=== PATIENT | female | born 1945 | race Caucasian/White ===

== ENCOUNTER 2018-01-16 16:55 | Inpatient (IN) | payer MEDICAID ==
[2018-01-16 16:56] VITALS: BMI 20.9
[2018-01-16] MEDS ORDERED: Sodium Chloride 0.9% 1,000 ML IV ONE ×2 (17:52→21:22)
--- NOTE | 2018-01-16 18:21 | C.PDOC ---
History Of Present Illness 72 y/o female presents to ED c/o diffuse abdominal pain and decreased appetite. (+)fecal occult blood in the clinic. Denies significant weight loss. Pt was referred to [facility] for outpatient colonoscopy. She denies blood in stool, fever, any other associated symptoms at this time. Time Seen by Provider: 01/16/18 17:43 Chief Complaint (Nursing): Abdominal Pain History Per: Patient History/Exam Limitations: no limitations Past Medical History Reviewed: Historical Data, Nursing Documentation, Vital Signs Vital Signs: Last Vital Signs Temp 98.6 F 01/16/18 17:01 Pulse 70 01/16/18 17:01 Resp 20 01/16/18 17:01 BP 200/82 H 01/16/18 17:01 Pulse Ox 100 01/16/18 17:01 - Medical History PMH: HTN, Hypercholesterolemia, Hypothyroidism, TIA (10 years ago) Denies: Chronic Kidney Disease Family History: States: Unknown Family Hx - Social History Hx Alcohol Use: No Hx Substance Use: No - Immunization History Hx Tetanus Toxoid Vaccination: (unk) Hx Influenza Vaccination: Yes (12/2017) Hx Pneumococcal Vaccination: No Review Of Systems Except As Marked, All Systems Reviewed And Found Negative. Constitutional: Negative for: Fever, Chills Gastrointestinal: Positive for: Nausea, Abdominal Pain. Negative for: Vomiting Genitourinary: Negative for: Dysuria, Frequency Physical Exam - Physical Exam Appears: Non-toxic, No Acute Distress Skin: Normal Color, Warm, Dry Head: Atraumatic, Normacephalic Eye(s): bilateral: Normal Inspection Oral Mucosa: Moist Neck: Supple Cardiovascular: Rhythm Regular Respiratory: Normal Breath Sounds, No Rales, No Rhonchi, No Wheezing Gastrointestinal/Abdominal: Soft, Tenderness (vague), No Guarding, No Rebound Back: No CVA Tenderness Extremity: Normal ROM Neurological/Psych: Oriented x3, Normal Speech ED Course And Treatment - Laboratory Results Result Diagrams: 01/16/18 18:23 01/16/18 18:23 Lab Interpretation: Abnormal (acute renal insuff, baselin bun/creat 9/0.8, lipase 451 H, Calcium 14.6 H (prior wnl many)) Urine POC: Negative ECG: Interpreted By Me ECG Rhythm: Sinus Rhythm ECG Interpretation: Normal Rate From EC O2 Sat by Pulse Oximetry: 100 Pulse Ox Interpretation: Normal - Radiology CXR: Interpreted by Me CXR Interpretation: Yes: No Acute Disease - Other Rad abd x 2 X-Ray: Interpreted by Me (+FOS) - CT Scan/US CT abd/pelvis Other Rad Studies (CT/US): Read By Radiologist, Radiology Report Reviewed CT/US Interpretation: IMPRESSION: No acute intra-abdominal or pelvic abnormality. . Electronically signed on Jan 16, 2018 9:15:50 PM EDT by: Jemal Ortiz M.D., Certified by ABR, Diagnostic Radiology Reevaluation Time: 21:26 Reassessment Condition: Improved - Physician Consult Information Outcome Of Conversation: 2130: d/w Dr. Mitchell- Hospitalist covering Clinic pts Medical Decision Making Medical Decision Making: dry, hypercalcemia, constipation, renal insuffiency, mild elevated LFT's concerning for metastatic dz Agressive hydration to lower Calcium Consider Tumor markers and further imaging for primary/mets Disposition Doctor Will See Patient In The: Hospital Counseled Patient/Family Regarding: Studies Performed, Diagnosis - Disposition Disposition: HOSPITALIZED Disposition Time: 21:36 Condition: GOOD Forms: [facility] (Bulgarian) - Clinical Impression Clinical Impression: Pancreatitis, Constipation, Hypercalcemia - Scribe Statement The provider has reviewed the documentation as recorded by the Scribe KP All medical record entries made by the Scribe were at my direction and personally dictated by me. I have reviewed the chart and agree that the record accurately reflects my personal performance of the history, physical exam, medical decision making, and the department course for this patient. I have also personally directed, reviewed, and agree with the discharge instructions and disposition.
--- NOTE | 2018-01-16 18:27 | RAD ---
Date of service: 01/16/2018 PROCEDURE: Radiographs of the chest and abdomen (obstructive series) HISTORY: abd pain COMPARISON: No prior. TECHNIQUE: AP radiograph of the chest, with upright and supine radiographs of the abdomen. FINDINGS: CHEST: Lungs: Clear. Cardiovascular: Normal size heart. No pulmonary vascular congestion. Pleura: No pleural fluid. No pneumothorax. Other findings: None. ABDOMEN AND PELVIS: Bowel: Unremarkable bowel gas pattern. No evidence of mechanical obstruction. Free air: None. Bones: Lytic disease throughout visualized osseous structures of the pelvis and proximal femurs. Less pronounced changes identified in the thorax. Findings suggestive of multiple myeloma. Other findings: None. IMPRESSION: No evidence of bowel obstruction or free air. Lytic disease throughout visualized pelvis and proximal femurs suggestive of multiple myeloma.
[2018-01-16 18:28] LABS: BASO # 0.1 K/uL (0.0-0.2); BASO % 0.9 % (0.0-2.0); EOS # 0.2 K/uL (0.0-0.7); EOS % 3.1 % (0.0-4.0); HEMOGLOBIN 10.8 g/dL (11.0-16.0); LYMPH # 2.3 K/uL (1.0-4.3); LYMPH % 34.9 % (20.0-40.0); MEAN CELL VOLUME 93.8 fL (81.0-99.0); MEAN CORPUSCULAR HEMOGLOBIN 32.2 pg (27.0-31.0); MEAN CORPUSCULAR HGB CONC 34.3 g/dL (33.0-37.0); MEAN PLATELET VOLUME 10.1 fL (7.2-11.7); MONO # 0.7 K/uL (0.0-0.8); MONO % 10.6 % (0.0-10.0); NEUT # 3.3 K/uL (1.8-7.0); NEUT % 50.5 % (50.0-75.0); NRBC % 0.3 % (0.0-2.0); RBC 3.36 Mil/uL (3.80-5.20); RED CELL DISTRIBUTION WIDTH 16.7 % (11.5-14.5); WHITE BLOOD COUNT 6.5 K/uL (4.8-10.8)
[2018-01-16 18:54] LABS: URINE BACTERIA RARE (<OCC); URINE BILIRUBIN NEGATIVE (NEGATIVE); URINE BLOOD 1+ (NEGATIVE); URINE CLARITY Clear (Clear); URINE COLOR Colorless (YELLOW); URINE GLUCOSE (UA) NORMAL (Normal); URINE LEUKOCYTE ESTERASE NEG Leu/uL (Negative); URINE PROTEIN 1+ mg/dL (NEGATIVE); URINE UROBILINOGEN NORMAL mg/dL (0.2-1.0)
[2018-01-16 19:17] LABS: ALB/GLOB RATIO 1.1 (1.0-2.1); ALBUMIN 4.7 g/dL (3.5-5.0)
[2018-01-16 19:43] LABS: TROPONIN I 0.013 ng/mL (0.00-0.120)
[2018-01-16 19:52] LABS: CALCIUM 14.6 mg/dl (8.6-10.4)
[2018-01-17] MEDS: Sodium Chloride 0.9% 1,000 ML IV SCH ×4 (00:13→22:44)
--- NOTE | 2018-01-17 04:04 | CP.PCM.HP ---
<SohanmadiegillesDominick P - Last Filed: 01/17/18 07:28> Meds Allergies/Adverse Reactions: Allergies Allergy/AdvReac Type Severity Reaction Status Date / Time No Known Allergies Allergy Verified 01/16/18 17:07 Results - Vital Signs Recent Vital Signs: Last Vital Signs Temp 98.1 F 01/17/18 00:05 Pulse 61 01/17/18 06:05 Resp 20 01/17/18 00:05 BP 186/76 H 01/17/18 06:05 Pulse Ox 98 01/17/18 00:05 - Labs Result Diagrams: 01/16/18 18:23 01/16/18 18:23 Labs: Laboratory Results - last 24 hr 01/16/18 01/16/18 01/16/18 18:23 18:23 18:39 WBC 6.5 D RBC 3.36 L Hgb 10.8 L Hct 31.5 L MCV 93.8 MCH 32.2 H MCHC 34.3 RDW 16.7 H Plt Count 109 L D MPV 10.1 Neut % (Auto) 50.5 Lymph % (Auto) 34.9 Scurry % (Auto) 10.6 H Eos % (Auto) 3.1 Baso % (Auto) 0.9 Neut # (Auto) 3.3 Lymph # (Auto) 2.3 Scurry # (Auto) 0.7 Eos # (Auto) 0.2 Baso # (Auto) 0.1 Sodium 137 Potassium 4.5 Chloride 93 L Carbon Dioxide 28 Anion Gap 21 H BUN 33 H Creatinine 3.0 H Est GFR ( Amer) 19 Est GFR (Non-Af Amer) 15 POC Glucose (mg/dL) Random Glucose 102 Calcium 14.6 H* D Total Bilirubin 1.4 H AST 52 H D ALT 33 Alkaline Phosphatase 59 Troponin I 0.0130 Total Protein 9.1 H Albumin 4.7 Globulin 4.4 H Albumin/Globulin Ratio 1.1 Lipase 351 H Urine Color Colorless Urine Clarity Clear Urine pH 7.0 Ur Specific [place] 1.005 Urine Protein 1+ H Urine Glucose (UA) Normal Urine Ketones Negative Urine Blood 1+ H Urine Nitrate Negative Urine Bilirubin Negative Urine Urobilinogen Normal Ur Leukocyte Esterase Neg Urine WBC (Auto) 1 Urine RBC (Auto) 3 Urine Bacteria Rare 01/17/18 02:23 WBC RBC Hgb Hct MCV MCH MCHC RDW Plt Count MPV Neut % (Auto) Lymph % (Auto) Scurry % (Auto) Eos % (Auto) Baso % (Auto) Neut # (Auto) Lymph # (Auto) Scurry # (Auto) Eos # (Auto) Baso # (Auto) Sodium Potassium Chloride Carbon Dioxide Anion Gap BUN Creatinine Est GFR ( Amer) Est GFR (Non-Af Amer) POC Glucose (mg/dL) 88 Random Glucose Calcium Total Bilirubin AST ALT Alkaline Phosphatase Troponin I Total Protein Albumin Globulin Albumin/Globulin Ratio Lipase Urine Color Urine Clarity Urine pH Ur Specific [place] Urine Protein Urine Glucose (UA) Urine Ketones Urine Blood Urine Nitrate Urine Bilirubin Urine Urobilinogen Ur Leukocyte Esterase Urine WBC (Auto) Urine RBC (Auto) Urine Bacteria Attending/Attestation - Attestation I have personally seen and examined this patient.: Yes I have fully participated in the care of the patient.: Yes I have reviewed all pertinent clinical information: Yes Notes (Text): 01/17/18 07:12 Symptomatic hypercalcimia with increased urination, abd colic, dehydration, shay, ? bone lesions on CT, but alert and oriented, no mental status changes. Uncontrolled chronic htn ? h/o tia DM on metformin Plan Hold Acei/Arb, HCTZ IVF saline Will need to add bp meds to control bp during hydration, Lasix with patient is clinically euvolemic W/u pth, pth like prot, 25-oh vitd, 24 hr urine calcium, bone scan survey Echo, renal usg, doppler Nephrology consult GI/DVT prophylaxis <Rose Harden P - Last Filed: 01/17/18 14:16> History of Present Illness - History of Present Illness History of Present Illness: PGY-1 H&P note for Hospitalist service. 72 year old female with PMHx of HTN, Hypercholesterol, TIA (2007), DM presents to ED from the clinic for evaluation of generalized abdominal pain, loss of ap petite, and elevated blood pressure for the past 2 weeks. Patient reports an unintentional 20 pound weight loss in the past 18 months, a + FIT test, increased urination and polydipsia. Patient denies fever, chills, vomiting, diarrhea. PMHx: DM, HTN, hypothyroid, PVD, SHAY, hypercholesterol, TIA (2007) PSHx: hysterectomy 2007, thyroidectomy, breast cyst removal 2015 Meds: Simvastatn 10mg daily, metformin 500mg BID, Atenolol 50mg once daily, Losartan-HCTZ, norvasc 10mg daily, syndroid 88 mcg, Pentoxifylline ER 400mg, Isosorbide Dinitrate 10mg BID Allergies: NKDA Social: Denies tobacco, alcohol and drug use Family Hx: unknown Present on Admission - Present on Admission Any Indicators Present on Admission: No Past Patient History - Past Medical History & Family History Past Medical History?: Yes - Past Social History Smoking Status: Never Smoked - CARDIAC Hx Cardiac Disorders: Yes Hx Hypercholesterolemia: Yes Hx Hypertension: Yes - PULMONARY Hx Respiratory Disorders: No - NEUROLOGICAL Hx Neurological Disorder: Yes Hx Transient Ischemic Attacks (TIA): Yes (10 years ago) - HEENT Hx HEENT Problems: No Other/Comment: glasses - RENAL Hx Chronic Kidney Disease: No - ENDOCRINE/METABOLIC Hx Endocrine Disorders: Yes Hx Hypothyroidism: Yes - HEMATOLOGICAL/ONCOLOGICAL Hx Blood Disorders: No - INTEGUMENTARY Hx Dermatological Problems: Yes Other/Comment: cyst right breast - MUSCULOSKELETAL/RHEUMATOLOGICAL Hx Falls: No - GASTROINTESTINAL Hx Gastrointestinal Disorders: Yes Other/Comment: hx pancreatitis - GENITOURINARY/GYNECOLOGICAL Hx Genitourinary Disorders: No - PSYCHIATRIC Hx Substance Use: No - SURGICAL HISTORY Hx Surgeries: Yes Hx Hysterectomy: Yes Hx Thyroidectomy: Yes - ANESTHESIA Hx Anesthesia: Yes Hx Anesthesia Reactions: Yes (pt. states heart stopped on table 10 years ago) Hx Malignant Hyperthermia: No Physical Exam - Head Exam Head Exam: ATRAUMATIC, NORMOCEPHALIC - Eye Exam Eye Exam: EOMI, PERRL - ENT Exam ENT Exam: Mucous Membranes Moist - Neck Exam Neck exam: Positive for: Full Rom, Normal Inspection - Respiratory Exam Respiratory Exam: Clear to Auscultation Bilateral. absent: Rales, Rhonchi, Wheezes - Cardiovascular Exam Cardiovascular Exam: REGULAR RHYTHM, +S1, +S2 - GI/Abdominal Exam GI & Abdominal Exam: Normal Bowel Sounds, Soft. absent: Guarding, Rebound, Tenderness - Extremities Exam Extremities exam: Positive for: full ROM, pedal pulses present. Negative for: calf tenderness, pedal edema, tenderness - Neurological Exam Neurological exam: Alert, CN II-XII Intact, Oriented x3 - Psychiatric Exam Psychiatric exam: Normal Affect, Normal Mood - Skin Skin Exam: Dry, Intact, Normal Color, Warm Results - Vital Signs Recent Vital Signs: Last Vital Signs Temp 98.1 F 01/17/18 00:05 Pulse 68 01/17/18 03:04 Resp 20 01/17/18 00:05 BP 191/77 H 01/17/18 03:04 Pulse Ox 98 01/17/18 00:05 - Labs Result Diagrams: 01/17/18 07:27 01/17/18 07:27 Labs: Laboratory Results - last 24 hr 01/16/18 01/16/18 01/16/18 18:23 18:23 18:39 WBC 6.5 D RBC 3.36 L Hgb 10.8 L Hct 31.5 L MCV 93.8 MCH 32.2 H MCHC 34.3 RDW 16.7 H Plt Count 109 L D MPV 10.1 Neut % (Auto) 50.5 Lymph % (Auto) 34.9 Scurry % (Auto) 10.6 H Eos % (Auto) 3.1 Baso % (Auto) 0.9 Neut # (Auto) 3.3 Lymph # (Auto) 2.3 Scurry # (Auto) 0.7 Eos # (Auto) 0.2 Baso # (Auto) 0.1 Sodium 137 Potassium 4.5 Chloride 93 L Carbon Dioxide 28 Anion Gap 21 H BUN 33 H Creatinine 3.0 H Est GFR ( Amer) 19 Est GFR (Non-Af Amer) 15 POC Glucose (mg/dL) Random Glucose 102 Calcium 14.6 H* D Total Bilirubin 1.4 H AST 52 H D ALT 33 Alkaline Phosphatase 59 Troponin I 0.0130 Total Protein 9.1 H Albumin 4.7 Globulin 4.4 H Albumin/Globulin Ratio 1.1 Lipase 351 H Urine Color Colorless Urine Clarity Clear Urine pH 7.0 Ur Specific [place] 1.005 Urine Protein 1+ H Urine Glucose (UA) Normal Urine Ketones Negative Urine Blood 1+ H Urine Nitrate Negative Urine Bilirubin Negative Urine Urobilinogen Normal Ur Leukocyte Esterase Neg Urine WBC (Auto) 1 Urine RBC (Auto) 3 Urine Bacteria Rare 01/17/18 02:23 WBC RBC Hgb Hct MCV MCH MCHC RDW Plt Count MPV Neut % (Auto) Lymph % (Auto) [place] % (Auto) Eos % (Auto) Baso % (Auto) Neut # (Auto) Lymph # (Auto) [place] # (Auto) Eos # (Auto) Baso # (Auto) Sodium Potassium Chloride Carbon Dioxide Anion Gap BUN Creatinine Est GFR ( Amer) Est GFR (Non-Af Amer) POC Glucose (mg/dL) 88 Random Glucose Calcium Total Bilirubin AST ALT Alkaline Phosphatase Troponin I Total Protein Albumin Globulin Albumin/Globulin Ratio Lipase Urine Color Urine Clarity Urine pH Ur Specific [place] Urine Protein Urine Glucose (UA) Urine Ketones Urine Blood Urine Nitrate Urine Bilirubin Urine Urobilinogen Ur Leukocyte Esterase Urine WBC (Auto) Urine RBC (Auto) Urine Bacteria Assessment & Plan - Assessment and Plan (Free Text) Plan: Hypercalcemia likely secondary to malignancy -14.6 on admission -Abd CT pelvis: There are multiple on varying sized rounded lytic lesions scattered throughout all the osseous structures. Findings probably represent multiple myeloma however metastatic disease not excluded. Clinical correlation recommended. -f/u bone scan -Calcium 24 hr urine -PTH, PTH related protein -Hemeonc consult, help appreciated -IVF Hypertensive urgency -Atenolol 50mg PO daily -hydralazine 25mg PO TID SHAY -Renal US -monitor labs - hold ACEi/ARB -nephrology consult, help appreciated DM -Hold metformin -accuchecks Hyperlipidemia -Hold statin Hypothyroid -Levothyroxine 100mcg Daily PAD -Pentoxifylline 400mg PO BID -isosorbide dinitrate 10mg PO daily Prophylaxis -SCDs -chemical anticoagulation held due to thrombocytopenia -Pepcid 20mg daily - Date & Time Date: 01/16/18 Time: 21:00
[2018-01-17] MEDS: Levothyroxine 100 MCG TAB PO SCH (06:24)
[2018-01-17] MEDS ORDERED: (Novolin R) Insulin Human Regular 100 units/ml vial SC SCH (07:30)
[2018-01-17 07:55] LABS: BASO % 0.9 % (0.0-2.0); EOS # 0.2 K/uL (0.0-0.7); EOS % 3.5 % (0.0-4.0); HEMOGLOBIN 10.3 g/dL (11.0-16.0); LYMPH # 1.8 K/uL (1.0-4.3); LYMPH % 34.1 % (20.0-40.0); MEAN CELL VOLUME 93.9 fL (81.0-99.0); MEAN CORPUSCULAR HEMOGLOBIN 31.4 pg (27.0-31.0); MEAN CORPUSCULAR HGB CONC 33.4 g/dL (33.0-37.0); MEAN PLATELET VOLUME 10.6 fL (7.2-11.7); MONO # 0.5 K/uL (0.0-0.8); MONO % 9.5 % (0.0-10.0); NEUT # 2.7 K/uL (1.8-7.0); NRBC % 0.1 % (0.0-2.0); RBC 3.28 Mil/uL (3.80-5.20); RED CELL DISTRIBUTION WIDTH 16.5 % (11.5-14.5); WHITE BLOOD COUNT 5.2 K/uL (4.8-10.8)
[2018-01-17 08:10] LABS: ALB/GLOB RATIO 1.2 (1.0-2.1); ALBUMIN 4.3 g/dL (3.5-5.0)
[2018-01-17 08:34] LABS: CALCIUM 14.5 mg/dl (8.6-10.4)
--- NOTE | 2018-01-17 11:34 | US ---
Date of service: 01/17/2018 PROCEDURE: Ultrasound of the Kidneys HISTORY: htn, kaya COMPARISON: None available. TECHNIQUE: Sonogram of the kidneys. FINDINGS: RIGHT KIDNEY: Measures: 11.0 x 4.6 x 4.5 cm. Normal in size and contour. The right kidney exhibits echogenic parenchyma consistent with underlying medical renal disease No stone, solid mass lesion or hydronephrosis visualized. LEFT KIDNEY: Measures: 11.3 x 5.6 x 4.5 cm. Normal in size and contour. Left kidney also exhibits echogenic parenchyma consistent with underlying medical renal disease.. No stone, solid mass lesion or hydronephrosis visualized. OTHER FINDINGS: None. IMPRESSION: Findings consistent with underlying medical renal disease. No evidence of nephrolithiasis or hydronephrosis.
--- NOTE | 2018-01-17 12:39 | CT ---
Date of service: 01/16/2018 PROCEDURE: CT Abdomen and Pelvis HISTORY: Pancreatitis, wt loss COMPARISON: No prior study available for comparison. TECHNIQUE: Contiguous axial images of the abdomen and pelvis. Coronal and Sagittal reformats generated. Radiation dose: Total exam DLP = 294.46 mGy-cm. This CT exam was performed using one or more of the following dose reduction techniques: Automated exposure control, adjustment of the mA and/or kV according to patient size, and/or use of iterative reconstruction technique. FINDINGS: LOWER THORAX: Minor passive/dependent type atelectasis both posterior lower lung guzman. No focal consolidation. No effusion or basilar pneumothorax. Heart size is mildly enlarged. No significant pericardial effusion. There is a small hiatal hernia. Minimal wall thickening of the distal esophagus likely due to protrusion gastric mucosa. Esophagitis not excluded. LIVER: Liver is enlarged measuring nearly 21 cm in CC dimension. No obvious hepatic mass collection or calcification. GALLBLADDER AND BILE DUCTS: Gallbladder is incompletely distended. No evidence of intraluminal gallbladder calculi. PANCREAS: Pancreas is not well delineated due to the lack of oral contrast material as well as a paucity of intraperitoneal and retroperitoneal fat. No obvious large pancreatic masses common collections or abnormal calcifications identified. No significant pancreatic duct dilatation. SPLEEN: Unremarkable. No splenomegaly. ADRENALS: There are no adrenal lesions. KIDNEYS AND URETERS: Kidneys demonstrate relatively symmetric size. No evidence of nephrolithiasis or hydronephrosis. BLADDER: Urinary bladder is physiologically distended. No evidence of intraluminal urinary bladder calculi. REPRODUCTIVE: Hysterectomy. APPENDIX: The appendix is not seen with complete certainty however no definitive evidence of acute appendicitis. BOWEL: The evaluation of the bowel is limited due to the lack of oral contrast material as well as a paucity of intraperitoneal fat with crowding of loops of bowel. Stomach is distended with food debris liquid and air. Visualized loops of small bowel exhibit relatively normal contour and caliber. No evidence of acute mechanical small bowel obstruction. Moderate amount of stool seen throughout the large bowel suggesting fecal retention/constipation. No definitive evidence of mural wall thickening. PERITONEUM: Unremarkable. No fluid collection. No free air. Small fat containing umbilical hernia. LYMPH NODES: Unremarkable. No enlarged lymph nodes. VASCULATURE: Unremarkable. No aortic aneurysm. BONES: There are numerous some varying sized rounded lytic lesions scattered throughout all the visualized lower thoracic lumbar sacral segments and pelvis. Lesions are also present within both proximal femurs. Findings may represent multiple myeloma however the diffuse metastatic disease to be considered. OTHER FINDINGS: None. IMPRESSION: There are multiple on varying sized rounded lytic lesions scattered throughout all the osseous structures. Findings probably represent multiple myeloma however metastatic disease not excluded. Clinical correlation recommended. Hepatomegaly. The note that this report was placed in PA review for follow-up. Findings also discussed with Dr. Pena at 12:37 p.m. with written down and read back verification
--- NOTE | 2018-01-17 16:36 | CP.PCM.PN ---
Subjective - Date & Time of Evaluation Date of Evaluation: 01/17/18 Time of Evaluation: 08:00 - Subjective Subjective: PGY2 Medicine Note for Dr. Murguia Patient seen and examined this morning at bedside. Patient states she is feeling better but is still experiencing some pain. She describes the pain as if her bones are hurting her, in her hip and low back. She is still experiencing some abdominal pain but she is seen eating breakfast. She states she is feeling much better compared to yesterday. Denies fevers, chills, nausea, vomiting, diarrhea, constipation, chest pain, shortness of breath, numbness or tingling. Objective - Vital Signs/Intake and Output Vital Signs (last 24 hours): Temp Pulse Resp BP Pulse Ox 98.5 F 85 20 155/79 H 96 01/17/18 08:00 01/17/18 14:00 01/17/18 08:00 01/17/18 14:00 01/17/18 08:00 Intake and Output: 01/17/18 01/17/18 06:59 18:59 Intake Total 300 Balance 300 - Medications Medications: Current Medications Acetaminophen (Tylenol 325mg Tab) 650 mg PO Q6 PRN PRN Reason: Pain, moderate (4-7) Aspirin (Aspirin Chewable) 81 mg PO DAILY [facility] Last Admin: 01/17/18 10:26 Dose: 81 mg Atenolol (Tenormin) 50 mg PO DAILY [facility] Last Admin: 01/17/18 10:26 Dose: 50 mg Famotidine (Pepcid) 20 mg PO DAILY [facility] Last Admin: 01/17/18 10:26 Dose: 20 mg Heparin Sodium (Porcine) (Heparin) 5,000 units SC Q12 [facility] Last Admin: 01/17/18 10:28 Dose: Not Given Hydralazine HCl (Apresoline) 25 mg PO TID [facility] Last Admin: 01/17/18 13:34 Dose: 25 mg Sodium Chloride (Sodium Chloride 0.9%) 1,000 mls @ 100 mls/hr IV .Q10H [facility] Isosorbide Dinitrate (Isordil) 10 mg PO DAILY [facility] Last Admin: 01/17/18 10:27 Dose: 10 mg Levothyroxine Sodium (Synthroid) 100 mcg PO DAILY@0630 [facility] Last Admin: 01/17/18 06:24 Dose: 100 mcg Pentoxifylline (Pentoxil) 400 mg PO BID [facility] Last Admin: 01/17/18 10:27 Dose: 400 mg Pneumococcal Polyvalent Vaccine (Pneumovax 23 Vaccine) 0.5 ml IM .ONCE ONE Stop: 01/18/18 10:01 - Labs Labs: 01/17/18 07:27 01/17/18 07:27 - Constitutional Appears: Non-toxic, No Acute Distress - Head Exam Head Exam: ATRAUMATIC, NORMOCEPHALIC - Eye Exam Eye Exam: Normal appearance - ENT Exam ENT Exam: Mucous Membranes Moist - Neck Exam Neck Exam: absent: Lymphadenopathy - Respiratory Exam Respiratory Exam: Clear to Ausculation Bilateral, NORMAL BREATHING PATTERN. absent: Accessory Muscle Use, Rales, Rhonchi, Wheezes, Respiratory Distress - Cardiovascular Exam Cardiovascular Exam: REGULAR RHYTHM, +S1, +S2 - GI/Abdominal Exam GI & Abdominal Exam: Soft. absent: Distended, Firm, Guarding, Rigid, Tenderness - Extremities Exam Extremities Exam: absent: Calf Tenderness, Pedal Edema - Back Exam Back Exam: vertebral tenderness (lumbar region). absent: paraspinal tenderness - Neurological Exam Neurological Exam: Alert, Awake, Oriented x3 - Psychiatric Exam Psychiatric exam: Normal Affect, Normal Mood - Skin Skin Exam: Dry, Warm Assessment and Plan - Assessment and Plan (Free Text) Plan: Hypercalcemia - ddx 2/2 multiple myeloma or malignancy - Hem/Onc consulted, Dr. Bran - help appreciated * patient will most likely need a bone biopsy to rule out multiple myeloma * follow up further recs - 14.6 on admission - Abd CT pelvis 01/17: There are multiple on varying sized rounded lytic lesions scattered throughout all the osseous structures. Findings probably represent multiple myeloma however metastatic disease not excluded. Clinical correlation recommended. - Bone Scan: pending - Calcium 24 hr urine - PTH, PTH related protein - NS@100mL/hr Hypertensive urgency - ECHO: pending official report - Aspirin 81mg PO daily - Atenolol 50mg PO daily - Hydralazine 25mg PO TID - Vasotec 2.5mg IVP for SBP>170 SHAY - nephrology consult, Dr. Espinal - Cr 3.3 (was 0.8 on 10/29/17) - Renal US: Findings consistent with underlying medical renal disease. No evidence of nephrolithiasis or hydronephrosis. - NS@100mL/hr DM - Hold metformin - accuchecks Hyperlipidemia -Hold statin Hypothyroid -Levothyroxine 100mcg Daily PAD -Pentoxifylline 400mg PO BID -isosorbide dinitrate 10mg PO daily Prophylaxis -SCDs -chemical anticoagulation held due to thrombocytopenia -Pepcid 20mg daily A conversation was had with patient, her and son at bedside because the family was confused and thought she was diagnosed with cancer. It was discussed that the patient has not been diagnosed with anything at this time but we are calling in multiple consults, Dr. Espinal (nephro) and Dr. Bran (hem/onc) to do further testing to find out the reason for the extensive increase of calcium in her blood. Patient's is currently being treated by Dr. Bran for prostate cancer and they thought that she had been diagnosed with cancer. Patient and family state they now understand that there is currently no diagnosis but cancer is a possibility for the increase in calcium, along with other reasons as well. Case discussed with Dr. Shantal Camacho Robbin PGY2
[2018-01-17] MEDS ORDERED: Enalaprilat 2.5 MG/2 ML IV PRN (17:30)
--- NOTE | 2018-01-17 18:13 | CP.PCM.CON ---
History of Present Illness - History of Present Illness History of Present Illness: 72 year old female with a history of hypothyroid, presenting with abdominal pain and diminished appetite, found to have hypercalcemia, renal failure, anemia/thrombocytopenia, and lytic bone lesions concerning for multiple myeloma. The patient notes to not feeling well for the past few days. She notes to increasing abdominal discomfort and poor appetite. She denies fevers and chills. She has no N/V/D. A CT scan revealed lytic bone lesions. Past medical history: Hyporthyroid Past surgical history: [employer] surgery Family history: Denies hematologic and oncologic problems Social history: Denies tobacco, alcohol, and illicit drug use. Allergies: NKA Review of systems: All remaining review of systems including HEENT, c ardiovascular, respiratory, gastrointestinal, genitourinary, musculoskeletal, dermatologic, neurologic, and psychiatric are negative unless mentioned in the HPI. Past Patient History - Past Medical History & Family History Past Medical History?: Yes - Past Social History Smoking Status: Never Smoked - CARDIAC Hx Cardiac Disorders: Yes Hx Hypercholesterolemia: Yes Hx Hypertension: Yes - PULMONARY Hx Respiratory Disorders: No - NEUROLOGICAL Hx Neurological Disorder: Yes Hx Transient Ischemic Attacks (TIA): Yes (10 years ago) - HEENT Hx HEENT Problems: No Other/Comment: glasses - RENAL Hx Chronic Kidney Disease: No - ENDOCRINE/METABOLIC Hx Endocrine Disorders: Yes Hx Hypothyroidism: Yes - HEMATOLOGICAL/ONCOLOGICAL Hx Blood Disorders: No - INTEGUMENTARY Hx Dermatological Problems: Yes Other/Comment: cyst right breast - MUSCULOSKELETAL/RHEUMATOLOGICAL Hx Falls: No - GASTROINTESTINAL Hx Gastrointestinal Disorders: Yes Other/Comment: hx pancreatitis - GENITOURINARY/GYNECOLOGICAL Hx Genitourinary Disorders: No - PSYCHIATRIC Hx Substance Use: No - SURGICAL HISTORY Hx Surgeries: Yes Hx Hysterectomy: Yes Hx Thyroidectomy: Yes - ANESTHESIA Hx Anesthesia: Yes Hx Anesthesia Reactions: Yes (pt. states heart stopped on table 10 years ago) Hx Malignant Hyperthermia: No Meds Allergies/Adverse Reactions: Allergies Allergy/AdvReac Type Severity Reaction Status Date / Time No Known Allergies Allergy Verified 01/16/18 17:07 - Medications Medications: Current Medications Acetaminophen (Tylenol 325mg Tab) 650 mg PO Q6 PRN PRN Reason: Pain, moderate (4-7) Aspirin (Aspirin Chewable) 81 mg PO DAILY [facility] Last Admin: 01/17/18 10:26 Dose: 81 mg Atenolol (Tenormin) 50 mg PO DAILY [facility] Last Admin: 01/17/18 10:26 Dose: 50 mg Enalaprilat (Vasotec) 1.25 mg IV Q6H PRN PRN Reason: SBP>170 Famotidine (Pepcid) 20 mg PO DAILY [facility] Last Admin: 01/17/18 10:26 Dose: 20 mg Heparin Sodium (Porcine) (Heparin) 5,000 units SC Q12 [facility] Last Admin: 01/17/18 10:28 Dose: Not Given Hydralazine HCl (Apresoline) 25 mg PO TID [facility] Last Admin: 01/17/18 13:34 Dose: 25 mg Sodium Chloride (Sodium Chloride 0.9%) 1,000 mls @ 100 mls/hr IV .Q10H [facility] Isosorbide Dinitrate (Isordil) 10 mg PO DAILY [facility] Last Admin: 01/17/18 10:27 Dose: 10 mg Levothyroxine Sodium (Synthroid) 100 mcg PO DAILY@0630 [facility] Last Admin: 01/17/18 06:24 Dose: 100 mcg Pentoxifylline (Pentoxil) 400 mg PO BID [facility] Last Admin: 01/17/18 10:27 Dose: 400 mg Pneumococcal Polyvalent Vaccine (Pneumovax 23 Vaccine) 0.5 ml IM .ONCE ONE Stop: 01/18/18 10:01 Physical Exam - Head Exam Head Exam: ATRAUMATIC - Eye Exam Eye Exam: Normal appearance - ENT Exam ENT Exam: Mucous Membranes Dry - Respiratory Exam Respiratory Exam: NORMAL BREATHING PATTERN - Cardiovascular Exam Cardiovascular Exam: +S1, +S2 - GI/Abdominal Exam GI & Abdominal Exam: Normal Bowel Sounds - Extremities Exam Extremities exam: Positive for: normal inspection - Neurological Exam Neurological exam: Oriented x3 - Psychiatric Exam Psychiatric exam: Normal Affect, Normal Mood - Skin Skin Exam: Warm Results - Vital Signs Recent Vital Signs: Last Vital Signs Temp 97.9 F 01/17/18 16:00 Pulse 61 01/17/18 16:00 Resp 20 01/17/18 16:00 BP 178/80 H 01/17/18 16:00 Pulse Ox 98 01/17/18 16:00 - Labs Result Diagrams: 01/18/18 07:24 01/18/18 07:24 Labs: Laboratory Results - last 24 hr 01/16/18 01/16/18 01/16/18 18:23 18:23 18:39 WBC 6.5 D RBC 3.36 L Hgb 10.8 L Hct 31.5 L MCV 93.8 MCH 32.2 H MCHC 34.3 RDW 16.7 H Plt Count 109 L D MPV 10.1 Neut % (Auto) 50.5 Lymph % (Auto) 34.9 [place] % (Auto) 10.6 H Eos % (Auto) 3.1 Baso % (Auto) 0.9 Neut # (Auto) 3.3 Lymph # (Auto) 2.3 [place] # (Auto) 0.7 Eos # (Auto) 0.2 Baso # (Auto) 0.1 Differential Comment Sodium 137 Potassium 4.5 Chloride 93 L Carbon Dioxide 28 Anion Gap 21 H BUN 33 H Creatinine 3.0 H Est GFR ( Amer) 19 Est GFR (Non-Af Amer) 15 POC Glucose (mg/dL) Random Glucose 102 Calcium 14.6 H* D Total Bilirubin 1.4 H AST 52 H D ALT 33 Alkaline Phosphatase 59 Troponin I 0.0130 Total Protein 9.1 H Albumin 4.7 Globulin 4.4 H Albumin/Globulin Ratio 1.1 Lipase 351 H 25-OH Vitamin D Total Urine Color Colorless Urine Clarity Clear Urine pH 7.0 Ur Specific [place] 1.005 Urine Protein 1+ H Urine Glucose (UA) Normal Urine Ketones Negative Urine Blood 1+ H Urine Nitrate Negative Urine Bilirubin Negative Urine Urobilinogen Normal Ur Leukocyte Esterase Neg Urine WBC (Auto) 1 Urine RBC (Auto) 3 Urine Bacteria Rare 01/17/18 01/17/18 01/17/18 02:23 07:27 07:27 WBC 5.2 RBC 3.28 L Hgb 10.3 L Hct 30.8 L MCV 93.9 MCH 31.4 H MCHC 33.4 RDW 16.5 H Plt Count 94 L MPV 10.6 Neut % (Auto) 52.0 Lymph % (Auto) 34.1 [place] % (Auto) 9.5 Eos % (Auto) 3.5 Baso % (Auto) 0.9 Neut # (Auto) 2.7 Lymph # (Auto) 1.8 [place] # (Auto) 0.5 Eos # (Auto) 0.2 Baso # (Auto) 0.0 Differential Comment Sodium 141 Potassium 3.7 Chloride 98 Carbon Dioxide 28 Anion Gap 18 BUN 27 H Creatinine 3.3 H Est GFR ( Amer) 17 Est GFR (Non-Af Amer) 14 POC Glucose (mg/dL) 88 Random Glucose 88 Calcium 14.5 H* Total Bilirubin 0.9 AST 30 ALT 37 Alkaline Phosphatase 54 Troponin I Total Protein 8.0 Albumin 4.3 Globulin 3.7 Albumin/Globulin Ratio 1.2 Lipase 25-OH Vitamin D Total Urine Color Urine Clarity Urine pH Ur Specific [place] Urine Protein Urine Glucose (UA) Urine Ketones Urine Blood Urine Nitrate Urine Bilirubin Urine Urobilinogen Ur Leukocyte Esterase Urine WBC (Auto) Urine RBC (Auto) Urine Bacteria 01/17/18 01/17/18 01/17/18 07:27 07:39 11:57 WBC RBC Hgb Hct MCV MCH MCHC RDW Plt Count MPV Neut % (Auto) Lymph % (Auto) [place] % (Auto) Eos % (Auto) Baso % (Auto) Neut # (Auto) Lymph # (Auto) [place] # (Auto) Eos # (Auto) Baso # (Auto) Differential Comment Sodium Potassium Chloride Carbon Dioxide Anion Gap BUN Creatinine Est GFR ( Amer) Est GFR (Non-Af Amer) POC Glucose (mg/dL) 83 70 Random Glucose Calcium Total Bilirubin AST ALT Alkaline Phosphatase Troponin I Total Protein Albumin Globulin Albumin/Globulin Ratio Lipase 25-OH Vitamin D Total 60.3 Urine Color Urine Clarity Urine pH Ur Specific [place] Urine Protein Urine Glucose (UA) Urine Ketones Urine Blood Urine Nitrate Urine Bilirubin Urine Urobilinogen Ur Leukocyte Esterase Urine WBC (Auto) Urine RBC (Auto) Urine Bacteria 01/17/18 16:15 WBC RBC Hgb Hct MCV MCH MCHC RDW Plt Count MPV Neut % (Auto) Lymph % (Auto) [place] % (Auto) Eos % (Auto) Baso % (Auto) Neut # (Auto) Lymph # (Auto) [place] # (Auto) Eos # (Auto) Baso # (Auto) Differential Comment Sodium Potassium Chloride Carbon Dioxide Anion Gap BUN Creatinine Est GFR ( Amer) Est GFR (Non-Af Amer) POC Glucose (mg/dL) 98 Random Glucose Calcium Total Bilirubin AST ALT Alkaline Phosphatase Troponin I Total Protein Albumin Globulin Albumin/Globulin Ratio Lipase 25-OH Vitamin D Total Urine Color Urine Clarity Urine pH Ur Specific [place] Urine Protein Urine Glucose (UA) Urine Ketones Urine Blood Urine Nitrate Urine Bilirubin Urine Urobilinogen Ur Leukocyte Esterase Urine WBC (Auto) Urine RBC (Auto) Urine Bacteria Assessment & Plan (1) Hypercalcemia Assessment and Plan: rule out malignancy ?multiple myeloma IV fluids recommend intact PTH myeloma w/u sent will consider bisphosphonate if malignancy confirmed and renal function improved Status: Acute (2) Lytic lesion of bone on x-ray Assessment and Plan: rule out multiple myeloma myeloma w/u sent will plan for bone marrow biopsy Friday Status: Acute (3) Anemia Assessment and Plan: retic, b12, folate, ferritin +FOBT ?multiple myeloma Status: Acute (4) Thrombocytopenia Assessment and Plan: ?multiple myeloma Thank you for this interesting consult. Status: Acute
[2018-01-18] MEDS: Levothyroxine 100 MCG TAB PO SCH (05:46)
[2018-01-18 07:36] LABS: BASO % 0.9 % (0.0-2.0); EOS # 0.2 K/uL (0.0-0.7); EOS % 3.6 % (0.0-4.0); HEMOGLOBIN 9.3 g/dL (11.0-16.0); LYMPH # 1.6 K/uL (1.0-4.3); LYMPH % 30.5 % (20.0-40.0); MEAN CELL VOLUME 94.1 fL (81.0-99.0); MEAN PLATELET VOLUME 10.1 fL (7.2-11.7); MONO # 0.5 K/uL (0.0-0.8); MONO % 10.2 % (0.0-10.0); NEUT # 2.8 K/uL (1.8-7.0); NEUT % 54.8 % (50.0-75.0); NRBC % 0.3 % (0.0-2.0); RBC 2.91 Mil/uL (3.80-5.20); RED CELL DISTRIBUTION WIDTH 16.6 % (11.5-14.5); WHITE BLOOD COUNT 5.2 K/uL (4.8-10.8)
[2018-01-18 08:24] LABS: ALB/GLOB RATIO 1.1 (1.0-2.1); ALBUMIN 3.8 g/dL (3.5-5.0); CALCIUM 13.6 mg/dl (8.6-10.4)
[2018-01-18] MEDS: Sodium Chloride 0.9% 1,000 ML IV SCH ×3 (08:45→17:50)
[2018-01-18] MEDS ORDERED: Pneumococcal 23-Valent Vaccine IM ONE (10:00)
[2018-01-18 14:22] LABS: URINE 24 HOUR CALCIUM 237.8 mg/24hr (100-300); URINE CALCIUM 8.2 mg/dL
--- NOTE | 2018-01-18 20:55 | CP.PCM.PN ---
<Doug Siegel - Last Filed: 01/18/18 20:47> Subjective - Date & Time of Evaluation Date of Evaluation: 01/18/18 Time of Evaluation: 10:00 - Subjective Subjective: PGY2 Medicine Note for Dr. Loco Patient seen and examined this morning at bedside. No acute events overnight. Patient states she is feeling better today but she is still experiencing mild abdominal pain. Her "bone pains" have slightly improved but are still present today. Patient had is scheduled for bone scan later this morning. Patient is tolerating her diet and reports her pain has been well controlled. Denies fevers, chills, nausea, vomiting, shortness of breath, numbness or tingling. Objective - Vital Signs/Intake and Output Vital Signs (last 24 hours): Temp Pulse Resp BP Pulse Ox 97.7 F 60 20 162/67 H 98 01/18/18 15:00 01/18/18 15:00 01/18/18 15:00 01/18/18 15:00 01/18/18 15:00 Intake and Output: 01/18/18 01/19/18 18:59 06:59 Intake Total 1979 Output Total 0 Balance 1980 - Medications Medications: Current Medications Acetaminophen (Tylenol 325mg Tab) 650 mg PO Q6 PRN PRN Reason: Pain, moderate (4-7) Aspirin (Aspirin Chewable) 81 mg PO DAILY [facility] Last Admin: 01/18/18 09:55 Dose: 81 mg Atenolol (Tenormin) 100 mg PO DAILY [facility] Last Admin: 01/18/18 10:11 Dose: 100 mg Famotidine (Pepcid) 20 mg PO DAILY [facility] Last Admin: 01/18/18 09:55 Dose: 20 mg Heparin Sodium (Porcine) (Heparin) 5,000 units SC Q12 [facility] Last Admin: 01/17/18 10:28 Dose: Not Given Hydralazine HCl (Apresoline) 50 mg PO TID [facility] Last Admin: 01/18/18 17:47 Dose: 50 mg Sodium Chloride (Sodium Chloride 0.9%) 1,000 mls @ 100 mls/hr IV .Q10H [facility] Last Admin: 01/18/18 17:50 Dose: 100 mls/hr Isosorbide Dinitrate (Isordil) 10 mg PO DAILY [facility] Last Admin: 01/18/18 10:12 Dose: 10 mg Levothyroxine Sodium (Synthroid) 100 mcg PO DAILY@0630 [facility] Last Admin: 01/18/18 05:46 Dose: 100 mcg Pentoxifylline (Pentoxil) 400 mg PO BID [facility] Last Admin: 01/18/18 17:47 Dose: 400 mg - Labs Labs: 01/18/18 07:24 01/18/18 07:24 - Additional Findings Additional findings: - Constitutional Appears: Non-toxic, No Acute Distress - Head Exam Head Exam: ATRAUMATIC, NORMOCEPHALIC - Eye Exam Eye Exam: Normal appearance - ENT Exam ENT Exam: Mucous Membranes Moist - Neck Exam Neck Exam: absent: Lymphadenopathy - Respiratory Exam Respiratory Exam: Clear to Ausculation Bilateral, NORMAL BREATHING PATTERN. absent: Accessory Muscle Use, Rales, Rhonchi, Wheezes, Respiratory Distress - Cardiovascular Exam Cardiovascular Exam: REGULAR RHYTHM, +S1, +S2 - GI/Abdominal Exam GI & Abdominal Exam: Soft. absent: Distended, Firm, Guarding, Rigid, Tenderness - Extremities Exam Extremities Exam: absent: Calf Tenderness, Pedal Edema - Back Exam Back Exam: vertebral tenderness (lumbar region). absent: paraspinal tenderness - Neurological Exam Neurological Exam: Alert, Awake, Oriented x3 - Psychiatric Exam Psychiatric exam: Normal Affect, Normal Mood - Skin Skin Exam: Dry, Warm Assessment and Plan - Assessment and Plan (Free Text) Plan: Hypercalcemia - ddx 2/2 multiple myeloma or malignancy - Hem/Onc consulted, Dr. Bran - help appreciated * patient will most likely need a bone biopsy to rule out multiple myeloma * follow up further recs - 14.6 on admission * downtrending to 13.6 today - Abd CT pelvis 01/17: There are multiple on varying sized rounded lytic lesions scattered throughout all the osseous structures. Findings probably represent multiple myeloma however metastatic disease not excluded. Clinical correlation recommended. - Bone Scan: official report pending - Calcium 24 hr urine - PTH intact, PTH related protein, [place]/Lambda, Immunofixation, Calcium (ionized), protein electrophoresis - Vit D 68.5 - NS@100mL/hr Hypertensive urgency - BP still uncontrolled - ECHO: pending official report - Aspirin 81mg PO daily - Atenolol 50mg PO daily --> increased to 100mg PO daily - Hydralazine 25mg PO TID --> increased to 50mg PO TID SHAY - nephrology consult, Dr. Espinal - Dr. Robles covering - Cr 3.3 (was 0.8 on 10/29/17) - Renal US: Findings consistent with underlying medical renal disease. No evidence of nephrolithiasis or hydronephrosis. - NS@100mL/hr DM - Hold metformin - accuchecks Hyperlipidemia -Hold statin Hypothyroid -Levothyroxine 100mcg Daily PAD -Pentoxifylline 400mg PO BID -isosorbide dinitrate 10mg PO daily Prophylactic Care -SCDs -chemical anticoagulation held due to thrombocytopenia -Pepcid 20mg daily Discussion with patient, patient's , Resident Robbin and Dr. Loco. It was reiterated to patient and her that there has not been any diagnosis of cancer at this time. It was explained specifically that we are doing multiple tests to attempt r/o different causing of hypercalcemia, but multiple myeloma specifically as it would explain all of the patient's signs/symptoms (hypercalcemia, renal insufficiency, anemia and bone lesions). Patient and state they understand that there is no new information at this time and that we are currently awaiting the test results. Case discussed with Dr. Claudy Reynan PGY2 <Rayne Loco V - Last Filed: 01/19/18 21:04> Objective - Vital Signs/Intake and Output Vital Signs (last 24 hours): Temp Pulse Resp BP Pulse Ox 97.4 F L 60 20 164/72 H 98 01/19/18 16:00 01/19/18 16:00 01/19/18 16:00 01/19/18 16:00 01/19/18 16:00 Intake and Output: 01/19/18 01/20/18 18:59 06:59 Intake Total 1600 Balance 1600 - Medications Medications: Current Medications Acetaminophen (Tylenol 325mg Tab) 650 mg PO Q6 PRN PRN Reason: Pain, moderate (4-7) Amlodipine Besylate (Norvasc) 10 mg PO DAILY [facility] Last Admin: 01/19/18 09:27 Dose: 10 mg Aspirin (Aspirin Chewable) 81 mg PO DAILY [facility] Last Admin: 01/19/18 09:30 Dose: 81 mg Atenolol (Tenormin) 100 mg PO DAILY [facility] Last Admin: 10/08/18 09:33 Dose: 100 mg Famotidine (Pepcid) 20 mg PO DAILY [facility] Last Admin: 01/19/18 09:27 Dose: 20 mg Heparin Sodium (Porcine) (Heparin) 5,000 units SC Q12 [facility] Last Admin: 01/17/18 10:28 Dose: Not Given Hydralazine HCl (Apresoline) 50 mg PO TID [facility] Last Admin: 01/19/18 17:52 Dose: 50 mg Sodium Chloride (Sodium Chloride 0.9%) 1,000 mls @ 100 mls/hr IV .Q10H [facility] Last Admin: 01/19/18 13:24 Dose: Not Given Isosorbide Dinitrate (Isordil) 10 mg PO DAILY [facility] Last Admin: 01/19/18 09:31 Dose: 10 mg Levothyroxine Sodium (Synthroid) 100 mcg PO DAILY@0630 [facility] Last Admin: 01/19/18 05:38 Dose: 100 mcg Pentoxifylline (Pentoxil) 400 mg PO BID [facility] Last Admin: 01/19/18 17:53 Dose: 400 mg - Labs Labs: 01/19/18 07:22 01/19/18 07:22 Attending/Attestation - Attestation I have personally seen and examined this patient.: Yes I have fully participated in the care of the patient.: Yes I have reviewed all pertinent clinical information, including history, physical exam and plan: Yes Notes (Text): This is late computer entry for 01/18/18. Patient seen, examined, and case discussed with medical doctor nuclear medicine. Patient reporting abdominal pains and reports bone pains. Patient has persistent hypercalcemia, anemia, acute renal insufficiency and strong suspicion for multiple myeloma. Patient on EKG does not show change in QT interval, nor chest pain, nor palpitations. Patient has had CT scan without contrast noting for lytic lesions. Nephrology (Dr. Espinal) being covered by Dr. Gilmore discussed case with him as well as patient is being following by heme oncology as well. Patient with history of hypertension, we have increased her beta roxana and hydralazine. Patient's echo is pending read as well. Assessment/Plan 1) Hypercalcemia Assessment/Plan * ddx 2/2 multiple myeloma or malignancy * Hem/Onc consulted, Dr. Bran - help appreciated * patient will most likely need a bone biopsy to rule out multiple myeloma * follow up further recs * 14.6 on admission * downtrending to 13.6 today * Patient is on IV fluids * Patient denies taking Vitamin D supplementation; vitamin D levels are normal * Workup pending including: * PTH intact, PTH related protein, [place]/Lambda, Immunofixation, Calcium (ionized), protein electrophoresis, Bence Pena * Abd CT pelvis 01/17: There are multiple on varying sized rounded lytic lesions scattered throughout all the osseous structures. Findings probably represent multiple myeloma however metastatic disease not excluded. Clinical correlation recommended. * Bone Scan: official report pending * Patient to undergo Calcium 24 hr urine 2) Hypertensive urgency Assessment/Plan * BP still uncontrolled * ECHO: pending official report * Aspirin 81mg PO daily * Atenolol 50mg PO daily --> increased to 100mg PO daily * Hydralazine 25mg PO TID --> increased to 50mg PO TID * isosorbide dinitrate 10mg PO daily 3) Acute Renal Failure Assessment/Plan * nephrology consult, Dr. Espinal - Dr. Robles covering * Cr 3.3 (was 0.8 on 10/29/17) * Renal US: Findings consistent with underlying medical renal disease. No evidence of nephrolithiasis or hydronephrosis. * NS@100mL/hr 4) History of DM Assessment/Plan * Hold metformin * accuchecks QAC and HS 5) Hyperlipidemia Assessment/Plan * Hold statin 6) Hypothyroid Assessment/Plan * Levothyroxine 100mcg Daily 7) PAD Assessment/Plan * Pentoxifylline 400mg PO BID 8) Prophylactic Care * SCDs * chemical anticoagulation held due to thrombocytopenia * Pepcid 20mg daily
--- NOTE | 2018-01-18 21:31 | CP.PCM.PN ---
Subjective - Date & Time of Evaluation Date of Evaluation: 01/18/18 Time of Evaluation: 19:00 - Subjective Subjective: Feeling better Objective - Vital Signs/Intake and Output Vital Signs (last 24 hours): Temp Pulse Resp BP Pulse Ox 97.7 F 60 20 162/67 H 98 01/18/18 15:00 01/18/18 15:00 01/18/18 15:00 01/18/18 15:00 01/18/18 15:00 Intake and Output: 01/18/18 01/19/18 18:59 06:59 Intake Total 1980 Output Total 0 Balance 1979 - Medications Medications: Current Medications Acetaminophen (Tylenol 325mg Tab) 650 mg PO Q6 PRN PRN Reason: Pain, moderate (4-7) Aspirin (Aspirin Chewable) 81 mg PO DAILY [facility] Last Admin: 01/18/18 09:55 Dose: 81 mg Atenolol (Tenormin) 100 mg PO DAILY [facility] Last Admin: 01/18/18 10:11 Dose: 100 mg Famotidine (Pepcid) 20 mg PO DAILY [facility] Last Admin: 01/18/18 09:55 Dose: 20 mg Heparin Sodium (Porcine) (Heparin) 5,000 units SC Q12 [facility] Last Admin: 01/17/18 10:28 Dose: Not Given Hydralazine HCl (Apresoline) 50 mg PO TID [facility] Last Admin: 01/18/18 17:47 Dose: 50 mg Sodium Chloride (Sodium Chloride 0.9%) 1,000 mls @ 100 mls/hr IV .Q10H [facility] Last Admin: 01/18/18 17:50 Dose: 100 mls/hr Isosorbide Dinitrate (Isordil) 10 mg PO DAILY [facility] Last Admin: 01/18/18 10:12 Dose: 10 mg Levothyroxine Sodium (Synthroid) 100 mcg PO DAILY@0630 [facility] Last Admin: 01/18/18 05:46 Dose: 100 mcg Pentoxifylline (Pentoxil) 400 mg PO BID [facility] Last Admin: 01/18/18 17:47 Dose: 400 mg - Labs Labs: 01/18/18 07:24 01/18/18 07:24 - Head Exam Head Exam: ATRAUMATIC - Eye Exam Eye Exam: Normal appearance - ENT Exam ENT Exam: Mucous Membranes Dry - Respiratory Exam Respiratory Exam: NORMAL BREATHING PATTERN - Cardiovascular Exam Cardiovascular Exam: +S1, +S2 - GI/Abdominal Exam GI & Abdominal Exam: Normal Bowel Sounds Assessment and Plan (1) Hypercalcemia Assessment & Plan: IV fluids myeloma w/u bone marrow biopsy for Friday Status: Acute (2) Lytic lesion of bone on x-ray Status: Acute (3) Anemia Status: Acute (4) Thrombocytopenia Status: Acute
--- NOTE | 2018-01-18 21:39 | CP.PCM.CON ---
History of Present Illness - History of Present Illness History of Present Illness: REASONS FOR CONSULT : SHAY + ANEMIA + HYPERCALCEMIA ALONG WITH THROMBOCYTOPENIA ALL EMR REVIEWED .. LABS REVIEWED .. CASE D/W MED RESIDENT ON ROUND .. I AM COVERING FOR DR HARRIS 72 year old female with PMHx of HTN, Hypercholesterol, TIA (2007), DM presents to ED from the clinic for evaluation of generalized abdominal pain, loss of appetite, and elevated blood pressure for the past 2 weeks. Patient reports an unintentional 20 pound weight loss in the past 18 months, a + FIT test, increased urination and polydipsia. Patient denies fever, chills, vomiting, diarrhea. PMHx: DM, HTN, hypothyroid, PVD, SHAY, hypercholesterol, TIA (2007) PSHx: hysterectomy 2007, thyroidectomy, breast cyst removal 2015 Meds: Simvastatn 10mg daily, metformin 500mg BID, Atenolol 50mg once daily, Losartan-HCTZ, norvasc 10mg daily, syndroid 88 mcg, Pentoxifylline ER 400mg, Isosorbide Dinitrate 10mg BID Allergies: NKDA Social: Denies tobacco, alcohol and drug use Family Hx: unknown Present on Admission - Present on Admission Any Indicators Present on Admission: No Past Patient History - Past Medical History & Family History Past Medical History?: Yes - Past Social History Smoking Status: Never Smoked - CARDIAC Hx Cardiac Disorders: Yes Hx Hypercholesterolemia: Yes Hx Hypertension: Yes - PULMONARY Hx Respiratory Disorders: No - NEUROLOGICAL Hx Neurological Disorder: Yes Hx Transient Ischemic Attacks (TIA): Yes (10 years ago) - HEENT Hx HEENT Problems: No Other/Comment: glasses - RENAL Hx Chronic Kidney Disease: No - ENDOCRINE/METABOLIC Hx Endocrine Disorders: Yes Hx Hypothyroidism: Yes - HEMATOLOGICAL/ONCOLOGICAL Hx Blood Disorders: No - INTEGUMENTARY Hx Dermatological Problems: Yes Other/Comment: cyst right breast - MUSCULOSKELETAL/RHEUMATOLOGICAL Hx Falls: No - GASTROINTESTINAL Hx Gastrointestinal Disorders: Yes Other/Comment: hx pancreatitis - GENITOURINARY/GYNECOLOGICAL Hx Genitourinary Disorders: No - PSYCHIATRIC Hx Substance Use: No - SURGICAL HISTORY Hx Surgeries: Yes Hx Hysterectomy: Yes Hx Thyroidectomy: Yes - ANESTHESIA Hx Anesthesia: Yes Hx Anesthesia Reactions: Yes (pt. states heart stopped on table 10 years ago) Hx Malignant Hyperthermia: No Past Patient History - Past Medical History & Family History Past Medical History?: Yes - Past Social History Smoking Status: Never Smoked - CARDIAC Hx Cardiac Disorders: Yes Hx Hypercholesterolemia: Yes Hx Hypertension: Yes - PULMONARY Hx Respiratory Disorders: No - NEUROLOGICAL Hx Neurological Disorder: Yes Hx Transient Ischemic Attacks (TIA): Yes (10 years ago) - HEENT Hx HEENT Problems: No Other/Comment: glasses - RENAL Hx Chronic Kidney Disease: No - ENDOCRINE/METABOLIC Hx Endocrine Disorders: Yes Hx Hypothyroidism: Yes - HEMATOLOGICAL/ONCOLOGICAL Hx Blood Disorders: No - INTEGUMENTARY Hx Dermatological Problems: Yes Other/Comment: cyst right breast - MUSCULOSKELETAL/RHEUMATOLOGICAL Hx Falls: No - GASTROINTESTINAL Hx Gastrointestinal Disorders: Yes Other/Comment: hx pancreatitis - GENITOURINARY/GYNECOLOGICAL Hx Genitourinary Disorders: No - PSYCHIATRIC Hx Substance Use: No - SURGICAL HISTORY Hx Surgeries: Yes Hx Hysterectomy: Yes Hx Thyroidectomy: Yes - ANESTHESIA Hx Anesthesia: Yes Hx Anesthesia Reactions: Yes (pt. states heart stopped on table 10 years ago) Hx Malignant Hyperthermia: No Meds Allergies/Adverse Reactions: Allergies Allergy/AdvReac Type Severity Reaction Status Date / Time No Known Allergies Allergy Verified 01/16/18 17:07 - Medications Medications: Current Medications Acetaminophen (Tylenol 325mg Tab) 650 mg PO Q6 PRN PRN Reason: Pain, moderate (4-7) Aspirin (Aspirin Chewable) 81 mg PO DAILY [facility] Last Admin: 01/18/18 09:55 Dose: 81 mg Atenolol (Tenormin) 100 mg PO DAILY [facility] Last Admin: 01/18/18 10:11 Dose: 100 mg Famotidine (Pepcid) 20 mg PO DAILY [facility] Last Admin: 01/18/18 09:55 Dose: 20 mg Heparin Sodium (Porcine) (Heparin) 5,000 units SC Q12 [facility] Last Admin: 01/17/18 10:28 Dose: Not Given Hydralazine HCl (Apresoline) 50 mg PO TID [facility] Last Admin: 01/18/18 17:47 Dose: 50 mg Sodium Chloride (Sodium Chloride 0.9%) 1,000 mls @ 100 mls/hr IV .Q10H [facility] Last Admin: 01/18/18 17:50 Dose: 100 mls/hr Isosorbide Dinitrate (Isordil) 10 mg PO DAILY [facility] Last Admin: 01/18/18 10:12 Dose: 10 mg Levothyroxine Sodium (Synthroid) 100 mcg PO DAILY@0630 [facility] Last Admin: 01/18/18 05:46 Dose: 100 mcg Pentoxifylline (Pentoxil) 400 mg PO BID [facility] Last Admin: 01/18/18 17:47 Dose: 400 mg Results - Vital Signs Recent Vital Signs: Last Vital Signs Temp 97.7 F 01/18/18 15:00 Pulse 60 01/18/18 15:00 Resp 20 01/18/18 15:00 BP 162/67 H 01/18/18 15:00 Pulse Ox 98 01/18/18 15:00 - Labs Result Diagrams: 01/18/18 07:24 01/18/18 07:24 Labs: Laboratory Results - last 24 hr 01/18/18 01/18/18 01/18/18 07:16 07:24 07:24 WBC 5.2 RBC 2.91 L Hgb 9.3 L Hct 27.4 L MCV 94.1 MCH 32.0 H MCHC 34.0 RDW 16.6 H Plt Count 85 L MPV 10.1 Neut % (Auto) 54.8 Lymph % (Auto) 30.5 [place] % (Auto) 10.2 H Eos % (Auto) 3.6 Baso % (Auto) 0.9 Neut # (Auto) 2.8 Lymph # (Auto) 1.6 [place] # (Auto) 0.5 Eos # (Auto) 0.2 Baso # (Auto) 0.0 Sodium 139 Potassium 3.7 Chloride 102 Carbon Dioxide 25 Anion Gap 16 BUN 32 H Creatinine 3.3 H Est GFR ( Amer) 17 Est GFR (Non-Af Amer) 14 POC Glucose (mg/dL) 98 Random Glucose 98 Calcium 13.6 H* Total Bilirubin 0.7 AST 29 ALT 33 Alkaline Phosphatase 49 Total Protein 7.3 Albumin 3.8 Globulin 3.5 Albumin/Globulin Ratio 1.1 25-OH Vitamin D Total Urine Collection Time Urine Total Volume Urine Calcium Ur Calcium 24 Hr 01/18/18 01/18/18 01/18/18 11:45 12:00 13:32 WBC RBC Hgb Hct MCV MCH MCHC RDW Plt Count MPV Neut % (Auto) Lymph % (Auto) [place] % (Auto) Eos % (Auto) Baso % (Auto) Neut # (Auto) Lymph # (Auto) [place] # (Auto) Eos # (Auto) Baso # (Auto) Sodium Potassium Chloride Carbon Dioxide Anion Gap BUN Creatinine Est GFR ( Amer) Est GFR (Non-Af Amer) POC Glucose (mg/dL) 115 H Random Glucose Calcium Total Bilirubin AST ALT Alkaline Phosphatase Total Protein Albumin Globulin Albumin/Globulin Ratio 25-OH Vitamin D Total 68.5 Urine Collection Time 24 Urine Total Volume 2900 Urine Calcium 8.2 Ur Calcium 24 Hr 237.8 01/18/18 16:05 WBC RBC Hgb Hct MCV MCH MCHC RDW Plt Count MPV Neut % (Auto) Lymph % (Auto) [place] % (Auto) Eos % (Auto) Baso % (Auto) Neut # (Auto) Lymph # (Auto) [place] # (Auto) Eos # (Auto) Baso # (Auto) Sodium Potassium Chloride Carbon Dioxide Anion Gap BUN Creatinine Est GFR ( Amer) Est GFR (Non-Af Amer) POC Glucose (mg/dL) 141 H Random Glucose Calcium Total Bilirubin AST ALT Alkaline Phosphatase Total Protein Albumin Globulin Albumin/Globulin Ratio 25-OH Vitamin D Total Urine Collection Time Urine Total Volume Urine Calcium Ur Calcium 24 Hr Assessment & Plan - Assessment and Plan (Free Text) Plan: SHAY + HYPERCALCEMIA + ANEMIA + LUTIC LESION ON CT SCAN .. PROBABLY MM KIDNEY HYPERCALCEMIA .. PROBABLY 2/2 MM MMP OUTLINED ABOVE P : C/O IVF D/C METFORMIN e GFR < 30 HEM / ONC CONSULT .. DR VICTOR MANUEL VAIL F/U WITH YOU VERY CLOSELY DR HARRIS TO F/U IN AM - Date & Time Date: 01/18/18 Time: 18:00
[2018-01-19] MEDS: Sodium Chloride 0.9% 1,000 ML IV SCH ×4 (05:07→23:40)
[2018-01-19] MEDS: Levothyroxine 100 MCG TAB PO SCH (05:38)
[2018-01-19 07:31] LABS: BASO % 0.9 % (0.0-2.0); EOS # 0.2 K/uL (0.0-0.7); EOS % 4.4 % (0.0-4.0); HEMOGLOBIN 9.4 g/dL (11.0-16.0); LYMPH # 1.7 K/uL (1.0-4.3); MEAN CELL VOLUME 93.8 fL (81.0-99.0); MEAN CORPUSCULAR HGB CONC 34.1 g/dL (33.0-37.0); MEAN PLATELET VOLUME 10.2 fL (7.2-11.7); MONO # 0.5 K/uL (0.0-0.8); NEUT # 3.1 K/uL (1.8-7.0); NEUT % 55.7 % (50.0-75.0); NRBC % 0.2 % (0.0-2.0); RBC 2.92 Mil/uL (3.80-5.20); RED CELL DISTRIBUTION WIDTH 16.8 % (11.5-14.5); WHITE BLOOD COUNT 5.5 K/uL (4.8-10.8)
--- NOTE | 2018-01-19 08:02 | CARD ---
APPROVED REPORT Date of service: 01/16/2018 EKG Measurement Heart [id number] <Conclusion> Normal sinus rhythm Nonspecific ST and T wave abnormality Abnormal ECG
[2018-01-19 08:24] LABS: ALB/GLOB RATIO 1.1 (1.0-2.1); ALBUMIN 3.8 g/dL (3.5-5.0)
[2018-01-19 08:56] LABS: CALCIUM 14.1 mg/dl (8.6-10.4)
--- NOTE | 2018-01-19 09:27 | CP.PCM.PN ---
<Santhosh Sauer - Last Filed: 01/19/18 18:19> Subjective - Date & Time of Evaluation Date of Evaluation: 01/19/18 Time of Evaluation: 09:10 - Subjective Subjective: Medicine Progress Note for Hospitalist Service Pt seen and examined at bedside this am. Reports R shoulder and leg pain that has been present for several weeks s/p fall at home on affected side. Reports diffuse abd pain, has been able to tolerate liquids but states she still feels very fatigued this am. Denies fever, chills, chest pain, sob, n/v/d/c, urinary complaints, or other symptoms. Reports urinary stream is about the same as yesterday. Objective - Vital Signs/Intake and Output Vital Signs (last 24 hours): Temp Pulse Resp BP Pulse Ox 98.3 F 61 20 180/77 H 97 01/19/18 08:38 01/19/18 08:38 01/19/18 08:38 01/19/18 08:38 01/19/18 08:38 Intake and Output: 01/19/18 01/19/18 06:59 18:59 Intake Total 1000 800 Output Total 400 Balance 600 800 - Medications Medications: Current Medications Acetaminophen (Tylenol 325mg Tab) 650 mg PO Q6 PRN PRN Reason: Pain, moderate (4-7) Amlodipine Besylate (Norvasc) 10 mg PO DAILY [facility] Aspirin (Aspirin Chewable) 81 mg PO DAILY [facility] Last Admin: 01/18/18 09:55 Dose: 81 mg Atenolol (Tenormin) 100 mg PO DAILY [facility] Last Admin: 01/18/18 10:11 Dose: 100 mg Famotidine (Pepcid) 20 mg PO DAILY [facility] Last Admin: 01/18/18 09:55 Dose: 20 mg Heparin Sodium (Porcine) (Heparin) 5,000 units SC Q12 [facility] Last Admin: 01/17/18 10:28 Dose: Not Given Hydralazine HCl (Apresoline) 50 mg PO TID [facility] Last Admin: 01/18/18 17:47 Dose: 50 mg Sodium Chloride (Sodium Chloride 0.9%) 1,000 mls @ 100 mls/hr IV .Q10H [facility] Last Admin: 01/19/18 05:08 Dose: 100 mls/hr Isosorbide Dinitrate (Isordil) 10 mg PO DAILY [facility] Last Admin: 10/07/18 10:12 Dose: 10 mg Levothyroxine Sodium (Synthroid) 100 mcg PO DAILY@0630 [facility] Last Admin: 01/19/18 05:38 Dose: 100 mcg Pentoxifylline (Pentoxil) 400 mg PO BID [facility] Last Admin: 01/18/18 17:47 Dose: 400 mg - Labs Labs: 01/19/18 07:22 01/19/18 07:22 - Constitutional Appears: Non-toxic, No Acute Distress, Chronically Ill - Head Exam Head Exam: ATRAUMATIC, NORMOCEPHALIC - Eye Exam Eye Exam: EOMI, Normal appearance, PERRL - ENT Exam ENT Exam: Mucous Membranes Moist - Respiratory Exam Respiratory Exam: Clear to Ausculation Bilateral, NORMAL BREATHING PATTERN. absent: Rales, Rhonchi, Wheezes - Cardiovascular Exam Cardiovascular Exam: REGULAR RHYTHM, +S1, +S2. absent: Gallop, Rubs, Murmur - GI/Abdominal Exam GI & Abdominal Exam: Soft, Tenderness, Normal Bowel Sounds, Rebound. absent: Distended, Firm, Guarding, Rigid, Organomegaly Additional comments: Diffuse tenderness to palpation in all 4 quadrants - Extremities Exam Extremities Exam: Full ROM, Normal Capillary Refill, Normal Inspection - Neurological Exam Neurological Exam: Alert, Awake, CN II-XII Intact, Oriented x3 - Psychiatric Exam Psychiatric exam: Normal Affect, Normal Mood - Skin Skin Exam: Dry, Intact, Normal Color, Warm Assessment and Plan - Assessment and Plan (Free Text) Plan: Hypercalcemia - Ddx 2/2 multiple myeloma or malignancy - Hem/Onc consulted, Dr. Bran - help appreciated patient will most likely need a bone biopsy to rule out multiple myeloma, possible bone marrow bx Tues 10 am follow up further recs - 14.6 on admission downtrending to 14.1 today - Abd CT pelvis 01/17: There are multiple on varying sized rounded lytic lesions scattered throughout all the osseous structures. Findings probably represent multiple myeloma however metastatic disease not excluded. Clinical correlation recommended. - Bone Scan: official report pending - Calcium 24 hr urine - PTH intact, PTH related protein, [place]/Lambda, Immunofixation, Calcium (ionized), protein electrophoresis - Vit D 68.5 - NS@100mL/hr - F/u XR shoulders b/l, repeat Ct abd/pelvis w/ PO contrast (pt c/o diffuse abd pain, prior CT study w/o contrast), echo read - Pt to be transferred to tele floor for elevated Ca Hypertensive urgency - BP still uncontrolled - ECHO: pending official report - Aspirin 81mg PO daily - Atenolol 50mg PO daily --> increased to 100mg PO daily - Hydralazine 25mg PO TID --> increased to 50mg PO TID - Amlodipine 10 mg daily added SHAY - nephrology consult, Dr. Espinal, f/u recs - Cr 3.3 today (was 0.8 on 10/29/17) - Renal US: Findings consistent with underlying medical renal disease. No evidence of nephrolithiasis or hydronephrosis. - NS@100mL/hr DM - Hold metformin - accuchecks Hyperlipidemia -Hold statin Hypothyroid -Levothyroxine 100mcg Daily PAD -Pentoxifylline 400mg PO BID -isosorbide dinitrate 10mg PO daily Prophylactic Care -SCDs -chemical anticoagulation held due to thrombocytopenia -Pepcid 20mg daily Pt seen, examined with, and plan d/w Dr. Loco, attending. Santhosh Sauer DO PGY-1, Science Technician Pager #[phone] <Rayne Loco V - Last Filed: 01/19/18 21:14> Objective - Vital Signs/Intake and Output Vital Signs (last 24 hours): Temp Pulse Resp BP Pulse Ox 97.4 F L 60 20 164/72 H 98 01/19/18 16:00 01/19/18 16:00 01/19/18 16:00 01/19/18 16:00 01/19/18 16:00 Intake and Output: 01/19/18 01/20/18 18:59 06:59 Intake Total 1600 Balance 1600 - Medications Medications: Current Medications Acetaminophen (Tylenol 325mg Tab) 650 mg PO Q6 PRN PRN Reason: Pain, moderate (4-7) Amlodipine Besylate (Norvasc) 10 mg PO DAILY [facility] Last Admin: 01/19/18 09:27 Dose: 10 mg Aspirin (Aspirin Chewable) 81 mg PO DAILY [facility] Last Admin: 01/19/18 09:30 Dose: 81 mg Atenolol (Tenormin) 100 mg PO DAILY [facility] Last Admin: 01/19/18 09:33 Dose: 100 mg Famotidine (Pepcid) 20 mg PO DAILY [facility] Last Admin: 01/19/18 09:27 Dose: 20 mg Heparin Sodium (Porcine) (Heparin) 5,000 units SC Q12 [facility] Last Admin: 01/17/18 10:28 Dose: Not Given Hydralazine HCl (Apresoline) 50 mg PO TID [facility] Last Admin: 01/19/18 17:52 Dose: 50 mg Sodium Chloride (Sodium Chloride 0.9%) 1,000 mls @ 100 mls/hr IV .Q10H [facility] Last Admin: 01/19/18 13:24 Dose: Not Given Isosorbide Dinitrate (Isordil) 10 mg PO DAILY [facility] Last Admin: 01/19/18 09:31 Dose: 10 mg Levothyroxine Sodium (Synthroid) 100 mcg PO DAILY@0630 [facility] Last Admin: 01/19/18 05:38 Dose: 100 mcg Pentoxifylline (Pentoxil) 400 mg PO BID [facility] Last Admin: 01/19/18 17:53 Dose: 400 mg - Labs Labs: 01/19/18 07:22 01/19/18 07:22 Attending/Attestation - Attestation I have personally seen and examined this patient.: Yes I have fully participated in the care of the patient.: Yes I have reviewed all pertinent clinical information, including history, physical exam and plan: Yes Notes (Text): Patient seen, examined and case discussed with medical administrator. Patient seen this afternoon. Patient continues to report abdominal pain, patient does have guarding on exam and reports she is constipated which she normally isnt. In addition, patient noting pain over the right shoulder and arm as well. Bone scan report not available at time of rounds; we have ordered for xrays in light of lytic lesions. patient has persistent hypercalcemia, will transfer to telemetry, and monitor urine output since renal function is poor. Patient reports she is urinating. Patient is planned for bone marrow biopsy tomorrow with Dr. Bran in the morning Assessment/Plan 1) Hypercalcemia Assessment/Plan * ddx 2/2 multiple myeloma or malignancy * Hem/Onc consulted, Dr. Bran - help appreciated * patient will most likely need a bone biopsy to rule out multiple myeloma * follow up further recs * 14.6 on admission * persistent * Patient is on IV fluids * Patient denies taking Vitamin D supplementation; vitamin D levels are normal * Workup pending including: * PTH intact, PTH related protein, [place]/Lambda, Immunofixation, Calcium (ionized), protein electrophoresis, Bence Pena * Abd CT pelvis 01/17: There are multiple on varying sized rounded lytic lesions scattered throughout all the osseous structures. Findings probably represent multiple myeloma however metastatic disease not excluded. Clinical correlation recommended. * Bone Scan: no correlates to findings on recent CT scan. specifically, the permeative pattern throughout thoracolumbar spine and pelvis constitutes lytic disease most likely myeloma * Patient to undergo Calcium 24 hr urine 2) Hypertensive urgency Assessment/Plan * BP still uncontrolled * ECHO: pending official report * Aspirin 81mg PO daily * Start on Norvasc 10mg Po daily * Atenolol 100mg PO daily * Hydralazine 50mg PO TID * isosorbide dinitrate 10mg PO daily * echocardiogram: left ventricle systolic function is normal. EF>70%. diastolic dysfunction. no aortic regurgitation is present. Mitral regurgitation is mild. Mild tricuspid regurgitation. mild pulmonary hypertension. mild pulmonic valvular regurgitation 3) Acute Renal Failure Assessment/Plan * nephrology consult, Dr. Espinal - Dr. Robles covering * Cr 3.3 (was 0.8 on 10/29/17) * Renal US: Findings consistent with underlying medical renal disease. No evidence of nephrolithiasis or hydronephrosis. * NS@100mL/hr * Pending renal scan nuclear medicine 4) History of DM Assessment/Plan * Hold metformin * accuchecks QAC and HS 5) Hyperlipidemia Assessment/Plan * Hold statin 6) Hypothyroid Assessment/Plan * Levothyroxine 100mcg Daily 7) PAD Assessment/Plan * Pentoxifylline 400mg PO BID 8) Right Shoulder Pain Assessment/Plan * Right shoulder xray: degenerative changes bilaterally. No acute findings. * Forearm xray: no significant or acute findings to acount for/related to the clinical presentation 9) Abdominal Pain * Check Ct abdomen/pelvis with PO contrast 10) Prophylactic Care * SCDs * chemical anticoagulation held due to thrombocytopenia * Pepcid 20mg daily Disposition: persistent hypercalcemia, transfer to telemetry to monitor for QT changes, bone marrow biopsy for tomorrow, pending official reads of imaging completed, c/w IV fluids
--- NOTE | 2018-01-19 11:09 | NM ---
Date of service: 01/18/2018 PROCEDURE: Whole Body Bone Scan HISTORY: hypercalcemia COMPARISON: 01/16/2018 CT abdomen and pelvis documenting widely disseminated lytic disease throughout thoracolumbar spine and pelvis TECHNIQUE: Following administration of 25.0 miCu of Tc MDP multiplanar whole body images were obtained. FINDINGS: Evidence for bony metastatic disease: None. Degenerative uptake: Right knee and both ankles Physiologic uptake: Normal physiologic activity in the kidneys. Other findings: None. IMPRESSION: There are no correlates to findings on recent CT scan. Specifically the permeative pattern throughout thoracolumbar spine and pelvis constitutes lytic disease most likely myeloma.
[2018-01-19] MEDS ORDERED: Iohexol 240 (50 ml) PO ONE (15:15)
--- NOTE | 2018-01-19 16:09 | CARD ---
APPROVED REPORT Date of service: 01/17/2018 EXAM: Two-dimensional and M-mode echocardiogram with Doppler and color Doppler. Other Information Quality : GoodRhythm : NSR RISK FACTORS Hypertension Hyperlipidemia 2D DIMENSIONS LA Abcsxy59 (18-58mL) M-Mode DIMENSIONS Left Atrium (MM)3.43 (2.5-4.0cm)IVSd1.14 (0.7-1.1cm) Aortic Root3.13 (2.2-3.7cm)LVDd5.79 (4.0-5.6cm) Aortic Cusp Exc.1.51 (1.5-2.0cm)PWd1.14 (0.7-1.1cm) FS (%) 48 %LVDs2.99 (2.0-3.8cm) LVEF (%)79 (>50%) Aortic Valve AoV Peak Ybisknvl130.6cm/Lianna Peak GR.7mmHg Mitral Valve MV E Hayikcie64.6cm/sMV A Knyvycqo11.7cm/sE/A ratio0.6 TDI Lateral E' Peak V5.13cm/sMedial E' Peak V3.90cm/sE/Lateral E'8.1 E/Medial E'10.7 Tricuspid Valve TR Peak [id number]/sTR Peak Gr.[id number] LEFT VENTRICLE The left ventricle is normal size. There is normal left ventricular wall thickness. Left ventricle systolic function is normal. The Ejection Fraction is >70%. There is normal LV segmental wall motion. Tissue Doppler imaging reveals abnormal left ventricular diastolic dysfunction. RIGHT VENTRICLE The right ventricle is normal size. There is normal right ventricular wall thickness. The right ventricular systolic function is normal. ATRIA The left atrium size is normal. The right atrium size is normal. The interatrial septum is intact with no evidence for an atrial septal defect. AORTIC VALVE The aortic valve is normal in structure. No aortic regurgitation is present. There is no aortic valvular stenosis. There is no aortic valvular vegetation. MITRAL VALVE The mitral valve is normal in structure. There is no evidence of mitral valve prolapse. There is no mitral valve stenosis. Mitral regurgitation is mild. TRICUSPID VALVE The tricuspid valve is normal in structure. There is mild tricuspid regurgitation. Right ventricular systolic pressure is estimated at 30-40 mmHg. There is mild pulmonary hypertension. PULMONIC VALVE The pulmonic valve is not well visualized. There is mild pulmonic valvular regurgitation. GREAT VESSELS The aortic root is normal in size. PERICARDIAL EFFUSION There is no significant pericardial effusion. <Conclusion> Left ventricle systolic function is normal. The Ejection Fraction is >70%. Diastolic dysfunction. No aortic regurgitation is present. Mitral regurgitation is mild. There is mild tricuspid regurgitation. There is mild pulmonary hypertension. There is mild pulmonic valvular regurgitation.
--- NOTE | 2018-01-19 17:58 | RAD ---
Date of service: 01/19/2018 PROCEDURE: Radiographs of both shoulders HISTORY: R shoulder pain COMPARISON: No prior. FINDINGS: BONES: Right shoulder: No fracture identified. Left shoulder: No fracture identified. JOINTS: Right shoulder: Glenohumeral degenerative changes mild-moderate. Left shoulder: Mild glenohumeral degenerative changes. Symmetrical acromioclavicular degenerative change. SOFT TISSUES: Right shoulder: Grossly unremarkable. Right shoulder: Grossly unremarkable. OTHER FINDINGS: None. IMPRESSION: Degenerative changes bilaterally. No acute findings
--- NOTE | 2018-01-19 18:49 | RAD ---
Date of service: 01/19/2018 PROCEDURE: Bilateral forearm HISTORY: Pain. No history of recent/ related trauma provided COMPARISON: None TECHNIQUE: Standard protocol for this study/examination. FINDINGS: Right forearm: No significant/acute osseous, articular or soft tissue abnormalities. Left forearm: No significant/acute osseous, articular or soft tissue abnormalities. IMPRESSION: No significant or acute findings to account for/ related to the clinical presentation.
--- NOTE | 2018-01-19 21:28 | CP.PCM.PN ---
Subjective - Date & Time of Evaluation Date of Evaluation: 01/19/18 Time of Evaluation: 12:00 - Subjective Subjective: urinating frequently; reports some cough, no sob; Objective - Vital Signs/Intake and Output Vital Signs (last 24 hours): Temp Pulse Resp BP Pulse Ox 97.4 F L 60 20 164/72 H 98 01/19/18 16:00 01/19/18 16:00 01/19/18 16:00 01/19/18 16:00 01/19/18 16:00 Intake and Output: 01/19/18 01/20/18 18:59 06:59 Intake Total 1600 Balance 1600 - Medications Medications: Current Medications Acetaminophen (Tylenol 325mg Tab) 650 mg PO Q6 PRN PRN Reason: Pain, moderate (4-7) Amlodipine Besylate (Norvasc) 10 mg PO DAILY [facility] Last Admin: 01/19/18 09:27 Dose: 10 mg Aspirin (Aspirin Chewable) 81 mg PO DAILY [facility] Last Admin: 01/19/18 09:30 Dose: 81 mg Atenolol (Tenormin) 100 mg PO DAILY [facility] Last Admin: 01/19/18 09:33 Dose: 100 mg Famotidine (Pepcid) 20 mg PO DAILY [facility] Last Admin: 01/19/18 09:27 Dose: 20 mg Heparin Sodium (Porcine) (Heparin) 5,000 units SC Q12 [facility] Last Admin: 01/17/18 10:28 Dose: Not Given Hydralazine HCl (Apresoline) 50 mg PO TID [facility] Last Admin: 01/19/18 17:52 Dose: 50 mg Sodium Chloride (Sodium Chloride 0.9%) 1,000 mls @ 100 mls/hr IV .Q10H [facility] Last Admin: 01/19/18 13:24 Dose: Not Given Isosorbide Dinitrate (Isordil) 10 mg PO DAILY [facility] Last Admin: 01/19/18 09:31 Dose: 10 mg Levothyroxine Sodium (Synthroid) 100 mcg PO DAILY@0630 [facility] Last Admin: 01/19/18 05:38 Dose: 100 mcg Pentoxifylline (Pentoxil) 400 mg PO BID [facility] Last Admin: 01/19/18 17:53 Dose: 400 mg - Labs Labs: 01/19/18 07:22 01/19/18 07:22 - Constitutional Appears: Non-toxic, No Acute Distress - Eye Exam Eye Exam: Normal appearance - Respiratory Exam Respiratory Exam: Clear to Ausculation Bilateral. absent: Respiratory Distress - Cardiovascular Exam Cardiovascular Exam: RRR, +S1, +S2 - GI/Abdominal Exam GI & Abdominal Exam: Soft. absent: Distended, Tenderness - Extremities Exam Additional comments: no leg edema; - Neurological Exam Neurological Exam: Alert, Awake - Skin Skin Exam: Warm. absent: Cyanosis Assessment and Plan (1) Acute renal failure Assessment & Plan: Non-oliguric renal failure; has multiple lytic lesions on imaging and profound hypercalcemia that points toward MM; if MM definitively diagnosed by BM biopsy and patient has a marked predominance of a light chain in serum, then renal biopsy may not be necessary; thrombocytopenia adds additional risk for renal biopsy; discussed with heme and will await further studies for now; -continue IVF w/ NS at 100 cc/hr (to avoid tubular obstruction); -avoid nephrotoxic agents; -obtaining 24 hr urine for UPEP; Status: Acute (2) HTN (hypertension) Assessment & Plan: BP markedly elevated; adding amlodipine 10 mg daily; continue rest of meds; giving dose of IV lasix; Status: Acute (3) Hypercalcemia Assessment & Plan: In the setting of likely lytic metastases; IV bisphosphonate relatively contraindicated at such low GFR; not complaining of bone pain; will continue IVF and loop diuretics as above; Status: Acute (4) Anemia Status: Acute
[2018-01-20] MEDS: Levothyroxine 100 MCG TAB PO SCH (06:24)
[2018-01-20 07:00] LABS: BASO % 0.9 % (0.0-2.0); EOS # 0.3 K/uL (0.0-0.7); EOS % 4.7 % (0.0-4.0); HEMOGLOBIN 9.6 g/dL (11.0-16.0); LYMPH # 1.5 K/uL (1.0-4.3); MEAN CELL VOLUME 94.5 fL (81.0-99.0); MEAN CORPUSCULAR HGB CONC 33.9 g/dL (33.0-37.0); MEAN PLATELET VOLUME 10.4 fL (7.2-11.7); MONO # 0.5 K/uL (0.0-0.8); MONO % 9.9 % (0.0-10.0); NEUT # 3.1 K/uL (1.8-7.0); NEUT % 57.5 % (50.0-75.0); NRBC % 0.2 % (0.0-2.0); WHITE BLOOD COUNT 5.4 K/uL (4.8-10.8)
[2018-01-20 07:04] LABS: INR 1.1; PROTHROMBIN TIME 11.7 SECONDS (9.7-12.2)
[2018-01-20 08:10] LABS: ALB/GLOB RATIO 1.1 (1.0-2.1); ALBUMIN 4.1 g/dL (3.5-5.0); CALCIUM 14.7 mg/dl (8.6-10.4)
[2018-01-20] MEDS: Sodium Chloride 0.45% 1,000 ML IV SCH ×3 (08:37→20:58)
--- NOTE | 2018-01-20 09:06 | CP.PCM.PN ---
<Brayan Lazcano - Last Filed: 01/20/18 21:17> Subjective - Date & Time of Evaluation Date of Evaluation: 01/20/18 Time of Evaluation: 09:00 - Subjective Subjective: Brayan Lazcano PGY-1, Medicine progress note Pt seen and examined at bedside this am. Patient reports continued right leg pain. Still feels very fatigued and reports not having eaten lunch or dinner yesterday general loss of appetite. Reports no bowel movement in 2 days. Denies fever, chills, chest pain, sob, n/v/d/c, urinary complaints or other symptoms. Objective - Vital Signs/Intake and Output Vital Signs (last 24 hours): Temp Pulse Resp BP Pulse Ox 98.2 F 66 20 190/79 H 95 01/20/18 07:00 01/20/18 08:00 01/20/18 07:00 01/20/18 07:00 01/20/18 07:00 - Medications Medications: Current Medications Acetaminophen (Tylenol 325mg Tab) 650 mg PO Q6 PRN PRN Reason: Pain, moderate (4-7) Amlodipine Besylate (Norvasc) 10 mg PO DAILY [facility] Last Admin: 01/19/18 09:27 Dose: 10 mg Aspirin (Aspirin Chewable) 81 mg PO DAILY [facility] Last Admin: 01/19/18 09:30 Dose: 81 mg Atenolol (Tenormin) 100 mg PO DAILY [facility] Last Admin: 01/19/18 09:33 Dose: 100 mg Famotidine (Pepcid) 20 mg PO DAILY [facility] Last Admin: 01/19/18 09:27 Dose: 20 mg Furosemide (Lasix) 40 mg IVP Q12 [facility] Heparin Sodium (Porcine) (Heparin) 5,000 units SC Q12 [facility] Last Admin: 01/17/18 10:28 Dose: Not Given Hydralazine HCl (Apresoline) 100 mg PO Q8H [facility] Sodium Chloride (Sodium Chloride 0.45%) 1,000 mls @ 75 mls/hr IV .[id number] [facility] Last Admin: 01/20/18 08:37 Dose: 75 mls/hr Isosorbide Dinitrate (Isordil) 10 mg PO DAILY [facility] Last Admin: 01/19/18 09:31 Dose: 10 mg Levothyroxine Sodium (Synthroid) 100 mcg PO DAILY@0630 [facility] Last Admin: 01/20/18 06:24 Dose: 100 mcg Pentoxifylline (Pentoxil) 400 mg PO BID [facility] Last Admin: 01/19/18 17:53 Dose: 400 mg - Labs Labs: 01/20/18 06:52 01/20/18 06:52 PT 11.7 SECONDS (9.7-12.2) 01/20/18 06:52 INR 1.1 01/20/18 06:52 - Constitutional Appears: Non-toxic, No Acute Distress - Head Exam Head Exam: NORMAL INSPECTION, NORMOCEPHALIC - Eye Exam Eye Exam: EOMI, Normal appearance - ENT Exam ENT Exam: Mucous Membranes Moist - Neck Exam Neck Exam: Normal Inspection - Respiratory Exam Respiratory Exam: Clear to Ausculation Bilateral. absent: Rales, Rhonchi, Wheezes, Respiratory Distress - Cardiovascular Exam Cardiovascular Exam: REGULAR RHYTHM, +S1, +S2 - GI/Abdominal Exam GI & Abdominal Exam: Soft, Tenderness (mild epigastric and right sided tenderness), Normal Bowel Sounds. absent: Distended, Firm, Guarding, Rigid - Extremities Exam Extremities Exam: Normal Inspection. absent: Pedal Edema - Neurological Exam Neurological Exam: Alert, Awake - Psychiatric Exam Psychiatric exam: Normal Affect, Normal Mood - Skin Skin Exam: Dry, Normal Color, Warm Assessment and Plan - Assessment and Plan (Free Text) Assessment: Hypercalcemia - pt on telemetry for cardiac monitoring - Ddx 2/2 multiple myeloma or malignancy - Hem/Onc consulted, Dr. Bran - help appreciated - bone marrow biopsy were successfully obtained in sterile manner but bone marrow aspirate was not obtained despite redirecting twice (DRY TAP). -f/u bone marrow biopsy results - 14.6 on admission Uptrending to 14.7 today - Abd CT pelvis 01/17: There are multiple on varying sized rounded lytic lesions scattered throughout all the osseous structures. Findings probably represent multiple myeloma however metastatic disease not excluded. Clinical correlation recommended. - Bone Scan: There are no correlates to findings on recent CT scan. Specifically the permeative pattern throughout thoracolumbar spine and pelvis constitutes lytic disease most likely myeloma - Calcium 24 hr urine is normal at 237.8 - PTH intact is low normal at 14 - immunofixation shows IgA-kappa monoclonal protein present. Free kappa (monoclonal free light chain) band present - PTH related protein, Dortches/Lambda, Calcium (ionized), protein electrophoresis - Vit D 68.5 - Right shoulder xray: degenerative changes bilaterally. No acute findings. - Forearm xray: no significant or acute findings to account for/related to the clinical presentation - Abd/pelv CT with PO and IV contrast (01/19) shows innumerable lytic osseous lesions consistent with multiple myeloma or metastatic disease. Bibasilar atelectasis. Trace right pleural effusion. Small hiatal hernia. Evidence of mild gastroesophageal reflux. Borderline heptomegaly. Diverticulosis without CT evidence of acute diverticulitis. Moderate constipation. Hypertensive urgency - hemodynamically stable; BP well controlled after adjustments note below - ECHO (01/19) shows LVEF>70%. Diastolic dysfunction. Mild MR. Mild TR, mild pulmonary hypertension. Mild pulmonic valvular regurgitation. - Aspirin 81mg PO daily - Atenolol 100mg PO daily - Hydralazine 50mg PO TID --> increased to 100mg PO TID - Amlodipine 10 mg daily Hypokalemia - potassium is 3.5 - repleted -continue to monitor SHAY - nephrology consult, Dr. Espinal, f/u recs - avoid nephrotoxic medications - 1/2 NS at 100 mL/hr - Cr is 3.4, up from 3.3 - Renal US: Findings consistent with underlying medical renal disease. No evidence of nephrolithiasis or hydronephrosis. DM - Hold metformin - accuchecks Hyperlipidemia -Hold statin Hypothyroid -Levothyroxine 100mcg Daily PAD - Pentoxifylline 400mg PO BID - Isodorbide dinitrate 10 mg PO TID Prophylactic Care -SCDs -chemical anticoagulation held due to thrombocytopenia -Pepcid 20mg daily Case was reviewed and discussed with attending physician, Dr. Claudy Lazcano PGY-1 <Rayne Loco V - Last Filed: 01/23/18 18:31> Objective - Vital Signs/Intake and Output Vital Signs (last 24 hours): Temp Pulse Resp BP Pulse Ox 98.4 F 62 20 138/69 95 01/23/18 07:00 01/23/18 07:00 01/23/18 07:00 01/23/18 17:29 01/23/18 07:00 - Medications Medications: Current Medications Acetaminophen (Tylenol 325mg Tab) 650 mg PO Q6 PRN PRN Reason: Pain, moderate (4-7) Amlodipine Besylate (Norvasc) 10 mg PO DAILY [facility] Last Admin: 01/23/18 10:22 Dose: 10 mg Aspirin (Aspirin Chewable) 81 mg PO DAILY [facility] Last Admin: 01/20/18 10:38 Dose: 81 mg Atenolol (Tenormin) 100 mg PO DAILY [facility] Last Admin: 01/23/18 10:23 Dose: 100 mg Benzonatate (Tessalon Perles) 100 mg PO TID [facility] Last Admin: 01/23/18 17:29 Dose: 100 mg Docusate Sodium (Colace) 100 mg PO TID [facility] Last Admin: 01/23/18 17:28 Dose: 100 mg Famotidine (Pepcid) 20 mg PO DAILY [facility] Last Admin: 01/23/18 10:22 Dose: 20 mg Furosemide (Lasix) 60 mg PO BID [facility] Last Admin: 01/23/18 17:29 Dose: 60 mg Heparin Sodium (Porcine) (Heparin) 5,000 units SC Q12 [facility] Last Admin: 01/17/18 10:28 Dose: Not Given Hydralazine HCl (Apresoline) 100 mg PO Q8H [facility] Last Admin: 01/23/18 13:35 Dose: 100 mg Sodium Chloride (Sodium Chloride 0.9%) 1,000 mls @ 125 mls/hr IV .Q8H [facility] Last Admin: 01/23/18 10:38 Dose: 125 mls/hr Isosorbide Dinitrate (Isordil) 10 mg PO Q8H [facility] Last Admin: 01/23/18 13:35 Dose: 10 mg Levothyroxine Sodium (Synthroid) 100 mcg PO DAILY@0630 [facility] Last Admin: 01/23/18 05:50 Dose: 100 mcg Methylprednisolone (Solu-Medrol) 40 mg IVP Q12 [facility] Last Admin: 01/23/18 10:28 Dose: 40 mg Ondansetron HCl (Zofran Inj) 4 mg IVP Q6H PRN PRN Reason: Nausea/Vomiting Pentoxifylline (Pentoxil) 400 mg PO BID [facility] Last Admin: 01/23/18 17:29 Dose: 400 mg - Labs Labs: 01/23/18 07:00 01/23/18 07:00 PT 11.7 SECONDS (9.7-12.2) 01/20/18 06:52 INR 1.1 01/20/18 06:52 Attending/Attestation - Attestation I have personally seen and examined this patient.: Yes I have fully participated in the care of the patient.: Yes I have reviewed all pertinent clinical information, including history, physical exam and plan: Yes Notes (Text): This is a late computer entry for 01/20/2018. Patient seen, examined, case discussed with medical scheduler. Patient underwent a bone marrow biopsy with hematology oncology. Discussed with stefanie on it was a dry tap. Patient is unable to get bisphosphonate secondary to low GFR. Patient is unable to get monoclonal antibody is not available to the pharmacy. There is discussion in regards to possible calcitonin to help reduce hypercalcemia. Patient blood pressure controlled. We'll follow bone marrow biopsy report to determine if patient has cancer or not. We are highly suspicious for cancer. Patient started on IV steroids by [facility] oncology.
[2018-01-20] MEDS: Potassium Chloride 20 mEq ER Tab PO SCH (10:38)
--- NOTE | 2018-01-20 12:25 | CT ---
PROCEDURE: CT Abdomen and Pelvis without IV contrast. HISTORY: diffuse abd pain COMPARISON: CT abdomen and pelvis without contrast performed 01/16/18 TECHNIQUE: Contiguous axial images of the abdomen and pelvis. Oral contrast was administered. No IV contrast given. Coronal and Sagittal reformats generated and reviewed. Radiation dose: Total exam DLP = 470.05 mGy-cm. This CT exam was performed using one or more of the following dose reduction techniques: Automated exposure control, adjustment of the mA and/or kV according to patient size, and/or use of iterative reconstruction technique. FINDINGS: There is limited evaluation of the solid organs without the administration of IV contrast. LOWER THORAX: Bibasilar atelectasis. Trace right pleural effusion. No visible pneumothorax. Small hiatal hernia. Evidence of mild gastroesophageal reflux. LIVER: Borderline hepatomegaly. GALLBLADDER AND BILE DUCTS: Unremarkable unenhanced appearance. PANCREAS: Unremarkable unenhanced appearance. SPLEEN: Unremarkable unenhanced appearance. ADRENALS: Unremarkable unenhanced appearance. KIDNEYS AND URETERS: No hydronephrosis or obstructing renal calculus. BLADDER: The urinary bladder appears unremarkable. REPRODUCTIVE: Uterus is present. APPENDIX: The appendix appears within normal limits of caliber. No secondary signs of acute appendicitis. BOWEL: The stomach is nondistended. The bowel loops appear within normal limits of caliber without evidence of intestinal obstruction. Diverticulosis without CT evidence of acute diverticulitis. Moderate constipation. PERITONEUM: No significant free fluid. No definite free air. LYMPH NODES: No bulky lymphadenopathy identified. VASCULATURE: Dense atherosclerotic calcifications of the aorta and branches. No aortic aneurysm. BONES: Innumerable lytic osseous lesions. OTHER FINDINGS: None. IMPRESSION: Innumerable lytic osseous lesions consistent with multiple myeloma or metastatic disease. Bibasilar atelectasis. Trace right pleural effusion. Small hiatal hernia. Evidence of mild gastroesophageal reflux. Borderline hepatomegaly. Diverticulosis without CT evidence of acute diverticulitis. Moderate constipation. Preliminary impression was provided by [employer]
--- NOTE | 2018-01-20 15:14 | CP.PCM.PN ---
Subjective - Date & Time of Evaluation Date of Evaluation: 01/20/18 Time of Evaluation: 08:00 - Subjective Subjective: Nephrology Progress Note for Dr. Espinal Patient was seen and examined at bedside. She states she has slight left lower back pain but other morrow feels well. Patient denies chest pain, shortness of breath, nausea, vomiting, diarrhea, constipation, fever or chills. Objective - Vital Signs/Intake and Output Vital Signs (last 24 hours): Temp Pulse Resp BP Pulse Ox 98.2 F 65 20 149/67 95 01/20/18 07:00 01/20/18 13:47 01/20/18 07:00 01/20/18 13:32 01/20/18 07:00 Intake and Output: 01/20/18 01/20/18 06:59 18:59 Intake Total 1000 Balance 1000 - Medications Medications: Current Medications Acetaminophen (Tylenol 325mg Tab) 650 mg PO Q6 PRN PRN Reason: Pain, moderate (4-7) Amlodipine Besylate (Norvasc) 10 mg PO DAILY [facility] Last Admin: 01/20/18 10:38 Dose: 10 mg Aspirin (Aspirin Chewable) 81 mg PO DAILY [facility] Last Admin: 01/20/18 10:38 Dose: 81 mg Atenolol (Tenormin) 100 mg PO DAILY [facility] Last Admin: 01/20/18 10:38 Dose: 100 mg Benzonatate (Tessalon Perles) 100 mg PO TID PRN PRN Reason: Cough Docusate Sodium (Colace) 100 mg PO TID [facility] Last Admin: 01/20/18 14:56 Dose: 100 mg Famotidine (Pepcid) 20 mg PO DAILY [facility] Last Admin: 01/20/18 10:38 Dose: 20 mg Furosemide (Lasix) 40 mg IVP Q12 [facility] Last Admin: 01/20/18 10:38 Dose: 40 mg Heparin Sodium (Porcine) (Heparin) 5,000 units SC Q12 [facility] Last Admin: 01/17/18 10:28 Dose: Not Given Hydralazine HCl (Apresoline) 100 mg PO Q8H [facility] Last Admin: 01/20/18 13:33 Dose: 100 mg Sodium Chloride (Sodium Chloride 0.45%) 1,000 mls @ 75 mls/hr IV .[id number] [facility] Last Admin: 01/20/18 10:39 Dose: 75 mls/hr Isosorbide Dinitrate (Isordil) 10 mg PO Q8H [facility] Last Admin: 01/20/18 13:33 Dose: 10 mg Levothyroxine Sodium (Synthroid) 100 mcg PO DAILY@0630 [facility] Last Admin: 01/20/18 06:24 Dose: 100 mcg Pentoxifylline (Pentoxil) 400 mg PO BID [facility] Last Admin: 01/20/18 10:38 Dose: 400 mg Potassium Chloride (K-Dur 20 Meq Er Tab) 20 meq PO DAILY [facility] Stop: 01/21/18 10:01 Last Admin: 01/20/18 10:38 Dose: 20 meq - Labs Labs: 01/20/18 06:52 01/20/18 06:52 PT 11.7 SECONDS (9.7-12.2) 01/20/18 06:52 INR 1.1 01/20/18 06:52 - Constitutional Appears: No Acute Distress - Head Exam Head Exam: ATRAUMATIC, NORMAL INSPECTION - Eye Exam Eye Exam: EOMI, Normal appearance - ENT Exam ENT Exam: Mucous Membranes Moist - Respiratory Exam Respiratory Exam: Clear to Ausculation Bilateral, NORMAL BREATHING PATTERN - Cardiovascular Exam Cardiovascular Exam: REGULAR RHYTHM, +S1, +S2 - GI/Abdominal Exam GI & Abdominal Exam: Soft. absent: Tenderness - Extremities Exam Extremities Exam: absent: Pedal Edema - Neurological Exam Neurological Exam: Alert, Awake Neuro motor strength exam: Left Upper Extremity: 5, Right Upper Extremity: 5, Left Lower Extremity: 4, Right Lower Extremity: 2/1 Assessment and Plan - Assessment and Plan (Free Text) Assessment: 72 year old female with past medical history of HTN, Hypercholesterol, TIA (2 008), DM presents to ED from the clinic for evaluation of generalized abdominal pain, loss of appetite, and elevated blood pressure for the past 2 weeks. SHAY - possibly secondary to malignancy - After bone marrow biopsy results will possibly discuss a kidney biopsy - 1/2NS @75cc/hr - Continue to monitor Hypertensive urgency - Atenolol 100mg PO daily - Amlodipine 10mg po daily - Lasix 40mg IV q12h - Isosorbid Dinitrate 10mg q8h - hydralazine 100mg PO q8h Hypercalcemia likely secondary to malignancy - Ca 14.6 on admission - Abd CT pelvis: There are multiple on varying sized rounded lytic lesions scattered throughout all the osseous structures. Findings probably represent multiple myeloma however metastatic disease not excluded. Clinical correlation recommended. - Bone scan: Specifically the permeative pattern throughout thoracolumbar spine and pelvis constitutes lytic disease most likely myeloma. - Calcium 24 hr urine - Patient to have a bone marrow biopsy with Dr. Bran 01/20/[address] Teddy Chowdhury PGY-2
--- NOTE | 2018-01-20 17:24 | CP.PCM.PN ---
Subjective - Date & Time of Evaluation Date of Evaluation: 01/20/18 Time of Evaluation: 16:00 - Subjective Subjective: BONE MARROW ASPIRATE/BIOPSY PROCEDURE NOTE Bone marrow aspiration and biopsy procedure Indication: Rule out multiple myeloma - Time-out was called to confirm: patients name and date of , procedure, side and site of biopsy, safety procedures followed. - Performed by: self and Arianna Chowdhury D.O. PGY2 - Other physicians present: xxxx, xxxx (Pathology resident) - Informed consent: signed by patient. - Aspiration and biopsy site: [left][right] superior posterior iliac crest. - Patient position: left lateral decubitus] - Preparation and technique: sterile preparation of site with Betadyne, Chloraprep, draped to expose aspirate/biopsy area, local anesthesia with 1% lidocaine (approximately 10ml), frequent pressure application on incision to maintain hemostasis. - Tissue obtained: bone marrow biopsy were successfully obtained in sterile manner but bone marrow aspirate was not obtained despite redirecting twice (DRY TAP)/ Several touch preps were made. - Toleration of procedure and any complications: slight localized bleeding (<1ml). Patient tolerated procedure well with minimal pain. Objective - Vital Signs/Intake and Output Vital Signs (last 24 hours): Temp Pulse Resp BP Pulse Ox 98.2 F 62 20 152/75 H 96 01/20/18 15:00 01/20/18 16:00 01/20/18 15:00 01/20/18 15:00 01/20/18 15:00 Intake and Output: 01/20/18 01/20/18 06:59 18:59 Intake Total 1000 Balance 1000 - Medications Medications: Current Medications Acetaminophen (Tylenol 325mg Tab) 650 mg PO Q6 PRN PRN Reason: Pain, moderate (4-7) Amlodipine Besylate (Norvasc) 10 mg PO DAILY [facility] Last Admin: 01/20/18 10:38 Dose: 10 mg Aspirin (Aspirin Chewable) 81 mg PO DAILY [facility] Last Admin: 01/20/18 10:38 Dose: 81 mg Atenolol (Tenormin) 100 mg PO DAILY [facility] Last Admin: 01/20/18 10:38 Dose: 100 mg Benzonatate (Tessalon Perles) 100 mg PO TID PRN PRN Reason: Cough Docusate Sodium (Colace) 100 mg PO TID [facility] Last Admin: 01/20/18 14:56 Dose: 100 mg Famotidine (Pepcid) 20 mg PO DAILY [facility] Last Admin: 01/20/18 10:38 Dose: 20 mg Furosemide (Lasix) 40 mg IVP Q12 [facility] Last Admin: 01/20/18 10:38 Dose: 40 mg Heparin Sodium (Porcine) (Heparin) 5,000 units SC Q12 [facility] Last Admin: 01/17/18 10:28 Dose: Not Given Hydralazine HCl (Apresoline) 100 mg PO Q8H [facility] Last Admin: 01/20/18 13:33 Dose: 100 mg Sodium Chloride (Sodium Chloride 0.45%) 1,000 mls @ 75 mls/hr IV .[id number] [facility] Last Admin: 01/20/18 10:39 Dose: 75 mls/hr Isosorbide Dinitrate (Isordil) 10 mg PO Q8H [facility] Last Admin: 01/20/18 13:33 Dose: 10 mg Levothyroxine Sodium (Synthroid) 100 mcg PO DAILY@0630 [facility] Last Admin: 01/20/18 06:24 Dose: 100 mcg Pentoxifylline (Pentoxil) 400 mg PO BID [facility] Last Admin: 01/20/18 10:38 Dose: 400 mg Potassium Chloride (K-Dur 20 Meq Er Tab) 20 meq PO DAILY [facility] Stop: 01/21/18 10:01 Last Admin: 01/20/18 10:38 Dose: 20 meq - Labs Labs: 01/20/18 06:52 01/20/18 06:52 PT 11.7 SECONDS (9.7-12.2) 01/20/18 06:52 INR 1.1 01/20/18 06:52 - Head Exam Head Exam: ATRAUMATIC - Eye Exam Eye Exam: Normal appearance - ENT Exam ENT Exam: Mucous Membranes Dry - Respiratory Exam Respiratory Exam: NORMAL BREATHING PATTERN - Cardiovascular Exam Cardiovascular Exam: +S1, +S2 - GI/Abdominal Exam GI & Abdominal Exam: Normal Bowel Sounds - Extremities Exam Extremities Exam: Normal Inspection - Neurological Exam Neurological Exam: Oriented x3 - Psychiatric Exam Psychiatric exam: Normal Affect, Normal Mood - Skin Skin Exam: Warm Assessment and Plan (1) Hypercalcemia Assessment & Plan: IV fluids ? related to multiple myeloma f/u bone marrow biopsy Status: Acute (2) Lytic lesion of bone on x-ray Assessment & Plan: rule out multiple myeloma Status: Acute (3) Anemia Assessment & Plan: rule out multiple myeloma Status: Acute (4) Thrombocytopenia Assessment & Plan: rule out multiple myeloma Status: Acute
[2018-01-20] MEDS: MethylPREDNISolone 40 mg Vial IVP SCH (22:22)
[2018-01-21] MEDS: Levothyroxine 100 MCG TAB PO SCH (06:12)
[2018-01-21] MEDS: Sodium Chloride 0.45% 1,000 ML IV SCH ×2 (06:15→06:16)
[2018-01-21 07:03] LABS: ALB/GLOB RATIO 1.2 (1.0-2.1); ALBUMIN 4.5 g/dL (3.5-5.0)
[2018-01-21 07:12] LABS: BASO % 0.7 % (0.0-2.0); EOS # 0.2 K/uL (0.0-0.7); EOS % 2.7 % (0.0-4.0); HEMOGLOBIN 9.8 g/dL (11.0-16.0); LYMPH # 1.8 K/uL (1.0-4.3); LYMPH % 26.8 % (20.0-40.0); MEAN CELL VOLUME 94.1 fL (81.0-99.0); MEAN CORPUSCULAR HEMOGLOBIN 31.9 pg (27.0-31.0); MEAN PLATELET VOLUME 10.4 fL (7.2-11.7); MONO # 0.4 K/uL (0.0-0.8); MONO % 6.2 % (0.0-10.0); NEUT # 4.2 K/uL (1.8-7.0); NEUT % 63.6 % (50.0-75.0); NRBC % 0.5 % (0.0-2.0); RBC 3.07 Mil/uL (3.80-5.20); RED CELL DISTRIBUTION WIDTH 16.9 % (11.5-14.5); WHITE BLOOD COUNT 6.6 K/uL (4.8-10.8)
[2018-01-21 07:34] LABS: CREATININE, 24 HOUR URINE 0.65 g/24 h (0.63-2.50)
[2018-01-21 08:18] LABS: CALCIUM 14.9 mg/dl (8.6-10.4)
[2018-01-21] MEDS: MethylPREDNISolone 40 mg Vial IVP SCH ×2 (10:00→22:21)
[2018-01-21] MEDS: Sodium Chloride 0.9% 1,000 ML IV SCH ×3 (10:00→19:27)
[2018-01-21] MEDS: Potassium Chloride 20 mEq ER Tab PO SCH (10:01)
--- NOTE | 2018-01-21 10:27 | CP.PCM.PN ---
<Arianna Chowdhury - Last Filed: 01/21/18 15:23> Subjective - Date & Time of Evaluation Date of Evaluation: 01/21/18 Time of Evaluation: 09:00 - Subjective Subjective: Nephrology Progress Note for Dr. Espinal Patient was seen and examined at bedside. She states she is feeling well this morning and ate some of her breakfast. Patient denies chest pain, shortness of breath, nausea, vomiting, diarrhea, constipation, fever or chills. Objective - Vital Signs/Intake and Output Vital Signs (last 24 hours): Temp Pulse Resp BP Pulse Ox 98.1 F 64 20 150/63 95 01/21/18 07:00 01/21/18 07:00 01/21/18 07:00 01/21/18 10:00 01/21/18 07:00 Intake and Output: 01/21/18 01/21/18 06:59 18:59 Intake Total 1020 Output Total 700 Balance 320 - Medications Medications: Current Medications Acetaminophen (Tylenol 325mg Tab) 650 mg PO Q6 PRN PRN Reason: Pain, moderate (4-7) Amlodipine Besylate (Norvasc) 10 mg PO DAILY [facility] Last Admin: 01/21/18 10:01 Dose: 10 mg Aspirin (Aspirin Chewable) 81 mg PO DAILY [facility] Last Admin: 01/20/18 10:38 Dose: 81 mg Atenolol (Tenormin) 100 mg PO DAILY [facility] Last Admin: 01/21/18 10:01 Dose: 100 mg Benzonatate (Tessalon Perles) 100 mg PO TID [facility] Last Admin: 01/21/18 10:01 Dose: 100 mg Docusate Sodium (Colace) 100 mg PO TID [facility] Last Admin: 01/21/18 10:01 Dose: 100 mg Famotidine (Pepcid) 20 mg PO DAILY [facility] Last Admin: 01/21/18 10:01 Dose: 20 mg Furosemide (Lasix) 40 mg IVP Q12 [facility] Last Admin: 01/21/18 10:00 Dose: 40 mg Heparin Sodium (Porcine) (Heparin) 5,000 units SC Q12 [facility] Last Admin: 01/17/18 10:28 Dose: Not Given Hydralazine HCl (Apresoline) 100 mg PO Q8H [facility] Last Admin: 01/21/18 06:10 Dose: 100 mg Sodium Chloride (Sodium Chloride 0.9%) 1,000 mls @ 125 mls/hr IV .Q8H [facility] Isosorbide Dinitrate (Isordil) 10 mg PO Q8H [facility] Last Admin: 01/21/18 06:13 Dose: 10 mg Levothyroxine Sodium (Synthroid) 100 mcg PO DAILY@0630 [facility] Last Admin: 01/21/18 06:12 Dose: 100 mcg Methylprednisolone (Solu-Medrol) 40 mg IVP Q12 [facility] Last Admin: 01/21/18 10:00 Dose: 40 mg Pentoxifylline (Pentoxil) 400 mg PO BID [facility] Last Admin: 01/21/18 10:03 Dose: 400 mg - Labs Labs: 01/21/18 06:30 01/21/18 06:30 PT 11.7 SECONDS (9.7-12.2) 01/20/18 06:52 INR 1.1 01/20/18 06:52 - Constitutional Appears: No Acute Distress - Head Exam Head Exam: ATRAUMATIC, NORMAL INSPECTION - Eye Exam Eye Exam: EOMI, Normal appearance - ENT Exam ENT Exam: Mucous Membranes Moist - Respiratory Exam Respiratory Exam: Clear to Ausculation Bilateral, NORMAL BREATHING PATTERN - Cardiovascular Exam Cardiovascular Exam: REGULAR RHYTHM, +S1, +S2 - GI/Abdominal Exam GI & Abdominal Exam: Soft, Normal Bowel Sounds. absent: Tenderness - Extremities Exam Extremities Exam: absent: Pedal Edema, Tenderness - Neurological Exam Neurological Exam: Alert, Awake - Psychiatric Exam Psychiatric exam: Normal Affect, Normal Mood - Skin Skin Exam: Normal Color Assessment and Plan - Assessment and Plan (Free Text) Assessment: 72 year old female with past medical history of HTN, Hypercholesterol, TIA (2007), DM presents to ED from the clinic for evaluation of generalized abdominal pain, loss of appetite, and elevated blood pressure for the past 2 weeks. SHAY - possibly secondary to malignancy - After bone marrow biopsy results will possibly discuss a kidney biopsy - NS @125cc/hr - Continue to monitor Hypertensive urgency - Atenolol 100mg PO daily - Amlodipine 10mg po daily - Lasix 40mg IV q12h - Isosorbid Dinitrate 10mg q8h - hydralazine 100mg PO q8h Hypercalcemia likely secondary to malignancy - Ca 14.9 - Patient given Calcitonin 200mg q12h for 24hours - Images: * Abd CT pelvis: There are multiple on varying sized rounded lytic lesions scattered throughout all the osseous structures. Findings probably represent multiple myeloma however metastatic disease not excluded. Clinical correlation recommended. * Bone scan: Specifically the permeative pattern throughout thoracolumbar spine and pelvis constitutes lytic disease most likely myeloma. - Calcium 24 hr urine -s/p bone marrow biopsy with Dr. Bran 01/20/18 - Free [place] Light Chains: 40549.8; Free [place] Light Chain 4.[address] Teddy Chowdhury PGY-2 <Yrn Espinal - Last Filed: 01/22/18 06:37> Objective - Vital Signs/Intake and Output Vital Signs (last 24 hours): Temp Pulse Resp BP Pulse Ox 98.6 F 67 20 165/69 H 95 01/21/18 23:30 01/22/18 01:00 01/21/18 23:30 01/21/18 23:30 01/21/18 23:30 Intake and Output: 01/21/18 01/22/18 18:59 06:59 Intake Total 1300 Balance 1300 - Medications Medications: Current Medications Acetaminophen (Tylenol 325mg Tab) 650 mg PO Q6 PRN PRN Reason: Pain, moderate (4-7) Amlodipine Besylate (Norvasc) 10 mg PO DAILY [facility] Last Admin: 01/21/18 10:01 Dose: 10 mg Aspirin (Aspirin Chewable) 81 mg PO DAILY [facility] Last Admin: 01/20/18 10:38 Dose: 81 mg Atenolol (Tenormin) 100 mg PO DAILY [facility] Last Admin: 01/21/18 10:01 Dose: 100 mg Benzonatate (Tessalon Perles) 100 mg PO TID [facility] Last Admin: 01/21/18 19:24 Dose: 100 mg Calcitonin [place] (Miacalcin) 200 intlu SC Q12H [facility] Stop: 01/22/18 08:01 Last Admin: 01/21/18 19:49 Dose: 200 intlu Docusate Sodium (Colace) 100 mg PO TID [facility] Last Admin: 01/21/18 19:24 Dose: 100 mg Famotidine (Pepcid) 20 mg PO DAILY [facility] Last Admin: 01/21/18 10:01 Dose: 20 mg Furosemide (Lasix) 40 mg IVP Q12 [facility] Last Admin: 01/21/18 22:21 Dose: 40 mg Heparin Sodium (Porcine) (Heparin) 5,000 units SC Q12 [facility] Last Admin: 01/17/18 10:28 Dose: Not Given Hydralazine HCl (Apresoline) 100 mg PO Q8H [facility] Last Admin: 01/21/18 22:20 Dose: 100 mg Sodium Chloride (Sodium Chloride 0.9%) 1,000 mls @ 125 mls/hr IV .Q8H [facility] Last Admin: 01/21/18 19:27 Dose: Not Given Isosorbide Dinitrate (Isordil) 10 mg PO Q8H [facility] Last Admin: 01/21/18 22:21 Dose: 10 mg Levothyroxine Sodium (Synthroid) 100 mcg PO DAILY@0630 [facility] Last Admin: 01/21/18 06:12 Dose: 100 mcg Methylprednisolone (Solu-Medrol) 40 mg IVP Q12 [facility] Last Admin: 01/21/18 22:21 Dose: 40 mg Pentoxifylline (Pentoxil) 400 mg PO BID [facility] Last Admin: 01/21/18 19:24 Dose: 400 mg - Labs Labs: 01/21/18 06:30 01/21/18 06:30 PT 11.7 SECONDS (9.7-12.2) 01/20/18 06:52 INR 1.1 01/20/18 06:52 Assessment and Plan (1) Acute renal failure Status: Acute (2) HTN (hypertension) Status: Acute (3) Hypercalcemia Status: Acute (4) Anemia Status: Acute Attending/Attestation - Attestation I have personally seen and examined this patient.: Yes I have fully participated in the care of the patient.: Yes I have reviewed all pertinent clinical information, including history, physical exam and plan: Yes Notes (Text): Patient seen and examined; I agree with the resident's note as above with the following additions/edits: 72 yo F admitted with severe hypercalcemia, lytic lesions, and acute renal failure; Markedly elevated kappa free light chain load; presumed MM, awaiting BM biopsy results; Non-oliguric renal failure, likely due to light chain deposition; increasing serum creatinine, will change IVF back to NS at 125 cc/hr; Hypercalcemia worsening; denosumab not available inpatient and bisphosphonates relatively contraindicated with advanced renal failure; starting calcitionin as a temporizing measure; continue IV lasix while maintaining net even to slightly positive fluid balance; Case discussed at length with machine shop lead man this afternoon; may benefit from plasma exchange to lower light chain load, can help correct renal failure; should have results of BM biopsy soon to confirm MM and can start chemo subsequently with at least cytoxan for now;
--- NOTE | 2018-01-21 11:31 | VASCLAB ---
Date of service: 01/17/2018 PROCEDURE: Renal Artery Duplex Scan HISTORY: Hypertension COMPARISON: None available. TECHNIQUE: Real-time ultrasonography evaluation of the renal arteries were performed. Comparison is made to the aorta. Report prepared by CHARLES Cleary FINDINGS: AORTA: Patent. Peak systolic velocity 118 centimeters/second RIGHT RENAL ARTERY: Renal artery to aorta ratio: 2.0 * Proximal segment: Patent. Peak systolic velocity 235 centimeters/second * Mid segment: Patent. Peak systolic velocity 199 centimeters/second * Distal segment: Patent. Peak systolic velocity 132 centimeters/second Other findings: Right Kidney measures approximately 11.65 centimeters. LEFT RENAL ARTERY: Renal artery to aorta ratio: 2.0 * Proximal segment: Patent. Peak systolic velocity 144 centimeters/second * Mid segment: Patent. Peak systolic velocity 148 centimeters/second * Distal segment: Patent. Peak systolic velocity 191 centimeters/second Other findings: Left Kidney measures approximately 11.77 centimeters. IMPRESSION: 1. Increased velocity of the right proximal renal artery, suggesting >60% stenosis. Patent right renal vein. 2. No definite hemodynamically significant stenosis involving the left renal artery as visualized. Patent left renal vein.
[2018-01-21] MEDS ORDERED: POLYETHYLENE GLYCOL 3350 17 GM/Dose PACKET PO ONE (13:19)
[2018-01-21] MEDS ORDERED: Bisacodyl 5mg EC Tab PO ONE (14:00)
--- NOTE | 2018-01-21 15:15 | CP.PCM.PN ---
<Santhosh Sauer - Last Filed: 01/21/18 15:12> Subjective - Date & Time of Evaluation Date of Evaluation: 01/21/18 Time of Evaluation: 07:40 - Subjective Subjective: Medicine Progress Note for Hospitalist Service Pt seen and examined at bedside this am, states she is still feeling fatigued. Reports she is urinating well without concerns. Admits to decreased PO appetite unchanged from day of admission. Reports diffuse abd pain unchanged in severity from admission. S/p bone marrow biopsy performed by Dr. Bran at bedside yester day, pending results. Denies headache, dizziness, fever, chills, chest pain, sob, n/v/d/c, or other symptoms. No acute events reported overnight. Objective - Vital Signs/Intake and Output Vital Signs (last 24 hours): Temp Pulse Resp BP Pulse Ox 98.1 F 65 20 133/68 95 01/21/18 07:00 01/21/18 13:24 01/21/18 07:00 01/21/18 13:24 01/21/18 07:00 Intake and Output: 01/21/18 01/21/18 06:59 18:59 Intake Total 1020 1300 Output Total 700 Balance 320 1300 - Medications Medications: Current Medications Acetaminophen (Tylenol 325mg Tab) 650 mg PO Q6 PRN PRN Reason: Pain, moderate (4-7) Amlodipine Besylate (Norvasc) 10 mg PO DAILY [facility] Last Admin: 01/21/18 10:01 Dose: 10 mg Aspirin (Aspirin Chewable) 81 mg PO DAILY [facility] Last Admin: 01/20/18 10:38 Dose: 81 mg Atenolol (Tenormin) 100 mg PO DAILY [facility] Last Admin: 01/21/18 10:01 Dose: 100 mg Benzonatate (Tessalon Perles) 100 mg PO TID [facility] Last Admin: 01/21/18 13:25 Dose: 100 mg Calcitonin [place] (Miacalcin) 200 intlu SC Q12H [facility] Stop: 01/22/18 04:01 Docusate Sodium (Colace) 100 mg PO TID [facility] Last Admin: 01/21/18 13:25 Dose: 100 mg Famotidine (Pepcid) 20 mg PO DAILY [facility] Last Admin: 01/21/18 10:01 Dose: 20 mg Furosemide (Lasix) 40 mg IVP Q12 [facility] Last Admin: 01/21/18 10:00 Dose: 40 mg Heparin Sodium (Porcine) (Heparin) 5,000 units SC Q12 [facility] Last Admin: 01/17/18 10:28 Dose: Not Given Hydralazine HCl (Apresoline) 100 mg PO Q8H [facility] Last Admin: 01/21/18 13:25 Dose: 100 mg Sodium Chloride (Sodium Chloride 0.9%) 1,000 mls @ 125 mls/hr IV .Q8H [facility] Last Admin: 01/21/18 10:00 Dose: 125 mls/hr Isosorbide Dinitrate (Isordil) 10 mg PO Q8H [facility] Last Admin: 01/21/18 13:25 Dose: 10 mg Levothyroxine Sodium (Synthroid) 100 mcg PO DAILY@0630 [facility] Last Admin: 01/21/18 06:12 Dose: 100 mcg Methylprednisolone (Solu-Medrol) 40 mg IVP Q12 [facility] Last Admin: 01/21/18 10:00 Dose: 40 mg Pentoxifylline (Pentoxil) 400 mg PO BID [facility] Last Admin: 01/21/18 10:03 Dose: 400 mg - Labs Labs: 01/21/18 06:30 01/21/18 06:30 PT 11.7 SECONDS (9.7-12.2) 01/20/18 06:52 INR 1.1 01/20/18 06:52 - Constitutional Appears: Non-toxic, No Acute Distress, Chronically Ill - Head Exam Head Exam: ATRAUMATIC, NORMOCEPHALIC - Eye Exam Eye Exam: EOMI, Normal appearance, PERRL - ENT Exam ENT Exam: Mucous Membranes Moist - Respiratory Exam Respiratory Exam: Clear to Ausculation Bilateral, NORMAL BREATHING PATTERN. absent: Rales, Rhonchi, Wheezes - Cardiovascular Exam Cardiovascular Exam: REGULAR RHYTHM, +S1, +S2. absent: Gallop, Rubs, Murmur - GI/Abdominal Exam GI & Abdominal Exam: Guarding, Soft, Normal Bowel Sounds. absent: Distended, Firm, Rigid, Organomegaly, Rebound Additional comments: Diffuse tenderness to palpation in all 4 quadrants - Extremities Exam Extremities Exam: Full ROM, Normal Capillary Refill, Normal Inspection. absent: Pedal Edema, Tenderness - Neurological Exam Neurological Exam: Alert, Awake, CN II-XII Intact, Oriented x3 - Skin Skin Exam: Dry, Intact, Normal Color, Warm Assessment and Plan - Assessment and Plan (Free Text) Plan: Hypercalcemia - Pt on telemetry for cardiac monitoring - Cont to monitor I's/O's - Ddx 2/2 multiple myeloma or malignancy - Hem/Onc consulted, Dr. Bran - help appreciated - bone marrow biopsy (01/20) was successfully obtained in sterile manner but bone marrow aspirate was not obtained despite redirecting twice (DRY TAP); -f/u bone marrow biopsy results; per Nephro recs possible kidney bx after results obtained - 14.6 on admission Uptrending to 14.9 today - Abd CT pelvis 01/17: There are multiple on varying sized rounded lytic lesions scattered throughout all the osseous structures. Findings probably represent multiple myeloma however metastatic disease not excluded. Clinical correlation recommended. - Bone Scan: There are no correlates to findings on recent CT scan. Specifically the permeative pattern throughout thoracolumbar spine and pelvis constitutes lytic disease most likely myeloma - Calcium 24 hr urine is normal at 237.8 - PTH intact is low normal at 14 - Immunofixation shows IgA-kappa monoclonal protein present. Free kappa (monoclonal free light chain) band present - PTH related protein, [place]/Lambda, Calcium (ionized), protein electrophoresis - Vit D 68.5 - Right shoulder xray: degenerative changes bilaterally. No acute findings. - Forearm xray: no significant or acute findings to account for/related to the clinical presentation - Abd/pelv CT with PO and IV contrast (01/19) shows innumerable lytic osseous lesions consistent with multiple myeloma or metastatic disease. Bibasilar atelectasis. Trace right pleural effusion. Small hiatal hernia. Evidence of mild gastroesophageal reflux. Borderline heptomegaly. Diverticulosis without CT evidence of acute diverticulitis. Moderate constipation. Hypertensive urgency - resolved - hemodynamically stable; BP well controlled today 134/89, continue to monitor - ECHO (01/19) shows LVEF>70%. Diastolic dysfunction. Mild MR. Mild TR, mild pulmonary hypertension. Mild pulmonic valvular regurgitation. - Aspirin 81mg PO daily - Atenolol 100mg PO daily - Hydralazine 100mg PO TID - Amlodipine 10 mg daily Hypokalemia - resolved - K 3.9 today - continue to monitor SHAY - nephrology consult, Dr. Espinal, f/u recs - avoid nephrotoxic medications - 1/2 NS at 100 mL/hr - Cr is 3.6, up from 3.3 - 24 hr urine protein elevated, 4236 - Renal US: Findings consistent with underlying medical renal disease. No evidence of nephrolithiasis or hydronephrosis. DM - Hold metformin - accuchecks Hyperlipidemia -Hold statin Hypothyroidism - Levothyroxine 100mcg daily PAD - Pentoxifylline 400mg PO BID - Isosorbide dinitrate 10 mg PO TID Prophylactic Care -SCDs -chemical anticoagulation held due to thrombocytopenia -Pepcid 20mg daily Pt seen, examined with, and plan discussed with Dr. Loco, attending physician. Santhosh Sauer DO PGY-1, Rn New Graduate pager #[phone] <Rayne Loco V - Last Filed: 01/23/18 18:35> Objective - Vital Signs/Intake and Output Vital Signs (last 24 hours): Temp Pulse Resp BP Pulse Ox 98.4 F 62 20 138/69 95 01/23/18 07:00 01/23/18 07:00 01/23/18 07:00 01/23/18 17:29 01/23/18 07:00 - Medications Medications: Current Medications Acetaminophen (Tylenol 325mg Tab) 650 mg PO Q6 PRN PRN Reason: Pain, moderate (4-7) Amlodipine Besylate (Norvasc) 10 mg PO DAILY [facility] Last Admin: 01/23/18 10:22 Dose: 10 mg Aspirin (Aspirin Chewable) 81 mg PO DAILY [facility] Last Admin: 01/20/18 10:38 Dose: 81 mg Atenolol (Tenormin) 100 mg PO DAILY [facility] Last Admin: 01/23/18 10:23 Dose: 100 mg Benzonatate (Tessalon Perles) 100 mg PO TID [facility] Last Admin: 01/23/18 17:29 Dose: 100 mg Docusate Sodium (Colace) 100 mg PO TID [facility] Last Admin: 01/23/18 17:28 Dose: 100 mg Famotidine (Pepcid) 20 mg PO DAILY [facility] Last Admin: 01/23/18 10:22 Dose: 20 mg Furosemide (Lasix) 60 mg PO BID [facility] Last Admin: 01/23/18 17:29 Dose: 60 mg Heparin Sodium (Porcine) (Heparin) 5,000 units SC Q12 [facility] Last Admin: 01/17/18 10:28 Dose: Not Given Heparin Sodium (Porcine) (Heparin) 5,000 units SC Q12 [facility] Hydralazine HCl (Apresoline) 100 mg PO Q8H [facility] Last Admin: 01/23/18 13:35 Dose: 100 mg Sodium Chloride (Sodium Chloride 0.9%) 1,000 mls @ 125 mls/hr IV .Q8H [facility] Last Admin: 01/23/18 10:38 Dose: 125 mls/hr Isosorbide Dinitrate (Isordil) 10 mg PO Q8H [facility] Last Admin: 01/23/18 13:35 Dose: 10 mg Levothyroxine Sodium (Synthroid) 100 mcg PO DAILY@0630 [facility] Last Admin: 01/23/18 05:50 Dose: 100 mcg Methylprednisolone (Solu-Medrol) 40 mg IVP Q12 [facility] Last Admin: 01/23/18 10:28 Dose: 40 mg Ondansetron HCl (Zofran Inj) 4 mg IVP Q6H PRN PRN Reason: Nausea/Vomiting Pentoxifylline (Pentoxil) 400 mg PO BID [facility] Last Admin: 01/23/18 17:29 Dose: 400 mg - Labs Labs: 01/23/18 07:00 01/23/18 07:00 PT 11.7 SECONDS (9.7-12.2) 01/20/18 06:52 INR 1.1 01/20/18 06:52 Attending/Attestation - Attestation I have personally seen and examined this patient.: Yes I have fully participated in the care of the patient.: Yes I have reviewed all pertinent clinical information, including history, physical exam and plan: Yes Notes (Text): This is a late computer entry for 01/21/2018. Patient seen, examined, case discussed with medical accountant. Patient underwent a bone marrow biopsy yesterday with hematology oncology. We will need to follow-up bone marrow biopsy report to rule out myeloma. Patient on diuretic, IV fluids, and will need to follow-up with discussion with nephrology regards calcitonin in light of persistent hypercalcemia. We will need to continue telemetry given how high the calcium is which will predispose for palpitations and chest pain. Discussed with hematology and nephrology if calcium does not improve may be she will need a possible exchange to remove the tremendous amount of light chains that are in the system.
[2018-01-21] MEDS ORDERED: Calcitonin 400 Intl Units/2mL Inj SC SCH (16:00)
[2018-01-21] MEDS: Calcitonin 400 Intl Units/2mL Inj SC SCH (19:49)
--- NOTE | 2018-01-21 21:17 | CP.PCM.PN ---
Subjective - Date & Time of Evaluation Date of Evaluation: 01/21/18 Time of Evaluation: 19:00 - Subjective Subjective: No complaints. Objective - Vital Signs/Intake and Output Vital Signs (last 24 hours): Temp Pulse Resp BP Pulse Ox 98.3 F 64 20 151/71 H 96 01/21/18 15:45 01/21/18 15:45 01/21/18 15:45 01/21/18 15:45 01/21/18 15:45 Intake and Output: 01/21/18 01/22/18 18:59 06:59 Intake Total 1300 Balance 1300 - Medications Medications: Current Medications Acetaminophen (Tylenol 325mg Tab) 650 mg PO Q6 PRN PRN Reason: Pain, moderate (4-7) Amlodipine Besylate (Norvasc) 10 mg PO DAILY [facility] Last Admin: 01/21/18 10:01 Dose: 10 mg Aspirin (Aspirin Chewable) 81 mg PO DAILY [facility] Last Admin: 01/20/18 10:38 Dose: 81 mg Atenolol (Tenormin) 100 mg PO DAILY [facility] Last Admin: 01/21/18 10:01 Dose: 100 mg Benzonatate (Tessalon Perles) 100 mg PO TID [facility] Last Admin: 01/21/18 19:24 Dose: 100 mg Calcitonin [place] (Miacalcin) 200 intlu SC Q12H [facility] Stop: 01/22/18 08:01 Last Admin: 01/21/18 19:49 Dose: 200 intlu Docusate Sodium (Colace) 100 mg PO TID [facility] Last Admin: 01/21/18 19:24 Dose: 100 mg Famotidine (Pepcid) 20 mg PO DAILY [facility] Last Admin: 01/21/18 10:01 Dose: 20 mg Furosemide (Lasix) 40 mg IVP Q12 [facility] Last Admin: 01/21/18 10:00 Dose: 40 mg Heparin Sodium (Porcine) (Heparin) 5,000 units SC Q12 [facility] Last Admin: 01/17/18 10:28 Dose: Not Given Hydralazine HCl (Apresoline) 100 mg PO Q8H [facility] Last Admin: 01/21/18 13:25 Dose: 100 mg Sodium Chloride (Sodium Chloride 0.9%) 1,000 mls @ 125 mls/hr IV .Q8H [facility] Last Admin: 01/21/18 19:27 Dose: Not Given Isosorbide Dinitrate (Isordil) 10 mg PO Q8H [facility] Last Admin: 01/21/18 13:25 Dose: 10 mg Levothyroxine Sodium (Synthroid) 100 mcg PO DAILY@0630 [facility] Last Admin: 01/21/18 06:12 Dose: 100 mcg Methylprednisolone (Solu-Medrol) 40 mg IVP Q12 [facility] Last Admin: 01/21/18 10:00 Dose: 40 mg Pentoxifylline (Pentoxil) 400 mg PO BID [facility] Last Admin: 01/21/18 19:24 Dose: 400 mg - Labs Labs: 01/21/18 06:30 01/21/18 06:30 PT 11.7 SECONDS (9.7-12.2) 01/20/18 06:52 INR 1.1 01/20/18 06:52 - Head Exam Head Exam: ATRAUMATIC - Eye Exam Eye Exam: Normal appearance - ENT Exam ENT Exam: Mucous Membranes Dry - Respiratory Exam Respiratory Exam: NORMAL BREATHING PATTERN - Cardiovascular Exam Cardiovascular Exam: +S1, +S2 - GI/Abdominal Exam GI & Abdominal Exam: Normal Bowel Sounds Assessment and Plan (1) Hypercalcemia Assessment & Plan: likely secondary to multiple myeloma on IV fluids, calcitonin, steroids nephrology following Status: Acute (2) Lytic lesion of bone on x-ray Assessment & Plan: rule out multiple myeloma Status: Acute (3) Anemia Assessment & Plan: rule out myeloma Status: Acute (4) Thrombocytopenia Assessment & Plan: rule out myeloma Status: Acute
[2018-01-22 06:46] LABS: ALBUMIN (PEP) 3.6 g/dL (3.8-4.8); ALPHA-1-GLOBULIN (PEP) 0.3 g/dL (0.2-0.3)
[2018-01-22] MEDS: Levothyroxine 100 MCG TAB PO SCH (07:13)
[2018-01-22] MEDS: Sodium Chloride 0.9% 1,000 ML IV SCH ×3 (07:14→17:40)
[2018-01-22 07:29] LABS: BASO % 0.6 % (0.0-2.0); EOS # 0.1 K/uL (0.0-0.7); EOS % 1.2 % (0.0-4.0); HEMOGLOBIN 9.2 g/dL (11.0-16.0); LYMPH # 1.5 K/uL (1.0-4.3); LYMPH % 20.3 % (20.0-40.0); MEAN CELL VOLUME 93.9 fL (81.0-99.0); MEAN CORPUSCULAR HEMOGLOBIN 32.2 pg (27.0-31.0); MEAN CORPUSCULAR HGB CONC 34.3 g/dL (33.0-37.0); MEAN PLATELET VOLUME 10.3 fL (7.2-11.7); MONO # 0.7 K/uL (0.0-0.8); MONO % 9.2 % (0.0-10.0); NEUT % 68.7 % (50.0-75.0); NRBC % 0.4 % (0.0-2.0); RBC 2.84 Mil/uL (3.80-5.20); RED CELL DISTRIBUTION WIDTH 16.7 % (11.5-14.5); WHITE BLOOD COUNT 7.2 K/uL (4.8-10.8)
[2018-01-22] MEDS: Calcitonin 400 Intl Units/2mL Inj SC SCH (08:15)
[2018-01-22 08:22] LABS: ALB/GLOB RATIO 1.2 (1.0-2.1); ALBUMIN 4.1 g/dL (3.5-5.0); CALCIUM 12.9 mg/dl (8.6-10.4); URIC ACID 8.1 mg/dL (2.2-7.5)
[2018-01-22] MEDS: MethylPREDNISolone 40 mg Vial IVP SCH ×2 (10:52→22:10)
--- NOTE | 2018-01-22 10:59 | CP.PCM.PN ---
<Manuel Villafana - Last Filed: 01/22/18 13:58> Subjective - Date & Time of Evaluation Date of Evaluation: 01/22/18 Time of Evaluation: 07:20 - Subjective Subjective: Nephrology Progress Note for Dr. Espinal Patient was seen and examined at bedside. No acute events overnight. Denies any complaints. Patient denies chest pain, shortness of breath, palpitations, nausea, vomiting, diarrhea or constipation. 12 Point ROS performed and neg other than stated above. Objective - Vital Signs/Intake and Output Vital Signs (last 24 hours): Temp Pulse Resp BP Pulse Ox 98.4 F 68 18 155/76 H 96 01/22/18 08:00 01/22/18 08:00 01/22/18 08:00 01/22/18 08:00 01/22/18 08:00 - Medications Medications: Current Medications Acetaminophen (Tylenol 325mg Tab) 650 mg PO Q6 PRN PRN Reason: Pain, moderate (4-7) Amlodipine Besylate (Norvasc) 10 mg PO DAILY [facility] Last Admin: 01/21/18 10:01 Dose: 10 mg Aspirin (Aspirin Chewable) 81 mg PO DAILY [facility] Last Admin: 01/20/18 10:38 Dose: 81 mg Atenolol (Tenormin) 100 mg PO DAILY [facility] Last Admin: 01/21/18 10:01 Dose: 100 mg Benzonatate (Tessalon Perles) 100 mg PO TID [facility] Last Admin: 01/21/18 19:24 Dose: 100 mg Docusate Sodium (Colace) 100 mg PO TID [facility] Last Admin: 01/21/18 19:24 Dose: 100 mg Famotidine (Pepcid) 20 mg PO DAILY [facility] Last Admin: 01/21/18 10:01 Dose: 20 mg Furosemide (Lasix) 40 mg IVP Q12 [facility] Last Admin: 01/21/18 22:21 Dose: 40 mg Heparin Sodium (Porcine) (Heparin) 5,000 units SC Q12 [facility] Last Admin: 01/17/18 10:28 Dose: Not Given Hydralazine HCl (Apresoline) 100 mg PO Q8H [facility] Last Admin: 01/22/18 07:13 Dose: 100 mg Sodium Chloride (Sodium Chloride 0.9%) 1,000 mls @ 125 mls/hr IV .Q8H [facility] Last Admin: 01/22/18 07:14 Dose: 125 mls/hr Isosorbide Dinitrate (Isordil) 10 mg PO Q8H [facility] Last Admin: 01/22/18 07:13 Dose: 10 mg Levothyroxine Sodium (Synthroid) 100 mcg PO DAILY@0630 [facility] Last Admin: 01/22/18 07:13 Dose: 100 mcg Methylprednisolone (Solu-Medrol) 40 mg IVP Q12 [facility] Last Admin: 01/21/18 22:21 Dose: 40 mg Pentoxifylline (Pentoxil) 400 mg PO BID [facility] Last Admin: 01/21/18 19:24 Dose: 400 mg - Labs Labs: 01/22/18 07:22 01/22/18 07:22 PT 11.7 SECONDS (9.7-12.2) 01/20/18 06:52 INR 1.1 01/20/18 06:52 - Constitutional Appears: No Acute Distress - Head Exam Head Exam: ATRAUMATIC, NORMOCEPHALIC - Eye Exam Eye Exam: EOMI - ENT Exam ENT Exam: Mucous Membranes Moist - Respiratory Exam Respiratory Exam: Clear to Ausculation Bilateral. absent: Rales, Wheezes - Cardiovascular Exam Cardiovascular Exam: REGULAR RHYTHM, +S1, +S2 - GI/Abdominal Exam GI & Abdominal Exam: Soft, Tenderness. absent: Distended - Extremities Exam Extremities Exam: Full ROM. absent: Calf Tenderness, Pedal Edema - Neurological Exam Neurological Exam: Alert, Awake, CN II-XII Intact Assessment and Plan - Assessment and Plan (Free Text) Assessment: 72 yo F admitted with severe hypercalcemia, lytic lesions, and acute renal failure concerning for multiple myeloma. s/p bone marrow biopsy. -Ca today 12.9 -Elevated kappa free light chain load; presumed MM, awaiting BM biopsy results -Cont IVF NS at 125 cc/hr -denosumab not available inpatient and bisphosphonates relatively c ontraindicated with advanced renal failure -started calcitionin as a temporizing measure -continue IV lasix 40mg IVP Q12 -F/u heme/onc recs regarding possible plasma exchange to lower light chain load, and to start chemo subsequently with at least cytoxan for now Case and plan was reviewed and discussed with Dr Espinal. <Yrn Espinal - Last Filed: 01/23/18 08:20> Objective - Vital Signs/Intake and Output Vital Signs (last 24 hours): Temp Pulse Resp BP Pulse Ox 98.4 F 62 20 128/56 L 95 01/23/18 07:00 01/23/18 07:00 01/23/18 07:00 01/23/18 07:00 01/23/18 07:00 - Medications Medications: Current Medications Acetaminophen (Tylenol 325mg Tab) 650 mg PO Q6 PRN PRN Reason: Pain, moderate (4-7) Amlodipine Besylate (Norvasc) 10 mg PO DAILY [facility] Last Admin: 01/22/18 10:51 Dose: 10 mg Aspirin (Aspirin Chewable) 81 mg PO DAILY [facility] Last Admin: 01/20/18 10:38 Dose: 81 mg Atenolol (Tenormin) 100 mg PO DAILY [facility] Last Admin: 01/22/18 10:51 Dose: 100 mg Benzonatate (Tessalon Perles) 100 mg PO TID [facility] Last Admin: 01/22/18 17:36 Dose: 100 mg Docusate Sodium (Colace) 100 mg PO TID [facility] Last Admin: 01/22/18 17:36 Dose: 100 mg Famotidine (Pepcid) 20 mg PO DAILY [facility] Last Admin: 01/22/18 10:52 Dose: 20 mg Furosemide (Lasix) 40 mg IVP Q12 [facility] Last Admin: 01/22/18 22:05 Dose: 40 mg Heparin Sodium (Porcine) (Heparin) 5,000 units SC Q12 [facility] Last Admin: 01/17/18 10:28 Dose: Not Given Hydralazine HCl (Apresoline) 100 mg PO Q8H [facility] Last Admin: 01/23/18 05:50 Dose: 100 mg Sodium Chloride (Sodium Chloride 0.9%) 1,000 mls @ 125 mls/hr IV .Q8H [facility] Last Admin: 01/22/18 17:40 Dose: 125 mls/hr Isosorbide Dinitrate (Isordil) 10 mg PO Q8H [facility] Last Admin: 01/23/18 05:50 Dose: 10 mg Levothyroxine Sodium (Synthroid) 100 mcg PO DAILY@0630 [facility] Last Admin: 01/23/18 05:50 Dose: 100 mcg Methylprednisolone (Solu-Medrol) 40 mg IVP Q12 [facility] Last Admin: 01/22/18 22:10 Dose: 40 mg Ondansetron HCl (Zofran Inj) 4 mg IVP Q6H PRN PRN Reason: Nausea/Vomiting Pentoxifylline (Pentoxil) 400 mg PO BID [facility] Last Admin: 01/22/18 17:36 Dose: 400 mg - Labs Labs: 01/23/18 07:00 01/23/18 07:00 PT 11.7 SECONDS (9.7-12.2) 01/20/18 06:52 INR 1.1 01/20/18 06:52 Assessment and Plan (1) Acute renal failure Status: Acute (2) HTN (hypertension) Status: Acute (3) Hypercalcemia Status: Acute (4) Anemia Status: Acute Attending/Attestation - Attestation I have personally seen and examined this patient.: Yes I have fully participated in the care of the patient.: Yes I have reviewed all pertinent clinical information, including history, physical exam and plan: Yes Notes (Text): Patient seen and examined; I agree with the resident's note as above with the following additions/edits: 72 yo F admitted with severe hypercalcemia, lytic lesions, and acute renal failure; Markedly elevated kappa free light chain load; presumed MM, awaiting BM biopsy results (still not ready per hematology); Gave 2 doses of calcitionin yesterday with significant improvement in hypercalcemia on labs today; will hold off on re-dosing until Ca increases again (tachyphylaxis known with calcitonin); SHAY with renal function stable; will continue IVF w/ NS at 125 cc/hr and lasix 40 mg IV q12h; goal is to achieve 3L urine output daily to help prevent tubular injury from MM light chain deposition; decision to begin plasma exchange to decrease light chain load and help preserve kidney function based on BM biopsy results; should continue to avoid all nephrotoxic meds (NSAIDS, phosphate enema, etc); HTN w/ modestly elevated BP, will continue current meds for now;
--- NOTE | 2018-01-22 11:28 | CP.PCM.PN ---
Subjective - Date & Time of Evaluation Date of Evaluation: 01/22/18 Time of Evaluation: 11:26 - Subjective Subjective: PGY-1 Medicine Progress Note for Dr. Duffy Patient seen and examined at bedside, resting comfortably and in no acute distress. No acute overnight events reported. Patient states that abdominal pain has improved since previous day, continues to endorse decreased appetite. She continues to urinate adequately with no complaints. Awaiting bone marrow biopsy results. No fevers/chills, headaches, dizziness, chest pain, palpitations, sob, cough, n/v/d/c, dysuria or changes in stool. Objective - Vital Signs/Intake and Output Vital Signs (last 24 hours): Temp Pulse Resp BP Pulse Ox 98.4 F 68 18 155/76 H 96 01/22/18 08:00 01/22/18 08:00 01/22/18 08:00 01/22/18 10:52 01/22/18 08:00 - Medications Medications: Current Medications Acetaminophen (Tylenol 325mg Tab) 650 mg PO Q6 PRN PRN Reason: Pain, moderate (4-7) Amlodipine Besylate (Norvasc) 10 mg PO DAILY [facility] Last Admin: 01/22/18 10:51 Dose: 10 mg Aspirin (Aspirin Chewable) 81 mg PO DAILY [facility] Last Admin: 01/20/18 10:38 Dose: 81 mg Atenolol (Tenormin) 100 mg PO DAILY [facility] Last Admin: 01/22/18 10:51 Dose: 100 mg Benzonatate (Tessalon Perles) 100 mg PO TID [facility] Last Admin: 01/22/18 10:51 Dose: 100 mg Docusate Sodium (Colace) 100 mg PO TID [facility] Last Admin: 01/22/18 10:51 Dose: 100 mg Famotidine (Pepcid) 20 mg PO DAILY [facility] Last Admin: 01/22/18 10:52 Dose: 20 mg Furosemide (Lasix) 40 mg IVP Q12 [facility] Last Admin: 01/22/18 10:52 Dose: 40 mg Heparin Sodium (Porcine) (Heparin) 5,000 units SC Q12 [facility] Last Admin: 01/17/18 10:28 Dose: Not Given Hydralazine HCl (Apresoline) 100 mg PO Q8H [facility] Last Admin: 01/22/18 07:13 Dose: 100 mg Sodium Chloride (Sodium Chloride 0.9%) 1,000 mls @ 125 mls/hr IV .Q8H [facility] Last Admin: 01/22/18 09:45 Dose: 125 mls/hr Isosorbide Dinitrate (Isordil) 10 mg PO Q8H [facility] Last Admin: 01/22/18 07:13 Dose: 10 mg Levothyroxine Sodium (Synthroid) 100 mcg PO DAILY@0630 [facility] Last Admin: 01/22/18 07:13 Dose: 100 mcg Methylprednisolone (Solu-Medrol) 40 mg IVP Q12 [facility] Last Admin: 01/22/18 10:52 Dose: 40 mg Pentoxifylline (Pentoxil) 400 mg PO BID [facility] Last Admin: 01/22/18 10:52 Dose: 400 mg - Labs Labs: 01/22/18 07:22 01/22/18 07:22 PT 11.7 SECONDS (9.7-12.2) 01/20/18 06:52 INR 1.1 01/20/18 06:52 - Constitutional Appears: Non-toxic, No Acute Distress - Head Exam Head Exam: ATRAUMATIC, NORMAL INSPECTION, NORMOCEPHALIC - Eye Exam Eye Exam: EOMI, Normal appearance, PERRL Pupil Exam: NORMAL ACCOMODATION - ENT Exam ENT Exam: Mucous Membranes Moist, Normal Exam - Neck Exam Neck Exam: Full ROM - Respiratory Exam Respiratory Exam: Clear to Ausculation Bilateral, NORMAL BREATHING PATTERN. absent: Rales, Rhonchi, Wheezes, Respiratory Distress - Cardiovascular Exam Cardiovascular Exam: REGULAR RHYTHM, +S1, +S2 - GI/Abdominal Exam GI & Abdominal Exam: Soft, Tenderness (mild TTP x4 quadrants), Normal Bowel Sounds. absent: Distended, Firm, Guarding, Rigid, Mass, Organomegaly, Rebound - Extremities Exam Extremities Exam: Full ROM, Normal Capillary Refill, Normal Inspection. absent: Joint Swelling, Pedal Edema, Tenderness - Back Exam Back Exam: NORMAL INSPECTION. absent: CVA tenderness (L), CVA tenderness (R) - Neurological Exam Neurological Exam: Alert, Awake, CN II-XII Intact, Oriented x3 - Psychiatric Exam Psychiatric exam: Normal Affect, Normal Mood - Skin Skin Exam: Dry, Intact, Normal Color, Warm Assessment and Plan - Assessment and Plan (Free Text) Assessment: 72 yo F with PMHx of HTN, HLD, TIA 2007, DM presenting with generalized abdominal pain, decreased appetite and increased BP x 2weeks, associated with hypercalcemia and unintentional weight loss likely 2/2 multiple myeloma. Plan: Hypercalcemia, likely 2/2 Multiple Myeloma - Pt on telemetry for cardiac monitoring - Continue to monitor I's/O's - Heme/Onc recs (Dr. Bran) appreciated - bone marrow biopsy (01/20) was successfully obtained in sterile manner but bone marrow aspirate was not obtained despite redirecting twice (DRY TAP) -f/u bone marrow biopsy results -per Nephro recs possible kidney bx after results obtained -Nephro recs (Dr. Espinal) appreciated -Ca 12.9 today -increased kappa free light chain load, presumed MM but awaiting bone marrow bx results -continue w/ IVF @125 cc/hr -calcitonin on board as temporizing measure -denosumab not available inpatient and bisphosphonates relatively contraindicated with advanced renal failure -continue IV lasix 40mg IVP Q12 -F/u heme/onc recs outdoor recreation specialist regarding possible plasma exchange to lower light chain load, and to start chemo subsequently with at least cytoxan for now -Imaging - CT abd/pelvis (01/17): There are multiple on varying sized rounded lytic lesions scattered throughout all the osseous structures. Findings probably represent multiple myeloma however metastatic disease not excluded. Clinical correlation recommended. - Bone Scan: There are no correlates to findings on recent CT scan. Specifically the permeative pattern throughout thoracolumbar spine and pelvis constitutes lytic disease most likely myeloma - R shoulder XR (01/19): degenerative changes bilaterally. No acute findings. - B/L Forearm XR (01/19): no significant or acute findings to account for/related to the clinical presentation - Abd/pelv CT with PO and IV contrast (01/19): nnumerable lytic osseous lesions consistent with multiple myeloma or metastatic disease. Bibasilar atelectasis. Trace right pleural effusion. Small hiatal hernia. Evidence of mild gastroesophageal reflux. Borderline heptomegaly. Diverticulosis without CT evidence of acute diverticulitis. Moderate constipation. - Calcium 24 hr urine is normal at 237.8 - PTH intact is low normal at 14 - PTHr protein: 18 (01/17) - Vit D 68.5 Hypertensive urgency - resolved - hemodynamically stable; BP well controlled today 134/89, continue to monitor - ECHO (01/19) shows LVEF>70%. Diastolic dysfunction. Mild MR. Mild TR, mild pulmonary hypertension. Mild pulmonic valvular regurgitation. - Aspirin 81mg PO daily - Atenolol 100mg PO daily - Hydralazine 100mg PO TID - Amlodipine 10 mg daily Hypokalemia - resolved - K 3.9 today - continue to monitor SHAY - nephrology consult, Dr. Espinal, f/u recs - avoid nephrotoxic medications - cont IVF @125 cc/hr - Cr 3.5 (01/22) - 24 hr urine protein elevated, 4236 - Renal US: Findings consistent with underlying medical renal disease. No evid ence of nephrolithiasis or hydronephrosis. DM - Hold metformin - accuchecks HLD -Hold statin Hypothyroidism - Levothyroxine 100mcg daily PAD - Pentoxifylline 400mg PO BID - Isosorbide dinitrate 10 mg PO TID PPx, Diet, Disposition -VTE ppx: SCDs -chemical anticoagulation held due to thrombocytopenia -GI ppx: Pepcid 20mg daily Case discussed with Dr. Clive Srivastava DO, PGY-1
[2018-01-23] MEDS: Levothyroxine 100 MCG TAB PO SCH (05:50)
[2018-01-23 07:34] LABS: BASO % 0.5 % (0.0-2.0); EOS # 0.1 K/uL (0.0-0.7); EOS % 1.4 % (0.0-4.0); HEMOGLOBIN 8.1 g/dL (11.0-16.0); LYMPH # 1.7 K/uL (1.0-4.3); LYMPH % 25.8 % (20.0-40.0); MEAN CELL VOLUME 94.6 fL (81.0-99.0); MEAN CORPUSCULAR HEMOGLOBIN 32.5 pg (27.0-31.0); MEAN CORPUSCULAR HGB CONC 34.3 g/dL (33.0-37.0); MEAN PLATELET VOLUME 10.5 fL (7.2-11.7); MONO # 0.6 K/uL (0.0-0.8); MONO % 9.3 % (0.0-10.0); NEUT # 4.1 K/uL (1.8-7.0); NRBC % 0.3 % (0.0-2.0); RBC 2.5 Mil/uL (3.80-5.20); RED CELL DISTRIBUTION WIDTH 17.1 % (11.5-14.5); WHITE BLOOD COUNT 6.5 K/uL (4.8-10.8)
[2018-01-23 07:50] LABS: ALB/GLOB RATIO 1.1 (1.0-2.1); ALBUMIN 3.6 g/dL (3.5-5.0)
--- NOTE | 2018-01-23 09:29 | CP.PCM.PN ---
<Manuel Villafana - Last Filed: 01/23/18 13:27> Subjective - Date & Time of Evaluation Date of Evaluation: 01/23/18 Time of Evaluation: 07:20 - Subjective Subjective: Nephrology Progress Note for Dr. Espinal Patient was seen and examined at bedside. No acute events overnight. Complains of some nausea with food, denies any vomiting. Patient denies chest pain, shortness of breath, palpitations, vomiting, diarrhea or constipation. 12 Point ROS performed and neg other than stated above. Objective - Vital Signs/Intake and Output Vital Signs (last 24 hours): Temp Pulse Resp BP Pulse Ox 98.4 F 62 20 128/56 L 95 01/23/18 07:00 01/23/18 07:00 01/23/18 07:00 01/23/18 07:00 01/23/18 07:00 - Medications Medications: Current Medications Acetaminophen (Tylenol 325mg Tab) 650 mg PO Q6 PRN PRN Reason: Pain, moderate (4-7) Amlodipine Besylate (Norvasc) 10 mg PO DAILY [facility] Last Admin: 01/22/18 10:51 Dose: 10 mg Aspirin (Aspirin Chewable) 81 mg PO DAILY [facility] Last Admin: 01/20/18 10:38 Dose: 81 mg Atenolol (Tenormin) 100 mg PO DAILY [facility] Last Admin: 01/22/18 10:51 Dose: 100 mg Benzonatate (Tessalon Perles) 100 mg PO TID [facility] Last Admin: 01/22/18 17:36 Dose: 100 mg Docusate Sodium (Colace) 100 mg PO TID [facility] Last Admin: 01/22/18 17:36 Dose: 100 mg Famotidine (Pepcid) 20 mg PO DAILY [facility] Last Admin: 01/22/18 10:52 Dose: 20 mg Furosemide (Lasix) 40 mg IVP Q12 [facility] Last Admin: 01/22/18 22:05 Dose: 40 mg Heparin Sodium (Porcine) (Heparin) 5,000 units SC Q12 [facility] Last Admin: 01/17/18 10:28 Dose: Not Given Hydralazine HCl (Apresoline) 100 mg PO Q8H [facility] Last Admin: 01/23/18 05:50 Dose: 100 mg Sodium Chloride (Sodium Chloride 0.9%) 1,000 mls @ 125 mls/hr IV .Q8H [facility] Last Admin: 01/22/18 17:40 Dose: 125 mls/hr Isosorbide Dinitrate (Isordil) 10 mg PO Q8H [facility] Last Admin: 01/23/18 05:50 Dose: 10 mg Levothyroxine Sodium (Synthroid) 100 mcg PO DAILY@0630 [facility] Last Admin: 01/23/18 05:50 Dose: 100 mcg Methylprednisolone (Solu-Medrol) 40 mg IVP Q12 [facility] Last Admin: 01/22/18 22:10 Dose: 40 mg Ondansetron HCl (Zofran Inj) 4 mg IVP Q6H PRN PRN Reason: Nausea/Vomiting Pentoxifylline (Pentoxil) 400 mg PO BID [facility] Last Admin: 01/22/18 17:36 Dose: 400 mg Potassium Chloride (Potassium Chloride Oral Soln) 20 meq PO BID [facility] Stop: 01/23/18 16:00 - Labs Labs: 01/23/18 07:00 01/23/18 07:00 PT 11.7 SECONDS (9.7-12.2) 01/20/18 06:52 INR 1.1 01/20/18 06:52 - Constitutional Appears: No Acute Distress - Head Exam Head Exam: ATRAUMATIC, NORMOCEPHALIC - Eye Exam Eye Exam: EOMI - ENT Exam ENT Exam: Mucous Membranes Moist - Respiratory Exam Respiratory Exam: Clear to Ausculation Bilateral. absent: Rales, Wheezes - Cardiovascular Exam Cardiovascular Exam: REGULAR RHYTHM, +S1, +S2 - GI/Abdominal Exam GI & Abdominal Exam: Soft. absent: Distended, Tenderness - Extremities Exam Extremities Exam: absent: Calf Tenderness - Neurological Exam Neurological Exam: Alert, Awake, Oriented x3 - Skin Skin Exam: Dry, Intact Assessment and Plan - Assessment and Plan (Free Text) Assessment: 72 yo F admitted with severe hypercalcemia, lytic lesions, and acute renal failure concerning for multiple myeloma. s/p bone marrow biopsy. -Ca 12.9 -->12 today -Elevated kappa free light chain load; presumed MM, awaiting BM biopsy results MARTINA and SPEP showed MM spike; Immunofixation showed IGA kappa and kappa present -Cont IVF NS at 125 cc/hr -Denosumab not available inpatient and bisphosphonates relatively contraindicated with advanced renal failure -was given calcitionin as a temporizing measure -d/c IV lasix 40mg IVP Q12 ---> started Lasix 60mg PO BID -F/u heme/onc recs regarding possible plasma exchange to lower light chain load, and to start chemo subsequently with at least cytoxan for now, first awaiting bone marrow biopsy results Case and plan was reviewed and discussed with Dr Espinal. <Yrn Espinal - Last Filed: 01/24/18 08:57> Objective - Vital Signs/Intake and Output Vital Signs (last 24 hours): Temp Pulse Resp BP Pulse Ox 98.4 F 63 20 120/53 L 95 01/24/18 07:00 01/24/18 07:00 01/24/18 07:00 01/24/18 07:00 01/24/18 07:00 - Medications Medications: Current Medications Acetaminophen (Tylenol 325mg Tab) 650 mg PO Q6 PRN PRN Reason: Pain, moderate (4-7) Last Admin: 01/24/18 02:22 Dose: 650 mg Amlodipine Besylate (Norvasc) 10 mg PO DAILY [facility] Last Admin: 01/23/18 10:22 Dose: 10 mg Aspirin (Aspirin Chewable) 81 mg PO DAILY [facility] Last Admin: 01/20/18 10:38 Dose: 81 mg Atenolol (Tenormin) 100 mg PO DAILY [facility] Last Admin: 01/23/18 10:23 Dose: 100 mg Benzonatate (Tessalon Perles) 100 mg PO TID [facility] Last Admin: 01/23/18 17:29 Dose: 100 mg Docusate Sodium (Colace) 100 mg PO TID [facility] Last Admin: 01/23/18 17:28 Dose: 100 mg Famotidine (Pepcid) 20 mg PO DAILY [facility] Last Admin: 01/23/18 10:22 Dose: 20 mg Furosemide (Lasix) 60 mg PO BID [facility] Last Admin: 01/23/18 17:29 Dose: 60 mg Heparin Sodium (Porcine) (Heparin) 5,000 units SC Q12 [facility] Last Admin: 01/17/18 10:28 Dose: Not Given Heparin Sodium (Porcine) (Heparin) 5,000 units SC Q12 [facility] Last Admin: 01/23/18 21:24 Dose: 5,000 units Hydralazine HCl (Apresoline) 100 mg PO Q8H [facility] Last Admin: 01/24/18 05:31 Dose: 100 mg Sodium Chloride (Sodium Chloride 0.9%) 1,000 mls @ 125 mls/hr IV .Q8H [facility] Last Admin: 01/23/18 18:30 Dose: 125 mls/hr Isosorbide Dinitrate (Isordil) 10 mg PO Q8H [facility] Last Admin: 01/24/18 05:31 Dose: 10 mg Levothyroxine Sodium (Synthroid) 100 mcg PO DAILY@0630 [facility] Last Admin: 01/24/18 05:31 Dose: 100 mcg Methylprednisolone (Solu-Medrol) 40 mg IVP Q12 [facility] Last Admin: 01/23/18 21:23 Dose: 40 mg Ondansetron HCl (Zofran Inj) 4 mg IVP Q6H PRN PRN Reason: Nausea/Vomiting Pentoxifylline (Pentoxil) 400 mg PO BID [facility] Last Admin: 01/23/18 17:29 Dose: 400 mg - Labs Labs: 01/24/18 06:19 01/24/18 06:19 PT 11.7 SECONDS (9.7-12.2) 01/20/18 06:52 INR 1.1 01/20/18 06:52 Assessment and Plan (1) Acute renal failure Status: Acute (2) HTN (hypertension) Status: Acute (3) Hypercalcemia Status: Acute (4) Anemia Status: Acute Attending/Attestation - Attestation I have personally seen and examined this patient.: Yes I have fully participated in the care of the patient.: Yes I have reviewed all pertinent clinical information, including history, physical exam and plan: Yes Notes (Text): Patient seen and examined; I agree with the resident's note as above with the following additions/edits: 72 yo F admitted with severe hypercalcemia, lytic lesions, and acute renal failure; Markedly elevated kappa free light chain load; presumed MM, awaiting BM biopsy results; once MM confirmed, to start chemo with cytoxan as well as plasma exchange to decrease light chain load and help preserve renal function; Renal function improved; on IVF w/ NS at 125 cc/hr, continue same; changing lasix to PO 60 mg bid now that Ca stabilized; goal is to maintain ~3L urine output daily to prevent light chain deposition in renal tubules; HTN controlled; continue current meds; Hypercalcemia improved and stable after calcitonin dose given 2 days ago; expect Ca to rebound upward, will continue to monitor;
[2018-01-23] MEDS ORDERED: Potassium Chloride 20 mEq/15 ml LIQ UD PO SCH (10:00)
[2018-01-23] MEDS: MethylPREDNISolone 40 mg Vial IVP SCH ×2 (10:28→21:23)
[2018-01-23] MEDS: Sodium Chloride 0.9% 1,000 ML IV SCH ×2 (10:38→18:30)
--- NOTE | 2018-01-23 12:37 | CP.PCM.PN ---
Subjective - Date & Time of Evaluation Date of Evaluation: 01/22/18 Time of Evaluation: 20:00 - Subjective Subjective: Feels weak bone marrow biopsy results still pending Objective - Vital Signs/Intake and Output Vital Signs (last 24 hours): Temp Pulse Resp BP Pulse Ox 98.4 F 62 20 130/79 95 01/23/18 07:00 01/23/18 07:00 01/23/18 07:00 01/23/18 10:23 01/23/18 07:00 - Medications Medications: Current Medications Acetaminophen (Tylenol 325mg Tab) 650 mg PO Q6 PRN PRN Reason: Pain, moderate (4-7) Amlodipine Besylate (Norvasc) 10 mg PO DAILY [facility] Last Admin: 01/23/18 10:22 Dose: 10 mg Aspirin (Aspirin Chewable) 81 mg PO DAILY [facility] Last Admin: 01/20/18 10:38 Dose: 81 mg Atenolol (Tenormin) 100 mg PO DAILY [facility] Last Admin: 01/23/18 10:23 Dose: 100 mg Benzonatate (Tessalon Perles) 100 mg PO TID [facility] Last Admin: 01/23/18 10:24 Dose: 100 mg Docusate Sodium (Colace) 100 mg PO TID [facility] Last Admin: 01/23/18 10:23 Dose: 100 mg Famotidine (Pepcid) 20 mg PO DAILY [facility] Last Admin: 01/23/18 10:22 Dose: 20 mg Furosemide (Lasix) 60 mg PO BID [facility] Heparin Sodium (Porcine) (Heparin) 5,000 units SC Q12 [facility] Last Admin: 01/17/18 10:28 Dose: Not Given Hydralazine HCl (Apresoline) 100 mg PO Q8H [facility] Last Admin: 01/23/18 05:50 Dose: 100 mg Sodium Chloride (Sodium Chloride 0.9%) 1,000 mls @ 125 mls/hr IV .Q8H [facility] Last Admin: 01/23/18 10:38 Dose: 125 mls/hr Isosorbide Dinitrate (Isordil) 10 mg PO Q8H [facility] Last Admin: 01/23/18 05:50 Dose: 10 mg Levothyroxine Sodium (Synthroid) 100 mcg PO DAILY@0630 [facility] Last Admin: 01/23/18 05:50 Dose: 100 mcg Methylprednisolone (Solu-Medrol) 40 mg IVP Q12 [facility] Last Admin: 01/23/18 10:28 Dose: 40 mg Ondansetron HCl (Zofran Inj) 4 mg IVP Q6H PRN PRN Reason: Nausea/Vomiting Pentoxifylline (Pentoxil) 400 mg PO BID [facility] Last Admin: 01/23/18 10:23 Dose: 400 mg Potassium Chloride (Potassium Chloride Oral Soln) 20 meq PO BID [facility] Stop: 01/23/18 16:00 Last Admin: 01/23/18 10:23 Dose: 20 meq - Labs Labs: 01/23/18 07:00 01/23/18 07:00 PT 11.7 SECONDS (9.7-12.2) 01/20/18 06:52 INR 1.1 01/20/18 06:52 - Head Exam Head Exam: ATRAUMATIC - Eye Exam Eye Exam: Normal appearance - ENT Exam ENT Exam: Mucous Membranes Dry - Respiratory Exam Respiratory Exam: NORMAL BREATHING PATTERN - Cardiovascular Exam Cardiovascular Exam: +S1, +S2 - GI/Abdominal Exam GI & Abdominal Exam: Normal Bowel Sounds Assessment and Plan (1) Hypercalcemia Assessment & Plan: likely secondary to multiple myeloma on IV fluids, calcitonin, steroids nephrology following improving Status: Acute (2) Lytic lesion of bone on x-ray Assessment & Plan: rule out multiple myeloma Status: Acute (3) Anemia Assessment & Plan: rule out myeloma Status: Acute (4) Thrombocytopenia Assessment & Plan: rule out myeloma Status: Acute
--- NOTE | 2018-01-23 12:39 | CP.PCM.PN ---
Subjective - Date & Time of Evaluation Date of Evaluation: 01/23/18 Time of Evaluation: 12:00 - Subjective Subjective: Feels better, calcium improving spoke to [facility]; bone marrow results still pending will plan for plasma pheresis and inpatient oral cyclophosphamide if confirmed multiple myeloma in an attempt to salvage the patients renal function Objective - Vital Signs/Intake and Output Vital Signs (last 24 hours): Temp Pulse Resp BP Pulse Ox 98.4 F 62 20 130/79 95 01/23/18 07:00 01/23/18 07:00 01/23/18 07:00 01/23/18 10:23 01/23/18 07:00 - Medications Medications: Current Medications Acetaminophen (Tylenol 325mg Tab) 650 mg PO Q6 PRN PRN Reason: Pain, moderate (4-7) Amlodipine Besylate (Norvasc) 10 mg PO DAILY [facility] Last Admin: 01/23/18 10:22 Dose: 10 mg Aspirin (Aspirin Chewable) 81 mg PO DAILY [facility] Last Admin: 01/20/18 10:38 Dose: 81 mg Atenolol (Tenormin) 100 mg PO DAILY [facility] Last Admin: 01/23/18 10:23 Dose: 100 mg Benzonatate (Tessalon Perles) 100 mg PO TID [facility] Last Admin: 01/23/18 10:24 Dose: 100 mg Docusate Sodium (Colace) 100 mg PO TID [facility] Last Admin: 01/23/18 10:23 Dose: 100 mg Famotidine (Pepcid) 20 mg PO DAILY [facility] Last Admin: 01/23/18 10:22 Dose: 20 mg Furosemide (Lasix) 60 mg PO BID [facility] Heparin Sodium (Porcine) (Heparin) 5,000 units SC Q12 [facility] Last Admin: 01/17/18 10:28 Dose: Not Given Hydralazine HCl (Apresoline) 100 mg PO Q8H [facility] Last Admin: 01/23/18 05:50 Dose: 100 mg Sodium Chloride (Sodium Chloride 0.9%) 1,000 mls @ 125 mls/hr IV .Q8H [facility] Last Admin: 01/23/18 10:38 Dose: 125 mls/hr Isosorbide Dinitrate (Isordil) 10 mg PO Q8H [facility] Last Admin: 01/23/18 05:50 Dose: 10 mg Levothyroxine Sodium (Synthroid) 100 mcg PO DAILY@0630 [facility] Last Admin: 01/23/18 05:50 Dose: 100 mcg Methylprednisolone (Solu-Medrol) 40 mg IVP Q12 [facility] Last Admin: 01/23/18 10:28 Dose: 40 mg Ondansetron HCl (Zofran Inj) 4 mg IVP Q6H PRN PRN Reason: Nausea/Vomiting Pentoxifylline (Pentoxil) 400 mg PO BID [facility] Last Admin: 01/23/18 10:23 Dose: 400 mg Potassium Chloride (Potassium Chloride Oral Soln) 20 meq PO BID [facility] Stop: 01/23/18 16:00 Last Admin: 01/23/18 10:23 Dose: 20 meq - Labs Labs: 01/23/18 07:00 01/23/18 07:00 PT 11.7 SECONDS (9.7-12.2) 01/20/18 06:52 INR 1.1 01/20/18 06:52 - Head Exam Head Exam: ATRAUMATIC - Eye Exam Eye Exam: Normal appearance - ENT Exam ENT Exam: Mucous Membranes Dry - Respiratory Exam Respiratory Exam: NORMAL BREATHING PATTERN - Cardiovascular Exam Cardiovascular Exam: +S1, +S2 - GI/Abdominal Exam GI & Abdominal Exam: Normal Bowel Sounds Assessment and Plan (1) Hypercalcemia Assessment & Plan: likely secondary to multiple myeloma on IV fluids, calcitonin, steroids nephrology following Status: Acute (2) Lytic lesion of bone on x-ray Assessment & Plan: rule out multiple myeloma Status: Acute (3) Anemia Assessment & Plan: rule out myeloma Status: Acute (4) Thrombocytopenia Assessment & Plan: rule out myeloma Status: Acute
--- NOTE | 2018-01-23 13:11 | CP.PCM.PN ---
<Santhosh Sauer - Last Filed: 01/23/18 13:37> Subjective - Date & Time of Evaluation Date of Evaluation: 01/23/18 Time of Evaluation: 07:45 - Subjective Subjective: Medicine Progress Note for Hospitalist Service Pt seen and examined at bedside this am. States her abd pain has resolved. Denies any acute complaints currently. Denies any further episodes of vomiting since yesterday afternoon. No acute events reported overnight. Pending bone marrow biopsy results. 12-point ROS obtained, otherwise neg as per pt. Pt's and daughter at bedside during encounter. Objective - Vital Signs/Intake and Output Vital Signs (last 24 hours): Temp Pulse Resp BP Pulse Ox 98.4 F 62 20 130/79 95 01/23/18 07:00 01/23/18 07:00 01/23/18 07:00 01/23/18 10:23 01/23/18 07:00 - Medications Medications: Current Medications Acetaminophen (Tylenol 325mg Tab) 650 mg PO Q6 PRN PRN Reason: Pain, moderate (4-7) Amlodipine Besylate (Norvasc) 10 mg PO DAILY [facility] Last Admin: 01/23/18 10:22 Dose: 10 mg Aspirin (Aspirin Chewable) 81 mg PO DAILY [facility] Last Admin: 01/20/18 10:38 Dose: 81 mg Atenolol (Tenormin) 100 mg PO DAILY [facility] Last Admin: 01/23/18 10:23 Dose: 100 mg Benzonatate (Tessalon Perles) 100 mg PO TID [facility] Last Admin: 01/23/18 10:24 Dose: 100 mg Docusate Sodium (Colace) 100 mg PO TID [facility] Last Admin: 01/23/18 10:23 Dose: 100 mg Famotidine (Pepcid) 20 mg PO DAILY [facility] Last Admin: 01/23/18 10:22 Dose: 20 mg Furosemide (Lasix) 60 mg PO BID [facility] Heparin Sodium (Porcine) (Heparin) 5,000 units SC Q12 [facility] Last Admin: 01/17/18 10:28 Dose: Not Given Hydralazine HCl (Apresoline) 100 mg PO Q8H [facility] Last Admin: 01/23/18 05:50 Dose: 100 mg Sodium Chloride (Sodium Chloride 0.9%) 1,000 mls @ 125 mls/hr IV .Q8H [facility] Last Admin: 01/23/18 10:38 Dose: 125 mls/hr Isosorbide Dinitrate (Isordil) 10 mg PO Q8H [facility] Last Admin: 01/23/18 05:50 Dose: 10 mg Levothyroxine Sodium (Synthroid) 100 mcg PO DAILY@0630 [facility] Last Admin: 01/23/18 05:50 Dose: 100 mcg Methylprednisolone (Solu-Medrol) 40 mg IVP Q12 [facility] Last Admin: 01/23/18 10:28 Dose: 40 mg Ondansetron HCl (Zofran Inj) 4 mg IVP Q6H PRN PRN Reason: Nausea/Vomiting Pentoxifylline (Pentoxil) 400 mg PO BID [facility] Last Admin: 01/23/18 10:23 Dose: 400 mg Potassium Chloride (Potassium Chloride Oral Soln) 20 meq PO BID [facility] Stop: 01/23/18 16:00 Last Admin: 01/23/18 10:23 Dose: 20 meq - Labs Labs: 01/23/18 07:00 01/23/18 07:00 PT 11.7 SECONDS (9.7-12.2) 01/20/18 06:52 INR 1.1 01/20/18 06:52 - Constitutional Appears: Non-toxic, No Acute Distress, Chronically Ill - Head Exam Head Exam: ATRAUMATIC, NORMOCEPHALIC - Eye Exam Eye Exam: EOMI, Normal appearance, PERRL - ENT Exam ENT Exam: Mucous Membranes Moist - Respiratory Exam Respiratory Exam: Clear to Ausculation Bilateral, NORMAL BREATHING PATTERN. absent: Rales, Rhonchi, Wheezes - Cardiovascular Exam Cardiovascular Exam: REGULAR RHYTHM, +S1, +S2. absent: Gallop, Rubs, Murmur - GI/Abdominal Exam GI & Abdominal Exam: Soft, Normal Bowel Sounds. absent: Distended, Firm, Guarding, Rigid, Tenderness, Organomegaly, Rebound - Extremities Exam Extremities Exam: Full ROM, Normal Capillary Refill, Normal Inspection. absent: Calf Tenderness, Pedal Edema - Neurological Exam Neurological Exam: Alert, Awake, CN II-XII Intact, Oriented x3 - Skin Skin Exam: Dry, Intact, Normal Color, Warm Assessment and Plan - Assessment and Plan (Free Text) Assessment: 72 y o F with PMHx of HTN, HLD, TIA 2007, DM presenting with generalized abdominal pain, decreased appetite and increased BP x 2weeks, associated with hypercalcemia and unintentional weight loss likely 2/2 multiple myeloma. Bone marrow biopsy results pending. Plan: Hypercalcemia, likely 2/2 Multiple Myeloma - Pt on telemetry for cardiac monitoring - Continue to monitor I's/O's - Heme/Onc recs (Dr. Bran) appreciated - bone marrow biopsy (01/20) was successfully obtained in sterile manner but bone marrow aspirate was not obtained despite redirecting twice (DRY TAP) -f/u bone marrow biopsy results -per Nephro recs possible kidney bx after results obtained -Per Dr. Bran plan for plasmapharesis and inpatient oral cyclophosphamide if confirmed multiple myeloma in an attempt to salvage the pt's renal function -Nephro recs (Dr. Espinal) appreciated -Ca 12.0 today -increased kappa free light chain load, presumed MM but awaiting bone marrow bx results -continue w/ IVF @125 cc/hr -calcitonin on board as temporizing measure -denosumab not available inpatient and bisphosphonates relatively contraindicated with advanced renal failure -continue IV lasix 40mg IVP Q12 -Imaging - CT abd/pelvis (01/17): There are multiple on varying sized rounded lytic lesions scattered throughout all the osseous structures. Findings probably represent multiple myeloma however metastatic disease not excluded. Clinical correlation recommended. - Bone Scan: There are no correlates to findings on recent CT scan. Specifically the permeative pattern throughout thoracolumbar spine and pelvis constitutes lytic disease most likely myeloma - R shoulder XR (01/19): degenerative changes bilaterally. No acute findings. - B/L Forearm XR (01/19): no significant or acute findings to account for/related to the clinical presentation - Abd/pelv CT with PO and IV contrast (01/19): nnumerable lytic osseous lesions consistent with multiple myeloma or metastatic disease. Bibasilar atelectasis. Trace right pleural effusion. Small hiatal hernia. Evidence of mild gastroesophageal reflux. Borderline heptomegaly. Diverticulosis without CT evidence of acute diverticulitis. Moderate constipation. - Calcium 24 hr urine is normal at 237.8 - PTH intact is low normal at 14 - PTHr protein: 18 (01/17) - Vit D 68.5 Hypertensive urgency - resolved - hemodynamically stable; BP well controlled today 129/59, continue to monitor - ECHO (01/19) shows LVEF>70%. Diastolic dysfunction. Mild MR. Mild TR, mild pulmonary hypertension. Mild pulmonic valvular regurgitation. - Aspirin 81mg PO daily - Atenolol 100mg PO daily - Hydralazine 100mg PO TID - Amlodipine 10 mg daily Hypokalemia - K 3.3 today, repleted - continue to monitor SHAY - nephrology consult, Dr. Espinal, f/u recs - avoid nephrotoxic medications - cont IVF @125 cc/hr - Cr 3.2 (01/23) - 24 hr urine protein elevated, 4236 - Renal US: Findings consistent with underlying medical renal disease. No evidence of nephrolithiasis or hydronephrosis. Anemia H/H 8.1/23.7 today, continue to monitor Anemia 2/2 underlying process related to hypercalcemia; r/o malignancy, multiple myeloma DM - Hold metformin due to elevated Cr - accuchecks HLD -Hold statin Hypothyroidism - Levothyroxine 100mcg daily PAD - Pentoxifylline 400mg PO BID - Isosorbide dinitrate 10 mg PO TID PPx, Diet, Disposition -VTE ppx: SCDs -chemical anticoagulation held due to thrombocytopenia -GI ppx: Pepcid 20mg daily All questions and concerns were addressed with pt at bedside, pt's , and pt's daughter. Dispo: Pending bone marrow biopsy results. Will continue to monitor inpatient Pt seen, examined with, and plan discussed with Dr. Loco, attending. Santhosh Sauer DO PGY-1, [employer] pager #[phone] <Rayne Loco V - Last Filed: 01/23/18 18:17> Objective - Vital Signs/Intake and Output Vital Signs (last 24 hours): Temp Pulse Resp BP Pulse Ox 98.4 F 62 20 138/69 95 01/23/18 07:00 01/23/18 07:00 01/23/18 07:00 01/23/18 17:29 01/23/18 07:00 - Medications Medications: Current Medications Acetaminophen (Tylenol 325mg Tab) 650 mg PO Q6 PRN PRN Reason: Pain, moderate (4-7) Amlodipine Besylate (Norvasc) 10 mg PO DAILY [facility] Last Admin: 01/23/18 10:22 Dose: 10 mg Aspirin (Aspirin Chewable) 81 mg PO DAILY [facility] Last Admin: 01/20/18 10:38 Dose: 81 mg Atenolol (Tenormin) 100 mg PO DAILY [facility] Last Admin: 01/23/18 10:23 Dose: 100 mg Benzonatate (Tessalon Perles) 100 mg PO TID [facility] Last Admin: 01/23/18 17:29 Dose: 100 mg Docusate Sodium (Colace) 100 mg PO TID [facility] Last Admin: 01/23/18 17:28 Dose: 100 mg Famotidine (Pepcid) 20 mg PO DAILY [facility] Last Admin: 01/23/18 10:22 Dose: 20 mg Furosemide (Lasix) 60 mg PO BID [facility] Last Admin: 01/23/18 17:29 Dose: 60 mg Heparin Sodium (Porcine) (Heparin) 5,000 units SC Q12 [facility] Last Admin: 01/17/18 10:28 Dose: Not Given Hydralazine HCl (Apresoline) 100 mg PO Q8H [facility] Last Admin: 01/23/18 13:35 Dose: 100 mg Sodium Chloride (Sodium Chloride 0.9%) 1,000 mls @ 125 mls/hr IV .Q8H [facility] Last Admin: 01/23/18 10:38 Dose: 125 mls/hr Isosorbide Dinitrate (Isordil) 10 mg PO Q8H [facility] Last Admin: 01/23/18 13:35 Dose: 10 mg Levothyroxine Sodium (Synthroid) 100 mcg PO DAILY@0630 [facility] Last Admin: 01/23/18 05:50 Dose: 100 mcg Methylprednisolone (Solu-Medrol) 40 mg IVP Q12 [facility] Last Admin: 01/23/18 10:28 Dose: 40 mg Ondansetron HCl (Zofran Inj) 4 mg IVP Q6H PRN PRN Reason: Nausea/Vomiting Pentoxifylline (Pentoxil) 400 mg PO BID [facility] Last Admin: 01/23/18 17:29 Dose: 400 mg - Labs Labs: 01/23/18 07:00 01/23/18 07:00 PT 11.7 SECONDS (9.7-12.2) 01/20/18 06:52 INR 1.1 01/20/18 06:52 Attending/Attestation - Attestation I have personally seen and examined this patient.: Yes I have fully participated in the care of the patient.: Yes I have reviewed all pertinent clinical information, including history, physical exam and plan: Yes Notes (Text): Patient seen, examined, case discussed with medical referral coordinator. Patient seen on morning rounds accompanying with both daughter and at bedside. Patient reports she is moving her bowels and is urinating. Patient reports abdominal pain has subsided. Patient was started on calcitonin yesterday calcium is improving. We are awaiting biopsy report given high suspicion for multiple myeloma. Have in dicated to family that we are suspicious for cancer we cannot confirm until we received this biopsy in order to discuss treatment and prognosis. Patient is an otherwise pleasant spirits. We will continue to monitor and awaiting biopsy report to determine further treatment.
[2018-01-24] MEDS: Levothyroxine 100 MCG TAB PO SCH (05:31)
[2018-01-24 06:43] LABS: BASO # 0.1 K/uL (0.0-0.2); BASO % 0.8 % (0.0-2.0); EOS # 0.1 K/uL (0.0-0.7); EOS % 0.8 % (0.0-4.0); HEMOGLOBIN 8.3 g/dL (11.0-16.0); LYMPH # 1.9 K/uL (1.0-4.3); LYMPH % 26.5 % (20.0-40.0); MEAN CELL VOLUME 94.6 fL (81.0-99.0); MEAN CORPUSCULAR HEMOGLOBIN 32.5 pg (27.0-31.0); MEAN CORPUSCULAR HGB CONC 34.4 g/dL (33.0-37.0); MEAN PLATELET VOLUME 10.4 fL (7.2-11.7); MONO # 0.7 K/uL (0.0-0.8); MONO % 10.4 % (0.0-10.0); NEUT # 4.4 K/uL (1.8-7.0); NEUT % 61.5 % (50.0-75.0); NRBC % 0.2 % (0.0-2.0); RBC 2.54 Mil/uL (3.80-5.20); WHITE BLOOD COUNT 7.1 K/uL (4.8-10.8)
--- NOTE | 2018-01-24 07:44 | CP.PCM.PN ---
<Brayan Lazcano - Last Filed: 01/24/18 09:49> Subjective - Date & Time of Evaluation Date of Evaluation: 01/24/18 Time of Evaluation: 09:15 - Subjective Subjective: Brayan Lazcano PGY-1, Medicine progress note Pt seen and examined at bedside. Pt has no complaints at this time. No acute events overnight. Pt denies fever, chills, chest pain, sob, abdominal pain, n/v/d. Pt reports muscle aches that have been unchanged. Objective - Vital Signs/Intake and Output Vital Signs (last 24 hours): Temp Pulse Resp BP Pulse Ox 98.8 F 64 20 156/64 H 96 01/23/18 23:00 01/24/18 05:30 01/23/18 23:00 01/24/18 05:30 01/23/18 23:00 - Medications Medications: Current Medications Acetaminophen (Tylenol 325mg Tab) 650 mg PO Q6 PRN PRN Reason: Pain, moderate (4-7) Last Admin: 01/24/18 02:22 Dose: 650 mg Amlodipine Besylate (Norvasc) 10 mg PO DAILY [facility] Last Admin: 01/23/18 10:22 Dose: 10 mg Aspirin (Aspirin Chewable) 81 mg PO DAILY [facility] Last Admin: 01/20/18 10:38 Dose: 81 mg Atenolol (Tenormin) 100 mg PO DAILY [facility] Last Admin: 01/23/18 10:23 Dose: 100 mg Benzonatate (Tessalon Perles) 100 mg PO TID [facility] Last Admin: 01/23/18 17:29 Dose: 100 mg Docusate Sodium (Colace) 100 mg PO TID [facility] Last Admin: 01/23/18 17:28 Dose: 100 mg Famotidine (Pepcid) 20 mg PO DAILY [facility] Last Admin: 01/23/18 10:22 Dose: 20 mg Furosemide (Lasix) 60 mg PO BID [facility] Last Admin: 01/23/18 17:29 Dose: 60 mg Heparin Sodium (Porcine) (Heparin) 5,000 units SC Q12 [facility] Last Admin: 01/17/18 10:28 Dose: Not Given Heparin Sodium (Porcine) (Heparin) 5,000 units SC Q12 [facility] Last Admin: 01/23/18 21:24 Dose: 5,000 units Hydralazine HCl (Apresoline) 100 mg PO Q8H [facility] Last Admin: 01/24/18 05:31 Dose: 100 mg Sodium Chloride (Sodium Chloride 0.9%) 1,000 mls @ 125 mls/hr IV .Q8H [facility] Last Admin: 01/23/18 18:30 Dose: 125 mls/hr Isosorbide Dinitrate (Isordil) 10 mg PO Q8H [facility] Last Admin: 01/24/18 05:31 Dose: 10 mg Levothyroxine Sodium (Synthroid) 100 mcg PO DAILY@0630 [facility] Last Admin: 01/24/18 05:31 Dose: 100 mcg Methylprednisolone (Solu-Medrol) 40 mg IVP Q12 [facility] Last Admin: 01/23/18 21:23 Dose: 40 mg Ondansetron HCl (Zofran Inj) 4 mg IVP Q6H PRN PRN Reason: Nausea/Vomiting Pentoxifylline (Pentoxil) 400 mg PO BID [facility] Last Admin: 01/23/18 17:29 Dose: 400 mg - Labs Labs: 01/24/18 06:19 01/23/18 07:00 PT 11.7 SECONDS (9.7-12.2) 01/20/18 06:52 INR 1.1 01/20/18 06:52 - Constitutional Appears: Non-toxic, No Acute Distress - Head Exam Head Exam: ATRAUMATIC, NORMAL INSPECTION - Eye Exam Eye Exam: EOMI, Normal appearance - ENT Exam ENT Exam: Mucous Membranes Moist - Respiratory Exam Respiratory Exam: Clear to Ausculation Bilateral. absent: Decreased Breath Marisela nds, Rhonchi, Wheezes, Respiratory Distress - Cardiovascular Exam Cardiovascular Exam: REGULAR RHYTHM, +S1, +S2 - GI/Abdominal Exam GI & Abdominal Exam: Soft. absent: Distended, Firm, Guarding, Rigid, Tenderness, Rebound - Extremities Exam Extremities Exam: Normal Inspection Additional comments: (+) diffuse mild muscle tenderness on exam - Back Exam Back Exam: NORMAL INSPECTION - Neurological Exam Neurological Exam: Alert, Awake - Psychiatric Exam Psychiatric exam: Flat Affect, Normal Affect - Skin Skin Exam: Normal Color, Warm Assessment and Plan - Assessment and Plan (Free Text) Assessment: 72 y o F with PMHx of HTN, HLD, TIA 2007, DM presenting with generalized abdominal pain, decreased appetite and increased BP x 2weeks, associated with hypercalcemia and unintentional weight loss likely 2/2 multiple myeloma. Bone marrow biopsy results pending. Plan: Hypercalcemia, likely 2/2 Multiple Myeloma - Pt on telemetry for cardiac monitoring - Continue to monitor I's/O's - Heme/Onc recs (Dr. Bran) appreciated - bone marrow biopsy (01/20) was successfully obtained in sterile manner but bone marrow aspirate was not obtained despite redirecting twice (DRY TAP) -f/u bone marrow biopsy results -per Nephro recs possible kidney bx after results obtained -Per Dr. Bran plan for plasmapharesis and inpatient oral cyclophosphamide if confirmed multiple myeloma in an attempt to salvage the pt's renal function -Nephro recs (Dr. Espinal) appreciated -Ca 12.0 today -increased kappa free light chain load, presumed MM but awaiting bone marrow bx results -continue w/ IVF @125 cc/hr -calcitonin on board as temporizing measure -denosumab not available inpatient and bisphosphonates relatively contraindicated with advanced renal failure -continue IV lasix 60mg PO BID -Imaging - CT abd/pelvis (01/17): There are multiple on varying sized rounded lytic lesions scattered throughout all the osseous structures. Findings probably represent multiple myeloma however metastatic disease not excluded. Clinical correlation recommended. - Bone Scan: There are no correlates to findings on recent CT scan. Specifically the permeative pattern throughout thoracolumbar spine and pelvis constitutes lytic disease most likely myeloma - R shoulder XR (01/19): degenerative changes bilaterally. No acute findings. - B/L Forearm XR (01/19): no significant or acute findings to account for/related to the clinical presentation - Abd/pelv CT with PO and IV contrast (01/19): nnumerable lytic osseous lesions consistent with multiple myeloma or metastatic disease. Bibasilar atelectasis. Trace right pleural effusion. Small hiatal hernia. Evidence of mild gastroesophageal reflux. Borderline heptomegaly. Diverticulosis without CT evidence of acute diverticulitis. Moderate constipation. - Calcium 24 hr urine is normal at 237.8 - PTH intact is low normal at 14 - PTHr protein: 18 (01/17) - Vit D 68.5 Hypertensive urgency - resolved - hemodynamically stable; BP well controlled today 120/53, continue to monitor - ECHO (01/19) shows LVEF>70%. Diastolic dysfunction. Mild MR. Mild TR, mild pulmonary hypertension. Mild pulmonic valvular regurgitation. - Aspirin 81mg PO daily - Atenolol 100mg PO daily - Hydralazine 100mg PO TID - Amlodipine 10 mg daily Hypokalemia - K 3.4 today, repleted - continue to monitor SHAY - nephrology consult, Dr. Espinal, f/u recs - avoid nephrotoxic medications - cont IVF @125 cc/hr - Cr improved to 2.9 - 24 hr urine protein elevated, 4236 - Renal US: Findings consistent with underlying medical renal disease. No evidence of nephrolithiasis or hydronephrosis. Anemia H/H stable continue to monitor Anemia 2/2 underlying process related to hypercalcemia; r/o malignancy, multiple myeloma DM - Hold metformin due to elevated Cr - accuchecks HLD -Hold statin Hypothyroidism - Levothyroxine 100mcg daily PAD - Pentoxifylline 400mg PO BID - Isosorbide dinitrate 10 mg PO TID PPx, Diet, Disposition -VTE ppx: SCDs -chemical anticoagulation held due to thrombocytopenia -GI ppx: Pepcid 20mg daily Dispo: Pending bone marrow biopsy results. Will continue to monitor inpatient Case was discussed with attending physician, Dr. Loco. <Rayne Loco V - Last Filed: 01/24/18 14:11> Objective - Vital Signs/Intake and Output Vital Signs (last 24 hours): Temp Pulse Resp BP Pulse Ox 98.4 F 63 20 120/53 L 95 01/24/18 07:00 01/24/18 07:00 01/24/18 07:00 01/24/18 09:05 01/24/18 07:00 - Medications Medications: Current Medications Acetaminophen (Tylenol 325mg Tab) 650 mg PO Q6 PRN PRN Reason: Pain, moderate (4-7) Last Admin: 01/24/18 02:22 Dose: 650 mg Amlodipine Besylate (Norvasc) 10 mg PO DAILY [facility] Last Admin: 01/24/18 09:03 Dose: 10 mg Aspirin (Aspirin Chewable) 81 mg PO DAILY [facility] Last Admin: 01/20/18 10:38 Dose: 81 mg Atenolol (Tenormin) 100 mg PO DAILY [facility] Last Admin: 01/24/18 09:03 Dose: 100 mg Benzonatate (Tessalon Perles) 100 mg PO TID [facility] Last Admin: 01/24/18 09:03 Dose: 100 mg Docusate Sodium (Colace) 100 mg PO TID [facility] Last Admin: 01/24/18 09:03 Dose: 100 mg Famotidine (Pepcid) 20 mg PO DAILY [facility] Last Admin: 01/24/18 09:03 Dose: 20 mg Furosemide (Lasix) 60 mg PO BID [facility] Last Admin: 01/24/18 09:05 Dose: 60 mg Heparin Sodium (Porcine) (Heparin) 5,000 units SC Q12 [facility] Last Admin: 01/17/18 10:28 Dose: Not Given Heparin Sodium (Porcine) (Heparin) 5,000 units SC Q12 [facility] Last Admin: 01/24/18 09:03 Dose: 5,000 units Hydralazine HCl (Apresoline) 100 mg PO Q8H [facility] Last Admin: 01/24/18 05:31 Dose: 100 mg Isosorbide Dinitrate (Isordil) 10 mg PO Q8H [facility] Last Admin: 01/24/18 05:31 Dose: 10 mg Levothyroxine Sodium (Synthroid) 100 mcg PO DAILY@0630 [facility] Last Admin: 01/24/18 05:31 Dose: 100 mcg Methylprednisolone (Solu-Medrol) 40 mg IVP Q12 [facility] Last Admin: 01/24/18 09:04 Dose: 40 mg Ondansetron HCl (Zofran Inj) 4 mg IVP Q6H PRN PRN Reason: Nausea/Vomiting Pentoxifylline (Pentoxil) 400 mg PO BID [facility] Last Admin: 01/24/18 09:03 Dose: 400 mg - Labs Labs: 01/24/18 06:19 01/24/18 06:19 PT 11.7 SECONDS (9.7-12.2) 01/20/18 06:52 INR 1.1 01/20/18 06:52 Attending/Attestation - Attestation I have personally seen and examined this patient.: Yes I have fully participated in the care of the patient.: Yes I have reviewed all pertinent clinical information, including history, physical exam and plan: Yes Notes (Text): Patient seen, examined, case discussed with medical detail representative. Patient seen at bedside this morning no family present at bedside Patient reports she is moving her bowels and urinating. Patient reports she had abdominal pain last night at right now she is calm. Potassium repleted today. Calcium elevated but at 12.0 We are awaiting biopsy to result to determine if patient has multiple myeloma in order to initiate further therapy. We'll continue to follow.
[2018-01-24 07:47] LABS: ALB/GLOB RATIO 1.2 (1.0-2.1); ALBUMIN 3.6 g/dL (3.5-5.0)
[2018-01-24] MEDS: MethylPREDNISolone 40 mg Vial IVP SCH ×3 (09:04→21:55)
[2018-01-24] MEDS ORDERED: Potassium Chloride 20 mEq ER Tab PO ONE ×2 (09:47→11:30)
[2018-01-24] MEDS: Sodium Chloride 0.9% 1,000 ML IV SCH ×2 (14:31→16:30)
--- NOTE | 2018-01-24 18:20 | CP.PCM.PN ---
Subjective - Date & Time of Evaluation Date of Evaluation: 01/24/18 Time of Evaluation: 17:00 - Subjective Subjective: Feeling better. Discussed prelim bone marrow results with the patient and her was consistent with multiple myeloma Agreeable to plasmapheresis with albumin and one time Cytoxan dosing Objective - Vital Signs/Intake and Output Vital Signs (last 24 hours): Temp Pulse Resp BP Pulse Ox 98 F 60 20 155/68 H 96 01/24/18 16:00 01/24/18 16:00 01/24/18 07:00 01/24/18 16:00 01/24/18 16:00 - Medications Medications: Current Medications Acetaminophen (Tylenol 325mg Tab) 650 mg PO Q6 PRN PRN Reason: Pain, moderate (4-7) Last Admin: 01/24/18 02:22 Dose: 650 mg Amlodipine Besylate (Norvasc) 10 mg PO DAILY [facility] Last Admin: 01/24/18 09:03 Dose: 10 mg Aspirin (Aspirin Chewable) 81 mg PO DAILY [facility] Last Admin: 01/20/18 10:38 Dose: 81 mg Atenolol (Tenormin) 100 mg PO DAILY [facility] Last Admin: 01/24/18 09:03 Dose: 100 mg Benzonatate (Tessalon Perles) 100 mg PO TID [facility] Last Admin: 01/24/18 14:31 Dose: 100 mg Docusate Sodium (Colace) 100 mg PO TID [facility] Last Admin: 01/24/18 14:31 Dose: 100 mg Famotidine (Pepcid) 20 mg PO DAILY [facility] Last Admin: 01/24/18 09:03 Dose: 20 mg Furosemide (Lasix) 60 mg PO BID [facility] Last Admin: 01/24/18 09:05 Dose: 60 mg Heparin Sodium (Porcine) (Heparin) 5,000 units SC Q12 [facility] Last Admin: 01/17/18 10:28 Dose: Not Given Heparin Sodium (Porcine) (Heparin) 5,000 units SC Q12 [facility] Last Admin: 01/24/18 09:03 Dose: 5,000 units Hydralazine HCl (Apresoline) 100 mg PO Q8H [facility] Last Admin: 01/24/18 14:31 Dose: 100 mg Isosorbide Dinitrate (Isordil) 10 mg PO Q8H [facility] Last Admin: 01/24/18 14:34 Dose: 10 mg Levothyroxine Sodium (Synthroid) 100 mcg PO DAILY@0630 [facility] Last Admin: 01/24/18 05:31 Dose: 100 mcg Methylprednisolone (Solu-Medrol) 40 mg IVP Q12 [facility] Last Admin: 01/24/18 09:04 Dose: 40 mg Ondansetron HCl (Zofran Inj) 4 mg IVP Q6H PRN PRN Reason: Nausea/Vomiting Pentoxifylline (Pentoxil) 400 mg PO BID [facility] Last Admin: 01/24/18 09:03 Dose: 400 mg - Labs Labs: 01/24/18 06:19 01/24/18 06:19 PT 11.7 SECONDS (9.7-12.2) 01/20/18 06:52 INR 1.1 01/20/18 06:52 - Head Exam Head Exam: ATRAUMATIC - Eye Exam Eye Exam: Normal appearance - ENT Exam ENT Exam: Mucous Membranes Dry - Respiratory Exam Respiratory Exam: NORMAL BREATHING PATTERN - Cardiovascular Exam Cardiovascular Exam: +S1, +S2 - GI/Abdominal Exam GI & Abdominal Exam: Normal Bowel Sounds Assessment and Plan (1) Multiple myeloma Assessment & Plan: prelim bone marrow shows packed marrow with monoclonal plasma cells consistent with multiple myeloma for plasmapheresis and one time Cytoxan dosing in an attempt to salvage kidney function; patient consented to both on IV steroids Status: Acute (2) Hypercalcemia Assessment & Plan: secondary to multiple myeloma improving Status: Acute
[2018-01-24 19:51] LABS: PROTHROMBIN TIME 11.2 SECONDS (9.7-12.2)
--- NOTE | 2018-01-24 20:24 | CP.PCM.CON ---
History of Present Illness - History of Present Illness History of Present Illness: Surgery 72 year old female with PMHx of HTN, Hypercholesterol, TIA (2007), DM presents to ED from the clinic for evaluation of generalized abdominal pain, loss of appetite, and elevated blood pressure. Patient reports an unintentional 20 pound weight loss in the past 18 months, a + FIT test, increased urination and polydipsia. Patient denies fever, chills, vomiting, diarrhea. Found to be hypercacemic and CT showed lytic bone lesions suspicious for multiple myeloma. Pt is planned to get plasmapheresis for multiple myeloma. Surgery is consulted to place permacath. Pt consented for permacath placement. All questions answered. PMHx: DM, HTN, hypothyroid, PVD, SHAY, hypercholesterol, TIA (2007) PSHx: hysterectomy 2007, thyroidectomy, breast cyst removal 2015 Meds: Simvastatn 10mg daily, metformin 500mg BID, Atenolol 50mg once daily, Losartan-HCTZ, norvasc 10mg daily, syndroid 88 mcg, Pentoxifylline ER 400mg, Isosorbide Dinitrate 10mg BID Allergies: NKDA Social: Denies tobacco, alcohol and drug use Review of Systems - Review of Systems Review of Systems: See HPI Past Patient History - Past Medical History & Family History Past Medical History?: Yes - Past Social History Smoking Status: Never Smoked - CARDIAC Hx Hypercholesterolemia: Yes Hx Hypertension: Yes - PULMONARY Hx Respiratory Disorders: No - NEUROLOGICAL Hx Neurological Disorder: Yes Hx Transient Ischemic Attacks (TIA): Yes (10 years ago) - HEENT Hx HEENT Problems: No Other/Comment: glasses - RENAL Hx Chronic Kidney Disease: No - ENDOCRINE/METABOLIC Hx Hypothyroidism: Yes - HEMATOLOGICAL/ONCOLOGICAL Hx Blood Disorders: No - INTEGUMENTARY Hx Dermatological Problems: Yes Other/Comment: cyst right breast - MUSCULOSKELETAL/RHEUMATOLOGICAL Hx Falls: No - GASTROINTESTINAL Hx Gastrointestinal Disorders: Yes Other/Comment: hx pancreatitis - GENITOURINARY/GYNECOLOGICAL Hx Genitourinary Disorders: No - PSYCHIATRIC Hx Substance Use: No - SURGICAL HISTORY Hx Surgeries: Yes Hx Hysterectomy: Yes Hx Thyroidectomy: Yes - ANESTHESIA Hx Anesthesia: Yes Hx Anesthesia Reactions: Yes (pt. states heart stopped on table 10 years ago) Hx Malignant Hyperthermia: No Meds Allergies/Adverse Reactions: Allergies Allergy/AdvReac Type Severity Reaction Status Date / Time No Known Allergies Allergy Verified 01/16/18 17:07 - Medications Medications: Current Medications Acetaminophen (Tylenol 325mg Tab) 650 mg PO Q6 PRN PRN Reason: Pain, moderate (4-7) Last Admin: 01/24/18 02:22 Dose: 650 mg Albumin Human (Albutein 5% 500 Ml) 3,000 ml IVPB ONCE ONE Stop: 01/25/18 14:01 Amlodipine Besylate (Norvasc) 10 mg PO DAILY [facility] Last Admin: 01/24/18 09:03 Dose: 10 mg Aspirin (Aspirin Chewable) 81 mg PO DAILY [facility] Last Admin: 01/20/18 10:38 Dose: 81 mg Atenolol (Tenormin) 100 mg PO DAILY [facility] Last Admin: 01/24/18 09:03 Dose: 100 mg Benzonatate (Tessalon Perles) 100 mg PO TID [facility] Last Admin: 01/24/18 14:31 Dose: 100 mg Cyclophosphamide (Cytoxan) 600 mg PO ONCE ONE Stop: 01/26/18 10:01 Docusate Sodium (Colace) 100 mg PO TID [facility] Last Admin: 01/24/18 14:31 Dose: 100 mg Famotidine (Pepcid) 20 mg PO DAILY [facility] Last Admin: 01/24/18 09:03 Dose: 20 mg Furosemide (Lasix) 60 mg PO BID [facility] Last Admin: 01/24/18 09:05 Dose: 60 mg Heparin Sodium (Porcine) (Heparin) 5,000 units SC Q12 [facility] Last Admin: 01/17/18 10:28 Dose: Not Given Heparin Sodium (Porcine) (Heparin) 5,000 units SC Q12 [facility] Last Admin: 01/24/18 09:03 Dose: 5,000 units Hydralazine HCl (Apresoline) 100 mg PO Q8H [facility] Last Admin: 01/24/18 14:31 Dose: 100 mg Isosorbide Dinitrate (Isordil) 10 mg PO Q8H [facility] Last Admin: 01/24/18 14:34 Dose: 10 mg Levothyroxine Sodium (Synthroid) 100 mcg PO DAILY@0630 [facility] Last Admin: 01/24/18 05:31 Dose: 100 mcg Methylprednisolone (Solu-Medrol) 40 mg IVP Q12 [facility] Last Admin: 01/24/18 09:04 Dose: 40 mg Ondansetron HCl (Zofran Inj) 4 mg IVP Q6H PRN PRN Reason: Nausea/Vomiting Pentoxifylline (Pentoxil) 400 mg PO BID [facility] Last Admin: 01/24/18 09:03 Dose: 400 mg Physical Exam - Constitutional Appears: No Acute Distress - Head Exam Head Exam: ATRAUMATIC, NORMAL INSPECTION, NORMOCEPHALIC - Eye Exam Eye Exam: EOMI, Normal appearance, PERRL Pupil Exam: NORMAL ACCOMODATION, PERRL - ENT Exam ENT Exam: Mucous Membranes Moist, Normal Exam - Neck Exam Neck exam: Positive for: Normal Inspection - Respiratory Exam Respiratory Exam: NORMAL BREATHING PATTERN - Cardiovascular Exam Cardiovascular Exam: REGULAR RHYTHM - GI/Abdominal Exam GI & Abdominal Exam: Soft. absent: Tenderness - Extremities Exam Extremities exam: Positive for: normal inspection - Back Exam Back exam: NORMAL INSPECTION - Neurological Exam Neurological exam: Alert, CN II-XII Intact, Normal Gait, Oriented x3, Reflexes Normal - Psychiatric Exam Psychiatric exam: Normal Affect, Normal Mood - Skin Skin Exam: Dry, Intact, Normal Color, Warm Results - Vital Signs Recent Vital Signs: Last Vital Signs Temp 98 F 01/24/18 16:00 Pulse 60 01/24/18 16:00 Resp 20 01/24/18 07:00 BP 155/68 H 01/24/18 16:00 Pulse Ox 96 01/24/18 16:00 - Labs Result Diagrams: 01/24/18 06:19 01/24/18 06:19 Labs: Laboratory Results - last 24 hr 01/18/18 01/23/18 01/23/18 07:24 17:18 21:58 WBC RBC Hgb Hct MCV MCH MCHC RDW Plt Count MPV Neut % (Auto) Lymph % (Auto) Gage % (Auto) Eos % (Auto) Baso % (Auto) Neut # (Auto) Lymph # (Auto) Gage # (Auto) Eos # (Auto) Baso # (Auto) Differential Comment PT INR Sodium Potassium Chloride Carbon Dioxide Anion Gap BUN Creatinine Est GFR ( Amer) Est GFR (Non-Af Amer) POC Glucose (mg/dL) 129 H 100 Random Glucose Calcium Phosphorus Magnesium Total Bilirubin AST ALT Alkaline Phosphatase Total Protein Albumin Globulin Albumin/Globulin Ratio Scanlon/Lambda Light Chain see note 01/24/18 01/24/18 01/24/18 06:19 06:19 19:40 WBC 7.1 RBC 2.54 L Hgb 8.3 L Hct 24.0 L MCV 94.6 MCH 32.5 H MCHC 34.4 RDW 17.0 H Plt Count 116 L MPV 10.4 Neut % (Auto) 61.5 Lymph % (Auto) 26.5 Gage % (Auto) 10.4 H Eos % (Auto) 0.8 Baso % (Auto) 0.8 Neut # (Auto) 4.4 Lymph # (Auto) 1.9 Gage # (Auto) 0.7 Eos # (Auto) 0.1 Baso # (Auto) 0.1 Differential Comment PT 11.2 INR 1.0 Sodium 137 Potassium 3.4 L Chloride 102 Carbon Dioxide 23 Anion Gap 16 BUN 38 H Creatinine 2.9 H Est GFR ( Amer) 19 Est GFR (Non-Af Amer) 16 POC Glucose (mg/dL) Random Glucose 112 H Calcium 12.0 H Phosphorus 4.5 Magnesium 1.7 Total Bilirubin 0.4 AST 20 ALT 30 Alkaline Phosphatase 53 Total Protein 6.8 Albumin 3.6 Globulin 3.1 Albumin/Globulin Ratio 1.2 Scanlon/Lambda Light Chain Assessment & Plan - Assessment and Plan (Free Text) Assessment: renail failure and multiple myeloma needing plasmaphresis and HD -Permacath tomorrow 11AM -NPO after midnight -Medical management RAJ Lovell
--- NOTE | 2018-01-24 23:13 | CP.PCM.PN ---
Subjective - Date & Time of Evaluation Date of Evaluation: 01/24/18 Time of Evaluation: 15:00 - Subjective Subjective: Patient reports feeling well; tolerating diet; breathing well; urinating a few times per night; Objective - Vital Signs/Intake and Output Vital Signs (last 24 hours): Temp Pulse Resp BP Pulse Ox 98 F 60 20 144/84 96 01/24/18 16:00 01/24/18 16:00 01/24/18 07:00 01/24/18 21:48 01/24/18 16:00 - Medications Medications: Current Medications Acetaminophen (Tylenol 325mg Tab) 650 mg PO Q6 PRN PRN Reason: Pain, moderate (4-7) Last Admin: 01/24/18 02:22 Dose: 650 mg Albumin Human (Albutein 5% 500 Ml) 3,000 ml IVPB ONCE ONE Stop: 01/25/18 14:01 Amlodipine Besylate (Norvasc) 10 mg PO DAILY [facility] Last Admin: 01/24/18 09:03 Dose: 10 mg Aspirin (Aspirin Chewable) 81 mg PO DAILY [facility] Last Admin: 01/20/18 10:38 Dose: 81 mg Atenolol (Tenormin) 100 mg PO DAILY [facility] Last Admin: 01/24/18 09:03 Dose: 100 mg Benzonatate (Tessalon Perles) 100 mg PO TID [facility] Last Admin: 01/24/18 21:47 Dose: 100 mg Cyclophosphamide (Cytoxan) 600 mg PO ONCE ONE Stop: 01/26/18 10:01 Docusate Sodium (Colace) 100 mg PO TID [facility] Last Admin: 01/24/18 21:47 Dose: 100 mg Famotidine (Pepcid) 20 mg PO DAILY [facility] Last Admin: 01/24/18 09:03 Dose: 20 mg Furosemide (Lasix) 60 mg PO BID [facility] Last Admin: 01/24/18 21:48 Dose: 60 mg Heparin Sodium (Porcine) (Heparin) 5,000 units SC Q12 [facility] Last Admin: 01/17/18 10:28 Dose: Not Given Heparin Sodium (Porcine) (Heparin) 5,000 units SC Q12 [facility] Last Admin: 01/24/18 09:03 Dose: 5,000 units Hydralazine HCl (Apresoline) 100 mg PO Q8H [facility] Last Admin: 01/24/18 21:46 Dose: 100 mg Isosorbide Dinitrate (Isordil) 10 mg PO Q8H [facility] Last Admin: 01/24/18 21:47 Dose: 10 mg Levothyroxine Sodium (Synthroid) 100 mcg PO DAILY@0630 [facility] Last Admin: 01/24/18 05:31 Dose: 100 mcg Methylprednisolone (Solu-Medrol) 40 mg IVP Q12 [facility] Last Admin: 01/24/18 21:55 Dose: 40 mg Ondansetron HCl (Zofran Inj) 4 mg IVP Q6H PRN PRN Reason: Nausea/Vomiting Pentoxifylline (Pentoxil) 400 mg PO BID [facility] Last Admin: 01/24/18 21:48 Dose: 400 mg - Labs Labs: 01/24/18 06:19 01/24/18 06:19 PT 11.2 SECONDS (9.7-12.2) 01/24/18 19:40 INR 1.0 01/24/18 19:40 - Constitutional Appears: Non-toxic, No Acute Distress - Eye Exam Eye Exam: Normal appearance - Respiratory Exam Respiratory Exam: Clear to Ausculation Bilateral. absent: Respiratory Distress - Cardiovascular Exam Cardiovascular Exam: RRR, +S1, +S2 - GI/Abdominal Exam GI & Abdominal Exam: Soft. absent: Distended, Tenderness - Extremities Exam Additional comments: no leg edema; - Neurological Exam Neurological Exam: Alert, Awake - Psychiatric Exam Psychiatric exam: Normal Mood. absent: Agitated - Skin Skin Exam: Warm. absent: Cyanosis Assessment and Plan (1) Acute renal failure Assessment & Plan: Renal function slightly improved; stable volume and electrolyte status (mild hypokalemia noted); presumed myeloma kidney; agree with hematology to start plasma exchange and chemo while inpatient to decrease light chain load and help preserve renal function; -continue IVF and lasix for now with goal of achieving 3L urine output daily; -monitor electrolytes closely with plasma exchange (especially K and Ca); will need Ca gluconate during exchange; -monitor for new SHAY with initiation of chemo (tumor lysis can be possible); Status: Acute (2) HTN (hypertension) Assessment & Plan: BP control fluctuating; on atenolol 100, amlodipine 10, hydralazine 100 q8h and isordil 10 q8h, along with PO lasix 60 mg bid, continue same; Status: Acute (3) Hypercalcemia Assessment & Plan: Stable for now s/p calcitonin; monitor; Status: Acute (4) Anemia Assessment & Plan: Hgb overall decreasing since admission; will check iron studies; Status: Acute
[2018-01-25] MEDS: Sodium Chloride 0.9% 1,000 ML IV SCH
[2018-01-25] MEDS: Levothyroxine 100 MCG TAB PO SCH (06:13)
[2018-01-25 08:36] LABS: ALB/GLOB RATIO 1.1 (1.0-2.1); ALBUMIN 3.7 g/dL (3.5-5.0); CALCIUM 12.8 mg/dl (8.6-10.4)
[2018-01-25] MEDS: Sodium Chloride 0.45% 1,000 ML IV SCH (08:49)
[2018-01-25] MEDS: MethylPREDNISolone 40 mg Vial IVP SCH ×2 (09:53→22:01)
[2018-01-25] MEDS ORDERED: ceFAZolin 1 gm FROZEN Premix 1 GM/50 ML ML IVPB ONE (11:14)
[2018-01-25] MEDS ORDERED: Propofol 10 mg/ml Inj (20 ML) ONE (11:15)
[2018-01-25] MEDS ORDERED: Lidocaine Hydrochloride 10 ML INJ ONE (11:20)
[2018-01-25] MEDS ORDERED: HEPARIN-NS 5,000 UNITS/500 ML 5,000 UNIT/500 ML BAG IV ONE (11:20)
[2018-01-25] MEDS ORDERED: Lidocaine Hydrochloride 5 ML INJ ONE (11:33)
[2018-01-25] MEDS ORDERED: Potassium Chloride 20 mEq ER Tab PO ONE ×2 (11:43→13:45)
[2018-01-25] MEDS ORDERED: HYDROmorphone 0.5 mg/0.5 ml ISec IVP PRN (11:55)
--- NOTE | 2018-01-25 11:57 | PCM.SURG1 ---
Surgeon's Initial Post Op Note - Surgeon's Notes Surgeon: Dr Lovell Test Engine Mechanic: Dr Byrnes PGY4 Type of Anesthesia: IV Sedation Pre-Operative Diagnosis: multiple myeloma Operative Findings: widely patent right internal jugular vein Post-Operative Diagnosis: as above Operation Performed: right IJ permacath insertion w/ fluroscopic guidance Specimen/Specimens Removed: none Estimated Blood Loss: EBL {In ML}: 10 Blood Products Given: N/A Drains Used: No Drains Post-Op Condition: Good Date of Surgery/Procedure: 01/25/18 Time of Surgery/Procedure: 11:56
[2018-01-25] MEDS ORDERED: Albumin Human 5% (25 gm/500 ml) IVPB ONE ×2 (14:00→17:45)
--- NOTE | 2018-01-25 14:48 | CP.PCM.PN ---
Subjective - Date & Time of Evaluation Date of Evaluation: 01/25/18 Time of Evaluation: 12:45 - Subjective Subjective: Medical attending note Patient seen, examined. Patient seen in following insertion of jugular axis for dialysis/plasma exchange. Patient doing well post procedure. Patient denies acute complaints. No family present at bedside. Objective - Vital Signs/Intake and Output Vital Signs (last 24 hours): Temp Pulse Resp BP Pulse Ox 97.1 F L 56 L 10 L 110/59 L 96 01/25/18 12:25 01/25/18 12:25 01/25/18 12:25 01/25/18 12:25 01/25/18 12:25 Intake and Output: 01/25/18 01/25/18 06:59 18:59 Intake Total 2250 505 Output Total 800 Balance 1450 505 - Medications Medications: Current Medications Acetaminophen (Tylenol 325mg Tab) 650 mg PO Q6 PRN PRN Reason: Pain, moderate (4-7) Last Admin: 01/24/18 02:22 Dose: 650 mg Amlodipine Besylate (Norvasc) 10 mg PO DAILY [facility] Last Admin: 01/25/18 09:53 Dose: 10 mg Aspirin (Aspirin Chewable) 81 mg PO DAILY [facility] Last Admin: 01/20/18 10:38 Dose: 81 mg Atenolol (Tenormin) 100 mg PO DAILY [facility] Last Admin: 01/25/18 09:53 Dose: 100 mg Benzonatate (Tessalon Perles) 100 mg PO TID [facility] Last Admin: 01/25/18 14:39 Dose: 100 mg Cyclophosphamide (Cytoxan) 600 mg PO ONCE ONE Stop: 01/26/18 10:01 Docusate Sodium (Colace) 100 mg PO TID [facility] Last Admin: 01/25/18 14:33 Dose: 100 mg Famotidine (Pepcid) 20 mg PO DAILY [facility] Last Admin: 01/25/18 09:53 Dose: 20 mg Furosemide (Lasix) 60 mg PO BID [facility] Last Admin: 01/25/18 09:52 Dose: 60 mg Heparin Sodium (Porcine) (Heparin) 5,000 units SC Q12 [facility] Last Admin: 01/17/18 10:28 Dose: Not Given Heparin Sodium (Porcine) (Heparin) 5,000 units SC Q12 [facility] Last Admin: 01/24/18 09:03 Dose: 5,000 units Hydralazine HCl (Apresoline) 100 mg PO Q8H [facility] Last Admin: 01/25/18 14:32 Dose: 100 mg Sodium Chloride (Sodium Chloride 0.45%) 1,000 mls @ 125 mls/hr IV .Q8H [facility] Last Admin: 01/25/18 08:49 Dose: 125 mls/hr Isosorbide Dinitrate (Isordil) 10 mg PO Q8H [facility] Last Admin: 01/25/18 14:33 Dose: 10 mg Levothyroxine Sodium (Synthroid) 100 mcg PO DAILY@0630 [facility] Last Admin: 01/25/18 06:13 Dose: 100 mcg Methylprednisolone (Solu-Medrol) 40 mg IVP Q12 [facility] Last Admin: 01/25/18 09:53 Dose: 40 mg Ondansetron HCl (Zofran Inj) 4 mg IVP Q6H PRN PRN Reason: Nausea/Vomiting Pentoxifylline (Pentoxil) 400 mg PO BID [facility] Last Admin: 01/25/18 09:53 Dose: 400 mg - Labs Labs: 01/24/18 06:19 01/25/18 07:15 PT 11.2 SECONDS (9.7-12.2) 01/24/18 19:40 INR 1.0 01/24/18 19:40 - Constitutional Appears: Non-toxic, No Acute Distress - Head Exam Head Exam: NORMAL INSPECTION Additional comments: right-sided chest: vascular access clean dry intact - Eye Exam Eye Exam: EOMI Pupil Exam: PERRL - ENT Exam ENT Exam: Mucous Membranes Moist - Respiratory Exam Respiratory Exam: Clear to Ausculation Bilateral, NORMAL BREATHING PATTERN. absent: Rales, Rhonchi, Wheezes - Cardiovascular Exam Cardiovascular Exam: Bradycardia, +S1, +S2 - GI/Abdominal Exam GI & Abdominal Exam: Soft. absent: Distended, Firm, Rigid, Tenderness, Rebound - Extremities Exam Extremities Exam: absent: Pedal Edema, Tenderness - Neurological Exam Neurological Exam: Alert, Awake, Oriented x3 - Psychiatric Exam Psychiatric exam: Normal Affect, Normal Mood - Skin Skin Exam: Dry, Intact, Normal Color, Warm Assessment and Plan (1) Multiple myeloma Status: Acute (2) Acute renal failure Status: Acute (3) Anemia Status: Acute (4) HTN (hypertension) Status: Acute (5) Hypercalcemia Status: Acute (6) Lytic lesion of bone on x-ray Status: Acute (7) Thrombocytopenia Status: Acute (8) Prophylactic measure Status: Acute Attending/Attestation - Attestation I have personally seen and examined this patient.: Yes I have fully participated in the care of the patient.: Yes I have reviewed all pertinent clinical information, including history, physical exam and plan: Yes Notes (Text): 1) Multiple Myeloma Assessment/Plan * newly diagnosed * Nephrology (Dr. Espinal) on case-->help appreciated * Hematology (Dr. Minerva Bran) on case-->help appreciated * Vascular surgery (Dr. Lovell) on case-->help appreciated * Criteria: renal failure, anemia, lambda light chain, hypercalcemia * Confirmed with bone marrow biopsy result 01/24/2018 * Patient to start plasma exchange on Friday * Patient will need daily fibrinogen to monitor for DIC. DIC fibrinogen less than 100. * The dialysis catheter should be a temporary measure for at 5 sessions sessions of plasmapheresis over 10 days. The intent if the plasmapheresis is to replace a possible with albumin they will be 5 sessions one session every other day. Patient will be monitor with a fibrinogen. Sessions will be held a fibrinogen is less than 100. Patient will be monitored for DIC while receiving plasmapheresis. Discussed with Dr. Lovell, he can place the dialysis catheter in the OR tomorrow for the intent for plasmapheresis first session for Friday. Heme onc will call the company for plasmapheresis for a intended first session which is today. * Treatment: Solumedrol 40mg IVP Q12H (active since 01/20/18), Cytoxan 600mg P O (01/26) * Patient received vascular access on 01/25/18. 2. Hypercalcemia Assessment/Plan * Secondary to multiple myeloma-->See #1 and #2 * Nephro recs (Dr. Espinal) appreciated * continue w/ IVF @125 cc/hr * calcitonin on board as temporizing measure * denosumab not available inpatient/hospital formular and bisphosphonates relatively contraindicated with advanced renal failure * continue PO lasix 60mg PO BID Imaging * CT abd/pelvis (01/17): There are multiple on varying sized rounded lytic lesions scattered throughout all the osseous structures. Findings probably represent multiple myeloma however metastatic disease not excluded. Clinical correlation recommended. * Bone Scan: There are no correlates to findings on recent CT scan. Specifically the permeative pattern throughout thoracolumbar spine and pelvis constitutes lytic disease most likely myeloma * R shoulder XR (01/19): degenerative changes bilaterally. No acute findings. * B/L Forearm XR (01/19): no significant or acute findings to account for/related to the clinical presentation * Abd/pelv CT with PO and IV contrast (01/19): nnumerable lytic osseous lesions consistent with multiple myeloma or metastatic disease. Bibasilar atelectasis. Trace right pleural effusion. Small hiatal hernia. Evidence of mild gastroesophageal reflux. Borderline heptomegaly. Diverticulosis without CT evidence of acute diverticulitis. Moderate constipation. * Calcium 24 hr urine is normal at 237.8 * PTH intact is low normal at 14 * PTHr protein: 18 (01/17) * Vit D 68.5 3. Hypertensive urgency Essential hypertension Assessment/Plan * -has essential hypertension, hypercalcemia secondary to MM * ECHO (01/19) shows LVEF>70%. Diastolic dysfunction. Mild MR. Mild TR, mild pulmonary hypertension. Mild pulmonic valvular regurgitation. * held since bone marrow biopsy Aspirin 81mg PO daily * Atenolol 100mg PO daily * Hydralazine 100mg PO TID * Amlodipine 10 mg daily * Isosorbide dinitrate 10 mg PO TID * Lasix 60mg PO BID 4. Hypokalemia Assessment/Plan * repleted * monitor 5. acute renal injured injury seconday to Multiple myeloma Assessment/Plan * nephrology consult, Dr. Espinal, f/u recs * avoid nephrotoxic medications * cont IVF @125 cc/hr * Cr improved to 2.9 * 24 hr urine protein elevated, 4236 * Renal US: Findings consistent with underlying medical renal disease. No evidence of nephrolithiasis or hydronephrosis. 6. Acute Anemia secondary to Multiple myeloma Assessment/Plan * Anemia 2/2 underlying process related to hypercalcemia; r/o malignancy, multiple myeloma * Ferritin: 147 * ipep/spep: M spike * elevated kappa light chains * 7. DM Assessment/Plan * Hold metformin due to elevated Cr * accuchecks QAC and HS 8. HLD Assessment/Plan * Hold statin given SHAY 9. Hypothyroidism Assessment/Plan * Levothyroxine 100mcg daily 10. PAD Assessment/Plan * Pentoxifylline 400mg PO BID 11. PPx, Diet, Disposition * VTE ppx: SCD * chemical anticoagulation held due to thrombocytopenia * GI ppx: Pepcid 20mg daily Dispo: bone marrow prelim myeloma. Patient received vascular access for plasma exchange. patient to receive first plasma exchange today.
--- NOTE | 2018-01-25 16:00 | RAD ---
HISTORY: s/p permacath RIJ COMPARISON: Chest x-ray performed 11/17/15 TECHNIQUE: Chest, one view. FINDINGS: Right IJ approach dialysis catheter extends to the SVC/cavoatrial junction. LUNGS: No focal consolidation. Please note that chest x-ray has limited sensitivity for the detection of pulmonary masses. PLEURA: No significant pleural effusion identified. No definite pneumothorax . CARDIOVASCULAR: Mild cardiomegaly. Faint atherosclerotic calcification of the aortic knob. OSSEOUS STRUCTURES: Degenerative changes. Acromioclavicular arthropathy. Osseous demineralization. VISUALIZED UPPER ABDOMEN: Unremarkable. OTHER FINDINGS: None. IMPRESSION: Right IJ approach dialysis catheter. Mild cardiomegaly.
[2018-01-25 17:16] LABS: IRON 125 ug/dL (37-170)
[2018-01-25 17:25] LABS: % IRON SATURATION 48 (20-55); TOTAL IRON BINDING CAPACITY 258 ug/dL (250-450)
--- NOTE | 2018-01-25 21:51 | CP.PCM.PN ---
Objective - Vital Signs/Intake and Output Vital Signs (last 24 hours): Temp Pulse Resp BP Pulse Ox 98 F 67 20 160/70 H 96 01/25/18 15:00 01/25/18 18:00 01/25/18 15:00 01/25/18 18:00 01/25/18 15:00 Intake and Output: 01/25/18 01/26/18 18:59 06:59 Intake Total 1305 Balance 1305 - Medications Medications: Current Medications Acetaminophen (Tylenol 325mg Tab) 650 mg PO Q6 PRN PRN Reason: Pain, moderate (4-7) Last Admin: 01/24/18 02:22 Dose: 650 mg Amlodipine Besylate (Norvasc) 10 mg PO DAILY [facility] Last Admin: 01/25/18 09:53 Dose: 10 mg Aspirin (Aspirin Chewable) 81 mg PO DAILY [facility] Last Admin: 01/20/18 10:38 Dose: 81 mg Atenolol (Tenormin) 100 mg PO DAILY [facility] Last Admin: 01/25/18 09:53 Dose: 100 mg Benzonatate (Tessalon Perles) 100 mg PO TID [facility] Last Admin: 01/25/18 18:00 Dose: 100 mg Cyclophosphamide (Cytoxan) 600 mg PO ONCE ONE Stop: 01/26/18 10:01 Docusate Sodium (Colace) 100 mg PO TID [facility] Last Admin: 01/25/18 18:00 Dose: 100 mg Famotidine (Pepcid) 20 mg PO DAILY [facility] Last Admin: 01/25/18 09:53 Dose: 20 mg Furosemide (Lasix) 60 mg PO BID [facility] Last Admin: 01/25/18 18:00 Dose: 60 mg Heparin Sodium (Porcine) (Heparin) 5,000 units SC Q12 [facility] Last Admin: 01/17/18 10:28 Dose: Not Given Heparin Sodium (Porcine) (Heparin) 5,000 units SC Q12 [facility] Last Admin: 01/24/18 09:03 Dose: 5,000 units Hydralazine HCl (Apresoline) 100 mg PO Q8H [facility] Last Admin: 01/25/18 14:32 Dose: 100 mg Sodium Chloride (Sodium Chloride 0.45%) 1,000 mls @ 125 mls/hr IV .Q8H [facility] Last Admin: 01/25/18 08:49 Dose: 125 mls/hr Isosorbide Dinitrate (Isordil) 10 mg PO Q8H [facility] Last Admin: 01/25/18 14:33 Dose: 10 mg Levothyroxine Sodium (Synthroid) 100 mcg PO DAILY@0630 [facility] Last Admin: 01/25/18 06:13 Dose: 100 mcg Methylprednisolone (Solu-Medrol) 40 mg IVP Q12 [facility] Last Admin: 01/25/18 09:53 Dose: 40 mg Ondansetron HCl (Zofran Inj) 4 mg IVP Q6H PRN PRN Reason: Nausea/Vomiting Pentoxifylline (Pentoxil) 400 mg PO BID [facility] Last Admin: 01/25/18 18:00 Dose: 400 mg - Labs Labs: 01/24/18 06:19 01/25/18 07:15 PT 11.2 SECONDS (9.7-12.2) 01/24/18 19:40 INR 1.0 01/24/18 19:40 Assessment and Plan (1) Acute renal failure Assessment & Plan: Presumed myeloma kidney; relatively stable renal function; continue IVF w/ 1/2NS at 125 cc/hr and PO lasix 60 mg bid to maintain ~3L UO daily; monitor for worsening of renal function with start of chemo; Status: Acute (2) HTN (hypertension) Status: Acute (3) Hypercalcemia Status: Acute (4) Anemia Status: Acute
--- NOTE | 2018-01-25 22:45 | OP ---
PROCEDURE DATE: 01/25/2018 PREOPERATIVE DIAGNOSES: Multiple myeloma and renal failure. PROCEDURES CARRIED OUT: Placement of Perm-A-Cath to the jugular vein with C-arm fluoroscopy, micropuncture, and ultrasound guidance. SURGEON: Zoltan Lovell Jr., MD MUSICAL [employer]STRUMENTS ASSEMBLER: Sriram Byrnes DO ANESTHESIOLOGIST: Dr. Bartlett. INDICATION FOR PROCEDURE: The patient is an older middle-aged woman with multiple myeloma, requiring urgent intervention for vascular access for plasmapheresis. OPERATIVE FINDINGS: Catheter was inserted uneventfully to the jugular vein. DESCRIPTION OF PROCEDURE: The patient was given local anesthesia. Using ultrasound guidance and the micropuncture technique, the right jugular vein was punctured. Under fluoroscopic control, the guidewire was advanced centrally. A sheath dilator was passed over this and exchanged an 0.035 wire. The catheter was then positioned appropriately. We began on the right chest wall, went through the jugular vein, and terminated in the superior vena cava. This was flushed with heparinized saline had excellent return. It was secured to the skin. Ultrasound of her neck shows the vein was approximately 14 mm in diameter with normal compressibility and no intraluminal thrombosis. Zoltan Lovell Jr., MD
[2018-01-26] MEDS: Levothyroxine 100 MCG TAB PO SCH (05:30)
[2018-01-26] MEDS: Sodium Chloride 0.9% 1,000 ML IV SCH ×2 (05:33→13:08)
[2018-01-26] MEDS: Sodium Chloride 0.45% 1,000 ML IV SCH ×2 (07:54→16:21)
[2018-01-26 09:00] LABS: BASO % 0.6 % (0.0-2.0); EOS # 0.1 K/uL (0.0-0.7); EOS % 1.1 % (0.0-4.0); HEMOGLOBIN 8.8 g/dL (11.0-16.0); LYMPH # 2.5 K/uL (1.0-4.3); LYMPH % 28.8 % (20.0-40.0); MEAN CORPUSCULAR HEMOGLOBIN 32.4 pg (27.0-31.0); MEAN CORPUSCULAR HGB CONC 34.4 g/dL (33.0-37.0); MEAN PLATELET VOLUME 10.3 fL (7.2-11.7); MONO # 0.9 K/uL (0.0-0.8); MONO % 10.1 % (0.0-10.0); NEUT # 5.1 K/uL (1.8-7.0); NEUT % 59.4 % (50.0-75.0); NRBC % 0.3 % (0.0-2.0); RBC 2.72 Mil/uL (3.80-5.20); WHITE BLOOD COUNT 8.6 K/uL (4.8-10.8)
[2018-01-26 09:14] LABS: ALBUMIN 4.1 g/dL (3.5-5.0); CALCIUM 12.1 mg/dl (8.6-10.4)
--- NOTE | 2018-01-26 09:29 | CP.PCM.PN ---
Subjective - Date & Time of Evaluation Date of Evaluation: 01/26/18 Time of Evaluation: 08:35 - Subjective Subjective: Medicine Progress Note for Hospitalist Service Pt seen and examined at bedside this am. Doing well s/p permacath insertion yesterday, denies any acute complaints. No acute events reported overnight by staff. Denies fever, chills, chest pain, sob, n/v/d/c, abd pain, urinary complaints, musculoskeletal pain, or other symptoms. Objective - Vital Signs/Intake and Output Vital Signs (last 24 hours): Temp Pulse Resp BP Pulse Ox 98.4 F 69 20 128/63 96 01/26/18 07:00 01/26/18 07:39 01/26/18 07:00 01/26/18 07:00 01/26/18 07:00 Intake and Output: 01/26/18 01/26/18 06:59 18:59 Intake Total 1115 Output Total 1200 Balance -85 - Medications Medications: Current Medications Acetaminophen (Tylenol 325mg Tab) 650 mg PO Q6 PRN PRN Reason: Pain, moderate (4-7) Last Admin: 01/25/18 22:05 Dose: 650 mg Amlodipine Besylate (Norvasc) 10 mg PO DAILY [facility] Last Admin: 01/25/18 09:53 Dose: 10 mg Aspirin (Aspirin Chewable) 81 mg PO DAILY [facility] Last Admin: 01/20/18 10:38 Dose: 81 mg Atenolol (Tenormin) 100 mg PO DAILY [facility] Last Admin: 01/25/18 09:53 Dose: 100 mg Benzonatate (Tessalon Perles) 100 mg PO TID [facility] Last Admin: 01/25/18 18:00 Dose: 100 mg Cyclophosphamide (Cytoxan) 600 mg PO ONCE ONE Stop: 01/26/18 10:01 Docusate Sodium (Colace) 100 mg PO TID [facility] Last Admin: 01/25/18 18:00 Dose: 100 mg Famotidine (Pepcid) 20 mg PO DAILY [facility] Last Admin: 01/25/18 09:53 Dose: 20 mg Furosemide (Lasix) 60 mg PO BID [facility] Last Admin: 01/25/18 18:00 Dose: 60 mg Heparin Sodium (Porcine) (Heparin) 5,000 units SC Q12 [facility] Last Admin: 01/17/18 10:28 Dose: Not Given Heparin Sodium (Porcine) (Heparin) 5,000 units SC Q12 [facility] Last Admin: 01/25/18 22:02 Dose: 5,000 units Hydralazine HCl (Apresoline) 100 mg PO Q8H [facility] Last Admin: 01/26/18 05:30 Dose: 100 mg Sodium Chloride (Sodium Chloride 0.45%) 1,000 mls @ 125 mls/hr IV .Q8H [facility] Last Admin: 01/26/18 07:54 Dose: Not Given Isosorbide Dinitrate (Isordil) 10 mg PO Q8H [facility] Last Admin: 01/26/18 05:31 Dose: 10 mg Levothyroxine Sodium (Synthroid) 100 mcg PO DAILY@0630 [facility] Last Admin: 01/26/18 05:30 Dose: 100 mcg Methylprednisolone (Solu-Medrol) 40 mg IVP Q12 [facility] Last Admin: 01/25/18 22:01 Dose: 40 mg Ondansetron HCl (Zofran Inj) 4 mg IVP Q6H PRN PRN Reason: Nausea/Vomiting Pentoxifylline (Pentoxil) 400 mg PO BID [facility] Last Admin: 01/25/18 18:00 Dose: 400 mg - Labs Labs: 01/26/18 08:51 01/26/18 08:51 PT 11.2 SECONDS (9.7-12.2) 01/24/18 19:40 INR 1.0 01/24/18 19:40 - Constitutional Appears: Non-toxic, No Acute Distress, Chronically Ill - Head Exam Head Exam: ATRAUMATIC, NORMOCEPHALIC - Eye Exam Eye Exam: EOMI, Normal appearance, PERRL - ENT Exam ENT Exam: Mucous Membranes Moist - Respiratory Exam Respiratory Exam: Clear to Ausculation Bilateral, NORMAL BREATHING PATTERN. absent: Rhonchi - Cardiovascular Exam Cardiovascular Exam: +S1, +S2, Murmur. absent: Gallop, Rubs Additional comments: Systolic murmur heard at R heart border - GI/Abdominal Exam GI & Abdominal Exam: Soft, Normal Bowel Sounds. absent: Distended, Firm, Guarding, Rigid, Tenderness, Organomegaly, Rebound - Extremities Exam Extremities Exam: Full ROM, Normal Capillary Refill, Normal Inspection. absent: Calf Tenderness, Pedal Edema - Neurological Exam Neurological Exam: Alert, Awake, CN II-XII Intact, Oriented x3 - Psychiatric Exam Psychiatric exam: Normal Affect, Normal Mood - Skin Skin Exam: Dry, Intact, Normal Color, Warm Assessment and Plan - Assessment and Plan (Free Text) Assessment: 72 y o F with PMHx of HTN, HLD, TIA 2007, DM presenting with generalized abdominal pain, decreased appetite and increased BP x 2weeks, associated with hypercalcemia and unintentional weight loss likely 2/2 multiple myeloma. Official Bone marrow biopsy results pending. Plan: Hypercalcemia, likely 2/2 Multiple Myeloma - Pt on telemetry for cardiac monitoring - Continue to monitor I's/O's - Heme/Onc recs (Dr. Bran) appreciated - bone marrow biopsy (01/20) was successfully obtained in sterile manner but bone marrow aspirate was not obtained despite redirecting twice (DRY TAP) -f/u bone marrow biopsy results -per Nephro recs possible kidney bx after results obtained -Per Dr. Bran plan for plasmapharesis and inpatient oral cyclophosphamide if confirmed multiple myeloma in an attempt to salvage the pt's renal function -Nephro recs (Dr. Espinal) appreciated -Ca 12.1 today -increased kappa free light chain load, presumed MM per preliminary bone marrow bx results -continue w/ IVF @125 cc/hr -denosumab not available inpatient and bisphosphonates relatively contraindicated with advanced renal failure -continue lasix 60 mg PO Q12 -Solumedrol 40 mg IVP q12h (active since 01/20/18), Cytoxan 600 mg PO (started 01/26) -Dialysis catheter should be a temporary measure, for 5 sessions sessions of plasmapheresis over 10 days. The intent if the plasmapheresis is to replace if possible with albumin they will be 5 sessions one session every other day. Patient will be monitor with a fibrinogen. Sessions will be held a fibrinogen is less than 100. Patient will be monitored for DIC while receiving plasmapheresis. -Vasc surgery (Dr. Lovell) consulted, recs appreciated -S/p RIJ permacath placement POD#1, pt doing well -Imaging - CT abd/pelvis (01/17): There are multiple on varying sized rounded lytic lesions scattered throughout all the osseous structures. Findings probably represent multiple myeloma however metastatic disease not excluded. Clinical correlation recommended. - Bone Scan: There are no correlates to findings on recent CT scan. Specifically the permeative pattern throughout thoracolumbar spine and pelvis constitutes lytic disease most likely myeloma - R shoulder XR (01/19): degenerative changes bilaterally. No acute findings. - B/L Forearm XR (01/19): no significant or acute findings to account for/related to the clinical presentation - Abd/pelv CT with PO and IV contrast (01/19): nnumerable lytic osseous lesions consistent with multiple myeloma or metastatic disease. Bibasilar atelectasis. Trace right pleural effusion. Small hiatal hernia. Evidence of mild gastroesophageal reflux. Borderline heptomegaly. Diverticulosis without CT evidence of acute diverticulitis. Moderate constipation. - Calcium 24 hr urine is normal at 237.8 - PTH intact is low normal at 14 - PTHr protein: 18 (01/17) - Vit D 68.5 Hypertensive urgency - resolved - hemodynamically stable; BP well controlled today 129/54, continue to monitor - ECHO (01/19) shows LVEF>70%. Diastolic dysfunction. Mild MR. Mild TR, mild pulm onary hypertension. Mild pulmonic valvular regurgitation. - Aspirin 81mg PO daily - Atenolol 100mg PO daily - Hydralazine 100mg PO TID - Amlodipine 10 mg daily - Lasix 60 mg PO bid Hypokalemia - K 3.4 today, repleted - continue to monitor SHAY - nephrology consult, Dr. Espinal, f/u recs - avoid nephrotoxic medications - cont IVF @125 cc/hr - Cr 2.9 (01/26) - 24 hr urine protein elevated, 4236 - Renal US: Findings consistent with underlying medical renal disease. No evidence of nephrolithiasis or hydronephrosis. Anemia H/H 8.8/25.6 today, continue to monitor Anemia 2/2 underlying process related to hypercalcemia; r/o malignancy, multiple myeloma DM - Hold metformin due to elevated Cr - accuchecks HLD -Hold statin Hypothyroidism - Levothyroxine 100mcg daily PAD - Pentoxifylline 400mg PO BID - Isosorbide dinitrate 10 mg PO TID PPx, Diet, Disposition -VTE ppx: SCDs -chemical anticoagulation held due to thrombocytopenia -GI ppx: Pepcid 20mg daily Dispo: Pending official bone marrow biopsy results. S/p permacath placement, pt receiving chemo tx and plasmapheresis. Will continue to monitor inpatient. Pt seen, examined with, and plan discussed with Dr. Duffy, attending. Santhosh Sauer DO PGY-1, Narcotics Investigator pager #[phone]
[2018-01-26] MEDS: MethylPREDNISolone 40 mg Vial IVP SCH ×2 (09:45→22:47)
--- NOTE | 2018-01-26 10:05 | CP.PCM.PN ---
<Manuel Villafana - Last Filed: 01/26/18 13:23> Subjective - Date & Time of Evaluation Date of Evaluation: 01/26/18 Time of Evaluation: 08:10 - Subjective Subjective: Nephrology Progress Note for Dr. Espinal Patient was seen and examined at bedside. No acute events overnight. No complaints at this time. Patient denies chest pain, shortness of breath, palpitations, vomiting, diarrhea or constipation. 12 Point ROS performed and neg other than stated above. Objective - Vital Signs/Intake and Output Vital Signs (last 24 hours): Temp Pulse Resp BP Pulse Ox 98.4 F 69 20 128/63 96 01/26/18 07:00 01/26/18 07:39 01/26/18 07:00 01/26/18 07:00 01/26/18 07:00 Intake and Output: 01/26/18 01/26/18 06:59 18:59 Intake Total 1115 Output Total 1200 Balance -85 - Medications Medications: Current Medications Acetaminophen (Tylenol 325mg Tab) 650 mg PO Q6 PRN PRN Reason: Pain, moderate (4-7) Last Admin: 01/25/18 22:05 Dose: 650 mg Amlodipine Besylate (Norvasc) 10 mg PO DAILY [facility] Last Admin: 01/26/18 09:54 Dose: Not Given Aspirin (Aspirin Chewable) 81 mg PO DAILY [facility] Last Admin: 01/20/18 10:38 Dose: 81 mg Atenolol (Tenormin) 100 mg PO DAILY [facility] Last Admin: 01/26/18 09:54 Dose: Not Given Benzonatate (Tessalon Perles) 100 mg PO TID [facility] Last Admin: 01/26/18 09:58 Dose: 100 mg Docusate Sodium (Colace) 100 mg PO TID [facility] Last Admin: 01/26/18 09:44 Dose: 100 mg Famotidine (Pepcid) 20 mg PO DAILY [facility] Last Admin: 01/26/18 09:44 Dose: 20 mg Furosemide (Lasix) 60 mg PO BID [facility] Last Admin: 01/26/18 09:54 Dose: Not Given Heparin Sodium (Porcine) (Heparin) 5,000 units SC Q12 [facility] Last Admin: 01/17/18 10:28 Dose: Not Given Heparin Sodium (Porcine) (Heparin) 5,000 units SC Q12 [facility] Last Admin: 01/26/18 09:48 Dose: 5,000 units Hydralazine HCl (Apresoline) 100 mg PO Q8H [facility] Last Admin: 01/26/18 05:30 Dose: 100 mg Sodium Chloride (Sodium Chloride 0.45%) 1,000 mls @ 125 mls/hr IV .Q8H [facility] Last Admin: 01/26/18 07:54 Dose: Not Given Isosorbide Dinitrate (Isordil) 10 mg PO Q8H [facility] Last Admin: 01/26/18 05:31 Dose: 10 mg Levothyroxine Sodium (Synthroid) 100 mcg PO DAILY@0630 [facility] Last Admin: 01/26/18 05:30 Dose: 100 mcg Methylprednisolone (Solu-Medrol) 40 mg IVP Q12 [facility] Last Admin: 01/26/18 09:45 Dose: 40 mg Ondansetron HCl (Zofran Inj) 4 mg IVP Q6H PRN PRN Reason: Nausea/Vomiting Pentoxifylline (Pentoxil) 400 mg PO BID [facility] Last Admin: 01/26/18 09:45 Dose: 400 mg - Labs Labs: 01/26/18 08:51 01/26/18 08:51 PT 11.2 SECONDS (9.7-12.2) 01/24/18 19:40 INR 1.0 01/24/18 19:40 - Constitutional Appears: No Acute Distress - Head Exam Head Exam: ATRAUMATIC, NORMOCEPHALIC - Eye Exam Eye Exam: EOMI - ENT Exam ENT Exam: Mucous Membranes Moist - Respiratory Exam Respiratory Exam: Clear to Ausculation Bilateral. absent: Rales, Wheezes - Cardiovascular Exam Cardiovascular Exam: REGULAR RHYTHM, +S1, +S2 - GI/Abdominal Exam GI & Abdominal Exam: Soft. absent: Distended, Tenderness - Extremities Exam Extremities Exam: absent: Calf Tenderness, Pedal Edema - Neurological Exam Neurological Exam: Alert, Awake - Skin Skin Exam: Dry, Intact Assessment and Plan - Assessment and Plan (Free Text) Assessment: 72 yo F admitted with severe hypercalcemia, lytic lesions, and acute renal failure concerning for multiple myeloma. s/p bone marrow biopsy. - BM biopsy showed marked hypercellular marrow extensively involved by IgA kappa plasma cell myeloma -Patient received plasmapheresis yesterday, f/u with heme/oncology regarding starting cytoxan today -Ca 12.1 today -Elevated kappa free light chain load; presumed MM -MARTINA and SPEP showed MM spike; Immunofixation showed IGA kappa and kappa present -Cont IVF 1/2 NS at 125 cc/hr -Denosumab not available inpatient and bisphosphonates relatively contraindicated with advanced renal failure -Cont Lasix 60mg PO BID -Cont Solumderol 40mg Q12 Case and plan was reviewed and discussed in detail with Dr Espinal. <Yrn Espinal - Last Filed: 01/27/18 08:58> Objective - Vital Signs/Intake and Output Vital Signs (last 24 hours): Temp Pulse Resp BP Pulse Ox 98.2 F 60 20 129/64 97 01/27/18 07:00 01/27/18 07:00 01/27/18 07:00 01/27/18 07:00 01/27/18 07:00 Intake and Output: 01/27/18 01/27/18 06:59 18:59 Intake Total 1000 Balance 1000 - Medications Medications: Current Medications Acetaminophen (Tylenol 325mg Tab) 650 mg PO Q6 PRN PRN Reason: Pain, moderate (4-7) Last Admin: 01/27/18 00:36 Dose: 650 mg Amlodipine Besylate (Norvasc) 10 mg PO DAILY [facility] Last Admin: 01/26/18 09:54 Dose: Not Given Aspirin (Aspirin Chewable) 81 mg PO DAILY [facility] Last Admin: 01/20/18 10:38 Dose: 81 mg Atenolol (Tenormin) 100 mg PO DAILY [facility] Last Admin: 01/26/18 09:54 Dose: Not Given Benzonatate (Tessalon Perles) 100 mg PO TID [facility] Last Admin: 01/26/18 18:07 Dose: 100 mg Docusate Sodium (Colace) 100 mg PO TID [facility] Last Admin: 01/26/18 18:07 Dose: 100 mg Famotidine (Pepcid) 20 mg PO DAILY [facility] Last Admin: 01/26/18 09:44 Dose: 20 mg Furosemide (Lasix) 60 mg PO BID [facility] Last Admin: 01/26/18 18:08 Dose: 60 mg Heparin Sodium (Porcine) (Heparin) 5,000 units SC Q12 [facility] Last Admin: 01/17/18 10:28 Dose: Not Given Heparin Sodium (Porcine) (Heparin) 5,000 units SC Q12 [facility] Last Admin: 01/26/18 22:47 Dose: 5,000 units Hydralazine HCl (Apresoline) 100 mg PO Q8H [facility] Last Admin: 01/27/18 06:17 Dose: 100 mg Sodium Chloride (Sodium Chloride 0.45%) 1,000 mls @ 125 mls/hr IV .Q8H [facility] Last Admin: 01/27/18 08:44 Dose: Not Given Isosorbide Dinitrate (Isordil) 10 mg PO Q8H [facility] Last Admin: 01/27/18 06:17 Dose: 10 mg Levothyroxine Sodium (Synthroid) 100 mcg PO DAILY@0630 [facility] Last Admin: 01/27/18 06:17 Dose: 100 mcg Methylprednisolone (Solu-Medrol) 40 mg IVP Q12 [facility] Last Admin: 01/26/18 22:47 Dose: 40 mg Ondansetron HCl (Zofran Inj) 4 mg IVP Q6H PRN PRN Reason: Nausea/Vomiting Pentoxifylline (Pentoxil) 400 mg PO BID [facility] Last Admin: 01/26/18 18:07 Dose: 400 mg - Labs Labs: 01/27/18 06:23 01/27/18 06:23 PT 11.2 SECONDS (9.7-12.2) 01/24/18 19:40 INR 1.0 01/24/18 19:40 Assessment and Plan (1) Acute renal failure Status: Acute (2) HTN (hypertension) Status: Acute (3) Hypercalcemia Status: Acute (4) Anemia Status: Acute Attending/Attestation - Attestation I have personally seen and examined this patient.: Yes I have fully participated in the care of the patient.: Yes I have reviewed all pertinent clinical information, including history, physical exam and plan: Yes Notes (Text): Patient seen and examined; I agree with the resident's note as above with the following additions/edits: Patient admitted with newly diagnosed MM, SHAY from presumed myeloma kidney; now s/p 1st session of plasma exchange; given 1st dose of cytoxan today; Renal function stable; need to monitor for rise in serum creatinine with initiation of chemo; will monitor uric acid level periodically; will continue IVF and lasix to achieve ~3L UO dailyl; HTN controlled, continue current meds; Hypercalcemia improved transiently after calcitonin, can expect to rise again (although citrate used during TPE can lower Ca level); monitor closely; Continue to monitor electrolytes and replenish prn;
[2018-01-26] MEDS ORDERED: Potassium Chloride 20 mEq/15 ml LIQ UD PO ONE (10:15)
[2018-01-26 11:50] LABS: ALBUMIN 5.7 Relative %; ALPHA-1 GLOBULIN 1.9 Relative %
--- NOTE | 2018-01-26 12:53 | CP.PCM.PN ---
Subjective - Date & Time of Evaluation Date of Evaluation: 01/26/18 Time of Evaluation: 12:51 - Subjective Subjective: SUrgery Pt seen and examined. Permacath placed yesterday. TOlerated it well. Pain controlled. No bleeding. Objective - Vital Signs/Intake and Output Vital Signs (last 24 hours): Temp Pulse Resp BP Pulse Ox 98.4 F 69 20 128/63 96 01/26/18 07:00 01/26/18 07:39 01/26/18 07:00 01/26/18 07:00 01/26/18 07:00 Intake and Output: 01/26/18 01/26/18 06:59 18:59 Intake Total 1115 Output Total 1200 Balance -85 - Medications Medications: Current Medications Acetaminophen (Tylenol 325mg Tab) 650 mg PO Q6 PRN PRN Reason: Pain, moderate (4-7) Last Admin: 01/25/18 22:05 Dose: 650 mg Amlodipine Besylate (Norvasc) 10 mg PO DAILY [facility] Last Admin: 01/26/18 09:54 Dose: Not Given Aspirin (Aspirin Chewable) 81 mg PO DAILY [facility] Last Admin: 01/20/18 10:38 Dose: 81 mg Atenolol (Tenormin) 100 mg PO DAILY [facility] Last Admin: 01/26/18 09:54 Dose: Not Given Benzonatate (Tessalon Perles) 100 mg PO TID [facility] Last Admin: 01/26/18 09:58 Dose: 100 mg Docusate Sodium (Colace) 100 mg PO TID [facility] Last Admin: 01/26/18 09:44 Dose: 100 mg Famotidine (Pepcid) 20 mg PO DAILY [facility] Last Admin: 01/26/18 09:44 Dose: 20 mg Furosemide (Lasix) 60 mg PO BID [facility] Last Admin: 01/26/18 09:54 Dose: Not Given Heparin Sodium (Porcine) (Heparin) 5,000 units SC Q12 [facility] Last Admin: 01/17/18 10:28 Dose: Not Given Heparin Sodium (Porcine) (Heparin) 5,000 units SC Q12 [facility] Last Admin: 01/26/18 09:48 Dose: 5,000 units Hydralazine HCl (Apresoline) 100 mg PO Q8H [facility] Last Admin: 01/26/18 05:30 Dose: 100 mg Sodium Chloride (Sodium Chloride 0.45%) 1,000 mls @ 125 mls/hr IV .Q8H [facility] Last Admin: 01/26/18 07:54 Dose: Not Given Isosorbide Dinitrate (Isordil) 10 mg PO Q8H [facility] Last Admin: 01/26/18 05:31 Dose: 10 mg Levothyroxine Sodium (Synthroid) 100 mcg PO DAILY@0630 [facility] Last Admin: 01/26/18 05:30 Dose: 100 mcg Methylprednisolone (Solu-Medrol) 40 mg IVP Q12 [facility] Last Admin: 01/26/18 09:45 Dose: 40 mg Ondansetron HCl (Zofran Inj) 4 mg IVP Q6H PRN PRN Reason: Nausea/Vomiting Pentoxifylline (Pentoxil) 400 mg PO BID [facility] Last Admin: 01/26/18 09:45 Dose: 400 mg - Labs Labs: 01/26/18 08:51 01/26/18 08:51 PT 11.2 SECONDS (9.7-12.2) 01/24/18 19:40 INR 1.0 01/24/18 19:40 - Constitutional Appears: No Acute Distress - Head Exam Head Exam: ATRAUMATIC, NORMAL INSPECTION, NORMOCEPHALIC - Eye Exam Eye Exam: EOMI, Normal appearance, PERRL Pupil Exam: NORMAL ACCOMODATION, PERRL - ENT Exam ENT Exam: Mucous Membranes Moist, Normal Exam - Neck Exam Neck Exam: Full ROM Additional comments: R IJ permacath in place. no bleeding. - Respiratory Exam Respiratory Exam: NORMAL BREATHING PATTERN - Cardiovascular Exam Cardiovascular Exam: REGULAR RHYTHM - GI/Abdominal Exam GI & Abdominal Exam: Soft - Extremities Exam Extremities Exam: Full ROM, Normal Capillary Refill, Normal Inspection. absent: Joint Swelling, Pedal Edema - Back Exam Back Exam: NORMAL INSPECTION - Neurological Exam Neurological Exam: Alert, Awake, CN II-XII Intact, Normal Gait, Oriented x3 - Psychiatric Exam Psychiatric exam: Normal Affect, Normal Mood - Skin Skin Exam: Dry, Intact, Normal Color, Warm Assessment and Plan - Assessment and Plan (Free Text) Assessment: POD 1 s/p permacath -Ok to use permacath RAJ Lovell
--- NOTE | 2018-01-26 13:40 | RAD ---
Date of service: 01/25/2018 PROCEDURE: Intraoperative Fluoroscopy. HISTORY: MULTIPLE MYELOMA FINDINGS: Fluoroscopic assistance was provided for right-sided PermCath placement. Please refer to the operative report from MARCE Diaz.
--- NOTE | 2018-01-26 22:13 | CP.PCM.PN ---
Subjective - Date & Time of Evaluation Date of Evaluation: 01/26/18 Time of Evaluation: 18:00 - Subjective Subjective: No complaints. Objective - Vital Signs/Intake and Output Vital Signs (last 24 hours): Temp Pulse Resp BP Pulse Ox 98.4 F 67 20 123/67 96 01/26/18 15:00 01/26/18 16:00 01/26/18 15:00 01/26/18 18:08 01/26/18 15:00 Intake and Output: 01/26/18 01/27/18 18:59 06:59 Intake Total 1000 Balance 1000 - Medications Medications: Current Medications Acetaminophen (Tylenol 325mg Tab) 650 mg PO Q6 PRN PRN Reason: Pain, moderate (4-7) Last Admin: 01/25/18 22:05 Dose: 650 mg Amlodipine Besylate (Norvasc) 10 mg PO DAILY [facility] Last Admin: 01/26/18 09:54 Dose: Not Given Aspirin (Aspirin Chewable) 81 mg PO DAILY [facility] Last Admin: 01/20/18 10:38 Dose: 81 mg Atenolol (Tenormin) 100 mg PO DAILY [facility] Last Admin: 01/26/18 09:54 Dose: Not Given Benzonatate (Tessalon Perles) 100 mg PO TID [facility] Last Admin: 01/26/18 18:07 Dose: 100 mg Docusate Sodium (Colace) 100 mg PO TID [facility] Last Admin: 01/26/18 18:07 Dose: 100 mg Famotidine (Pepcid) 20 mg PO DAILY [facility] Last Admin: 01/26/18 09:44 Dose: 20 mg Furosemide (Lasix) 60 mg PO BID [facility] Last Admin: 01/26/18 18:08 Dose: 60 mg Heparin Sodium (Porcine) (Heparin) 5,000 units SC Q12 [facility] Last Admin: 01/17/18 10:28 Dose: Not Given Heparin Sodium (Porcine) (Heparin) 5,000 units SC Q12 [facility] Last Admin: 01/26/18 09:48 Dose: 5,000 units Hydralazine HCl (Apresoline) 100 mg PO Q8H [facility] Last Admin: 01/26/18 13:07 Dose: Not Given Sodium Chloride (Sodium Chloride 0.45%) 1,000 mls @ 125 mls/hr IV .Q8H [facility] Last Admin: 01/26/18 16:21 Dose: Not Given Isosorbide Dinitrate (Isordil) 10 mg PO Q8H [facility] Last Admin: 01/26/18 13:06 Dose: Not Given Levothyroxine Sodium (Synthroid) 100 mcg PO DAILY@0630 [facility] Last Admin: 01/26/18 05:30 Dose: 100 mcg Methylprednisolone (Solu-Medrol) 40 mg IVP Q12 [facility] Last Admin: 01/26/18 09:45 Dose: 40 mg Ondansetron HCl (Zofran Inj) 4 mg IVP Q6H PRN PRN Reason: Nausea/Vomiting Pentoxifylline (Pentoxil) 400 mg PO BID [facility] Last Admin: 01/26/18 18:07 Dose: 400 mg - Labs Labs: 01/26/18 08:51 01/26/18 08:51 PT 11.2 SECONDS (9.7-12.2) 01/24/18 19:40 INR 1.0 01/24/18 19:40 - Head Exam Head Exam: ATRAUMATIC - Eye Exam Eye Exam: Normal appearance - ENT Exam ENT Exam: Mucous Membranes Dry - Respiratory Exam Respiratory Exam: NORMAL BREATHING PATTERN - Cardiovascular Exam Cardiovascular Exam: +S1, +S2 - GI/Abdominal Exam GI & Abdominal Exam: Normal Bowel Sounds Assessment and Plan (1) Multiple myeloma Assessment & Plan: IgA kappa complicated by renal failure on plasmapheresis with albumin replacement; session #2 tomorrow s/p 1 dose Cytoxan today cont. steroids Status: Acute (2) Hypercalcemia Assessment & Plan: improved on myeloma treatment Status: Acute
[2018-01-27] MEDS: Levothyroxine 100 MCG TAB PO SCH (06:17)
[2018-01-27 06:30] LABS: BASO % 0.5 % (0.0-2.0); EOS # 0.1 K/uL (0.0-0.7); EOS % 1.1 % (0.0-4.0); HEMOGLOBIN 7.9 g/dL (11.0-16.0); LYMPH # 1.9 K/uL (1.0-4.3); LYMPH % 25.8 % (20.0-40.0); MEAN CELL VOLUME 94.1 fL (81.0-99.0); MEAN CORPUSCULAR HEMOGLOBIN 31.6 pg (27.0-31.0); MEAN CORPUSCULAR HGB CONC 33.6 g/dL (33.0-37.0); MEAN PLATELET VOLUME 10.1 fL (7.2-11.7); MONO # 0.7 K/uL (0.0-0.8); MONO % 9.6 % (0.0-10.0); NEUT # 4.7 K/uL (1.8-7.0); NRBC % 0.1 % (0.0-2.0); RBC 2.49 Mil/uL (3.80-5.20); RED CELL DISTRIBUTION WIDTH 16.9 % (11.5-14.5); WHITE BLOOD COUNT 7.4 K/uL (4.8-10.8)
[2018-01-27 07:30] LABS: ALB/GLOB RATIO 1.7 (1.0-2.1); ALBUMIN 3.6 g/dL (3.5-5.0); CALCIUM 11.9 mg/dl (8.6-10.4)
[2018-01-27] MEDS ORDERED: Potassium Chloride 20 mEq/15 ml LIQ UD PO ONE (08:00)
[2018-01-27] MEDS: Sodium Chloride 0.45% 1,000 ML IV SCH ×2 (08:44→18:00)
--- NOTE | 2018-01-27 09:06 | CP.PCM.PN ---
<Manuel Villafana - Last Filed: 01/28/18 07:40> Subjective - Date & Time of Evaluation Date of Evaluation: 01/27/18 Time of Evaluation: 07:45 - Subjective Subjective: Nephrology Progress Note for Dr. Espinal Patient was seen and examined at bedside. No acute events overnight. Patient received cytoxan yesterday and plan for plasmapharesis today. No complaints. Patient denies chest pain, shortness of breath, palpitations, vomiting, diarrhea or constipation. 12 Point ROS performed and neg other than stated above. Objective - Vital Signs/Intake and Output Vital Signs (last 24 hours): Temp Pulse Resp BP Pulse Ox 98.2 F 70 20 129/64 97 01/27/18 07:00 01/27/18 07:05 01/27/18 07:00 01/27/18 07:00 01/27/18 07:00 Intake and Output: 01/27/18 01/27/18 06:59 18:59 Intake Total 1000 Balance 1000 - Medications Medications: Current Medications Acetaminophen (Tylenol 325mg Tab) 650 mg PO Q6 PRN PRN Reason: Pain, moderate (4-7) Last Admin: 01/27/18 00:36 Dose: 650 mg Amlodipine Besylate (Norvasc) 10 mg PO DAILY [facility] Last Admin: 01/26/18 09:54 Dose: Not Given Aspirin (Aspirin Chewable) 81 mg PO DAILY [facility] Last Admin: 01/20/18 10:38 Dose: 81 mg Atenolol (Tenormin) 100 mg PO DAILY [facility] Last Admin: 01/26/18 09:54 Dose: Not Given Benzonatate (Tessalon Perles) 100 mg PO TID [facility] Last Admin: 01/26/18 18:07 Dose: 100 mg Docusate Sodium (Colace) 100 mg PO TID [facility] Last Admin: 01/26/18 18:07 Dose: 100 mg Famotidine (Pepcid) 20 mg PO DAILY [facility] Last Admin: 01/26/18 09:44 Dose: 20 mg Furosemide (Lasix) 60 mg PO BID [facility] Last Admin: 01/26/18 18:08 Dose: 60 mg Heparin Sodium (Porcine) (Heparin) 5,000 units SC Q12 [facility] Last Admin: 01/17/18 10:28 Dose: Not Given Heparin Sodium (Porcine) (Heparin) 5,000 units SC Q12 [facility] Last Admin: 01/26/18 22:47 Dose: 5,000 units Hydralazine HCl (Apresoline) 100 mg PO Q8H [facility] Last Admin: 01/27/18 06:17 Dose: 100 mg Sodium Chloride (Sodium Chloride 0.45%) 1,000 mls @ 125 mls/hr IV .Q8H [facility] Last Admin: 01/27/18 08:44 Dose: Not Given Isosorbide Dinitrate (Isordil) 10 mg PO Q8H [facility] Last Admin: 01/27/18 06:17 Dose: 10 mg Levothyroxine Sodium (Synthroid) 100 mcg PO DAILY@0630 [facility] Last Admin: 01/27/18 06:17 Dose: 100 mcg Methylprednisolone (Solu-Medrol) 40 mg IVP Q12 [facility] Last Admin: 01/26/18 22:47 Dose: 40 mg Ondansetron HCl (Zofran Inj) 4 mg IVP Q6H PRN PRN Reason: Nausea/Vomiting Pentoxifylline (Pentoxil) 400 mg PO BID [facility] Last Admin: 01/26/18 18:07 Dose: 400 mg - Labs Labs: 01/27/18 06:23 01/27/18 06:23 PT 11.2 SECONDS (9.7-12.2) 01/24/18 19:40 INR 1.0 01/24/18 19:40 - Constitutional Appears: No Acute Distress - Eye Exam Eye Exam: EOMI - ENT Exam ENT Exam: Mucous Membranes Moist - Respiratory Exam Respiratory Exam: Clear to Ausculation Bilateral. absent: Rales, Wheezes - Cardiovascular Exam Cardiovascular Exam: REGULAR RHYTHM, +S1, +S2 - GI/Abdominal Exam GI & Abdominal Exam: Soft. absent: Distended, Tenderness - Extremities Exam Extremities Exam: absent: Calf Tenderness, Pedal Edema - Neurological Exam Neurological Exam: Alert, Awake - Skin Skin Exam: Dry, Warm Assessment and Plan - Assessment and Plan (Free Text) Assessment: 72 yo F admitted with severe hypercalcemia, lytic lesions, and acute renal failure 2/2 newly diagnosed multiple myeloma. s/p 1st session of plasma exchange. And given 1st dose of cytoxan yesterday. - BM biopsy showed marked hypercellular marrow extensively involved by IgA kappa plasma cell myeloma - s/p 1st session of plasma exchange. And given 1st dose of cytoxan yesterday. Plan for plasma exchange again today - will monitor uric acid level -Ca 11.9 today -Hypercalcemia improved following calcitonin, can expect to rise again. However plasma exchange contain citrate which will lower calcium. Cont to monitor -Elevated kappa free light chain load; presumed MM -MARTINA and SPEP showed MM spike; Immunofixation showed IGA kappa and kappa present -Cont IVF 1/2 NS at 125 cc/hr -Denosumab not available inpatient and bisphosphonates relatively contraindicated with advanced renal failure -Cont IVF and Lasix 60mg PO BID ~3L UO daily -Cont Solumderol 40mg Q12 Case and plan was reviewed and discussed in detail with Dr Espinal. <Yrn Espinal - Last Filed: 01/28/18 08:54> Objective - Vital Signs/Intake and Output Vital Signs (last 24 hours): Temp Pulse Resp BP Pulse Ox 97.6 F 61 20 155/72 H 96 01/28/18 07:00 01/28/18 07:56 01/28/18 07:00 01/28/18 07:00 01/28/18 07:00 Intake and Output: 01/28/18 01/28/18 06:59 18:59 Intake Total 960 Output Total 1250 Balance -290 - Medications Medications: Current Medications Acetaminophen (Tylenol 325mg Tab) 650 mg PO Q6 PRN PRN Reason: Pain, moderate (4-7) Last Admin: 01/28/18 03:59 Dose: 650 mg Amlodipine Besylate (Norvasc) 10 mg PO DAILY [facility] Last Admin: 01/27/18 09:51 Dose: 10 mg Aspirin (Aspirin Chewable) 81 mg PO DAILY [facility] Last Admin: 01/20/18 10:38 Dose: 81 mg Atenolol (Tenormin) 100 mg PO DAILY [facility] Last Admin: 01/27/18 10:02 Dose: 100 mg Benzonatate (Tessalon Perles) 100 mg PO TID [facility] Last Admin: 01/27/18 17:58 Dose: 100 mg Dextrose (Dextrose 50% Inj) 0 ml IV STAT PRN; Protocol PRN Reason: Hypoglycemia Protocol Dextrose (Glutose 15) 0 gm PO ONCE PRN; Protocol PRN Reason: Hypoglycemia Protocol Docusate Sodium (Colace) 100 mg PO TID [facility] Last Admin: 01/27/18 17:58 Dose: 100 mg Famotidine (Pepcid) 20 mg PO DAILY [facility] Last Admin: 01/27/18 10:01 Dose: 20 mg Furosemide (Lasix) 60 mg PO BID [facility] Last Admin: 01/27/18 17:58 Dose: 60 mg Glucagon (Glucagen Diagnostic Kit) 0 mg IM STAT PRN; Protocol PRN Reason: Hypoglycemia Protocol Heparin Sodium (Porcine) (Heparin) 5,000 units SC Q12 [facility] Last Admin: 01/27/18 22:15 Dose: 5,000 units Hydralazine HCl (Apresoline) 100 mg PO Q8H [facility] Last Admin: 01/28/18 05:59 Dose: 100 mg Sodium Chloride (Sodium Chloride 0.45%) 1,000 mls @ 125 mls/hr IV .Q8H [facility] Last Admin: 01/28/18 08:13 Dose: Not Given Dextrose (Dextrose 5% In Water 1000 Ml) 1,000 mls @ 0 mls/hr IV .Q0M PRN; Protocol PRN Reason: Hypoglycemia Protocol Insulin Human Regular (Novolin R) 0 unit SC ACHS [facility]; Protocol Last Admin: 01/28/18 08:12 Dose: 1 unit Isosorbide Dinitrate (Isordil) 10 mg PO Q8H [facility] Last Admin: 01/28/18 06:00 Dose: 10 mg Levothyroxine Sodium (Synthroid) 100 mcg PO DAILY@0630 [facility] Last Admin: 01/28/18 06:00 Dose: 100 mcg Methylprednisolone (Solu-Medrol) 40 mg IVP Q12 [facility] Last Admin: 01/27/18 22:15 Dose: 40 mg Ondansetron HCl (Zofran Inj) 4 mg IVP Q6H PRN PRN Reason: Nausea/Vomiting Pentoxifylline (Pentoxil) 400 mg PO BID [facility] Last Admin: 01/27/18 17:59 Dose: 400 mg - Labs Labs: 01/28/18 07:25 01/28/18 07:25 PT 11.2 SECONDS (9.7-12.2) 01/24/18 19:40 INR 1.0 01/24/18 19:40 Assessment and Plan (1) Acute renal failure Status: Acute (2) HTN (hypertension) Status: Acute (3) Hypercalcemia Status: Acute (4) Anemia Status: Acute Attending/Attestation - Attestation I have personally seen and examined this patient.: Yes I have fully participated in the care of the patient.: Yes I have reviewed all pertinent clinical information, including history, physical exam and plan: Yes Notes (Text): Patient seen and examined; I agree with the resident's note as above with the following additions/edits: Patient admitted with newly diagnosed MM, SHAY from presumed myeloma kidney; now s/p 1st session of plasma exchange; given 1st dose of cytoxan yesterday; 2nd plasma exchange planned for today; Renal function stable; need to monitor for rise in serum creatinine with initiation of chemo; will monitor uric acid level periodically; will continue IVF and lasix to achieve ~3L UO dailyl; HTN controlled, continue current meds; Hypercalcemia improved after calcitonin given; will monitor; Continue to monitor electrolytes and replenish prn;
[2018-01-27] MEDS: MethylPREDNISolone 40 mg Vial IVP SCH ×2 (10:03→22:15)
[2018-01-27] MEDS ORDERED: POLYETHYLENE GLYCOL 3350 17 GM/Dose PACKET PO ONE (10:58)
--- NOTE | 2018-01-27 13:31 | CP.PCM.PN ---
<Claudia Morales - Last Filed: 01/27/18 16:03> Subjective - Date & Time of Evaluation Date of Evaluation: 01/27/18 Time of Evaluation: 09:35 - Subjective Subjective: Pt examined in room, pt sitting comfortable in chair. No acute events overnight. Pt reports she feels better today, has more energy. Pt reports constipation x3 days and feels uncomfortable as a result. Pt denies chest pain, SOB, N/V. Objective - Vital Signs/Intake and Output Vital Signs (last 24 hours): Temp Pulse Resp BP Pulse Ox 98.2 F 70 20 135/87 97 01/27/18 07:00 01/27/18 07:05 01/27/18 07:00 01/27/18 09:51 01/27/18 07:00 Intake and Output: 01/27/18 01/27/18 06:59 18:59 Intake Total 1000 Balance 1000 - Medications Medications: Current Medications Acetaminophen (Tylenol 325mg Tab) 650 mg PO Q6 PRN PRN Reason: Pain, moderate (4-7) Last Admin: 01/27/18 00:36 Dose: 650 mg Amlodipine Besylate (Norvasc) 10 mg PO DAILY [facility] Last Admin: 01/27/18 09:51 Dose: 10 mg Aspirin (Aspirin Chewable) 81 mg PO DAILY [facility] Last Admin: 01/20/18 10:38 Dose: 81 mg Atenolol (Tenormin) 100 mg PO DAILY [facility] Last Admin: 01/27/18 10:02 Dose: 100 mg Benzonatate (Tessalon Perles) 100 mg PO TID [facility] Last Admin: 01/27/18 10:01 Dose: 100 mg Docusate Sodium (Colace) 100 mg PO TID [facility] Last Admin: 01/27/18 10:00 Dose: 100 mg Famotidine (Pepcid) 20 mg PO DAILY [facility] Last Admin: 01/27/18 10:01 Dose: 20 mg Furosemide (Lasix) 60 mg PO BID [facility] Last Admin: 01/27/18 09:51 Dose: 60 mg Heparin Sodium (Porcine) (Heparin) 5,000 units SC Q12 [facility] Last Admin: 01/26/18 22:47 Dose: 5,000 units Hydralazine HCl (Apresoline) 100 mg PO Q8H [facility] Last Admin: 01/27/18 06:17 Dose: 100 mg Sodium Chloride (Sodium Chloride 0.45%) 1,000 mls @ 125 mls/hr IV .Q8H [facility] Last Admin: 01/27/18 08:44 Dose: Not Given Isosorbide Dinitrate (Isordil) 10 mg PO Q8H [facility] Last Admin: 01/27/18 06:17 Dose: 10 mg Levothyroxine Sodium (Synthroid) 100 mcg PO DAILY@0630 [facility] Last Admin: 01/27/18 06:17 Dose: 100 mcg Methylprednisolone (Solu-Medrol) 40 mg IVP Q12 [facility] Last Admin: 01/27/18 10:03 Dose: 40 mg Ondansetron HCl (Zofran Inj) 4 mg IVP Q6H PRN PRN Reason: Nausea/Vomiting Pentoxifylline (Pentoxil) 400 mg PO BID [facility] Last Admin: 01/27/18 10:03 Dose: 400 mg - Labs Labs: 01/27/18 06:23 01/27/18 06:23 PT 11.2 SECONDS (9.7-12.2) 01/24/18 19:40 INR 1.0 01/24/18 19:40 - Constitutional Appears: No Acute Distress - Head Exam Head Exam: ATRAUMATIC, NORMAL INSPECTION, NORMOCEPHALIC - Eye Exam Eye Exam: EOMI, Normal appearance - ENT Exam ENT Exam: Mucous Membranes Moist, Normal Exam - Neck Exam Neck Exam: absent: Normal Inspection Additional comments: Permacath site at right upper chest, no surrounding erythema/drainage - Respiratory Exam Respiratory Exam: Clear to Ausculation Bilateral, NORMAL BREATHING PATTERN - Cardiovascular Exam Cardiovascular Exam: REGULAR RHYTHM, +S1, +S2 - GI/Abdominal Exam GI & Abdominal Exam: Soft, Normal Bowel Sounds. absent: Distended, Tenderness - Extremities Exam Extremities Exam: Normal Inspection. absent: Calf Tenderness, Pedal Edema - Neurological Exam Neurological Exam: Alert, Awake, Oriented x3 - Psychiatric Exam Psychiatric exam: Normal Affect, Normal Mood - Skin Skin Exam: Dry, Intact, Normal Color, Warm Assessment and Plan - Assessment and Plan (Free Text) Assessment: 72 year old female, admitted with newly diagnosed MM MM -bone marrow bx (01/20/18):prelim read consistent w/ MM, f/u final report -plasmapheresis -scheduled q2d for 5 sessions over 10 days -fibrinogen 165 today. goal: fibrinogen >100, hold plasmapheresis if <100 -s/p permacath placement(01/25) -solu-medrol 40mg ivp Q12 HTN -BP stable and WNL overnight -norvasc 10mg qd -atenolol 100mg po qd -lasix 60mg po bid -hydralazine 100mg po q8 -isosorbide dinitrate 10mg po q8 -echo(01/19) negative for CHF, EF>70% SHAY -BUN/Cr 39/2.7...improving -NS @ 125 -nephro consult Dr. Espinal Hypothyroid -levothyroxine 100mcg qd PAD -pentoxifylline 400mg po BID Hyperglycemia -most likely 2/2 to steroids -ISS ACHS -accuchecks ACHS Constipation -colace 100 TID -miralax x1 s/p plasmapheresis today Ppx -pepcid 20mg po qd -heparin 5000 q12 DISPO: plasmapheresis #2 of 5 over the course of 10 days. <Flakito Shepard - Last Filed: 02/01/18 17:18> Objective - Vital Signs/Intake and Output Vital Signs (last 24 hours): Temp Pulse Resp BP Pulse Ox 98.2 F 64 20 121/62 98 02/01/18 16:00 02/01/18 16:00 02/01/18 16:00 02/01/18 16:00 02/01/18 16:00 Intake and Output: 02/01/18 02/01/18 06:59 18:59 Intake Total 1250 Balance 1250 - Medications Medications: Current Medications Acetaminophen (Tylenol 325mg Tab) 650 mg PO Q6 PRN PRN Reason: Pain, moderate (4-7) Last Admin: 01/31/18 22:29 Dose: 650 mg Amlodipine Besylate (Norvasc) 10 mg PO DAILY [facility] Last Admin: 02/01/18 09:17 Dose: 10 mg Aspirin (Aspirin Chewable) 81 mg PO DAILY [facility] Last Admin: 01/20/18 10:38 Dose: 81 mg Atenolol (Tenormin) 100 mg PO DAILY [facility] Last Admin: 02/01/18 09:18 Dose: 100 mg Benzonatate (Tessalon Perles) 100 mg PO TID [facility] Last Admin: 02/01/18 13:41 Dose: 100 mg Dextrose (Dextrose 50% Inj) 0 ml IV STAT PRN; Protocol PRN Reason: Hypoglycemia Protocol Dextrose (Glutose 15) 0 gm PO ONCE PRN; Protocol PRN Reason: Hypoglycemia Protocol Docusate Sodium (Colace) 100 mg PO TID [facility] Last Admin: 02/01/18 13:40 Dose: 100 mg Famotidine (Pepcid) 20 mg PO DAILY [facility] Last Admin: 02/01/18 09:18 Dose: 20 mg Fluticasone Propionate (Flonase) 0 spr BAHMAN DAILY [facility] Last Admin: 02/01/18 09:19 Dose: 1 spr Furosemide (Lasix) 60 mg PO BID [facility] Last Admin: 02/01/18 09:17 Dose: 60 mg Glucagon (Glucagen Diagnostic Kit) 0 mg IM STAT PRN; Protocol PRN Reason: Hypoglycemia Protocol Hydralazine HCl (Apresoline) 100 mg PO Q8H [facility] Last Admin: 02/01/18 13:40 Dose: 100 mg Sodium Chloride (Sodium Chloride 0.45%) 1,000 mls @ 125 mls/hr IV .Q8H [facility] Last Admin: 02/01/18 09:19 Dose: Not Given Dextrose (Dextrose 5% In Water 1000 Ml) 1,000 mls @ 0 mls/hr IV .Q0M PRN; Protocol PRN Reason: Hypoglycemia Protocol Insulin Human Regular (Novolin R) 0 unit SC ACHS [facility]; Protocol Last Admin: 02/01/18 16:55 Dose: Not Given Isosorbide Dinitrate (Isordil) 10 mg PO Q8H [facility] Last Admin: 02/01/18 13:40 Dose: 10 mg Levothyroxine Sodium (Synthroid) 100 mcg PO DAILY@0630 [facility] Last Admin: 02/01/18 05:37 Dose: 100 mcg Methylprednisolone (Solu-Medrol) 40 mg IVP Q12 [facility] Last Admin: 02/01/18 09:20 Dose: 40 mg Ondansetron HCl (Zofran Inj) 4 mg IVP Q6H PRN PRN Reason: Nausea/Vomiting Pentoxifylline (Pentoxil) 400 mg PO BID [facility] Last Admin: 02/01/18 09:18 Dose: 400 mg - Labs Labs: 02/01/18 07:11 02/01/18 07:11 PT 11.2 SECONDS (9.7-12.2) 01/24/18 19:40 INR 1.0 01/24/18 19:40 Attending/Attestation - Attestation I have personally seen and examined this patient.: Yes I have fully participated in the care of the patient.: Yes I have reviewed all pertinent clinical information, including history, physical exam and plan: Yes Notes (Text): 02/01/18 17:18 This is a late entry. Care of this patient was gone over in detail with resident Dr. Morales. Flakito Shepard D.O.
[2018-01-27] MEDS ORDERED: Glucagon Recombinant 1 mg Inj IM PRN (15:29)
[2018-01-27] MEDS ORDERED: Dextrose 50% SYRINGE Inj (50 ml) IV PRN (15:29)
[2018-01-27] MEDS: (Novolin R) Insulin Human Regular 100 units/ml vial SC SCH ×2 (17:59→22:16)
[2018-01-27] MEDS ORDERED: Albumin Human 5% (25 gm/500 ml) IVPB ONE (19:15)
[2018-01-27] MEDS ORDERED: DiphenhydrAMINE 50 mg/ml Inj IVP ONE (19:30)
[2018-01-28] MEDS: Sodium Chloride 0.45% 1,000 ML IV SCH ×3 (03:43→16:19)
[2018-01-28] MEDS: Levothyroxine 100 MCG TAB PO SCH (06:00)
[2018-01-28 07:45] LABS: BASO % 0.5 % (0.0-2.0); EOS # 0.1 K/uL (0.0-0.7); EOS % 1.1 % (0.0-4.0); HEMOGLOBIN 8.2 g/dL (11.0-16.0); LYMPH # 1.6 K/uL (1.0-4.3); LYMPH % 20.8 % (20.0-40.0); MEAN CELL VOLUME 94.3 fL (81.0-99.0); MEAN CORPUSCULAR HEMOGLOBIN 31.8 pg (27.0-31.0); MEAN CORPUSCULAR HGB CONC 33.7 g/dL (33.0-37.0); MEAN PLATELET VOLUME 10.5 fL (7.2-11.7); MONO # 0.8 K/uL (0.0-0.8); MONO % 9.9 % (0.0-10.0); NEUT # 5.3 K/uL (1.8-7.0); NEUT % 67.7 % (50.0-75.0); NRBC % 0.1 % (0.0-2.0); RBC 2.58 Mil/uL (3.80-5.20); RED CELL DISTRIBUTION WIDTH 17.7 % (11.5-14.5); WHITE BLOOD COUNT 7.9 K/uL (4.8-10.8)
[2018-01-28] MEDS: (Novolin R) Insulin Human Regular 100 units/ml vial SC SCH ×4 (08:12→21:02)
--- NOTE | 2018-01-28 08:14 | CP.PCM.PN ---
Subjective - Date & Time of Evaluation Date of Evaluation: 01/28/18 Time of Evaluation: 08:00 - Subjective Subjective: Nephrology Progress Note for Dr. Espinal Patient was seen and examined at bedside. No acute events overnight. Patient received plasmapharesis yesterday and tolerated well. Patient denies chest pain, shortness of breath, palpitations, vomiting, diarrhea or constipation. 12 Point ROS performed and neg other than stated above. Objective - Vital Signs/Intake and Output Vital Signs (last 24 hours): Temp Pulse Resp BP Pulse Ox 98.1 F 61 20 144/65 97 01/27/18 23:45 01/28/18 07:56 01/27/18 23:45 01/27/18 23:45 01/27/18 23:45 Intake and Output: 01/28/18 01/28/18 06:59 18:59 Intake Total 960 Output Total 1250 Balance -290 - Medications Medications: Current Medications Acetaminophen (Tylenol 325mg Tab) 650 mg PO Q6 PRN PRN Reason: Pain, moderate (4-7) Last Admin: 01/28/18 03:59 Dose: 650 mg Amlodipine Besylate (Norvasc) 10 mg PO DAILY [facility] Last Admin: 01/27/18 09:51 Dose: 10 mg Aspirin (Aspirin Chewable) 81 mg PO DAILY [facility] Last Admin: 01/20/18 10:38 Dose: 81 mg Atenolol (Tenormin) 100 mg PO DAILY [facility] Last Admin: 01/27/18 10:02 Dose: 100 mg Benzonatate (Tessalon Perles) 100 mg PO TID [facility] Last Admin: 01/27/18 17:58 Dose: 100 mg Dextrose (Dextrose 50% Inj) 0 ml IV STAT PRN; Protocol PRN Reason: Hypoglycemia Protocol Dextrose (Glutose 15) 0 gm PO ONCE PRN; Protocol PRN Reason: Hypoglycemia Protocol Docusate Sodium (Colace) 100 mg PO TID [facility] Last Admin: 01/27/18 17:58 Dose: 100 mg Famotidine (Pepcid) 20 mg PO DAILY [facility] Last Admin: 01/27/18 10:01 Dose: 20 mg Furosemide (Lasix) 60 mg PO BID [facility] Last Admin: 01/27/18 17:58 Dose: 60 mg Glucagon (Glucagen Diagnostic Kit) 0 mg IM STAT PRN; Protocol PRN Reason: Hypoglycemia Protocol Heparin Sodium (Porcine) (Heparin) 5,000 units SC Q12 [facility] Last Admin: 01/27/18 22:15 Dose: 5,000 units Hydralazine HCl (Apresoline) 100 mg PO Q8H [facility] Last Admin: 01/28/18 05:59 Dose: 100 mg Sodium Chloride (Sodium Chloride 0.45%) 1,000 mls @ 125 mls/hr IV .Q8H [facility] Last Admin: 01/28/18 03:43 Dose: Not Given Dextrose (Dextrose 5% In Water 1000 Ml) 1,000 mls @ 0 mls/hr IV .Q0M PRN; Protocol PRN Reason: Hypoglycemia Protocol Insulin Human Regular (Novolin R) 0 unit SC ACHS [facility]; Protocol Last Admin: 01/27/18 22:16 Dose: Not Given Isosorbide Dinitrate (Isordil) 10 mg PO Q8H [facility] Last Admin: 01/28/18 06:00 Dose: 10 mg Levothyroxine Sodium (Synthroid) 100 mcg PO DAILY@0630 [facility] Last Admin: 01/28/18 06:00 Dose: 100 mcg Methylprednisolone (Solu-Medrol) 40 mg IVP Q12 [facility] Last Admin: 01/27/18 22:15 Dose: 40 mg Ondansetron HCl (Zofran Inj) 4 mg IVP Q6H PRN PRN Reason: Nausea/Vomiting Pentoxifylline (Pentoxil) 400 mg PO BID [facility] Last Admin: 01/27/18 17:59 Dose: 400 mg - Labs Labs: 01/28/18 07:25 01/27/18 06:23 PT 11.2 SECONDS (9.7-12.2) 01/24/18 19:40 INR 1.0 01/24/18 19:40 - Constitutional Appears: No Acute Distress - Head Exam Head Exam: ATRAUMATIC, NORMOCEPHALIC - Eye Exam Eye Exam: EOMI - ENT Exam ENT Exam: Mucous Membranes Moist - Respiratory Exam Respiratory Exam: Clear to Ausculation Bilateral. absent: Rales, Rhonchi, Wheezes - Cardiovascular Exam Cardiovascular Exam: REGULAR RHYTHM, +S1, +S2 - GI/Abdominal Exam GI & Abdominal Exam: Soft. absent: Tenderness - Back Exam Back Exam: absent: CVA tenderness (L) - Neurological Exam Neurological Exam: Alert, Awake, CN II-XII Intact - Skin Skin Exam: Dry, Warm Assessment and Plan - Assessment and Plan (Free Text) Assessment: 72 yo F admitted with severe hypercalcemia, lytic lesions, and acute renal f ailure 2/2 newly diagnosed multiple myeloma. s/p 1st session of plasma exchange. And given 1st dose of cytoxan yesterday. - BM biopsy showed marked hypercellular marrow extensively involved by IgA kappa plasma cell myeloma - s/p 2 sessions of plasma exchange. Plan for plasma exchange sancho - Elevated anion gap - follow up lactic acid ordered - 1st dose of cytoxan 01/26 - F/u uric acid level today wnl - Ca 11.2 -Hypercalcemia improved following calcitonin, can expect to rise again. However plasma exchange contain citrate which will lower calcium. Cont to monitor -Elevated kappa free light chain load; presumed MM -MARTINA and SPEP showed MM spike; Immunofixation showed IGA kappa and kappa present -Cont IVF 1/2 NS at 125 cc/hr -Denosumab not available inpatient and bisphosphonates relatively contraindicated with advanced renal failure -Cont IVF and Lasix 60mg PO BID ~3L UO daily -Cont Solumderol 40mg Q12 Case and plan was reviewed and discussed in detail with Dr Espinal.
[2018-01-28 08:30] LABS: ALB/GLOB RATIO 2.6 (1.0-2.1); ALBUMIN 4.2 g/dL (3.5-5.0); ALT/SGPT 22 U/L (9-52); AST/SGOT 15 U/L (14-36); BLOOD UREA NITROGEN 34 mg/dL (7-17); CALCIUM 11.2 mg/dl (8.6-10.4); GFR NON-AFRICAN AMERICAN 19; URIC ACID 6.9 mg/dL (2.2-7.5)
[2018-01-28] MEDS: MethylPREDNISolone 40 mg Vial IVP SCH ×2 (09:22→21:01)
[2018-01-28] MEDS ORDERED: POLYETHYLENE GLYCOL 3350 17 GM/Dose PACKET PO ONE (10:00)
--- NOTE | 2018-01-28 11:57 | CP.PCM.PN ---
Subjective - Date & Time of Evaluation Date of Evaluation: 01/27/18 Time of Evaluation: 19:00 - Subjective Subjective: Feeling better Objective - Vital Signs/Intake and Output Vital Signs (last 24 hours): Temp Pulse Resp BP Pulse Ox 97.6 F 61 20 131/63 96 01/28/18 07:00 01/28/18 07:56 01/28/18 07:00 01/28/18 09:21 01/28/18 07:00 Intake and Output: 01/28/18 01/28/18 06:59 18:59 Intake Total 960 Output Total 1250 Balance -290 - Medications Medications: Current Medications Acetaminophen (Tylenol 325mg Tab) 650 mg PO Q6 PRN PRN Reason: Pain, moderate (4-7) Last Admin: 01/28/18 03:59 Dose: 650 mg Amlodipine Besylate (Norvasc) 10 mg PO DAILY [facility] Last Admin: 01/28/18 09:20 Dose: 10 mg Aspirin (Aspirin Chewable) 81 mg PO DAILY [facility] Last Admin: 01/20/18 10:38 Dose: 81 mg Atenolol (Tenormin) 100 mg PO DAILY [facility] Last Admin: 01/28/18 09:20 Dose: 100 mg Benzonatate (Tessalon Perles) 100 mg PO TID [facility] Last Admin: 01/28/18 09:20 Dose: 100 mg Dextrose (Dextrose 50% Inj) 0 ml IV STAT PRN; Protocol PRN Reason: Hypoglycemia Protocol Dextrose (Glutose 15) 0 gm PO ONCE PRN; Protocol PRN Reason: Hypoglycemia Protocol Docusate Sodium (Colace) 100 mg PO TID [facility] Last Admin: 01/28/18 09:20 Dose: 100 mg Famotidine (Pepcid) 20 mg PO DAILY [facility] Last Admin: 01/28/18 09:20 Dose: 20 mg Furosemide (Lasix) 60 mg PO BID [facility] Last Admin: 01/28/18 09:21 Dose: 60 mg Glucagon (Glucagen Diagnostic Kit) 0 mg IM STAT PRN; Protocol PRN Reason: Hypoglycemia Protocol Heparin Sodium (Porcine) (Heparin) 5,000 units SC Q12 [facility] Last Admin: 01/28/18 09:21 Dose: 5,000 units Hydralazine HCl (Apresoline) 100 mg PO Q8H [facility] Last Admin: 01/28/18 05:59 Dose: 100 mg Sodium Chloride (Sodium Chloride 0.45%) 1,000 mls @ 125 mls/hr IV .Q8H [facility] Last Admin: 01/28/18 08:13 Dose: Not Given Dextrose (Dextrose 5% In Water 1000 Ml) 1,000 mls @ 0 mls/hr IV .Q0M PRN; Protocol PRN Reason: Hypoglycemia Protocol Insulin Human Regular (Novolin R) 0 unit SC ACHS [facility]; Protocol Last Admin: 01/28/18 08:12 Dose: 1 unit Isosorbide Dinitrate (Isordil) 10 mg PO Q8H [facility] Last Admin: 01/28/18 06:00 Dose: 10 mg Levothyroxine Sodium (Synthroid) 100 mcg PO DAILY@0630 [facility] Last Admin: 01/28/18 06:00 Dose: 100 mcg Methylprednisolone (Solu-Medrol) 40 mg IVP Q12 [facility] Last Admin: 01/28/18 09:22 Dose: 40 mg Ondansetron HCl (Zofran Inj) 4 mg IVP Q6H PRN PRN Reason: Nausea/Vomiting Pentoxifylline (Pentoxil) 400 mg PO BID [facility] Last Admin: 01/28/18 09:41 Dose: 400 mg - Labs Labs: 01/28/18 07:25 01/28/18 07:25 PT 11.2 SECONDS (9.7-12.2) 01/24/18 19:40 INR 1.0 01/24/18 19:40 - Head Exam Head Exam: ATRAUMATIC - Eye Exam Eye Exam: Normal appearance - ENT Exam ENT Exam: Mucous Membranes Dry - Respiratory Exam Respiratory Exam: NORMAL BREATHING PATTERN - Cardiovascular Exam Cardiovascular Exam: +S1, +S2 - GI/Abdominal Exam GI & Abdominal Exam: Normal Bowel Sounds Assessment and Plan (1) Multiple myeloma Assessment & Plan: IgA kappa complicated by renal failure on plasmapheresis with albumin replacement; session #2 today s/p 1 dose Cytoxan cont. steroids Status: Acute (2) Hypercalcemia Assessment & Plan: improved on myeloma treatment Status: Acute
--- NOTE | 2018-01-28 12:33 | CP.PCM.PN ---
<Santhosh Sauer - Last Filed: 01/28/18 13:55> Subjective - Date & Time of Evaluation Date of Evaluation: 01/28/18 Time of Evaluation: 09:20 - Subjective Subjective: Medicine Progress Note for Hospitalist Service Pt seen and examined at bedside this am. Denies any acute complaints currently. Reports episode overnight where she was unable to urinate and had pain with straining, but as per RN at bedside this am, pt voided at 6 am without concerns. Denies abd pain, tolerating PO diet, sleeping without concerns. 12-point ROS obtained, otherwise neg as per pt. Objective - Vital Signs/Intake and Output Vital Signs (last 24 hours): Temp Pulse Resp BP Pulse Ox 97.6 F 61 20 131/63 96 01/28/18 07:00 01/28/18 07:56 01/28/18 07:00 01/28/18 09:21 01/28/18 07:00 Intake and Output: 01/28/18 01/28/18 06:59 18:59 Intake Total 960 Output Total 1250 Balance -290 - Medications Medications: Current Medications Acetaminophen (Tylenol 325mg Tab) 650 mg PO Q6 PRN PRN Reason: Pain, moderate (4-7) Last Admin: 01/28/18 03:59 Dose: 650 mg Amlodipine Besylate (Norvasc) 10 mg PO DAILY [facility] Last Admin: 01/28/18 09:20 Dose: 10 mg Aspirin (Aspirin Chewable) 81 mg PO DAILY [facility] Last Admin: 01/20/18 10:38 Dose: 81 mg Atenolol (Tenormin) 100 mg PO DAILY [facility] Last Admin: 01/28/18 09:20 Dose: 100 mg Benzonatate (Tessalon Perles) 100 mg PO TID [facility] Last Admin: 01/28/18 09:20 Dose: 100 mg Dextrose (Dextrose 50% Inj) 0 ml IV STAT PRN; Protocol PRN Reason: Hypoglycemia Protocol Dextrose (Glutose 15) 0 gm PO ONCE PRN; Protocol PRN Reason: Hypoglycemia Protocol Docusate Sodium (Colace) 100 mg PO TID [facility] Last Admin: 01/28/18 09:20 Dose: 100 mg Famotidine (Pepcid) 20 mg PO DAILY [facility] Last Admin: 01/28/18 09:20 Dose: 20 mg Furosemide (Lasix) 60 mg PO BID [facility] Last Admin: 10/17/18 09:21 Dose: 60 mg Glucagon (Glucagen Diagnostic Kit) 0 mg IM STAT PRN; Protocol PRN Reason: Hypoglycemia Protocol Heparin Sodium (Porcine) (Heparin) 5,000 units SC Q12 [facility] Last Admin: 01/28/18 09:21 Dose: 5,000 units Hydralazine HCl (Apresoline) 100 mg PO Q8H [facility] Last Admin: 01/28/18 05:59 Dose: 100 mg Sodium Chloride (Sodium Chloride 0.45%) 1,000 mls @ 125 mls/hr IV .Q8H [facility] Last Admin: 01/28/18 08:13 Dose: Not Given Dextrose (Dextrose 5% In Water 1000 Ml) 1,000 mls @ 0 mls/hr IV .Q0M PRN; Protocol PRN Reason: Hypoglycemia Protocol Insulin Human Regular (Novolin R) 0 unit SC ACHS [facility]; Protocol Last Admin: 01/28/18 08:12 Dose: 1 unit Isosorbide Dinitrate (Isordil) 10 mg PO Q8H [facility] Last Admin: 01/28/18 06:00 Dose: 10 mg Levothyroxine Sodium (Synthroid) 100 mcg PO DAILY@0630 [facility] Last Admin: 01/28/18 06:00 Dose: 100 mcg Methylprednisolone (Solu-Medrol) 40 mg IVP Q12 [facility] Last Admin: 01/28/18 09:22 Dose: 40 mg Ondansetron HCl (Zofran Inj) 4 mg IVP Q6H PRN PRN Reason: Nausea/Vomiting Pentoxifylline (Pentoxil) 400 mg PO BID [facility] Last Admin: 01/28/18 09:41 Dose: 400 mg - Labs Labs: 01/28/18 07:25 01/28/18 07:25 PT 11.2 SECONDS (9.7-12.2) 01/24/18 19:40 INR 1.0 01/24/18 19:40 - Constitutional Appears: Non-toxic, No Acute Distress, Chronically Ill - Eye Exam Eye Exam: EOMI, Normal appearance, PERRL - ENT Exam ENT Exam: Mucous Membranes Moist - Respiratory Exam Respiratory Exam: Clear to Ausculation Bilateral, NORMAL BREATHING PATTERN. absent: Rales, Rhonchi, Wheezes - Cardiovascular Exam Cardiovascular Exam: REGULAR RHYTHM, +S1, +S2. absent: Gallop, Rubs Additional comments: Murmur auscultated at L heart border - GI/Abdominal Exam GI & Abdominal Exam: Soft, Normal Bowel Sounds. absent: Distended, Firm, Guarding, Rigid, Tenderness, Organomegaly - Extremities Exam Extremities Exam: Full ROM, Normal Capillary Refill, Normal Inspection. absent: Calf Tenderness, Pedal Edema - Neurological Exam Neurological Exam: Alert, Awake, CN II-XII Intact, Oriented x3 - Psychiatric Exam Psychiatric exam: Normal Affect, Normal Mood - Skin Skin Exam: Dry, Intact, Normal Color, Warm Assessment and Plan - Assessment and Plan (Free Text) Assessment: 72 y o F with PMHx of HTN, HLD, TIA 2007, DM presenting with generalized abdominal pain, decreased appetite and increased BP x 2weeks, associ ated with hypercalcemia and unintentional weight loss likely 2/2 multiple myeloma. Plan: Hypercalcemia, likely 2/2 Multiple Myeloma - Pt on telemetry for cardiac monitoring - Continue to monitor I's/O's - Heme/Onc recs (Dr. Bran) appreciated - bone marrow biopsy (01/20) was successfully obtained in sterile manner but bone marrow aspirate was not obtained despite redirecting twice (DRY TAP) -Bone marrow biopsy results (01/20/18): markedly hypercellular marrow extensively involved by IgA [place] plasma cell myeloma (90%), mild reticulin fibrosis, no detectable iron staining. -per Nephro recs possible kidney bx after results obtained -Per Dr. Bran plan for plasmapharesis and inpatient oral cyclophosphamide if confirmed multiple myeloma in an attempt to salvage the pt's renal function -Nephro recs (Dr. Espinal) appreciated -Ca 12.1 today -increased kappa free light chain load, presumed MM per preliminary bone marrow bx results -continue w/ IVF @125 cc/hr -denosumab not available inpatient and bisphosphonates relatively contraindicated with advanced renal failure -continue lasix 60 mg PO Q12 -Solumedrol 40 mg IVP q12h (active since 01/20/18), Cytoxan 600 mg PO (started 01/26) -Dialysis catheter should be a temporary measure, for 5 sessions sessions of plasmapheresis over 10 days. The intent if the plasmapheresis is to replace if p ossible with albumin they will be 5 sessions one session every other day. Patient will be monitor with a fibrinogen. Sessions will be held a fibrinogen is less than 100. Patient will be monitored for DIC while receiving plasmapheresis. -Vas surgery (Dr. Lovell) consulted, recs appreciated -S/p RIJ permacath placement POD#3, pt doing well -Imaging - CT abd/pelvis (01/17): There are multiple on varying sized rounded lytic lesions scattered throughout all the osseous structures. Findings probably represent multiple myeloma however metastatic disease not excluded. Clinical correlation recommended. - Bone Scan: There are no correlates to findings on recent CT scan. Specifically the permeative pattern throughout thoracolumbar spine and pelvis constitutes lytic disease most likely myeloma - R shoulder XR (01/19): degenerative changes bilaterally. No acute findings. - B/L Forearm XR (01/19): no significant or acute findings to account for/related to the clinical presentation - Abd/pelv CT with PO and IV contrast (01/19): nnumerable lytic osseous lesions consistent with multiple myeloma or metastatic disease. Bibasilar atelectasis. Trace right pleural effusion. Small hiatal hernia. Evidence of mild gastroesophageal reflux. Borderline heptomegaly. Diverticulosis without CT evidence of acute diverticulitis. Moderate constipation. - Calcium 24 hr urine is normal at 237.8 - PTH intact is low normal at 14 - PTHr protein: 18 (01/17) - Vit D 68.5 Hypertensive urgency - resolved - hemodynamically stable; BP well controlled today 144/65, continue to monitor - ECHO (01/19) shows LVEF>70%. Diastolic dysfunction. Mild MR. Mild TR, mild pulmonary hypertension. Mild pulmonic valvular regurgitation. - Aspirin 81mg PO daily - Atenolol 100mg PO daily - Hydralazine 100mg PO TID - Amlodipine 10 mg daily - Lasix 60 mg PO bid Hypokalemia - resolved - K 3.8 today - continue to monitor SHAY - nephrology consult, Dr. Espinal, f/u recs - avoid nephrotoxic medications - cont IVF @125 cc/hr - Cr 2.5 (01/28) - 24 hr urine protein elevated, 4236 - Renal US: Findings consistent with underlying medical renal disease. No evidence of nephrolithiasis or hydronephrosis. Anemia H/H 8.2/24.3 today, continue to monitor Anemia 2/2 underlying process related to hypercalcemia; r/o malignancy, multiple myeloma DM - Hold metformin due to elevated Cr - accuchecks HLD -Hold statin Hypothyroidism - Levothyroxine 100mcg daily PAD - Pentoxifylline 400mg PO BID - Isosorbide dinitrate 10 mg PO TID PPX, Diet, Disposition -VTE ppx: SCDs -chemical anticoagulation held due to thrombocytopenia -GI ppx: Pepcid 20mg daily Dispo: S/p permacath placement, pt receiving chemo tx and plasmapheresis. Will continue to monitor inpatient. Pt seen, examined with, and plan discussed with Dr. Shepard, attending. Santhosh Sauer DO PGY-1, Theatre Director pager #[phone] <Flakito Shepard - Last Filed: 02/01/18 17:19> Objective - Vital Signs/Intake and Output Vital Signs (last 24 hours): Temp Pulse Resp BP Pulse Ox 98.2 F 64 20 121/62 98 02/01/18 16:00 02/01/18 16:00 02/01/18 16:00 02/01/18 16:00 02/01/18 16:00 Intake and Output: 02/01/18 02/01/18 06:59 18:59 Intake Total 1250 Balance 1250 - Medications Medications: Current Medications Acetaminophen (Tylenol 325mg Tab) 650 mg PO Q6 PRN PRN Reason: Pain, moderate (4-7) Last Admin: 01/31/18 22:29 Dose: 650 mg Amlodipine Besylate (Norvasc) 10 mg PO DAILY [facility] Last Admin: 02/01/18 09:17 Dose: 10 mg Aspirin (Aspirin Chewable) 81 mg PO DAILY [facility] Last Admin: 01/20/18 10:38 Dose: 81 mg Atenolol (Tenormin) 100 mg PO DAILY [facility] Last Admin: 02/01/18 09:18 Dose: 100 mg Benzonatate (Tessalon Perles) 100 mg PO TID [facility] Last Admin: 02/01/18 13:41 Dose: 100 mg Dextrose (Dextrose 50% Inj) 0 ml IV STAT PRN; Protocol PRN Reason: Hypoglycemia Protocol Dextrose (Glutose 15) 0 gm PO ONCE PRN; Protocol PRN Reason: Hypoglycemia Protocol Docusate Sodium (Colace) 100 mg PO TID [facility] Last Admin: 02/01/18 13:40 Dose: 100 mg Famotidine (Pepcid) 20 mg PO DAILY [facility] Last Admin: 02/01/18 09:18 Dose: 20 mg Fluticasone Propionate (Flonase) 0 spr BAHMAN DAILY [facility] Last Admin: 02/01/18 09:19 Dose: 1 spr Furosemide (Lasix) 60 mg PO BID [facility] Last Admin: 02/01/18 09:17 Dose: 60 mg Glucagon (Glucagen Diagnostic Kit) 0 mg IM STAT PRN; Protocol PRN Reason: Hypoglycemia Protocol Hydralazine HCl (Apresoline) 100 mg PO Q8H [facility] Last Admin: 02/01/18 13:40 Dose: 100 mg Sodium Chloride (Sodium Chloride 0.45%) 1,000 mls @ 125 mls/hr IV .Q8H [facility] Last Admin: 02/01/18 09:19 Dose: Not Given Dextrose (Dextrose 5% In Water 1000 Ml) 1,000 mls @ 0 mls/hr IV .Q0M PRN; Protocol PRN Reason: Hypoglycemia Protocol Insulin Human Regular (Novolin R) 0 unit SC ACHS [facility]; Protocol Last Admin: 02/01/18 16:55 Dose: Not Given Isosorbide Dinitrate (Isordil) 10 mg PO Q8H [facility] Last Admin: 02/01/18 13:40 Dose: 10 mg Levothyroxine Sodium (Synthroid) 100 mcg PO DAILY@0630 [facility] Last Admin: 02/01/18 05:37 Dose: 100 mcg Methylprednisolone (Solu-Medrol) 40 mg IVP Q12 [facility] Last Admin: 02/01/18 09:20 Dose: 40 mg Ondansetron HCl (Zofran Inj) 4 mg IVP Q6H PRN PRN Reason: Nausea/Vomiting Pentoxifylline (Pentoxil) 400 mg PO BID [facility] Last Admin: 02/01/18 09:18 Dose: 400 mg - Labs Labs: 02/01/18 07:11 02/01/18 07:11 PT 11.2 SECONDS (9.7-12.2) 01/24/18 19:40 INR 1.0 01/24/18 19:40 Attending/Attestation - Attestation I have personally seen and examined this patient.: Yes I have fully participated in the care of the patient.: Yes I have reviewed all pertinent clinical information, including history, physical exam and plan: Yes Notes (Text): 02/01/18 17:19 This is a late entry. Care of this patient was gone over in detail with resident Dr. Sauer. Flakito Shepard D.O.
[2018-01-29] MEDS: Sodium Chloride 0.45% 1,000 ML IV SCH ×3 (01:04→16:42)
[2018-01-29] MEDS: Levothyroxine 100 MCG TAB PO SCH (05:39)
[2018-01-29 07:40] LABS: ALB/GLOB RATIO 2.3 (1.0-2.1); CALCIUM 11.3 mg/dl (8.6-10.4)
[2018-01-29] MEDS: (Novolin R) Insulin Human Regular 100 units/ml vial SC SCH ×4 (08:00→21:37)
[2018-01-29 08:06] LABS: BASO # 0.1 K/uL (0.0-0.2); BASO % 0.8 % (0.0-2.0); EOS # 0.1 K/uL (0.0-0.7); EOS % 1.1 % (0.0-4.0); HEMOGLOBIN 7.2 g/dL (11.0-16.0); LYMPH # 1.4 K/uL (1.0-4.3); LYMPH % 20.2 % (20.0-40.0); MEAN CORPUSCULAR HEMOGLOBIN 32.2 pg (27.0-31.0); MEAN CORPUSCULAR HGB CONC 34.2 g/dL (33.0-37.0); MEAN PLATELET VOLUME 10.5 fL (7.2-11.7); MONO # 0.8 K/uL (0.0-0.8); NEUT # 4.8 K/uL (1.8-7.0); NEUT % 66.9 % (50.0-75.0); NRBC % 0.1 % (0.0-2.0); RBC 2.24 Mil/uL (3.80-5.20); RED CELL DISTRIBUTION WIDTH 17.4 % (11.5-14.5); WHITE BLOOD COUNT 7.1 K/uL (4.8-10.8)
--- NOTE | 2018-01-29 09:27 | CP.PCM.PN ---
Subjective - Date & Time of Evaluation Date of Evaluation: 01/29/18 Time of Evaluation: 08:00 - Subjective Subjective: Nephrology Progress Note for Dr. Espinal Patient was seen and examined at bedside. She states she is feeling well this morning and ate most of her breakfast. She states she feels like she pulled a muscle in her chest area as she was straining to reach for the television yesterday. Patient denies chest pain, shortness of breath, nausea, vomiting, diarrhea, constipation, fever or chills. Objective - Vital Signs/Intake and Output Vital Signs (last 24 hours): Temp Pulse Resp BP Pulse Ox 98.7 F 70 20 124/55 L 98 01/29/18 07:00 01/29/18 07:00 01/29/18 07:00 01/29/18 07:00 01/29/18 07:00 - Medications Medications: Current Medications Acetaminophen (Tylenol 325mg Tab) 650 mg PO Q6 PRN PRN Reason: Pain, moderate (4-7) Last Admin: 01/28/18 03:59 Dose: 650 mg Amlodipine Besylate (Norvasc) 10 mg PO DAILY [facility] Last Admin: 01/28/18 09:20 Dose: 10 mg Aspirin (Aspirin Chewable) 81 mg PO DAILY [facility] Last Admin: 01/20/18 10:38 Dose: 81 mg Atenolol (Tenormin) 100 mg PO DAILY [facility] Last Admin: 01/28/18 09:20 Dose: 100 mg Benzonatate (Tessalon Perles) 100 mg PO TID [facility] Last Admin: 01/28/18 18:06 Dose: 100 mg Dextrose (Dextrose 50% Inj) 0 ml IV STAT PRN; Protocol PRN Reason: Hypoglycemia Protocol Dextrose (Glutose 15) 0 gm PO ONCE PRN; Protocol PRN Reason: Hypoglycemia Protocol Docusate Sodium (Colace) 100 mg PO TID [facility] Last Admin: 01/28/18 18:06 Dose: 100 mg Famotidine (Pepcid) 20 mg PO DAILY [facility] Last Admin: 01/28/18 09:20 Dose: 20 mg Furosemide (Lasix) 60 mg PO BID [facility] Last Admin: 01/28/18 18:06 Dose: 60 mg Glucagon (Glucagen Diagnostic Kit) 0 mg IM STAT PRN; Protocol PRN Reason: Hypoglycemia Protocol Heparin Sodium (Porcine) (Heparin) 5,000 units SC Q12 [facility] Last Admin: 01/28/18 21:00 Dose: 5,000 units Hydralazine HCl (Apresoline) 100 mg PO Q8H [facility] Last Admin: 01/29/18 05:40 Dose: 100 mg Sodium Chloride (Sodium Chloride 0.45%) 1,000 mls @ 125 mls/hr IV .Q8H [facility] Last Admin: 01/29/18 01:04 Dose: 125 mls/hr Dextrose (Dextrose 5% In Water 1000 Ml) 1,000 mls @ 0 mls/hr IV .Q0M PRN; Protocol PRN Reason: Hypoglycemia Protocol Insulin Human Regular (Novolin R) 0 unit SC ACHS [facility]; Protocol Last Admin: 01/28/18 21:02 Dose: Not Given Isosorbide Dinitrate (Isordil) 10 mg PO Q8H [facility] Last Admin: 01/29/18 05:39 Dose: 10 mg Levothyroxine Sodium (Synthroid) 100 mcg PO DAILY@0630 [facility] Last Admin: 01/29/18 05:39 Dose: 100 mcg Methylprednisolone (Solu-Medrol) 40 mg IVP Q12 [facility] Last Admin: 01/28/18 21:01 Dose: 40 mg Ondansetron HCl (Zofran Inj) 4 mg IVP Q6H PRN PRN Reason: Nausea/Vomiting Pentoxifylline (Pentoxil) 400 mg PO BID [facility] Last Admin: 01/28/18 18:06 Dose: 400 mg - Labs Labs: 01/29/18 07:11 01/29/18 07:11 PT 11.2 SECONDS (9.7-12.2) 01/24/18 19:40 INR 1.0 01/24/18 19:40 - Constitutional Appears: No Acute Distress - Head Exam Head Exam: ATRAUMATIC, NORMAL INSPECTION - Eye Exam Eye Exam: EOMI, Normal appearance - ENT Exam ENT Exam: Mucous Membranes Moist - Respiratory Exam Respiratory Exam: Clear to Ausculation Bilateral, NORMAL BREATHING PATTERN - Cardiovascular Exam Cardiovascular Exam: REGULAR RHYTHM, +S1, +S2 Additional comments: reproducible midsternal tenderness - GI/Abdominal Exam GI & Abdominal Exam: Soft, Normal Bowel Sounds. absent: Tenderness - Extremities Exam Extremities Exam: Normal Inspection - Neurological Exam Neurological Exam: Alert, Awake, Oriented x3 - Psychiatric Exam Psychiatric exam: Normal Affect - Skin Skin Exam: Normal Color Assessment and Plan - Assessment and Plan (Free Text) Assessment: 72 year old female with past medical history of HTN, Hypercholesterol, TIA (2007), DM presents to ED from the clinic for evaluation of generalized abdominal pain, loss of appetite, and elevated blood pressure for the past 2 weeks. SHAY - possibly secondary to malignancy - After bone marrow biopsy results will possibly discuss a kidney biopsy - NS @125cc/hr - Continue to monitor Hypercalcemia secondary to Multiple Myeloma - Ca 14.9 - Patient given Calcitonin 200mg q12h for 24hours - Ca stable at 11.3 - Images: * Abd CT pelvis: There are multiple on varying sized rounded lytic lesions scattered throughout all the osseous structures. Findings probably represent multiple myeloma however metastatic disease not excluded. Clinical correlation recommended. * Bone scan: Specifically the permeative pattern throughout thoracolumbar spine and pelvis constitutes lytic disease most likely myeloma. - Calcium 24 hr urine - s/p bone marrow biopsy with Dr. Bran 01/20/18 - Which showed marked hypercellular marrow extensively involved by IgA kappa plasma cell myeloma - Free [place] Light Chains: 65492.8; Free Lambda Light Chain 4.2 - s/p 2 sessions of plasma exchange. - Plasmapheresis scheduled for 01/29/18 - Continue Solumederol 40mg q12h and Cytoxan Acute Anemia - secondary to MM and SHAY - Patient to be transfused 2 units of PRBC 01/29/18 - H/H 7.2/21.1 - Possible dose of Epogen to be given once a week - Will continue to monitor Hypertensive urgency - Atenolol 100mg PO daily - Amlodipine 10mg po daily - Lasix 40mg IV q12h - Isosorbid Dinitrate 10mg q8h - hydralazine 100mg PO q8h Case discussed with Dr. Teddy Chowdhury PGY-2
--- NOTE | 2018-01-29 11:26 | CP.PCM.PN ---
<Santhosh Sauer - Last Filed: 01/29/18 17:18> Subjective - Date & Time of Evaluation Date of Evaluation: 01/29/18 Time of Evaluation: 07:40 - Subjective Subjective: Medicine Progress Note for Hospitalist Service Pt seen and examined at bedside this am. Denies any acute complaints, resting comfortably at bedside. No acute events reported overnight. Pt states she is voiding well, tolerating PO diet, not in any pain at this time. 12-point ROS obtained, otherwise negative as per pt. Objective - Vital Signs/Intake and Output Vital Signs (last 24 hours): Temp Pulse Resp BP Pulse Ox 98.7 F 70 20 122/54 L 98 01/29/18 07:00 01/29/18 07:00 01/29/18 07:00 01/29/18 10:23 01/29/18 07:00 - Medications Medications: Current Medications Acetaminophen (Tylenol 325mg Tab) 650 mg PO Q6 PRN PRN Reason: Pain, moderate (4-7) Last Admin: 01/29/18 10:33 Dose: 650 mg Amlodipine Besylate (Norvasc) 10 mg PO DAILY [facility] Last Admin: 01/29/18 10:24 Dose: 10 mg Aspirin (Aspirin Chewable) 81 mg PO DAILY [facility] Last Admin: 01/20/18 10:38 Dose: 81 mg Atenolol (Tenormin) 100 mg PO DAILY [facility] Last Admin: 01/29/18 10:25 Dose: 100 mg Benzonatate (Tessalon Perles) 100 mg PO TID [facility] Last Admin: 01/29/18 10:22 Dose: 100 mg Dextrose (Dextrose 50% Inj) 0 ml IV STAT PRN; Protocol PRN Reason: Hypoglycemia Protocol Dextrose (Glutose 15) 0 gm PO ONCE PRN; Protocol PRN Reason: Hypoglycemia Protocol Docusate Sodium (Colace) 100 mg PO TID [facility] Last Admin: 01/29/18 10:23 Dose: 100 mg Famotidine (Pepcid) 20 mg PO DAILY [facility] Last Admin: 01/29/18 10:24 Dose: 20 mg Furosemide (Lasix) 60 mg PO BID [facility] Last Admin: 01/29/18 10:23 Dose: 60 mg Glucagon (Glucagen Diagnostic Kit) 0 mg IM STAT PRN; Protocol PRN Reason: Hypoglycemia Protocol Heparin Sodium (Porcine) (Heparin) 5,000 units SC Q12 [facility] Last Admin: 01/29/18 10:23 Dose: 5,000 units Hydralazine HCl (Apresoline) 100 mg PO Q8H [facility] Last Admin: 01/29/18 05:40 Dose: 100 mg Sodium Chloride (Sodium Chloride 0.45%) 1,000 mls @ 125 mls/hr IV .Q8H [facility] Last Admin: 01/29/18 10:35 Dose: 125 mls/hr Dextrose (Dextrose 5% In Water 1000 Ml) 1,000 mls @ 0 mls/hr IV .Q0M PRN; Protocol PRN Reason: Hypoglycemia Protocol Insulin Human Regular (Novolin R) 0 unit SC ACHS [facility]; Protocol Last Admin: 01/28/18 21:02 Dose: Not Given Isosorbide Dinitrate (Isordil) 10 mg PO Q8H [facility] Last Admin: 01/29/18 05:39 Dose: 10 mg Levothyroxine Sodium (Synthroid) 100 mcg PO DAILY@0630 [facility] Last Admin: 01/29/18 05:39 Dose: 100 mcg Methylprednisolone (Solu-Medrol) 40 mg IVP Q12 [facility] Last Admin: 01/28/18 21:01 Dose: 40 mg Ondansetron HCl (Zofran Inj) 4 mg IVP Q6H PRN PRN Reason: Nausea/Vomiting Pentoxifylline (Pentoxil) 400 mg PO BID [facility] Last Admin: 01/29/18 10:24 Dose: 400 mg - Labs Labs: 01/29/18 07:11 01/29/18 07:11 PT 11.2 SECONDS (9.7-12.2) 01/24/18 19:40 INR 1.0 01/24/18 19:40 - Constitutional Appears: Non-toxic, No Acute Distress, Chronically Ill - Head Exam Head Exam: ATRAUMATIC, NORMOCEPHALIC - Eye Exam Eye Exam: EOMI, Normal appearance, PERRL - ENT Exam ENT Exam: Mucous Membranes Moist - Respiratory Exam Respiratory Exam: Clear to Ausculation Bilateral, NORMAL BREATHING PATTERN. absent: Rales, Rhonchi, Wheezes - Cardiovascular Exam Cardiovascular Exam: REGULAR RHYTHM, +S1, +S2, Murmur. absent: Gallop, Rubs Additional comments: Systolic murmur auscultated at L heart border, unchanged from prior exam - GI/Abdominal Exam GI & Abdominal Exam: Soft, Normal Bowel Sounds. absent: Distended, Firm, Guarding, Rigid, Tenderness, Organomegaly, Rebound - Extremities Exam Extremities Exam: Full ROM, Normal Capillary Refill, Normal Inspection. absent: Calf Tenderness, Pedal Edema - Neurological Exam Neurological Exam: Alert, Awake, CN II-XII Intact, Oriented x3 - Psychiatric Exam Psychiatric exam: Normal Affect, Normal Mood - Skin Skin Exam: Dry, Intact, Normal Color, Warm Assessment and Plan - Assessment and Plan (Free Text) Assessment: 72 y o F with PMHx of HTN, HLD, TIA 2007, DM presenting with generalized abdominal pain, decreased appetite and increased BP x 2weeks, associated with hypercalcemia and unintentional weight loss likely 2/2 multiple myeloma. Plan: Hypercalcemia, likely 2/2 Multiple Myeloma - Pt on telemetry for cardiac monitoring - Continue to monitor I's/O's - Heme/Onc recs (Dr. Bran) appreciated - bone marrow biopsy (01/20) was successfully obtained in sterile manner but bone marrow aspirate was not obtained despite redirecting twice (DRY TAP) -Bone marrow biopsy results (01/20/18): markedly hypercellular marrow extensively involved by IgA Pelzer plasma cell myeloma (90%), mild reticulin fibrosis, no detectable iron staining. -per Nephro recs possible kidney bx after results obtained -Per Dr. Bran plan for plasmapharesis and inpatient oral cyclophosphamide if confirmed multiple myeloma in an attempt to salvage the pt's renal function -Nephro recs (Dr. Espinal) appreciated -Ca 11.3 today -increased kappa free light chain load, presumed MM per preliminary bone marrow bx results -continue w/ IVF @125 cc/hr -denosumab not available inpatient and bisphosphonates relatively contraindicated with advanced renal failure -continue lasix 60 mg PO Q12 -Solumedrol 40 mg IVP q12h (active since 01/20/18), Cytoxan 600 mg PO (started 01/26) -Dialysis catheter should be a temporary measure, for 5 sessions sessions of plasmapheresis over 10 days. The intent if the plasmapheresis is to replace if possible with albumin they will be 5 sessions one session every other day. Patient will be monitor with a fibrinogen. Sessions will be held a fibrinogen is less than 100. Patient will be monitored for DIC while receiving plasmapheresis. -Vasc surgery (Dr. Lovell) consulted, recs appreciated -S/p RIJ permacath placement POD#4, pt doing well -Imaging - CT abd/pelvis (01/17): There are multiple on varying sized rounded lytic lesions scattered throughout all the osseous structures. Findings probably represent multiple myeloma however metastatic disease not excluded. Clinical correlation recommended. - Bone Scan: There are no correlates to findings on recent CT scan. Specifically the permeative pattern throughout thoracolumbar spine and pelvis constitutes lytic disease most likely myeloma - R shoulder XR (01/19): degenerative changes bilaterally. No acute findings. - B/L Forearm XR (01/19): no significant or acute findings to account for/related to the clinical presentation - Abd/pelv CT with PO and IV contrast (01/19): nnumerable lytic osseous les ions consistent with multiple myeloma or metastatic disease. Bibasilar atelectasis. Trace right pleural effusion. Small hiatal hernia. Evidence of mild gastroesophageal reflux. Borderline heptomegaly. Diverticulosis without CT evidence of acute diverticulitis. Moderate constipation. - Calcium 24 hr urine is normal at 237.8 - PTH intact is low normal at 14 - PTHr protein: 18 (01/17) - Vit D 68.5 Hypertensive urgency - resolved - hemodynamically stable; BP well controlled today 129/55, continue to monitor - ECHO (01/19) shows LVEF>70%. Diastolic dysfunction. Mild MR. Mild TR, mild pulmonary hypertension. Mild pulmonic valvular regurgitation. - Aspirin 81mg PO daily - Atenolol 100mg PO daily - Hydralazine 100mg PO TID - Amlodipine 10 mg daily - Lasix 60 mg PO bid Hypokalemia - resolved - K 3.7 today - continue to monitor SHAY - nephrology consult, Dr. Espinal, f/u recs - avoid nephrotoxic medications - cont IVF @125 cc/hr; hold IVF during PRBC transfusion, repeat bp, if pt hypotensive will resume IVF - Cr 2.6 (01/28) - 24 hr urine protein elevated, 4236 - Renal US: Findings consistent with underlying medical renal disease. No evidence of nephrolithiasis or hydronephrosis. Anemia H/H 7.2/2.1 today, continue to monitor Pt to receive 2 units PRBCs today as per Dr. Bran, repeat CBC this evening Anemia 2/2 underlying process related to hypercalcemia; r/o malignancy, multiple myeloma DM - Hold metformin due to elevated Cr - accuchecks HLD -Hold statin Hypothyroidism - Levothyroxine 100mcg daily PAD - Pentoxifylline 400mg PO BID - Isosorbide dinitrate 10 mg PO TID PPX, Diet, Disposition -VTE ppx: SCDs -chemical anticoagulation held due to thrombocytopenia -GI ppx: Pepcid 20mg daily Dispo: S/p permacath placement, pt receiving chemo tx and plasmapheresis. Will continue to monitor inpatient. Pt seen, examined with, and plan discussed with Dr. Shepard, attending. Santhosh Sauer DO PGY-1, Senior Engineer pager #[phone] <Flakito Shepard - Last Filed: 02/01/18 17:19> Objective - Vital Signs/Intake and Output Vital Signs (last 24 hours): Temp Pulse Resp BP Pulse Ox 98.2 F 64 20 121/62 98 02/01/18 16:00 02/01/18 16:00 02/01/18 16:00 02/01/18 16:00 02/01/18 16:00 Intake and Output: 02/01/18 02/01/18 06:59 18:59 Intake Total 1250 Balance 1250 - Medications Medications: Current Medications Acetaminophen (Tylenol 325mg Tab) 650 mg PO Q6 PRN PRN Reason: Pain, moderate (4-7) Last Admin: 01/31/18 22:29 Dose: 650 mg Amlodipine Besylate (Norvasc) 10 mg PO DAILY [facility] Last Admin: 02/01/18 09:17 Dose: 10 mg Aspirin (Aspirin Chewable) 81 mg PO DAILY [facility] Last Admin: 01/20/18 10:38 Dose: 81 mg Atenolol (Tenormin) 100 mg PO DAILY [facility] Last Admin: 02/01/18 09:18 Dose: 100 mg Benzonatate (Tessalon Perles) 100 mg PO TID [facility] Last Admin: 02/01/18 13:41 Dose: 100 mg Dextrose (Dextrose 50% Inj) 0 ml IV STAT PRN; Protocol PRN Reason: Hypoglycemia Protocol Dextrose (Glutose 15) 0 gm PO ONCE PRN; Protocol PRN Reason: Hypoglycemia Protocol Docusate Sodium (Colace) 100 mg PO TID [facility] Last Admin: 02/01/18 13:40 Dose: 100 mg Famotidine (Pepcid) 20 mg PO DAILY [facility] Last Admin: 02/01/18 09:18 Dose: 20 mg Fluticasone Propionate (Flonase) 0 spr BAHMAN DAILY [facility] Last Admin: 02/01/18 09:19 Dose: 1 spr Furosemide (Lasix) 60 mg PO BID [facility] Last Admin: 02/01/18 09:17 Dose: 60 mg Glucagon (Glucagen Diagnostic Kit) 0 mg IM STAT PRN; Protocol PRN Reason: Hypoglycemia Protocol Hydralazine HCl (Apresoline) 100 mg PO Q8H [facility] Last Admin: 02/01/18 13:40 Dose: 100 mg Sodium Chloride (Sodium Chloride 0.45%) 1,000 mls @ 125 mls/hr IV .Q8H [facility] Last Admin: 02/01/18 09:19 Dose: Not Given Dextrose (Dextrose 5% In Water 1000 Ml) 1,000 mls @ 0 mls/hr IV .Q0M PRN; Protocol PRN Reason: Hypoglycemia Protocol Insulin Human Regular (Novolin R) 0 unit SC ACHS [facility]; Protocol Last Admin: 02/01/18 16:55 Dose: Not Given Isosorbide Dinitrate (Isordil) 10 mg PO Q8H [facility] Last Admin: 02/01/18 13:40 Dose: 10 mg Levothyroxine Sodium (Synthroid) 100 mcg PO DAILY@0630 [facility] Last Admin: 02/01/18 05:37 Dose: 100 mcg Methylprednisolone (Solu-Medrol) 40 mg IVP Q12 [facility] Last Admin: 02/01/18 09:20 Dose: 40 mg Ondansetron HCl (Zofran Inj) 4 mg IVP Q6H PRN PRN Reason: Nausea/Vomiting Pentoxifylline (Pentoxil) 400 mg PO BID [facility] Last Admin: 02/01/18 09:18 Dose: 400 mg - Labs Labs: 02/01/18 07:11 02/01/18 07:11 PT 11.2 SECONDS (9.7-12.2) 01/24/18 19:40 INR 1.0 01/24/18 19:40 Attending/Attestation - Attestation I have personally seen and examined this patient.: Yes I have fully participated in the care of the patient.: Yes I have reviewed all pertinent clinical information, including history, physical exam and plan: Yes Notes (Text): 02/01/18 17:19 This is a late entry. Care of this patient was gone over in detail with resident Dr. Sauer. Flakito Shepard D.O.
[2018-01-29] MEDS: MethylPREDNISolone 40 mg Vial IVP SCH ×2 (11:46→21:37)
[2018-01-29] MEDS ORDERED: DiphenhydrAMINE 50 mg/ml Inj IVP ONE (13:00)
[2018-01-29] MEDS ORDERED: Albumin Human 5% (25 gm/500 ml) IVPB ONE (13:00)
--- NOTE | 2018-01-29 20:28 | CP.PCM.PN ---
Subjective - Date & Time of Evaluation Date of Evaluation: 01/28/18 Time of Evaluation: 13:00 - Subjective Subjective: Feeling better Objective - Vital Signs/Intake and Output Vital Signs (last 24 hours): Temp Pulse Resp BP Pulse Ox 98.3 F 66 20 139/61 100 01/29/18 20:09 01/29/18 20:09 01/29/18 20:09 01/29/18 20:09 01/29/18 15:00 Intake and Output: 01/29/18 01/30/18 18:59 06:59 Intake Total 1000 0 Balance 1000 0 - Medications Medications: Current Medications Acetaminophen (Tylenol 325mg Tab) 650 mg PO Q6 PRN PRN Reason: Pain, moderate (4-7) Last Admin: 01/29/18 10:33 Dose: 650 mg Amlodipine Besylate (Norvasc) 10 mg PO DAILY [facility] Last Admin: 01/29/18 10:24 Dose: 10 mg Aspirin (Aspirin Chewable) 81 mg PO DAILY [facility] Last Admin: 01/20/18 10:38 Dose: 81 mg Atenolol (Tenormin) 100 mg PO DAILY [facility] Last Admin: 01/29/18 10:25 Dose: 100 mg Benzonatate (Tessalon Perles) 100 mg PO TID [facility] Last Admin: 01/29/18 18:32 Dose: 100 mg Dextrose (Dextrose 50% Inj) 0 ml IV STAT PRN; Protocol PRN Reason: Hypoglycemia Protocol Dextrose (Glutose 15) 0 gm PO ONCE PRN; Protocol PRN Reason: Hypoglycemia Protocol Docusate Sodium (Colace) 100 mg PO TID [facility] Last Admin: 01/29/18 18:32 Dose: 100 mg Famotidine (Pepcid) 20 mg PO DAILY [facility] Last Admin: 01/29/18 10:24 Dose: 20 mg Furosemide (Lasix) 60 mg PO BID [facility] Last Admin: 01/29/18 18:31 Dose: 60 mg Glucagon (Glucagen Diagnostic Kit) 0 mg IM STAT PRN; Protocol PRN Reason: Hypoglycemia Protocol Heparin Sodium (Porcine) (Heparin) 5,000 units SC Q12 [facility] Last Admin: 01/29/18 10:23 Dose: 5,000 units Hydralazine HCl (Apresoline) 100 mg PO Q8H [facility] Last Admin: 01/29/18 13:21 Dose: 100 mg Sodium Chloride (Sodium Chloride 0.45%) 1,000 mls @ 125 mls/hr IV .Q8H [facility] Last Admin: 01/29/18 16:42 Dose: Not Given Dextrose (Dextrose 5% In Water 1000 Ml) 1,000 mls @ 0 mls/hr IV .Q0M PRN; Protocol PRN Reason: Hypoglycemia Protocol Insulin Human Regular (Novolin R) 0 unit SC ACHS [facility]; Protocol Last Admin: 01/29/18 16:41 Dose: Not Given Isosorbide Dinitrate (Isordil) 10 mg PO Q8H [facility] Last Admin: 01/29/18 14:05 Dose: 10 mg Levothyroxine Sodium (Synthroid) 100 mcg PO DAILY@0630 [facility] Last Admin: 01/29/18 05:39 Dose: 100 mcg Methylprednisolone (Solu-Medrol) 40 mg IVP Q12 [facility] Last Admin: 01/29/18 11:46 Dose: 40 mg Ondansetron HCl (Zofran Inj) 4 mg IVP Q6H PRN PRN Reason: Nausea/Vomiting Pentoxifylline (Pentoxil) 400 mg PO BID [facility] Last Admin: 01/29/18 10:24 Dose: 400 mg - Labs Labs: 01/29/18 07:11 01/29/18 07:11 PT 11.2 SECONDS (9.7-12.2) 01/24/18 19:40 INR 1.0 01/24/18 19:40 - Head Exam Head Exam: ATRAUMATIC - Eye Exam Eye Exam: Normal appearance - ENT Exam ENT Exam: Mucous Membranes Dry - Respiratory Exam Respiratory Exam: NORMAL BREATHING PATTERN - Cardiovascular Exam Cardiovascular Exam: +S1, +S2 - GI/Abdominal Exam GI & Abdominal Exam: Normal Bowel Sounds Assessment and Plan (1) Multiple myeloma Assessment & Plan: IgA kappa complicated by renal failure on plasmapheresis with albumin replacement; session #2 yesterday s/p 1 dose Cytoxan cont. steroids Status: Acute (2) Hypercalcemia Assessment & Plan: improved on myeloma treatment Status: Acute
--- NOTE | 2018-01-29 20:29 | CP.PCM.PN ---
Subjective - Date & Time of Evaluation Date of Evaluation: 01/29/18 Time of Evaluation: 13:00 - Subjective Subjective: No complaints, undergoing plasma pheresis Objective - Vital Signs/Intake and Output Vital Signs (last 24 hours): Temp Pulse Resp BP Pulse Ox 98.8 F 66 20 128/64 100 01/29/18 20:24 01/29/18 20:24 01/29/18 20:24 01/29/18 20:24 01/29/18 15:00 Intake and Output: 01/29/18 01/30/18 18:59 06:59 Intake Total 1000 0 Balance 1000 0 - Medications Medications: Current Medications Acetaminophen (Tylenol 325mg Tab) 650 mg PO Q6 PRN PRN Reason: Pain, moderate (4-7) Last Admin: 01/29/18 10:33 Dose: 650 mg Amlodipine Besylate (Norvasc) 10 mg PO DAILY [facility] Last Admin: 01/29/18 10:24 Dose: 10 mg Aspirin (Aspirin Chewable) 81 mg PO DAILY [facility] Last Admin: 01/20/18 10:38 Dose: 81 mg Atenolol (Tenormin) 100 mg PO DAILY [facility] Last Admin: 01/29/18 10:25 Dose: 100 mg Benzonatate (Tessalon Perles) 100 mg PO TID [facility] Last Admin: 01/29/18 18:32 Dose: 100 mg Dextrose (Dextrose 50% Inj) 0 ml IV STAT PRN; Protocol PRN Reason: Hypoglycemia Protocol Dextrose (Glutose 15) 0 gm PO ONCE PRN; Protocol PRN Reason: Hypoglycemia Protocol Docusate Sodium (Colace) 100 mg PO TID [facility] Last Admin: 01/29/18 18:32 Dose: 100 mg Famotidine (Pepcid) 20 mg PO DAILY [facility] Last Admin: 01/29/18 10:24 Dose: 20 mg Furosemide (Lasix) 60 mg PO BID [facility] Last Admin: 01/29/18 18:31 Dose: 60 mg Glucagon (Glucagen Diagnostic Kit) 0 mg IM STAT PRN; Protocol PRN Reason: Hypoglycemia Protocol Heparin Sodium (Porcine) (Heparin) 5,000 units SC Q12 [facility] Last Admin: 01/29/18 10:23 Dose: 5,000 units Hydralazine HCl (Apresoline) 100 mg PO Q8H [facility] Last Admin: 01/29/18 13:21 Dose: 100 mg Sodium Chloride (Sodium Chloride 0.45%) 1,000 mls @ 125 mls/hr IV .Q8H [facility] Last Admin: 01/29/18 16:42 Dose: Not Given Dextrose (Dextrose 5% In Water 1000 Ml) 1,000 mls @ 0 mls/hr IV .Q0M PRN; Protocol PRN Reason: Hypoglycemia Protocol Insulin Human Regular (Novolin R) 0 unit SC ACHS [facility]; Protocol Last Admin: 01/29/18 16:41 Dose: Not Given Isosorbide Dinitrate (Isordil) 10 mg PO Q8H [facility] Last Admin: 01/29/18 14:05 Dose: 10 mg Levothyroxine Sodium (Synthroid) 100 mcg PO DAILY@0630 [facility] Last Admin: 01/29/18 05:39 Dose: 100 mcg Methylprednisolone (Solu-Medrol) 40 mg IVP Q12 [facility] Last Admin: 01/29/18 11:46 Dose: 40 mg Ondansetron HCl (Zofran Inj) 4 mg IVP Q6H PRN PRN Reason: Nausea/Vomiting Pentoxifylline (Pentoxil) 400 mg PO BID [facility] Last Admin: 01/29/18 10:24 Dose: 400 mg - Labs Labs: 01/29/18 07:11 01/29/18 07:11 PT 11.2 SECONDS (9.7-12.2) 01/24/18 19:40 INR 1.0 01/24/18 19:40 - Head Exam Head Exam: ATRAUMATIC - Eye Exam Eye Exam: Normal appearance - ENT Exam ENT Exam: Mucous Membranes Dry - Respiratory Exam Respiratory Exam: NORMAL BREATHING PATTERN - Cardiovascular Exam Cardiovascular Exam: +S1, +S2 - GI/Abdominal Exam GI & Abdominal Exam: Normal Bowel Sounds Assessment and Plan (1) Multiple myeloma Assessment & Plan: IgA kappa complicated by renal failure on plasmapheresis with albumin replacement; session #3 today s/p 1 dose Cytoxan cont. steroids Status: Acute (2) Hypercalcemia Assessment & Plan: improved on myeloma treatment Status: Acute
[2018-01-30 05:16] VITALS: RESP 20
[2018-01-30] MEDS: Levothyroxine 100 MCG TAB PO SCH (06:03)
[2018-01-30 07:18] LABS: BASO # 0.1 K/uL (0.0-0.2); BASO % 0.9 % (0.0-2.0); EOS # 0.2 K/uL (0.0-0.7); EOS % 2.3 % (0.0-4.0); LYMPH # 1.1 K/uL (1.0-4.3); LYMPH % 14.3 % (20.0-40.0); MEAN CORPUSCULAR HEMOGLOBIN 32.1 pg (27.0-31.0); MEAN PLATELET VOLUME 10.3 fL (7.2-11.7); MONO # 0.7 K/uL (0.0-0.8); MONO % 9.5 % (0.0-10.0); NEUT # 5.4 K/uL (1.8-7.0); RBC 3.11 Mil/uL (3.80-5.20); RED CELL DISTRIBUTION WIDTH 17.2 % (11.5-14.5); WHITE BLOOD COUNT 7.4 K/uL (4.8-10.8)
[2018-01-30 07:21] LABS: MEAN CELL VOLUME 91.5 fL (81.0-99.0)
[2018-01-30 07:26] LABS: ALB/GLOB RATIO 2.9 (1.0-2.1); ALBUMIN 4.2 g/dL (3.5-5.0); ALT/SGPT 42 U/L (9-52); AST/SGOT 35 U/L (14-36); BLOOD UREA NITROGEN 44 mg/dL (7-17); CALCIUM 11.2 mg/dl (8.6-10.4); GFR NON-AFRICAN AMERICAN 18
[2018-01-30] MEDS: (Novolin R) Insulin Human Regular 100 units/ml vial SC SCH ×4 (08:03→23:14)
[2018-01-30] MEDS ORDERED: Potassium Chloride 20 mEq/15 ml LIQ UD PO ONE (08:57)
[2018-01-30] MEDS: MethylPREDNISolone 40 mg Vial IVP SCH ×2 (10:05→21:13)
--- NOTE | 2018-01-30 10:12 | CP.PCM.PN ---
Subjective - Date & Time of Evaluation Date of Evaluation: 01/30/18 Time of Evaluation: 07:00 - Subjective Subjective: Nephrology Progress Note for Dr. Espinal Patient was seen and examined at bedside. No acute events overnight. Patient received plasmapharesis yesterday and 2 units of PRBC. No complaints. 12 Point ROS performed and neg other than stated above. Objective - Vital Signs/Intake and Output Vital Signs (last 24 hours): Temp Pulse Resp BP Pulse Ox 98.2 F 75 20 149/67 97 01/30/18 07:10 01/30/18 07:41 01/30/18 07:10 01/30/18 07:10 01/30/18 07:10 Intake and Output: 01/30/18 01/30/18 06:59 18:59 Intake Total 2125 Output Total 550 Balance 1575 - Medications Medications: Current Medications Acetaminophen (Tylenol 325mg Tab) 650 mg PO Q6 PRN PRN Reason: Pain, moderate (4-7) Last Admin: 01/29/18 10:33 Dose: 650 mg Amlodipine Besylate (Norvasc) 10 mg PO DAILY [facility] Last Admin: 01/29/18 10:24 Dose: 10 mg Aspirin (Aspirin Chewable) 81 mg PO DAILY [facility] Last Admin: 01/20/18 10:38 Dose: 81 mg Atenolol (Tenormin) 100 mg PO DAILY [facility] Last Admin: 01/29/18 10:25 Dose: 100 mg Benzonatate (Tessalon Perles) 100 mg PO TID [facility] Last Admin: 01/30/18 10:04 Dose: 100 mg Dextrose (Dextrose 50% Inj) 0 ml IV STAT PRN; Protocol PRN Reason: Hypoglycemia Protocol Dextrose (Glutose 15) 0 gm PO ONCE PRN; Protocol PRN Reason: Hypoglycemia Protocol Docusate Sodium (Colace) 100 mg PO TID [facility] Last Admin: 01/30/18 10:04 Dose: 100 mg Famotidine (Pepcid) 20 mg PO DAILY [facility] Last Admin: 01/30/18 10:04 Dose: 20 mg Furosemide (Lasix) 60 mg PO BID [facility] Last Admin: 01/29/18 18:31 Dose: 60 mg Glucagon (Glucagen Diagnostic Kit) 0 mg IM STAT PRN; Protocol PRN Reason: Hypoglycemia Protocol Heparin Sodium (Porcine) (Heparin) 5,000 units SC Q12 [facility] Last Admin: 10/19/18 10:05 Dose: 5,000 units Hydralazine HCl (Apresoline) 100 mg PO Q8H [facility] Last Admin: 01/30/18 06:03 Dose: 100 mg Sodium Chloride (Sodium Chloride 0.45%) 1,000 mls @ 125 mls/hr IV .Q8H [facility] Last Admin: 01/29/18 16:42 Dose: Not Given Dextrose (Dextrose 5% In Water 1000 Ml) 1,000 mls @ 0 mls/hr IV .Q0M PRN; Protocol PRN Reason: Hypoglycemia Protocol Insulin Human Regular (Novolin R) 0 unit SC ACHS [facility]; Protocol Last Admin: 01/30/18 08:03 Dose: Not Given Isosorbide Dinitrate (Isordil) 10 mg PO Q8H [facility] Last Admin: 01/30/18 06:03 Dose: 10 mg Levothyroxine Sodium (Synthroid) 100 mcg PO DAILY@0630 [facility] Last Admin: 01/30/18 06:03 Dose: 100 mcg Methylprednisolone (Solu-Medrol) 40 mg IVP Q12 [facility] Last Admin: 01/30/18 10:05 Dose: 40 mg Ondansetron HCl (Zofran Inj) 4 mg IVP Q6H PRN PRN Reason: Nausea/Vomiting Pentoxifylline (Pentoxil) 400 mg PO BID [facility] Last Admin: 01/30/18 10:06 Dose: 400 mg - Labs Labs: 01/30/18 07:08 01/30/18 07:08 PT 11.2 SECONDS (9.7-12.2) 01/24/18 19:40 INR 1.0 01/24/18 19:40 - Constitutional Appears: No Acute Distress - Head Exam Head Exam: ATRAUMATIC, NORMOCEPHALIC - Eye Exam Eye Exam: EOMI - ENT Exam ENT Exam: Mucous Membranes Moist - Respiratory Exam Respiratory Exam: Clear to Ausculation Bilateral. absent: Rales, Rhonchi, Wheezes - Cardiovascular Exam Cardiovascular Exam: REGULAR RHYTHM, +S1, +S2 - GI/Abdominal Exam GI & Abdominal Exam: Soft. absent: Distended, Tenderness - Extremities Exam Extremities Exam: absent: Calf Tenderness, Tenderness - Neurological Exam Neurological Exam: Alert, Awake, CN II-XII Intact - Psychiatric Exam Psychiatric exam: Normal Mood - Skin Skin Exam: Dry, Intact Assessment and Plan - Assessment and Plan (Free Text) Assessment: 72 yo F admitted with severe hypercalcemia, lytic lesions, and acute renal failure 2/2 newly diagnosed multiple myeloma. s/p 3 sessions of plasma exchange, and 1 dose of cytoxan. - s/p 2 units PRBC yesterday Hb today 10, heme following - Monitor H/H - s/p 3 sessions of plasma exchange. Plan for plasma exchange sancho, plan for every other day with total of 5 sessions - Elevated anion gap - follow up lactic acid ordered - F/u uric acid level thus far wnl - Ca 11.2 -Hypercalcemia improved following calcitonin, can expect to rise again. However plasma exchange contain citrate which will lower calcium. Cont to monitor - BM biopsy showed marked hypercellular marrow extensively involved by IgA kappa plasma cell myeloma -Elevated kappa free light chain load -MARTINA and SPEP showed MM spike; Immunofixation showed IGA kappa and kappa present -Cont IVF 1/2 NS at 125 cc/hr -Denosumab not available inpatient and bisphosphonates relatively contraindicated with advanced renal failure -Cont IVF and Lasix 60mg PO BID ~3L UO daily -Cont Solumderol 40mg Q12 Case and plan was reviewed and discussed in detail with Dr Espinal.
--- NOTE | 2018-01-30 10:20 | CP.PCM.PN ---
<Santhosh Sauer - Last Filed: 01/30/18 17:27> Subjective - Date & Time of Evaluation Date of Evaluation: 01/30/18 Time of Evaluation: 07:40 - Subjective Subjective: Medicine Progress Note for Hospitalist Service Pt seen and examined at bedside this am. Denies any acute complaints, resting comfortably at bedside. S/p 2 units PRBCs transfused and plasmapheresis done yesterday. No acute events reported overnight. Pt denies fever, chills, chest pain, sob, n/v/d/c, abd pain, urinary complaints, or other symptoms. Objective - Vital Signs/Intake and Output Vital Signs (last 24 hours): Temp Pulse Resp BP Pulse Ox 98.2 F 75 20 149/67 97 01/30/18 07:10 01/30/18 07:41 01/30/18 07:10 01/30/18 07:10 01/30/18 07:10 Intake and Output: 01/30/18 01/30/18 06:59 18:59 Intake Total 2125 Output Total 550 Balance 1575 - Medications Medications: Current Medications Acetaminophen (Tylenol 325mg Tab) 650 mg PO Q6 PRN PRN Reason: Pain, moderate (4-7) Last Admin: 01/29/18 10:33 Dose: 650 mg Amlodipine Besylate (Norvasc) 10 mg PO DAILY [facility] Last Admin: 01/29/18 10:24 Dose: 10 mg Aspirin (Aspirin Chewable) 81 mg PO DAILY [facility] Last Admin: 01/20/18 10:38 Dose: 81 mg Atenolol (Tenormin) 100 mg PO DAILY [facility] Last Admin: 01/29/18 10:25 Dose: 100 mg Benzonatate (Tessalon Perles) 100 mg PO TID [facility] Last Admin: 01/30/18 10:04 Dose: 100 mg Dextrose (Dextrose 50% Inj) 0 ml IV STAT PRN; Protocol PRN Reason: Hypoglycemia Protocol Dextrose (Glutose 15) 0 gm PO ONCE PRN; Protocol PRN Reason: Hypoglycemia Protocol Docusate Sodium (Colace) 100 mg PO TID [facility] Last Admin: 01/30/18 10:04 Dose: 100 mg Famotidine (Pepcid) 20 mg PO DAILY [facility] Last Admin: 01/30/18 10:04 Dose: 20 mg Furosemide (Lasix) 60 mg PO BID [facility] Last Admin: 01/29/18 18:31 Dose: 60 mg Glucagon (Glucagen Diagnostic Kit) 0 mg IM STAT PRN; Protocol PRN Reason: Hypoglycemia Protocol Heparin Sodium (Porcine) (Heparin) 5,000 units SC Q12 [facility] Last Admin: 01/30/18 10:05 Dose: 5,000 units Hydralazine HCl (Apresoline) 100 mg PO Q8H [facility] Last Admin: 01/30/18 06:03 Dose: 100 mg Sodium Chloride (Sodium Chloride 0.45%) 1,000 mls @ 125 mls/hr IV .Q8H [facility] Last Admin: 01/29/18 16:42 Dose: Not Given Dextrose (Dextrose 5% In Water 1000 Ml) 1,000 mls @ 0 mls/hr IV .Q0M PRN; P rotocol PRN Reason: Hypoglycemia Protocol Insulin Human Regular (Novolin R) 0 unit SC ACHS [facility]; Protocol Last Admin: 01/30/18 08:03 Dose: Not Given Isosorbide Dinitrate (Isordil) 10 mg PO Q8H [facility] Last Admin: 01/30/18 06:03 Dose: 10 mg Levothyroxine Sodium (Synthroid) 100 mcg PO DAILY@0630 [facility] Last Admin: 01/30/18 06:03 Dose: 100 mcg Methylprednisolone (Solu-Medrol) 40 mg IVP Q12 [facility] Last Admin: 01/30/18 10:05 Dose: 40 mg Ondansetron HCl (Zofran Inj) 4 mg IVP Q6H PRN PRN Reason: Nausea/Vomiting Pentoxifylline (Pentoxil) 400 mg PO BID [facility] Last Admin: 01/30/18 10:06 Dose: 400 mg - Labs Labs: 01/30/18 07:08 01/30/18 07:08 PT 11.2 SECONDS (9.7-12.2) 01/24/18 19:40 INR 1.0 01/24/18 19:40 - Constitutional Appears: Non-toxic, No Acute Distress, Chronically Ill - Head Exam Head Exam: ATRAUMATIC, NORMOCEPHALIC - Eye Exam Eye Exam: EOMI, Normal appearance, PERRL - ENT Exam ENT Exam: Mucous Membranes Moist - Cardiovascular Exam Cardiovascular Exam: REGULAR RHYTHM, +S1, +S2, Murmur. absent: Gallop, Rubs Additional comments: Systolic ejection murmur heard by R heart border - GI/Abdominal Exam GI & Abdominal Exam: Soft, Normal Bowel Sounds. absent: Distended, Firm, Guarding, Rigid, Tenderness, Organomegaly, Rebound - Extremities Exam Extremities Exam: Full ROM, Normal Capillary Refill, Normal Inspection. absent: Calf Tenderness, Pedal Edema - Neurological Exam Neurological Exam: Alert, Awake, CN II-XII Intact, Oriented x3 - Psychiatric Exam Psychiatric exam: Normal Affect, Normal Mood - Skin Skin Exam: Dry, Intact, Normal Color, Warm Assessment and Plan - Assessment and Plan (Free Text) Assessment: 72 y o F with PMHx of HTN, HLD, TIA 2007, DM presenting with generalized abdominal pain, decreased appetite and increased BP x 2 weeks, associated with hypercalcemia and unintentional weight loss likely 2/2 multiple myeloma. Plan: Hypercalcemia, likely 2/2 Multiple Myeloma - Pt on telemetry for cardiac monitoring - Continue to monitor I's/O's - Heme/Onc recs (Dr. Bran) appreciated - bone marrow biopsy (01/20) was successfully obtained in sterile manner but bone marrow aspirate was not obtained despite redirecting twice (DRY TAP) -Bone marrow biopsy results (01/20/18): markedly hypercellular marrow extensively involved by IgA [employer] plasma cell myeloma (90%), mild reticulin fibrosis, no detectable iron staining. -per Nephro recs possible kidney bx after results obtained -Per Dr. Bran plan for plasmapharesis and inpatient oral cyclophosphamide if confirmed multiple myeloma in an attempt to salvage the pt's renal function -Nephro recs (Dr. Espinal) appreciated -Ca 11.2 today -increased kappa free light chain load, presumed MM per preliminary bone marrow bx results -continue w/ IVF @125 cc/hr -denosumab not available inpatient and bisphosphonates relatively contraindic ated with advanced renal failure -continue lasix 60 mg PO Q12 -Solumedrol 40 mg IVP q12h (active since 01/20/18), Cytoxan 600 mg PO (started 01/26) -Dialysis catheter should be a temporary measure, for 5 sessions sessions of plasmapheresis over 10 days. The intent if the plasmapheresis is to replace if possible with albumin they will be 5 sessions one session every other day. Patient will be monitor with a fibrinogen. Sessions will be held a fibrinogen is less than 100. Patient will be monitored for DIC while receiving plasmapheresis. -Vasc surgery (Dr. Lovell) consulted, recs appreciated -S/p RIJ permacath placement POD#5, pt doing well -Imaging - CT abd/pelvis (01/17): There are multiple on varying sized rounded lytic lesions scattered throughout all the osseous structures. Findings probably represent multiple myeloma however metastatic disease not excluded. Clinical correlation recommended. - Bone Scan: There are no correlates to findings on recent CT scan. Specifically the permeative pattern throughout thoracolumbar spine and pelvis constitutes lytic disease most likely myeloma - R shoulder XR (01/19): degenerative changes bilaterally. No acute findings. - B/L Forearm XR (01/19): no significant or acute findings to account for/related to the clinical presentation - Abd/pelv CT with PO and IV contrast (01/19): nnumerable lytic osseous lesions consistent with multiple myeloma or metastatic disease. Bibasilar atelectasis. Trace right pleural effusion. Small hiatal hernia. Evidence of mild gastroesophageal reflux. Borderline heptomegaly. Diverticulosis without CT evidence of acute diverticulitis. Moderate constipation. - Calcium 24 hr urine is normal at 237.8 - PTH intact is low normal at 14 - PTHr protein: 18 (01/17) - Vit D 68.5 Hypertensive urgency - resolved - hemodynamically stable; BP well controlled today 128/72, continue to monitor - ECHO (01/19) shows LVEF>70%. Diastolic dysfunction. Mild MR. Mild TR, mild pulmonary hypertension. Mild pulmonic valvular regurgitation. - Aspirin 81mg PO daily - Atenolol 100mg PO daily - Hydralazine 100mg PO TID - Amlodipine 10 mg daily - Lasix 60 mg PO bid Hypokalemia - K 3.5 today - Repleted, continue to monitor SHAY - nephrology consult, Dr. Espinal, f/u recs - avoid nephrotoxic medications - IVF held during PRBC transfusion, if pt hypotensive will resume IVF - Cr 2.6 (01/30) - 24 hr urine protein elevated, 4236 - Renal US: Findings consistent with underlying medical renal disease. No evidence of nephrolithiasis or hydronephrosis. Anemia - H/H 02/08.4 today, continue to monitor - S/p 2 units PRBCs yesterday, continue to monitor - Anemia 2/2 underlying process related to hypercalcemia, multiple myeloma DM - Hold metformin due to elevated Cr - accuchecks HLD -Hold statin Hypothyroidism - Levothyroxine 100mcg daily PAD - Pentoxifylline 400mg PO BID - Isosorbide dinitrate 10 mg PO TID PPX, Diet, Disposition -VTE ppx: SCDs -chemical anticoagulation held due to thrombocytopenia -GI ppx: Pepcid 20mg daily Dispo: S/p permacath placement, pt receiving chemo tx and plasmapheresis. Will continue to monitor inpatient. Pt seen, examined with, and plan discussed with Dr. Shepard, attending physician. Santhosh Sauer DO PGY-1, [employer] pager #[phone] <Flakito Shepard - Last Filed: 02/01/18 17:20> Objective - Vital Signs/Intake and Output Vital Signs (last 24 hours): Temp Pulse Resp BP Pulse Ox 98.2 F 64 20 121/62 98 02/01/18 16:00 02/01/18 16:00 02/01/18 16:00 02/01/18 16:00 02/01/18 16:00 Intake and Output: 02/01/18 02/01/18 06:59 18:59 Intake Total 1250 Balance 1250 - Medications Medications: Current Medications Acetaminophen (Tylenol 325mg Tab) 650 mg PO Q6 PRN PRN Reason: Pain, moderate (4-7) Last Admin: 01/31/18 22:29 Dose: 650 mg Amlodipine Besylate (Norvasc) 10 mg PO DAILY [facility] Last Admin: 02/01/18 09:17 Dose: 10 mg Aspirin (Aspirin Chewable) 81 mg PO DAILY [facility] Last Admin: 01/20/18 10:38 Dose: 81 mg Atenolol (Tenormin) 100 mg PO DAILY [facility] Last Admin: 02/01/18 09:18 Dose: 100 mg Benzonatate (Tessalon Perles) 100 mg PO TID [facility] Last Admin: 02/01/18 13:41 Dose: 100 mg Dextrose (Dextrose 50% Inj) 0 ml IV STAT PRN; Protocol PRN Reason: Hypoglycemia Protocol Dextrose (Glutose 15) 0 gm PO ONCE PRN; Protocol PRN Reason: Hypoglycemia Protocol Docusate Sodium (Colace) 100 mg PO TID [facility] Last Admin: 02/01/18 13:40 Dose: 100 mg Famotidine (Pepcid) 20 mg PO DAILY [facility] Last Admin: 02/01/18 09:18 Dose: 20 mg Fluticasone Propionate (Flonase) 0 spr BAHMAN DAILY [facility] Last Admin: 02/01/18 09:19 Dose: 1 spr Furosemide (Lasix) 60 mg PO BID [facility] Last Admin: 02/01/18 09:17 Dose: 60 mg Glucagon (Glucagen Diagnostic Kit) 0 mg IM STAT PRN; Protocol PRN Reason: Hypoglycemia Protocol Hydralazine HCl (Apresoline) 100 mg PO Q8H [facility] Last Admin: 02/01/18 13:40 Dose: 100 mg Sodium Chloride (Sodium Chloride 0.45%) 1,000 mls @ 125 mls/hr IV .Q8H [facility] Last Admin: 02/01/18 09:19 Dose: Not Given Dextrose (Dextrose 5% In Water 1000 Ml) 1,000 mls @ 0 mls/hr IV .Q0M PRN; Protocol PRN Reason: Hypoglycemia Protocol Insulin Human Regular (Novolin R) 0 unit SC ACHS [facility]; Protocol Last Admin: 02/01/18 16:55 Dose: Not Given Isosorbide Dinitrate (Isordil) 10 mg PO Q8H [facility] Last Admin: 02/01/18 13:40 Dose: 10 mg Levothyroxine Sodium (Synthroid) 100 mcg PO DAILY@0630 [facility] Last Admin: 02/01/18 05:37 Dose: 100 mcg Methylprednisolone (Solu-Medrol) 40 mg IVP Q12 [facility] Last Admin: 02/01/18 09:20 Dose: 40 mg Ondansetron HCl (Zofran Inj) 4 mg IVP Q6H PRN PRN Reason: Nausea/Vomiting Pentoxifylline (Pentoxil) 400 mg PO BID [facility] Last Admin: 02/01/18 09:18 Dose: 400 mg - Labs Labs: 02/01/18 07:11 02/01/18 07:11 PT 11.2 SECONDS (9.7-12.2) 01/24/18 19:40 INR 1.0 01/24/18 19:40 Attending/Attestation - Attestation I have personally seen and examined this patient.: Yes I have fully participated in the care of the patient.: Yes I have reviewed all pertinent clinical information, including history, physical exam and plan: Yes Notes (Text): 02/01/18 17:20 This is a late entry. Care of this patient was gone over in detail with resident Dr. Sauer. Flakito Shepard D.O.
--- NOTE | 2018-01-31 01:51 | CP.PCM.PN ---
<Ankur Johnson - Last Filed: 01/31/18 11:05> Subjective - Date & Time of Evaluation Date of Evaluation: 01/31/18 Time of Evaluation: 01:49 - Subjective Subjective: PGY-[address] Flakito Shepard Patient is seen and examined at bedside. Patient states feeling better at this time. Patient reports no complains at this time. Denies any pain and is currently resting comfortably in bed. Patient denies fever, chills, shortness of breath, nausea, vomiting, diarrhea, constipation, dysuria. Patient is ambulating and tolerating diet. Objective - Vital Signs/Intake and Output Vital Signs (last 24 hours): Temp Pulse Resp BP Pulse Ox 98.5 F 68 20 163/71 H 97 01/30/18 15:13 01/30/18 21:18 01/30/18 15:13 01/30/18 21:18 01/30/18 15:13 Intake and Output: 01/30/18 01/31/18 18:59 06:59 Intake Total 300 Balance 300 - Medications Medications: Current Medications Acetaminophen (Tylenol 325mg Tab) 650 mg PO Q6 PRN PRN Reason: Pain, moderate (4-7) Last Admin: 01/29/18 10:33 Dose: 650 mg Amlodipine Besylate (Norvasc) 10 mg PO DAILY [facility] Last Admin: 01/30/18 11:00 Dose: Not Given Aspirin (Aspirin Chewable) 81 mg PO DAILY [facility] Last Admin: 01/20/18 10:38 Dose: 81 mg Atenolol (Tenormin) 100 mg PO DAILY [facility] Last Admin: 01/30/18 11:00 Dose: Not Given Benzonatate (Tessalon Perles) 100 mg PO TID [facility] Last Admin: 01/30/18 18:09 Dose: 100 mg Dextrose (Dextrose 50% Inj) 0 ml IV STAT PRN; Protocol PRN Reason: Hypoglycemia Protocol Dextrose (Glutose 15) 0 gm PO ONCE PRN; Protocol PRN Reason: Hypoglycemia Protocol Docusate Sodium (Colace) 100 mg PO TID [facility] Last Admin: 01/30/18 18:09 Dose: 100 mg Famotidine (Pepcid) 20 mg PO DAILY [facility] Last Admin: 01/30/18 10:04 Dose: 20 mg Furosemide (Lasix) 60 mg PO BID [facility] Last Admin: 01/30/18 18:10 Dose: 60 mg Glucagon (Glucagen Diagnostic Kit) 0 mg IM STAT PRN; Protocol PRN Reason: Hypoglycemia Protocol Hydralazine HCl (Apresoline) 100 mg PO Q8H [facility] Last Admin: 01/30/18 21:14 Dose: 100 mg Sodium Chloride (Sodium Chloride 0.45%) 1,000 mls @ 125 mls/hr IV .Q8H [facility] Last Admin: 01/29/18 16:42 Dose: Not Given Dextrose (Dextrose 5% In Water 1000 Ml) 1,000 mls @ 0 mls/hr IV .Q0M PRN; P rotocol PRN Reason: Hypoglycemia Protocol Insulin Human Regular (Novolin R) 0 unit SC ACHS [facility]; Protocol Last Admin: 01/30/18 23:14 Dose: Not Given Isosorbide Dinitrate (Isordil) 10 mg PO Q8H [facility] Last Admin: 01/30/18 21:14 Dose: 10 mg Levothyroxine Sodium (Synthroid) 100 mcg PO DAILY@0630 [facility] Last Admin: 01/30/18 06:03 Dose: 100 mcg Methylprednisolone (Solu-Medrol) 40 mg IVP Q12 [facility] Last Admin: 01/30/18 21:13 Dose: 40 mg Ondansetron HCl (Zofran Inj) 4 mg IVP Q6H PRN PRN Reason: Nausea/Vomiting Pentoxifylline (Pentoxil) 400 mg PO BID [facility] Last Admin: 01/30/18 19:00 Dose: 400 mg - Labs Labs: 01/30/18 07:08 01/30/18 07:08 PT 11.2 SECONDS (9.7-12.2) 01/24/18 19:40 INR 1.0 01/24/18 19:40 - Constitutional Appears: Non-toxic, No Acute Distress - Head Exam Head Exam: ATRAUMATIC, NORMAL INSPECTION, NORMOCEPHALIC - Eye Exam Eye Exam: EOMI, Normal appearance - ENT Exam ENT Exam: Mucous Membranes Moist, Normal Exam - Neck Exam Neck Exam: Full ROM, Normal Inspection - Respiratory Exam Respiratory Exam: Clear to Ausculation Bilateral, NORMAL BREATHING PATTERN. absent: Accessory Muscle Use, Rales, Rhonchi, Wheezes, Respiratory Distress - Cardiovascular Exam Cardiovascular Exam: REGULAR RHYTHM, +S1, +S2 - GI/Abdominal Exam GI & Abdominal Exam: Soft, Tenderness, Normal Bowel Sounds Additional comments: Left lower quadrant and right lower quadrant tenderness with deep palpation - Extremities Exam Extremities Exam: Full ROM, Normal Inspection. absent: Calf Tenderness, Pedal Edema, Tenderness - Back Exam Back Exam: Full ROM, NORMAL INSPECTION - Neurological Exam Neurological Exam: Alert, Awake, Oriented x3 - Psychiatric Exam Psychiatric exam: Normal Affect, Normal Mood - Skin Skin Exam: Dry, Intact, Normal Color, Warm Additional comments: Right IJ permacath, clean, dry and intact Assessment and Plan - Assessment and Plan (Free Text) Plan: Hypercalcemia, likely 2/2 Multiple Myeloma - Pt on telemetry for cardiac monitoring - Continue to monitor I's/O's - Heme/Onc recs (Dr. Bran) appreciated - bone marrow biopsy (01/20) was successfully obtained in sterile manner but bone marrow aspirate was not obtained despite redirecting twice (DRY TAP) -Bone marrow biopsy results (01/20/18): markedly hypercellular marrow extensively involved by IgA [employer] plasma cell myeloma (90%), mild reticulin fibrosis, no detectable iron staining. -per Nephro recs possible kidney bx after results obtained -Per Dr. Bran plan for plasmapharesis and inpatient oral cyclophosphamide if confirmed multiple myeloma in an attempt to salvage the pt's renal function -Nephro recs (Dr. Espinal) appreciated -Ca 11.8 today 01/31 -increased kappa free light chain load, presumed MM per preliminary bone marrow bx results -continue w/ IVF @125 cc/hr -denosumab not available inpatient and bisphosphonates relatively contraindicated with advanced renal failure -continue lasix 60 mg PO Q12 -Solumedrol 40 mg IVP q12h (active since 01/20/18), Cytoxan 600 mg PO (started 01/26) -Dialysis catheter should be a temporary measure, for 5 sessions sessions of plasmapheresis over 10 days. The intent if the plasmapheresis is to replace if possible with albumin they will be 5 sessions one session every other day. Pat ient will be monitor with a fibrinogen. Sessions will be held a fibrinogen is less than 100. Patient will be monitored for DIC while receiving plasmapheresis. -Vasc surgery (Dr. Lovell) consulted, recs appreciated -S/p RIJ permacath placement POD#5, pt doing well -Imaging - CT abd/pelvis (01/17): There are multiple on varying sized rounded lytic lesions scattered throughout all the osseous structures. Findings probably represent multiple myeloma however metastatic disease not excluded. Clinical correlation recommended. - Bone Scan: There are no correlates to findings on recent CT scan. Specifically the permeative pattern throughout thoracolumbar spine and pelvis constitutes lytic disease most likely myeloma - R shoulder XR (01/19): degenerative changes bilaterally. No acute findings. - B/L Forearm XR (01/19): no significant or acute findings to account for/related to the clinical presentation - Abd/pelv CT with PO and IV contrast (01/19): nnumerable lytic osseous lesion s consistent with multiple myeloma or metastatic disease. Bibasilar atelectasis. Trace right pleural effusion. Small hiatal hernia. Evidence of mild gastroesophageal reflux. Borderline heptomegaly. Diverticulosis without CT evidence of acute diverticulitis. Moderate constipation. - Calcium 24 hr urine is normal at 237.8 - PTH intact is low normal at 14 - PTHr protein: 18 (01/17) - Vit D 68.5 Hypertensive urgency - resolved - hemodynamically stable; BP well controlled today 128/72, continue to monitor - ECHO (01/19) shows LVEF>70%. Diastolic dysfunction. Mild MR. Mild TR, mild pulmonary hypertension. Mild pulmonic valvular regurgitation. - Aspirin 81mg PO daily - Atenolol 100mg PO daily - Hydralazine 100mg PO TID - Amlodipine 10 mg daily - Lasix 60 mg PO bid Hypokalemia - K 3.6 today 01/31 - continue to monitor SHAY - nephrology consult, Dr. Espinal, f/u recs - avoid nephrotoxic medications - IVF held during PRBC transfusion, if pt hypotensive will resume IVF - Cr 2.6 (01/31) - 24 hr urine protein elevated, 4236 - Renal US: Findings consistent with underlying medical renal disease. No evidence of nephrolithiasis or hydronephrosis. Anemia - H/H 02/08.4 today, continue to monitor - S/p 2 units PRBCs yesterday, continue to monitor - Anemia 2/2 underlying process related to hypercalcemia, multiple myeloma DM - Hold metformin due to elevated Cr - accuchecks HLD -Hold statin Hypothyroidism - Levothyroxine 100mcg daily PAD - Pentoxifylline 400mg PO BID - Isosorbide dinitrate 10 mg PO TID PPX, Diet, Disposition -VTE ppx: SCDs -chemical anticoagulation held due to thrombocytopenia -GI ppx: Pepcid 20mg daily Plan to be discussed with Dr Flakito Johnson, PGY-1 <Flakito Shepard J - Last Filed: 02/01/18 17:20> Objective - Vital Signs/Intake and Output Vital Signs (last 24 hours): Temp Pulse Resp BP Pulse Ox 98.2 F 64 20 121/62 98 02/01/18 16:00 02/01/18 16:00 02/01/18 16:00 02/01/18 16:00 02/01/18 16:00 Intake and Output: 02/01/18 02/01/18 06:59 18:59 Intake Total 1250 Balance 1250 - Medications Medications: Current Medications Acetaminophen (Tylenol 325mg Tab) 650 mg PO Q6 PRN PRN Reason: Pain, moderate (4-7) Last Admin: 01/31/18 22:29 Dose: 650 mg Amlodipine Besylate (Norvasc) 10 mg PO DAILY [facility] Last Admin: 02/01/18 09:17 Dose: 10 mg Aspirin (Aspirin Chewable) 81 mg PO DAILY [facility] Last Admin: 01/20/18 10:38 Dose: 81 mg Atenolol (Tenormin) 100 mg PO DAILY [facility] Last Admin: 02/01/18 09:18 Dose: 100 mg Benzonatate (Tessalon Perles) 100 mg PO TID [facility] Last Admin: 02/01/18 13:41 Dose: 100 mg Dextrose (Dextrose 50% Inj) 0 ml IV STAT PRN; Protocol PRN Reason: Hypoglycemia Protocol Dextrose (Glutose 15) 0 gm PO ONCE PRN; Protocol PRN Reason: Hypoglycemia Protocol Docusate Sodium (Colace) 100 mg PO TID [facility] Last Admin: 02/01/18 13:40 Dose: 100 mg Famotidine (Pepcid) 20 mg PO DAILY [facility] Last Admin: 02/01/18 09:18 Dose: 20 mg Fluticasone Propionate (Flonase) 0 spr BAHMAN DAILY [facility] Last Admin: 02/01/18 09:19 Dose: 1 spr Furosemide (Lasix) 60 mg PO BID [facility] Last Admin: 02/01/18 09:17 Dose: 60 mg Glucagon (Glucagen Diagnostic Kit) 0 mg IM STAT PRN; Protocol PRN Reason: Hypoglycemia Protocol Hydralazine HCl (Apresoline) 100 mg PO Q8H [facility] Last Admin: 02/01/18 13:40 Dose: 100 mg Sodium Chloride (Sodium Chloride 0.45%) 1,000 mls @ 125 mls/hr IV .Q8H [facility] Last Admin: 02/01/18 09:19 Dose: Not Given Dextrose (Dextrose 5% In Water 1000 Ml) 1,000 mls @ 0 mls/hr IV .Q0M PRN; Protocol PRN Reason: Hypoglycemia Protocol Insulin Human Regular (Novolin R) 0 unit SC ACHS [facility]; Protocol Last Admin: 02/01/18 16:55 Dose: Not Given Isosorbide Dinitrate (Isordil) 10 mg PO Q8H [facility] Last Admin: 02/01/18 13:40 Dose: 10 mg Levothyroxine Sodium (Synthroid) 100 mcg PO DAILY@0630 [facility] Last Admin: 02/01/18 05:37 Dose: 100 mcg Methylprednisolone (Solu-Medrol) 40 mg IVP Q12 [facility] Last Admin: 02/01/18 09:20 Dose: 40 mg Ondansetron HCl (Zofran Inj) 4 mg IVP Q6H PRN PRN Reason: Nausea/Vomiting Pentoxifylline (Pentoxil) 400 mg PO BID [facility] Last Admin: 02/01/18 09:18 Dose: 400 mg - Labs Labs: 02/01/18 07:11 02/01/18 07:11 PT 11.2 SECONDS (9.7-12.2) 01/24/18 19:40 INR 1.0 01/24/18 19:40 Attending/Attestation - Attestation I have personally seen and examined this patient.: Yes I have fully participated in the care of the patient.: Yes I have reviewed all pertinent clinical information, including history, physical exam and plan: Yes Notes (Text): 02/01/18 17:20 This is a late entry. Care of this patient was gone over in detail with resident Dr. Johnson. Flakito Shepard D.O.
[2018-01-31] MEDS: Levothyroxine 100 MCG TAB PO SCH (05:43)
[2018-01-31 06:44] LABS: BASO # 0.1 K/uL (0.0-0.2); BASO % 0.8 % (0.0-2.0); EOS # 0.2 K/uL (0.0-0.7); EOS % 2.8 % (0.0-4.0); LYMPH # 1.1 K/uL (1.0-4.3); LYMPH % 14.3 % (20.0-40.0); MEAN CELL VOLUME 91.3 fL (81.0-99.0); MEAN PLATELET VOLUME 10.6 fL (7.2-11.7); MONO # 0.7 K/uL (0.0-0.8); MONO % 8.9 % (0.0-10.0); NEUT # 5.5 K/uL (1.8-7.0); NEUT % 73.2 % (50.0-75.0); NRBC % 0.1 % (0.0-2.0); RBC 3.11 Mil/uL (3.80-5.20); RED CELL DISTRIBUTION WIDTH 17.5 % (11.5-14.5); WHITE BLOOD COUNT 7.6 K/uL (4.8-10.8)
[2018-01-31 06:59] LABS: ALB/GLOB RATIO 2.5 (1.0-2.1); ALBUMIN 4.5 g/dL (3.5-5.0); CALCIUM 11.8 mg/dl (8.6-10.4); URIC ACID 8.7 mg/dL (2.2-7.5)
[2018-01-31] MEDS: (Novolin R) Insulin Human Regular 100 units/ml vial SC SCH ×4 (08:19→21:15)
[2018-01-31] MEDS ORDERED: DiphenhydrAMINE 50 mg/ml Inj IVP ONE (10:00)
[2018-01-31] MEDS ORDERED: Albumin Human 5% (25 gm/500 ml) IVPB ONE (10:00)
[2018-01-31] MEDS: MethylPREDNISolone 40 mg Vial IVP SCH ×2 (10:40→21:10)
[2018-01-31] MEDS: Fluticasone Nasal 50 mcg/Spray NAS SCH (12:45)
[2018-01-31] MEDS: Sodium Chloride 0.45% 1,000 ML IV SCH (21:14)
--- NOTE | 2018-01-31 22:43 | CP.PCM.PN ---
Subjective - Date & Time of Evaluation Date of Evaluation: 01/31/18 Time of Evaluation: 14:00 - Subjective Subjective: Patient reports feeling well; having epigastric area pain on movement; tolerating diet well; urinating well; ambulating; Objective - Vital Signs/Intake and Output Vital Signs (last 24 hours): Temp Pulse Resp BP Pulse Ox 97.6 F 58 L 20 124/67 97 01/31/18 15:50 01/31/18 16:00 01/31/18 15:50 01/31/18 17:41 01/31/18 15:50 Intake and Output: 01/31/18 02/01/18 18:59 06:59 Intake Total 40 Balance 40 - Medications Medications: Current Medications Acetaminophen (Tylenol 325mg Tab) 650 mg PO Q6 PRN PRN Reason: Pain, moderate (4-7) Last Admin: 01/31/18 22:29 Dose: 650 mg Amlodipine Besylate (Norvasc) 10 mg PO DAILY [facility] Last Admin: 01/31/18 10:38 Dose: 10 mg Aspirin (Aspirin Chewable) 81 mg PO DAILY [facility] Last Admin: 01/20/18 10:38 Dose: 81 mg Atenolol (Tenormin) 100 mg PO DAILY [facility] Last Admin: 01/31/18 10:40 Dose: 100 mg Benzonatate (Tessalon Perles) 100 mg PO TID [facility] Last Admin: 01/31/18 17:42 Dose: 100 mg Dextrose (Dextrose 50% Inj) 0 ml IV STAT PRN; Protocol PRN Reason: Hypoglycemia Protocol Dextrose (Glutose 15) 0 gm PO ONCE PRN; Protocol PRN Reason: Hypoglycemia Protocol Docusate Sodium (Colace) 100 mg PO TID [facility] Last Admin: 01/31/18 17:41 Dose: 100 mg Famotidine (Pepcid) 20 mg PO DAILY [facility] Last Admin: 01/31/18 10:40 Dose: 20 mg Fluticasone Propionate (Flonase) 0 spr BAHMAN DAILY [facility] Last Admin: 01/31/18 12:45 Dose: 1 spr Furosemide (Lasix) 60 mg PO BID [facility] Last Admin: 01/31/18 17:41 Dose: 60 mg Glucagon (Glucagen Diagnostic Kit) 0 mg IM STAT PRN; Protocol PRN Reason: Hypoglycemia Protocol Hydralazine HCl (Apresoline) 100 mg PO Q8H [facility] Last Admin: 01/31/18 21:11 Dose: 100 mg Sodium Chloride (Sodium Chloride 0.45%) 1,000 mls @ 125 mls/hr IV .Q8H [facility] Last Admin: 01/31/18 21:14 Dose: 125 mls/hr Dextrose (Dextrose 5% In Water 1000 Ml) 1,000 mls @ 0 mls/hr IV .Q0M PRN; Protocol PRN Reason: Hypoglycemia Protocol Insulin Human Regular (Novolin R) 0 unit SC ACHS [facility]; Protocol Last Admin: 01/31/18 21:15 Dose: Not Given Isosorbide Dinitrate (Isordil) 10 mg PO Q8H [facility] Last Admin: 01/31/18 21:11 Dose: 10 mg Levothyroxine Sodium (Synthroid) 100 mcg PO DAILY@0630 [facility] Last Admin: 01/31/18 05:43 Dose: 100 mcg Methylprednisolone (Solu-Medrol) 40 mg IVP Q12 [facility] Last Admin: 01/31/18 21:10 Dose: 40 mg Ondansetron HCl (Zofran Inj) 4 mg IVP Q6H PRN PRN Reason: Nausea/Vomiting Pentoxifylline (Pentoxil) 400 mg PO BID [facility] Last Admin: 01/31/18 17:42 Dose: 400 mg - Labs Labs: 01/31/18 06:35 01/31/18 06:35 PT 11.2 SECONDS (9.7-12.2) 01/24/18 19:40 INR 1.0 01/24/18 19:40 - Constitutional Appears: Non-toxic, No Acute Distress - Eye Exam Eye Exam: Normal appearance - ENT Exam ENT Exam: Mucous Membranes Moist - Respiratory Exam Respiratory Exam: Clear to Ausculation Bilateral. absent: Respiratory Distress - Cardiovascular Exam Cardiovascular Exam: RRR, +S1, +S2 - GI/Abdominal Exam GI & Abdominal Exam: Soft. absent: Distended, Tenderness - Extremities Exam Additional comments: no leg edema; - Neurological Exam Neurological Exam: Alert, Awake - Psychiatric Exam Psychiatric exam: Normal Mood. absent: Agitated - Skin Skin Exam: Warm. 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
[2018-02-01] MEDS: Levothyroxine 100 MCG TAB PO SCH (05:37)
[2018-02-01] MEDS: Sodium Chloride 0.45% 1,000 ML IV SCH ×3 (05:40→16:30)
--- NOTE | 2018-02-01 05:46 | CP.PCM.PN ---
<Ankur Johnson - Last Filed: 02/01/18 09:05> Subjective - Date & Time of Evaluation Date of Evaluation: 02/01/18 Time of Evaluation: 05:46 - Subjective Subjective: PGY-[address] Flakito Shepard Patient is seen and examined at bedside. Patient states feeling well today. no acute events overnight. Patient says she noticed some blood coming from area where catheter is inserted on right side of chest. Nurse applied pressure and the bleeding stopped. Patient admits to coughing, which she received a nasal spray. Patient denies fevers, chills, chest pain, shortness of breath, nausea, vomiting, diarrhea or constipation. Patient denies any urinary difficulties. Objective - Vital Signs/Intake and Output Vital Signs (last 24 hours): Temp Pulse Resp BP Pulse Ox 98.4 F 62 20 133/67 98 01/31/18 23:10 02/01/18 05:36 01/31/18 23:10 02/01/18 05:36 01/31/18 23:10 Intake and Output: 01/31/18 02/01/18 18:59 06:59 Intake Total 40 1250 Balance 40 1250 - Medications Medications: Current Medications Acetaminophen (Tylenol 325mg Tab) 650 mg PO Q6 PRN PRN Reason: Pain, moderate (4-7) Last Admin: 01/31/18 22:29 Dose: 650 mg Amlodipine Besylate (Norvasc) 10 mg PO DAILY [facility] Last Admin: 01/31/18 10:38 Dose: 10 mg Aspirin (Aspirin Chewable) 81 mg PO DAILY [facility] Last Admin: 01/20/18 10:38 Dose: 81 mg Atenolol (Tenormin) 100 mg PO DAILY [facility] Last Admin: 01/31/18 10:40 Dose: 100 mg Benzonatate (Tessalon Perles) 100 mg PO TID [facility] Last Admin: 01/31/18 17:42 Dose: 100 mg Dextrose (Dextrose 50% Inj) 0 ml IV STAT PRN; Protocol PRN Reason: Hypoglycemia Protocol Dextrose (Glutose 15) 0 gm PO ONCE PRN; Protocol PRN Reason: Hypoglycemia Protocol Docusate Sodium (Colace) 100 mg PO TID [facility] Last Admin: 01/31/18 17:41 Dose: 100 mg Famotidine (Pepcid) 20 mg PO DAILY [facility] Last Admin: 01/31/18 10:40 Dose: 20 mg Fluticasone Propionate (Flonase) 0 spr BAHMAN DAILY [facility] Last Admin: 01/31/18 12:45 Dose: 1 spr Furosemide (Lasix) 60 mg PO BID [facility] Last Admin: 01/31/18 17:41 Dose: 60 mg Glucagon (Glucagen Diagnostic Kit) 0 mg IM STAT PRN; Protocol PRN Reason: Hypoglycemia Protocol Hydralazine HCl (Apresoline) 100 mg PO Q8H [facility] Last Admin: 02/01/18 05:38 Dose: 100 mg Sodium Chloride (Sodium Chloride 0.45%) 1,000 mls @ 125 mls/hr IV .Q8H [facility] Last Admin: 02/01/18 05:40 Dose: 125 mls/hr Dextrose (Dextrose 5% In Water 1000 Ml) 1,000 mls @ 0 mls/hr IV .Q0M PRN; Protocol PRN Reason: Hypoglycemia Protocol Insulin Human Regular (Novolin R) 0 unit SC ACHS [facility]; Protocol Last Admin: 01/31/18 21:15 Dose: Not Given Isosorbide Dinitrate (Isordil) 10 mg PO Q8H [facility] Last Admin: 02/01/18 05:38 Dose: 10 mg Levothyroxine Sodium (Synthroid) 100 mcg PO DAILY@0630 [facility] Last Admin: 02/01/18 05:37 Dose: 100 mcg Methylprednisolone (Solu-Medrol) 40 mg IVP Q12 [facility] Last Admin: 01/31/18 21:10 Dose: 40 mg Ondansetron HCl (Zofran Inj) 4 mg IVP Q6H PRN PRN Reason: Nausea/Vomiting Pentoxifylline (Pentoxil) 400 mg PO BID [facility] Last Admin: 01/31/18 17:42 Dose: 400 mg - Labs Labs: 01/31/18 06:35 01/31/18 06:35 PT 11.2 SECONDS (9.7-12.2) 01/24/18 19:40 INR 1.0 01/24/18 19:40 - Constitutional Appears: Non-toxic, No Acute Distress - Head Exam Head Exam: ATRAUMATIC, NORMOCEPHALIC - Eye Exam Eye Exam: EOMI, Normal appearance - ENT Exam ENT Exam: Normal Exam - Neck Exam Neck Exam: Full ROM, Normal Inspection - Respiratory Exam Respiratory Exam: Clear to Ausculation Bilateral, NORMAL BREATHING PATTERN. absent: Rales, Rhonchi, Wheezes - Cardiovascular Exam Cardiovascular Exam: REGULAR RHYTHM, +S1, +S2. absent: Murmur - GI/Abdominal Exam GI & Abdominal Exam: Soft, Normal Bowel Sounds. absent: Distended, Guarding, Tenderness - Extremities Exam Extremities Exam: Full ROM, Normal Inspection. absent: Calf Tenderness, Tenderness - Back Exam Back Exam: Full ROM, NORMAL INSPECTION - Neurological Exam Neurological Exam: Alert, Awake, Oriented x3 - Psychiatric Exam Psychiatric exam: Normal Affect, Normal Mood - Skin Skin Exam: Normal Color, Warm - Additional Findings Additional findings: Right IJ permacath, with dry blood inside tegaderm, not displaced, no erythema surrounding areas Assessment and Plan - Assessment and Plan (Free Text) Plan: Hypercalcemia, likely 2/2 Multiple Myeloma - Pt on telemetry for cardiac monitoring - Continue to monitor I's/O's - Heme/Onc recs (Dr. Bran) appreciated - bone marrow biopsy (01/20) was successfully obtained in sterile manner but bone marrow aspirate was not obtained despite redirecting twice (DRY TAP) -Bone marrow biopsy results (01/20/18): markedly hypercellular marrow extensively involved by IgA [place] plasma cell myeloma (90%), mild reticulin fibrosis, no detectable iron staining. -per Nephro recs possible kidney bx after results obtained -Per Dr. Bran plan for plasmapharesis and inpatient oral cyclophosphamide if confirmed multiple myeloma in an attempt to salvage the pt's renal function -Nephro recs (Dr. Espinal) appreciated -Ca 11.0 today 02/01 -increased kappa free light chain load, presumed MM per preliminary bone marrow bx results -continue w/ IVF @125 cc/hr -denosumab not available inpatient and bisphosphonates relatively contraindicated with advanced renal failure -continue lasix 60 mg PO Q12 -Solumedrol 40 mg IVP q12h (active since 01/20/18), Cytoxan 600 mg PO (started 01/26) -Dialysis catheter should be a temporary measure, for 5 sessions sessions of plasmapheresis over 10 days. The intent if the plasmapheresis is to replace if possible with albumin they will be 5 sessions one session every other day. Patient will be monitor with a fibrinogen. Sessions will be held a fibrinogen is less than 100. Patient will be monitored for DIC while receiving plasmapheresis. -Vasc surgery (Dr. Lovell) consulted, recs appreciated -S/p RIJ permacath placement POD#7, pt doing well -Imaging - CT abd/pelvis (01/17): There are multiple on varying sized rounded lytic lesions scattered throughout all the osseous structures. Findings probably represent multiple myeloma however metastatic disease not excluded. Clinical correlation recommended. - Bone Scan: There are no correlates to findings on recent CT scan. Specifically the permeative pattern throughout thoracolumbar spine and pelvis constitutes lytic disease most likely myeloma - R shoulder XR (01/19): degenerative changes bilaterally. No acute findings. - B/L Forearm XR (01/19): no significant or acute findings to account for/related to the clinical presentation - Abd/pelv CT with PO and IV contrast (01/19): nnumerable lytic osseous lesions consistent with multiple myeloma or metastatic disease. Bibasilar atelectasis. Trace right pleural effusion. Small hiatal hernia. Evidence of mild gastroesophageal reflux. Borderline heptomegaly. Diverticulosis without CT evidence of acute diverticulitis. Moderate constipation. - Calcium 24 hr urine is normal at 237.8 - PTH intact is low normal at 14 - PTHr protein: 18 (01/17) - Vit D 68.5 Hypertension - hemodynamically stable; BP well controlled today 131/68, continue to monitor - ECHO (01/19) shows LVEF>70%. Diastolic dysfunction. Mild MR. Mild TR, mild pulmonary hypertension. Mild pulmonic valvular regurgitation. - Aspirin 81mg PO daily - Atenolol 100mg PO daily - Hydralazine 100mg PO TID - Amlodipine 10 mg daily - Lasix 60 mg PO bid Hypokalemia - K 3.6 today 01/31 - continue to monitor SHAY - nephrology consult, Dr. Espinal, f/u recs - avoid nephrotoxic medications - IVF held during PRBC transfusion, if pt hypotensive will resume IVF - Cr 2.6 (01/31) - 24 hr urine protein elevated, 4236 - Renal US: Findings consistent with underlying medical renal disease. No evidence of nephrolithiasis or hydronephrosis. Anemia - H/H 9.9/28.7 today, continue to monitor - Anemia 2/2 underlying process related to hypercalcemia, multiple myeloma - Dr Mughni recs - Hgb stable s/p PRBC transfusion this week, monitor DM - Hold metformin due to elevated Cr - accuchecks HLD -Hold statin Hypothyroidism - Levothyroxine 100mcg daily PAD - Pentoxifylline 400mg PO BID - Isosorbide dinitrate 10 mg PO TID PPX, Diet, Disposition -VTE ppx: SCDs -chemical anticoagulation held due to thrombocytopenia -GI ppx: Pepcid 20mg daily Plan to be discussed with Dr Flakito Johnson, PGY-1 <Flakito Shepard J - Last Filed: 02/01/18 17:17> Objective - Vital Signs/Intake and Output Vital Signs (last 24 hours): Temp Pulse Resp BP Pulse Ox 98.2 F 64 20 121/62 98 02/01/18 16:00 02/01/18 16:00 02/01/18 16:00 02/01/18 16:00 02/01/18 16:00 Intake and Output: 02/01/18 02/01/18 06:59 18:59 Intake Total 1250 Balance 1250 - Medications Medications: Current Medications Acetaminophen (Tylenol 325mg Tab) 650 mg PO Q6 PRN PRN Reason: Pain, moderate (4-7) Last Admin: 01/31/18 22:29 Dose: 650 mg Amlodipine Besylate (Norvasc) 10 mg PO DAILY [facility] Last Admin: 02/01/18 09:17 Dose: 10 mg Aspirin (Aspirin Chewable) 81 mg PO DAILY [facility] Last Admin: 01/20/18 10:38 Dose: 81 mg Atenolol (Tenormin) 100 mg PO DAILY [facility] Last Admin: 02/01/18 09:18 Dose: 100 mg Benzonatate (Tessalon Perles) 100 mg PO TID [facility] Last Admin: 02/01/18 13:41 Dose: 100 mg Dextrose (Dextrose 50% Inj) 0 ml IV STAT PRN; Protocol PRN Reason: Hypoglycemia Protocol Dextrose (Glutose 15) 0 gm PO ONCE PRN; Protocol PRN Reason: Hypoglycemia Protocol Docusate Sodium (Colace) 100 mg PO TID [facility] Last Admin: 02/01/18 13:40 Dose: 100 mg Famotidine (Pepcid) 20 mg PO DAILY [facility] Last Admin: 02/01/18 09:18 Dose: 20 mg Fluticasone Propionate (Flonase) 0 spr BAHMAN DAILY [facility] Last Admin: 02/01/18 09:19 Dose: 1 spr Furosemide (Lasix) 60 mg PO BID [facility] Last Admin: 02/01/18 09:17 Dose: 60 mg Glucagon (Glucagen Diagnostic Kit) 0 mg IM STAT PRN; Protocol PRN Reason: Hypoglycemia Protocol Hydralazine HCl (Apresoline) 100 mg PO Q8H [facility] Last Admin: 02/01/18 13:40 Dose: 100 mg Sodium Chloride (Sodium Chloride 0.45%) 1,000 mls @ 125 mls/hr IV .Q8H [facility] Last Admin: 02/01/18 09:19 Dose: Not Given Dextrose (Dextrose 5% In Water 1000 Ml) 1,000 mls @ 0 mls/hr IV .Q0M PRN; Protocol PRN Reason: Hypoglycemia Protocol Insulin Human Regular (Novolin R) 0 unit SC ACHS [facility]; Protocol Last Admin: 02/01/18 16:55 Dose: Not Given Isosorbide Dinitrate (Isordil) 10 mg PO Q8H [facility] Last Admin: 02/01/18 13:40 Dose: 10 mg Levothyroxine Sodium (Synthroid) 100 mcg PO DAILY@0630 [facility] Last Admin: 02/01/18 05:37 Dose: 100 mcg Methylprednisolone (Solu-Medrol) 40 mg IVP Q12 [facility] Last Admin: 02/01/18 09:20 Dose: 40 mg Ondansetron HCl (Zofran Inj) 4 mg IVP Q6H PRN PRN Reason: Nausea/Vomiting Pentoxifylline (Pentoxil) 400 mg PO BID [facility] Last Admin: 02/01/18 09:18 Dose: 400 mg - Labs Labs: 02/01/18 07:11 02/01/18 07:11 PT 11.2 SECONDS (9.7-12.2) 01/24/18 19:40 INR 1.0 01/24/18 19:40 Attending/Attestation - Attestation I have personally seen and examined this patient.: Yes I have fully participated in the care of the patient.: Yes I have reviewed all pertinent clinical information, including history, physical exam and plan: Yes Notes (Text): 02/01/18 17:04 Patient was seen and examined at 8:45 AM 02/01/18 656 B Also on ROS: Post nasal drip is much better after the start of Flonase on 01/31/18 and this allowed the patient to sleep during the night Bilateral Feet paresthesias experience the day after Plasmapharesis #1 have NOT returned Moving her bowels and urinating without difficulty Still with some soreness in the left lower border area nonradiating and reproducible with palpation otherwise does not occur (only if she reaches with the left hand to the TV that is to her right) NO other complaints upon FULL ROS Also on Exam: Cardio: holosystolic murmur right and left intercostal space Assessments: 1). Hypercalcemia likely secondary to Multiple Myeloma: completed 4 of 5 treatments with Plasmapharesis with #5 due 02/02/18 as long as Fibrinogen > 100 2). HTN Urgency: resolved. Norvasc, Atenolol, Hydralazine. Holding Losartan component of home medications secondary to SHAY 3). Hypokalemia: resolved 4). SHAY: IVF and BUN/Cr are stable 5). Anemia likely secondary to Multiple Myeloma: required 2 units of PRBC this past week. Heparin for DVT prophylaxis is being held. HgB/Hct are stable. 6). DM 2: holding Metformin secondary to elevated Cr. Controlled on ISS 7). HLD: holding statin (she is on Simvastatin at home) secondary to elevated L FTs (which are trending down) 8). Hypothyroidism: Levothyroxine 9). PAD: Pentoxifylline, Isosorbide Dinitrate Medicine Team please follow up with Hospice Educator Dr. Bran concerning plan for patient after she has completed Plasmapharesis #5. When hematology plan in place, arrange for NELA as patient needs help with transfer from bed to standing position and with ambulation. Please coordinate with PT and Foreclosure Field Inspector/Pathologist Assistant. Flakito Shepard D.O. 02/01/18 17:16
[2018-02-01 07:29] LABS: BASO % 0.7 % (0.0-2.0); EOS # 0.2 K/uL (0.0-0.7); EOS % 2.1 % (0.0-4.0); HEMOGLOBIN 9.9 g/dL (11.0-16.0); LYMPH # 1.3 K/uL (1.0-4.3); LYMPH % 17.2 % (20.0-40.0); MEAN CELL VOLUME 92.1 fL (81.0-99.0); MEAN CORPUSCULAR HEMOGLOBIN 31.8 pg (27.0-31.0); MEAN CORPUSCULAR HGB CONC 34.5 g/dL (33.0-37.0); MEAN PLATELET VOLUME 10.6 fL (7.2-11.7); MONO # 0.6 K/uL (0.0-0.8); MONO % 8.4 % (0.0-10.0); NEUT # 5.4 K/uL (1.8-7.0); NEUT % 71.6 % (50.0-75.0); NRBC % 0.5 % (0.0-2.0); RBC 3.12 Mil/uL (3.80-5.20); RED CELL DISTRIBUTION WIDTH 17.2 % (11.5-14.5); WHITE BLOOD COUNT 7.6 K/uL (4.8-10.8)
[2018-02-01 08:47] LABS: BLOOD UREA NITROGEN 45 mg/dL (7-17)
[2018-02-01 08:48] LABS: ALBUMIN 4.2 g/dL (3.5-5.0); ALT/SGPT 76 U/L (9-52); AST/SGOT 38 U/L (14-36); GFR NON-AFRICAN AMERICAN 20
[2018-02-01] MEDS: Fluticasone Nasal 50 mcg/Spray NAS SCH (09:19)
[2018-02-01] MEDS: (Novolin R) Insulin Human Regular 100 units/ml vial SC SCH ×3 (09:20→21:35)
[2018-02-01] MEDS: MethylPREDNISolone 40 mg Vial IVP SCH ×2 (09:20→21:37)
--- NOTE | 2018-02-01 23:15 | CP.PCM.PN ---
Subjective - Date & Time of Evaluation Date of Evaluation: 01/30/18 Time of Evaluation: 19:00 - Subjective Subjective: Feeling better. Objective - Vital Signs/Intake and Output Vital Signs (last 24 hours): Temp Pulse Resp BP Pulse Ox 98.2 F 61 20 121/62 98 02/01/18 16:00 02/01/18 20:00 02/01/18 16:00 02/01/18 17:41 02/01/18 16:00 Intake and Output: 02/01/18 02/02/18 18:59 06:59 Intake Total 1100 Balance 1100 - Medications Medications: Current Medications Acetaminophen (Tylenol 325mg Tab) 650 mg PO Q6 PRN PRN Reason: Pain, moderate (4-7) Last Admin: 02/01/18 21:36 Dose: 650 mg Amlodipine Besylate (Norvasc) 10 mg PO DAILY [facility] Last Admin: 02/01/18 09:17 Dose: 10 mg Aspirin (Aspirin Chewable) 81 mg PO DAILY [facility] Last Admin: 01/20/18 10:38 Dose: 81 mg Atenolol (Tenormin) 100 mg PO DAILY [facility] Last Admin: 02/01/18 09:18 Dose: 100 mg Benzonatate (Tessalon Perles) 100 mg PO TID [facility] Last Admin: 02/01/18 17:41 Dose: 100 mg Dextrose (Dextrose 50% Inj) 0 ml IV STAT PRN; Protocol PRN Reason: Hypoglycemia Protocol Dextrose (Glutose 15) 0 gm PO ONCE PRN; Protocol PRN Reason: Hypoglycemia Protocol Docusate Sodium (Colace) 100 mg PO TID [facility] Last Admin: 02/01/18 17:39 Dose: 100 mg Famotidine (Pepcid) 20 mg PO DAILY [facility] Last Admin: 02/01/18 09:18 Dose: 20 mg Fluticasone Propionate (Flonase) 0 spr BAHMAN DAILY [facility] Last Admin: 02/01/18 09:19 Dose: 1 spr Furosemide (Lasix) 60 mg PO BID [facility] Last Admin: 02/01/18 17:41 Dose: 60 mg Glucagon (Glucagen Diagnostic Kit) 0 mg IM STAT PRN; Protocol PRN Reason: Hypoglycemia Protocol Hydralazine HCl (Apresoline) 100 mg PO Q8H [facility] Last Admin: 02/01/18 21:37 Dose: 100 mg Sodium Chloride (Sodium Chloride 0.45%) 1,000 mls @ 125 mls/hr IV .Q8H [facility] Last Admin: 02/01/18 16:30 Dose: 125 mls/hr Dextrose (Dextrose 5% In Water 1000 Ml) 1,000 mls @ 0 mls/hr IV .Q0M PRN; Protocol PRN Reason: Hypoglycemia Protocol Insulin Human Regular (Novolin R) 0 unit SC ACHS [facility]; Protocol Last Admin: 02/01/18 21:35 Dose: Not Given Isosorbide Dinitrate (Isordil) 10 mg PO Q8H [facility] Last Admin: 02/01/18 21:37 Dose: 10 mg Levothyroxine Sodium (Synthroid) 100 mcg PO DAILY@0630 [facility] Last Admin: 02/01/18 05:37 Dose: 100 mcg Methylprednisolone (Solu-Medrol) 40 mg IVP Q12 [facility] Last Admin: 02/01/18 21:37 Dose: 40 mg Ondansetron HCl (Zofran Inj) 4 mg IVP Q6H PRN PRN Reason: Nausea/Vomiting Pentoxifylline (Pentoxil) 400 mg PO BID [facility] Last Admin: 02/01/18 17:41 Dose: 400 mg - Labs Labs: 02/01/18 07:11 02/01/18 07:11 PT 11.2 SECONDS (9.7-12.2) 01/24/18 19:40 INR 1.0 01/24/18 19:40 - Head Exam Head Exam: ATRAUMATIC - Eye Exam Eye Exam: Normal appearance - ENT Exam ENT Exam: Mucous Membranes Dry - Respiratory Exam Respiratory Exam: NORMAL BREATHING PATTERN - Cardiovascular Exam Cardiovascular Exam: +S1, +S2 - GI/Abdominal Exam GI & Abdominal Exam: Normal Bowel Sounds Assessment and Plan (1) Multiple myeloma Assessment & Plan: IgA kappa complicated by renal failure on plasmapheresis with albumin replacement; session #4 tomorrow s/p 1 dose Cytoxan cont. steroids Status: Acute (2) Hypercalcemia Assessment & Plan: improved with myeloma treatment Status: Acute
--- NOTE | 2018-02-01 23:16 | CP.PCM.PN ---
Subjective - Date & Time of Evaluation Date of Evaluation: 01/31/18 Time of Evaluation: 17:00 - Subjective Subjective: Feeling better Objective - Vital Signs/Intake and Output Vital Signs (last 24 hours): Temp Pulse Resp BP Pulse Ox 98.2 F 61 20 121/62 98 02/01/18 16:00 02/01/18 20:00 02/01/18 16:00 02/01/18 17:41 02/01/18 16:00 Intake and Output: 02/01/18 02/02/18 18:59 06:59 Intake Total 1100 Balance 1100 - Medications Medications: Current Medications Acetaminophen (Tylenol 325mg Tab) 650 mg PO Q6 PRN PRN Reason: Pain, moderate (4-7) Last Admin: 02/01/18 21:36 Dose: 650 mg Amlodipine Besylate (Norvasc) 10 mg PO DAILY [facility] Last Admin: 02/01/18 09:17 Dose: 10 mg Aspirin (Aspirin Chewable) 81 mg PO DAILY [facility] Last Admin: 01/20/18 10:38 Dose: 81 mg Atenolol (Tenormin) 100 mg PO DAILY [facility] Last Admin: 02/01/18 09:18 Dose: 100 mg Benzonatate (Tessalon Perles) 100 mg PO TID [facility] Last Admin: 02/01/18 17:41 Dose: 100 mg Dextrose (Dextrose 50% Inj) 0 ml IV STAT PRN; Protocol PRN Reason: Hypoglycemia Protocol Dextrose (Glutose 15) 0 gm PO ONCE PRN; Protocol PRN Reason: Hypoglycemia Protocol Docusate Sodium (Colace) 100 mg PO TID [facility] Last Admin: 02/01/18 17:39 Dose: 100 mg Famotidine (Pepcid) 20 mg PO DAILY [facility] Last Admin: 02/01/18 09:18 Dose: 20 mg Fluticasone Propionate (Flonase) 0 spr BAHMAN DAILY [facility] Last Admin: 02/01/18 09:19 Dose: 1 spr Furosemide (Lasix) 60 mg PO BID [facility] Last Admin: 02/01/18 17:41 Dose: 60 mg Glucagon (Glucagen Diagnostic Kit) 0 mg IM STAT PRN; Protocol PRN Reason: Hypoglycemia Protocol Hydralazine HCl (Apresoline) 100 mg PO Q8H [facility] Last Admin: 02/01/18 21:37 Dose: 100 mg Sodium Chloride (Sodium Chloride 0.45%) 1,000 mls @ 125 mls/hr IV .Q8H [facility] Last Admin: 02/01/18 16:30 Dose: 125 mls/hr Dextrose (Dextrose 5% In Water 1000 Ml) 1,000 mls @ 0 mls/hr IV .Q0M PRN; Protocol PRN Reason: Hypoglycemia Protocol Insulin Human Regular (Novolin R) 0 unit SC ACHS [facility]; Protocol Last Admin: 02/01/18 21:35 Dose: Not Given Isosorbide Dinitrate (Isordil) 10 mg PO Q8H [facility] Last Admin: 02/01/18 21:37 Dose: 10 mg Levothyroxine Sodium (Synthroid) 100 mcg PO DAILY@0630 [facility] Last Admin: 02/01/18 05:37 Dose: 100 mcg Methylprednisolone (Solu-Medrol) 40 mg IVP Q12 [facility] Last Admin: 02/01/18 21:37 Dose: 40 mg Ondansetron HCl (Zofran Inj) 4 mg IVP Q6H PRN PRN Reason: Nausea/Vomiting Pentoxifylline (Pentoxil) 400 mg PO BID [facility] Last Admin: 02/01/18 17:41 Dose: 400 mg - Labs Labs: 02/01/18 07:11 02/01/18 07:11 PT 11.2 SECONDS (9.7-12.2) 01/24/18 19:40 INR 1.0 01/24/18 19:40 - Head Exam Head Exam: ATRAUMATIC - Eye Exam Eye Exam: Normal appearance - ENT Exam ENT Exam: Mucous Membranes Dry - Respiratory Exam Respiratory Exam: NORMAL BREATHING PATTERN - Cardiovascular Exam Cardiovascular Exam: +S1, +S2 - GI/Abdominal Exam GI & Abdominal Exam: Normal Bowel Sounds Assessment and Plan (1) Multiple myeloma Assessment & Plan: IgA kappa complicated by renal failure on plasmapheresis with albumin replacement; session #4 today s/p 1 dose Cytoxan cont. steroids Status: Acute (2) Hypercalcemia Assessment & Plan: improved with myeloma treatment Status: Acute
[2018-02-02] MEDS: Levothyroxine 100 MCG TAB PO SCH (05:43)
[2018-02-02 06:31] LABS: BASO % 0.6 % (0.0-2.0); EOS # 0.1 K/uL (0.0-0.7); EOS % 1.8 % (0.0-4.0); HEMOGLOBIN 9.8 g/dL (11.0-16.0); LYMPH # 1.2 K/uL (1.0-4.3); MEAN CELL VOLUME 92.1 fL (81.0-99.0); MEAN CORPUSCULAR HEMOGLOBIN 31.7 pg (27.0-31.0); MEAN CORPUSCULAR HGB CONC 34.4 g/dL (33.0-37.0); MEAN PLATELET VOLUME 10.5 fL (7.2-11.7); MONO # 0.5 K/uL (0.0-0.8); MONO % 7.4 % (0.0-10.0); NEUT # 5.5 K/uL (1.8-7.0); NEUT % 74.2 % (50.0-75.0); NRBC % 0.2 % (0.0-2.0); RBC 3.08 Mil/uL (3.80-5.20); RED CELL DISTRIBUTION WIDTH 17.5 % (11.5-14.5); WHITE BLOOD COUNT 7.4 K/uL (4.8-10.8)
[2018-02-02 06:39] LABS: ALB/GLOB RATIO 3.5 (1.0-2.1); ALBUMIN 4.5 g/dL (3.5-5.0); CALCIUM 11.1 mg/dl (8.6-10.4)
[2018-02-02] MEDS: (Novolin R) Insulin Human Regular 100 units/ml vial SC SCH ×4 (07:30→21:39)
[2018-02-02] MEDS: MethylPREDNISolone 40 mg Vial IVP SCH ×2 (10:45→21:39)
[2018-02-02] MEDS: Fluticasone Nasal 50 mcg/Spray NAS SCH (10:46)
[2018-02-02] MEDS: Sodium Chloride 0.45% 1,000 ML IV SCH ×3 (12:04→21:41)
--- NOTE | 2018-02-02 12:53 | CP.PCM.PN ---
<Wanda Mckenna - Last Filed: 02/02/18 15:46> Subjective - Date & Time of Evaluation Date of Evaluation: 02/02/18 Time of Evaluation: 12:53 - Subjective Subjective: Medicine progress note - Dr. Loco's service 72 y/o f with PMHx HTN, hypercholesterolemia, TIA, and DM presented to ED with generalized abdominal pain, loss of appetite, and high BP on 01/16. Found to have hypercalcemia likely 2/2 multiple myeloma and hypertensive urgency. Patient was seen and examined at bedside this morning. She states she has some anal pain when having BMs, though denies constipation. She also discovered a new bruise on her left upper arm this morning without acute trauma. BRUNA tingling but denies low back pain. Otherwise she is doing well. Objective - Vital Signs/Intake and Output Vital Signs (last 24 hours): Temp Pulse Resp BP Pulse Ox 97.8 F 79 20 147/68 98 02/02/18 07:00 02/02/18 07:00 02/02/18 07:00 02/02/18 10:45 02/02/18 07:00 Intake and Output: 02/02/18 02/02/18 06:59 18:59 Intake Total 1100 Balance 1100 - Medications Medications: Current Medications Acetaminophen (Tylenol 325mg Tab) 650 mg PO Q6 PRN PRN Reason: Pain, moderate (4-7) Last Admin: 02/01/18 21:36 Dose: 650 mg Amlodipine Besylate (Norvasc) 10 mg PO DAILY [facility] Last Admin: 02/02/18 10:46 Dose: 10 mg Aspirin (Aspirin Chewable) 81 mg PO DAILY [facility] Last Admin: 01/20/18 10:38 Dose: 81 mg Atenolol (Tenormin) 100 mg PO DAILY [facility] Last Admin: 02/02/18 10:45 Dose: 100 mg Benzonatate (Tessalon Perles) 100 mg PO TID [facility] Last Admin: 02/02/18 10:51 Dose: 100 mg Dextrose (Dextrose 50% Inj) 0 ml IV STAT PRN; Protocol PRN Reason: Hypoglycemia Protocol Dextrose (Glutose 15) 0 gm PO ONCE PRN; Protocol PRN Reason: Hypoglycemia Protocol Docusate Sodium (Colace) 100 mg PO TID [facility] Last Admin: 02/02/18 10:46 Dose: 100 mg Famotidine (Pepcid) 20 mg PO DAILY [facility] Last Admin: 02/02/18 10:46 Dose: 20 mg Fluticasone Propionate (Flonase) 0 spr BAHMAN DAILY [facility] Last Admin: 02/02/18 10:46 Dose: 1 spr Furosemide (Lasix) 60 mg PO BID [facility] Last Admin: 02/02/18 10:45 Dose: 60 mg Glucagon (Glucagen Diagnostic Kit) 0 mg IM STAT PRN; Protocol PRN Reason: Hypoglycemia Protocol Hydralazine HCl (Apresoline) 100 mg PO Q8H [facility] Last Admin: 02/02/18 05:43 Dose: 100 mg Sodium Chloride (Sodium Chloride 0.45%) 1,000 mls @ 125 mls/hr IV .Q8H [facility] Last Admin: 02/02/18 12:04 Dose: Not Given Dextrose (Dextrose 5% In Water 1000 Ml) 1,000 mls @ 0 mls/hr IV .Q0M PRN; Protocol PRN Reason: Hypoglycemia Protocol Insulin Human Regular (Novolin R) 0 unit SC ACHS [facility]; Protocol Last Admin: 02/02/18 12:03 Dose: 1 unit Isosorbide Dinitrate (Isordil) 10 mg PO Q8H [facility] Last Admin: 02/02/18 05:43 Dose: 10 mg Levothyroxine Sodium (Synthroid) 100 mcg PO DAILY@0630 [facility] Last Admin: 02/02/18 05:43 Dose: 100 mcg Methylprednisolone (Solu-Medrol) 40 mg IVP Q12 [facility] Last Admin: 02/02/18 10:45 Dose: 40 mg Ondansetron HCl (Zofran Inj) 4 mg IVP Q6H PRN PRN Reason: Nausea/Vomiting Pentoxifylline (Pentoxil) 400 mg PO BID [facility] Last Admin: 02/02/18 10:48 Dose: 400 mg Potassium Chloride (K-Dur 20 Meq Er Tab) 20 meq PO ONCE ONE Stop: 02/03/18 10:21 - Labs Labs: 02/02/18 06:15 02/02/18 06:15 PT 11.2 SECONDS (9.7-12.2) 01/24/18 19:40 INR 1.0 01/24/18 19:40 - Constitutional Appears: No Acute Distress - Head Exam Head Exam: NORMAL INSPECTION - Respiratory Exam Respiratory Exam: Clear to Ausculation Bilateral, NORMAL BREATHING PATTERN - Cardiovascular Exam Cardiovascular Exam: REGULAR RHYTHM - GI/Abdominal Exam GI & Abdominal Exam: Soft, Normal Bowel Sounds - Rectal Exam Rectal Exam: NORMAL INSPECTION. absent: Hemorrhoids - Psychiatric Exam Psychiatric exam: Normal Affect, Normal Mood - Skin Additional comments: accesses: left brachial vein and right chest, c/d/i - Additional Findings Additional findings: Negative straight leg raise test bilaterally Assessment and Plan - Assessment and Plan (Free Text) Assessment: 72 y/o f with PMHx of HTN, hypercholesterolemia, TIA, and DM presented to the ED for abdominal pain, appetite loss, high BP, and unintential weight loss on 01/16. Found to have hypercalcemia likely 2/2 multiple myeloma and hypertensive urgency. 1) hypercalcemia likely 2/2 MM -11.0 on 02/01 (yesterday) to 11.1 on 02/02 (today), continue to monitor -heme/onc (Dr. Bran) following. Bone marrow bx 01/20 suggests - hypercellular marrow extensively involved by IgA [place] plasma cell myeloma 90% -nephro (Dr. Espinal) following - agrees w/ lasix, IVF, and cyclophosphamide as renal fx improving -continue with telemetry monitoring; hypercalcemia increases susceptibility to qt interval shortening -5th and final session of plasmapheresis pending for tomorrow, 02/03. Monitor fibrinogen and for DIC. -continue with IVF 125cc/hr -continue with lasix 60 mg PO q12h -continue solumedrol 40 mg IV q12h -continue cytoxan 600 mg PO 2) hypertensive urgency -patient stable now with bp 126/62 today, 02/02, with no signs or symptoms of end organ damage -continue to monitor bp -norvasc 10 mg PO daily -atenolol 100 mg PO daily -hydralazine 100 mg PO q8h 3) anal irritation -rectal skin exam wnl -apply anusol cream BID 4) left upper arm bruise -likely 2/2 to her increased susceptibility to bruise from her low platelets, patient made aware to be cautious DVT ppx: heparin 5000 units q12h GI ppx: pepcid 20 mg daily Seen and discussed with Dr. Claudy Mckenna, PGY-1 <Rayne Loco V - Last Filed: 02/02/18 19:41> Objective - Vital Signs/Intake and Output Vital Signs (last 24 hours): Temp Pulse Resp BP Pulse Ox 97.6 F 70 20 128/62 96 02/02/18 16:03 02/02/18 16:03 02/02/18 16:03 02/02/18 17:50 02/02/18 16:03 - Medications Medications: Current Medications Acetaminophen (Tylenol 325mg Tab) 650 mg PO Q6 PRN PRN Reason: Pain, moderate (4-7) Last Admin: 02/01/18 21:36 Dose: 650 mg Amlodipine Besylate (Norvasc) 10 mg PO DAILY [facility] Last Admin: 02/02/18 10:46 Dose: 10 mg Aspirin (Aspirin Chewable) 81 mg PO DAILY [facility] Last Admin: 01/20/18 10:38 Dose: 81 mg Atenolol (Tenormin) 100 mg PO DAILY [facility] Last Admin: 02/02/18 10:45 Dose: 100 mg Benzonatate (Tessalon Perles) 100 mg PO TID [facility] Last Admin: 02/02/18 17:50 Dose: 100 mg Dextrose (Dextrose 50% Inj) 0 ml IV STAT PRN; Protocol PRN Reason: Hypoglycemia Protocol Dextrose (Glutose 15) 0 gm PO ONCE PRN; Protocol PRN Reason: Hypoglycemia Protocol Docusate Sodium (Colace) 100 mg PO TID [facility] Last Admin: 02/02/18 17:50 Dose: 100 mg Famotidine (Pepcid) 20 mg PO DAILY [facility] Last Admin: 02/02/18 10:46 Dose: 20 mg Fluticasone Propionate (Flonase) 0 spr BAHMAN DAILY [facility] Last Admin: 02/02/18 10:46 Dose: 1 spr Furosemide (Lasix) 60 mg PO BID [facility] Last Admin: 02/02/18 17:50 Dose: 60 mg Glucagon (Glucagen Diagnostic Kit) 0 mg IM STAT PRN; Protocol PRN Reason: Hypoglycemia Protocol Hydralazine HCl (Apresoline) 100 mg PO Q8H [facility] Last Admin: 02/02/18 14:16 Dose: 100 mg Hydrocortisone (Anusol-Hc) 1 gm AR BID [facility] Sodium Chloride (Sodium Chloride 0.45%) 1,000 mls @ 125 mls/hr IV .Q8H [facility] Last Admin: 02/02/18 17:49 Dose: 125 mls/hr Dextrose (Dextrose 5% In Water 1000 Ml) 1,000 mls @ 0 mls/hr IV .Q0M PRN; Protocol PRN Reason: Hypoglycemia Protocol Albumin Human (Albutein 5% 500 Ml) 500 mls @ 250 mls/hr IVPB Q2H [facility] Stop: 02/03/18 02:59 Last Admin: 02/02/18 15:20 Dose: 250 mls/hr Insulin Human Regular (Novolin R) 0 unit SC ACHS [facility]; Protocol Last Admin: 02/02/18 12:03 Dose: 1 unit Isosorbide Dinitrate (Isordil) 10 mg PO Q8H [facility] Last Admin: 02/02/18 14:16 Dose: 10 mg Levothyroxine Sodium (Synthroid) 100 mcg PO DAILY@0630 [facility] Last Admin: 02/02/18 05:43 Dose: 100 mcg Methylprednisolone (Solu-Medrol) 40 mg IVP Q12 [facility] Last Admin: 02/02/18 10:45 Dose: 40 mg Ondansetron HCl (Zofran Inj) 4 mg IVP Q6H PRN PRN Reason: Nausea/Vomiting Pentoxifylline (Pentoxil) 400 mg PO BID [facility] Last Admin: 02/02/18 17:50 Dose: 400 mg Potassium Chloride (K-Dur 20 Meq Er Tab) 20 meq PO ONCE ONE Stop: 02/03/18 10:21 - Labs Labs: 02/02/18 06:15 02/02/18 06:15 PT 11.2 SECONDS (9.7-12.2) 01/24/18 19:40 INR 1.0 01/24/18 19:40 Assessment and Plan (1) Multiple myeloma Status: Acute (2) Acute renal failure Status: Acute (3) Anemia Status: Acute (4) HTN (hypertension) Status: Acute (5) Hypercalcemia Status: Acute (6) Lytic lesion of bone on x-ray Status: Acute (7) Thrombocytopenia Status: Acute (8) Prophylactic measure Status: Acute Attending/Attestation - Attestation I have personally seen and examined this patient.: Yes I have fully participated in the care of the patient.: Yes I have reviewed all pertinent clinical information, including history, physical exam and plan: Yes Notes (Text): Patient seen, examined, and case discussed with medical communication specialist. Patient reports she having normal bowel movements but reports rectal irritation as she goes. We will start Anusol per to reduce inflammation. Patient's fibriongen is above 100, patient will be getting 5th session of plasmapheresis today. Patient noted leg cramps primarily: calcium improving to 11.0. Patient will need to work to physcial therapy for deconditioning given recommendation for NELA. We will need to f/u with heme-oncology in regards to plan following completion of plasma exchange in regards to chemotherapeutics. patient has noted to be on steroids and completed one dose of cytotaxin. 1) Multiple Myeloma Assessment/Plan * newly diagnosed during inpatient * Nephrology (Dr. Espinal) on case-->help appreciated * Hematology (Dr. Minerva Bran) on case-->help appreciated * Vascular surgery (Dr. Lovell) on case-->help appreciated * Criteria: renal failure, anemia, lambda light chain, hypercalcemia * Confirmed with bone marrow biopsy result 01/24/2018 * Bone marrow biopsy results (01/20/18): markedly hypercellular marrow extensively involved by IgA [place] plasma cell myeloma (90%), mild reticulin fibrosis, no detectable iron staining. * Patient started plasma exchange on Friday, January 26 * Patient will need daily fibrinogen to monitor for DIC. DIC fibrinogen less than 100. * The dialysis catheter will placed as a temporary measure for at 5 sessions sessions of plasmapheresis over 10 days. The intent if the plasmapheresis is to replace a possible with albumin they will be 5 sessions one session every other day. Patient will be monitor with a fibrinogen. Sessions will be held a fibrinogen is less than 100. Patient will be monitored for DIC while receiving plasmapheresis. * Patient to receive 5th sessions today. * Treatment: Solumedrol 40mg IVP Q12H (active since 01/20/18), Cytoxan 600mg PO (01/26) * Patient received vascular access on 01/25/18. 2. Hypercalcemia Assessment/Plan * Secondary to multiple myeloma-->See #1 and #2 * Nephro recs (Dr. Espinal) appreciated * continue w/ IVF @125 cc/hr * calcitonin on board as temporizing measure * denosumab not available inpatient/hospital formular and bisphosphonates relatively contraindicated with advanced renal failure * continue PO lasix 60mg PO BID * Calcium improving with plasmapheresis Imaging * CT abd/pelvis (01/17): There are multiple on varying sized rounded lytic lesions scattered throughout all the osseous structures. Findings probably represent multiple myeloma however metastatic disease not excluded. Clinical correlation recommended. * Bone Scan: There are no correlates to findings on recent CT scan. Specifically the permeative pattern throughout thoracolumbar spine and pelvis constitutes lytic disease most likely myeloma * R shoulder XR (01/19): degenerative changes bilaterally. No acute findings. * B/L Forearm XR (01/19): no significant or acute findings to account for/related to the clinical presentation * Abd/pelv CT with PO and IV contrast (01/19): nnumerable lytic osseous lesions consistent with multiple myeloma or metastatic disease. Bibasilar atelectasis. Trace right pleural effusion. Small hiatal hernia. Evidence of mild gastroesophageal reflux. Borderline heptomegaly. Diverticulosis without CT evidence of acute diverticulitis. Moderate constipation. * Calcium 24 hr urine is normal at 237.8 * PTH intact is low normal at 14 * PTHr protein: 18 (01/17) * Vit D 68.5 3. Hypertensive urgency Essential hypertension Assessment/Plan * -has essential hypertension, hypercalcemia secondary to MM * ECHO (01/19) shows LVEF>70%. Diastolic dysfunction. Mild MR. Mild TR, mild pulmonary hypertension. Mild pulmonic valvular regurgitation. * held since bone marrow biopsy Aspirin 81mg PO daily * Atenolol 100mg PO daily * Hydralazine 100mg PO TID * Amlodipine 10 mg daily * Isosorbide dinitrate 10 mg PO TID * Lasix 60mg PO BID 4. Hypokalemia Assessment/Plan * repleted * monitor 5. acute renal injured injury seconday to Multiple myeloma Assessment/Plan * nephrology consult, Dr. Espinal, f/u recs * avoid nephrotoxic medications * cont IVF @125 cc/hr * Cr improved to 2.9 * 24 hr urine protein elevated, 4236 * Renal US: Findings consistent with underlying medical renal disease. No evidence of nephrolithiasis or hydronephrosis. 6. Acute Anemia secondary to Multiple myeloma Assessment/Plan * Anemia 2/2 underlying process related to hypercalcemia; r/o malignancy, multiple myeloma * Ferritin: 147 * ipep/spep: M spike * elevated kappa light chains * Bone marrow biopsy results (01/20/18): markedly hypercellular marrow extensively involved by IgA [place] plasma cell myeloma (90%), mild reticulin fibrosis, no detectable iron staining. 7. DM Assessment/Plan * Hold metformin due to elevated Cr * accuchecks QAC and HS 8. HLD Assessment/Plan * Hold statin given SHAY 9. Hypothyroidism Assessment/Plan * Levothyroxine 100mcg daily 10. PAD Assessment/Plan * Pentoxifylline 400mg PO BID 11. PPx, Diet, Disposition * VTE ppx: SCD * chemical anticoagulation held due to thrombocytopenia * GI ppx: Pepcid 20mg daily * PT/OT eval Dispo: Patient to undergo 5th session of plasmapheresis today
[2018-02-02] MEDS ORDERED: DiphenhydrAMINE 50 mg/ml Inj IVP ONE (15:00)
[2018-02-02] MEDS: Hydrocortisone 2.5% Rectal Cream(30 gm) PR SCH (18:42)
--- NOTE | 2018-02-02 22:33 | CP.PCM.PN ---
Subjective - Date & Time of Evaluation Date of Evaluation: 02/02/18 Time of Evaluation: 20:00 - Subjective Subjective: For last session of plasmapheresis tomorrow Objective - Vital Signs/Intake and Output Vital Signs (last 24 hours): Temp Pulse Resp BP Pulse Ox 97.6 F 70 20 128/62 96 02/02/18 16:03 02/02/18 16:03 02/02/18 16:03 02/02/18 17:50 02/02/18 16:03 - Medications Medications: Current Medications Acetaminophen (Tylenol 325mg Tab) 650 mg PO Q6 PRN PRN Reason: Pain, moderate (4-7) Last Admin: 02/02/18 21:38 Dose: 650 mg Amlodipine Besylate (Norvasc) 10 mg PO DAILY [facility] Last Admin: 02/02/18 10:46 Dose: 10 mg Aspirin (Aspirin Chewable) 81 mg PO DAILY [facility] Last Admin: 01/20/18 10:38 Dose: 81 mg Atenolol (Tenormin) 100 mg PO DAILY [facility] Last Admin: 02/02/18 10:45 Dose: 100 mg Benzonatate (Tessalon Perles) 100 mg PO TID [facility] Last Admin: 02/02/18 17:50 Dose: 100 mg Dextrose (Dextrose 50% Inj) 0 ml IV STAT PRN; Protocol PRN Reason: Hypoglycemia Protocol Dextrose (Glutose 15) 0 gm PO ONCE PRN; Protocol PRN Reason: Hypoglycemia Protocol Docusate Sodium (Colace) 100 mg PO TID [facility] Last Admin: 02/02/18 17:50 Dose: 100 mg Famotidine (Pepcid) 20 mg PO DAILY [facility] Last Admin: 02/02/18 10:46 Dose: 20 mg Fluticasone Propionate (Flonase) 0 spr BAHMAN DAILY [facility] Last Admin: 02/02/18 10:46 Dose: 1 spr Furosemide (Lasix) 60 mg PO BID [facility] Last Admin: 02/02/18 17:50 Dose: 60 mg Glucagon (Glucagen Diagnostic Kit) 0 mg IM STAT PRN; Protocol PRN Reason: Hypoglycemia Protocol Hydralazine HCl (Apresoline) 100 mg PO Q8H [facility] Last Admin: 02/02/18 21:39 Dose: 100 mg Hydrocortisone (Anusol-Hc) 1 gm AR BID [facility] Last Admin: 02/02/18 18:42 Dose: Not Given Dextrose (Dextrose 5% In Water 1000 Ml) 1,000 mls @ 0 mls/hr IV .Q0M PRN; Protocol PRN Reason: Hypoglycemia Protocol Albumin Human (Albutein 5% 500 Ml) 500 mls @ 250 mls/hr IVPB Q2H [facility] Stop: 02/03/18 02:59 Last Admin: 02/02/18 15:20 Dose: 250 mls/hr Insulin Human Regular (Novolin R) 0 unit SC ACHS [facility]; Protocol Last Admin: 02/02/18 21:39 Dose: Not Given Isosorbide Dinitrate (Isordil) 10 mg PO Q8H [facility] Last Admin: 02/02/18 21:38 Dose: 10 mg Levothyroxine Sodium (Synthroid) 100 mcg PO DAILY@0630 [facility] Last Admin: 02/02/18 05:43 Dose: 100 mcg Methylprednisolone (Solu-Medrol) 40 mg IVP Q12 [facility] Last Admin: 02/02/18 21:39 Dose: 40 mg Ondansetron HCl (Zofran Inj) 4 mg IVP Q6H PRN PRN Reason: Nausea/Vomiting Pentoxifylline (Pentoxil) 400 mg PO BID [facility] Last Admin: 02/02/18 17:50 Dose: 400 mg Potassium Chloride (K-Dur 20 Meq Er Tab) 20 meq PO ONCE ONE Stop: 02/03/18 10:21 - Labs Labs: 02/02/18 06:15 02/02/18 06:15 PT 11.2 SECONDS (9.7-12.2) 01/24/18 19:40 INR 1.0 01/24/18 19:40 - Head Exam Head Exam: ATRAUMATIC - Eye Exam Eye Exam: Normal appearance - ENT Exam ENT Exam: Mucous Membranes Dry - Respiratory Exam Respiratory Exam: NORMAL BREATHING PATTERN - Cardiovascular Exam Cardiovascular Exam: +S1, +S2 - GI/Abdominal Exam GI & Abdominal Exam: Normal Bowel Sounds Assessment and Plan (1) Multiple myeloma Assessment & Plan: IgA kappa complicated by renal failure on plasmapheresis with albumin replacement; session #5 tomorrow s/p 1 dose Cytoxan cont. steroids Status: Acute (2) Hypercalcemia Assessment & Plan: improved with myeloma treatment Status: Acute
--- NOTE | 2018-02-02 23:22 | CP.PCM.PN ---
Subjective - Date & Time of Evaluation Date of Evaluation: 02/02/18 Time of Evaluation: 15:00 - Subjective Subjective: Patient reports feeling well; no sob; urinating well; getting plasma exchange today; Objective - Vital Signs/Intake and Output Vital Signs (last 24 hours): Temp Pulse Resp BP Pulse Ox 97.6 F 70 20 128/62 96 02/02/18 16:03 02/02/18 16:03 02/02/18 16:03 02/02/18 17:50 02/02/18 16:03 - Medications Medications: Current Medications Acetaminophen (Tylenol 325mg Tab) 650 mg PO Q6 PRN PRN Reason: Pain, moderate (4-7) Last Admin: 02/02/18 21:38 Dose: 650 mg Amlodipine Besylate (Norvasc) 10 mg PO DAILY [facility] Last Admin: 02/02/18 10:46 Dose: 10 mg Aspirin (Aspirin Chewable) 81 mg PO DAILY [facility] Last Admin: 01/20/18 10:38 Dose: 81 mg Atenolol (Tenormin) 100 mg PO DAILY [facility] Last Admin: 02/02/18 10:45 Dose: 100 mg Benzonatate (Tessalon Perles) 100 mg PO TID [facility] Last Admin: 02/02/18 17:50 Dose: 100 mg Dextrose (Dextrose 50% Inj) 0 ml IV STAT PRN; Protocol PRN Reason: Hypoglycemia Protocol Dextrose (Glutose 15) 0 gm PO ONCE PRN; Protocol PRN Reason: Hypoglycemia Protocol Docusate Sodium (Colace) 100 mg PO TID [facility] Last Admin: 02/02/18 17:50 Dose: 100 mg Famotidine (Pepcid) 20 mg PO DAILY [facility] Last Admin: 02/02/18 10:46 Dose: 20 mg Fluticasone Propionate (Flonase) 0 spr BAHMAN DAILY [facility] Last Admin: 02/02/18 10:46 Dose: 1 spr Furosemide (Lasix) 60 mg PO BID [facility] Last Admin: 02/02/18 17:50 Dose: 60 mg Glucagon (Glucagen Diagnostic Kit) 0 mg IM STAT PRN; Protocol PRN Reason: Hypoglycemia Protocol Hydralazine HCl (Apresoline) 100 mg PO Q8H [facility] Last Admin: 02/02/18 21:39 Dose: 100 mg Hydrocortisone (Anusol-Hc) 1 gm LA BID [facility] Last Admin: 02/02/18 18:42 Dose: Not Given Dextrose (Dextrose 5% In Water 1000 Ml) 1,000 mls @ 0 mls/hr IV .Q0M PRN; Protocol PRN Reason: Hypoglycemia Protocol Albumin Human (Albutein 5% 500 Ml) 500 mls @ 250 mls/hr IVPB Q2H [facility] Stop: 02/03/18 02:59 Last Admin: 02/02/18 15:20 Dose: 250 mls/hr Insulin Human Regular (Novolin R) 0 unit SC ACHS [facility]; Protocol Last Admin: 02/02/18 21:39 Dose: Not Given Isosorbide Dinitrate (Isordil) 10 mg PO Q8H [facility] Last Admin: 02/02/18 21:38 Dose: 10 mg Levothyroxine Sodium (Synthroid) 100 mcg PO DAILY@0630 [facility] Last Admin: 02/02/18 05:43 Dose: 100 mcg Methylprednisolone (Solu-Medrol) 40 mg IVP Q12 [facility] Last Admin: 02/02/18 21:39 Dose: 40 mg Ondansetron HCl (Zofran Inj) 4 mg IVP Q6H PRN PRN Reason: Nausea/Vomiting Pentoxifylline (Pentoxil) 400 mg PO BID [facility] Last Admin: 02/02/18 17:50 Dose: 400 mg Potassium Chloride (K-Dur 20 Meq Er Tab) 20 meq PO ONCE ONE Stop: 02/03/18 10:21 - Labs Labs: 02/02/18 06:15 02/02/18 06:15 PT 11.2 SECONDS (9.7-12.2) 01/24/18 19:40 INR 1.0 01/24/18 19:40 - Constitutional Appears: Non-toxic, No Acute Distress - Eye Exam Eye Exam: Normal appearance. absent: Scleral icterus - Respiratory Exam Respiratory Exam: Clear to Ausculation Bilateral. absent: Respiratory Distress - Cardiovascular Exam Cardiovascular Exam: RRR, +S1, +S2 - GI/Abdominal Exam GI & Abdominal Exam: Soft. absent: Distended - Extremities Exam Additional comments: no leg edema; - Neurological Exam Neurological Exam: Alert, Awake - Psychiatric Exam Psychiatric exam: Normal Mood. absent: Agitated - Skin Skin Exam: Warm. absent: Cyanosis Assessment and Plan (1) Acute renal failure Assessment & Plan: SHAY, presumed myeloma kidney, improving with plasma exchange and chemo; patient set to have her last TPE treatment, will likely be able to be discharged soon; -decreasing lasix to 40 mg daily in anticipation of d/c; will stop IVF as well; patient still encouraged to keep well hydrated and on high sodium diet; Status: Acute (2) HTN (hypertension) Assessment & Plan: Controlled, continue current meds, see above regarding diuretics; Status: Acute (3) Hypercalcemia Assessment & Plan: Improvement is likely multifactorial; citrate anti-coagulant used in plasma exchange acting as Ca chelator; also, MM may be responding to chemo; IVF/lasix may also be helping; -will need to monitor as outpatient closely; if hypercalcemia rebounds, will need denosumab; Status: Acute (4) Anemia Assessment & Plan: Currently stable s/p prbc transfusion, monitor; Status: Acute
[2018-02-03] MEDS: Levothyroxine 100 MCG TAB PO SCH (05:56)
[2018-02-03 06:43] LABS: BASO % 0.6 % (0.0-2.0); EOS # 0.1 K/uL (0.0-0.7); EOS % 1.2 % (0.0-4.0); HEMOGLOBIN 9.5 g/dL (11.0-16.0); LYMPH # 1.1 K/uL (1.0-4.3); LYMPH % 17.1 % (20.0-40.0); MEAN CELL VOLUME 92.3 fL (81.0-99.0); MEAN CORPUSCULAR HEMOGLOBIN 31.8 pg (27.0-31.0); MEAN CORPUSCULAR HGB CONC 34.4 g/dL (33.0-37.0); MONO # 0.4 K/uL (0.0-0.8); MONO % 6.8 % (0.0-10.0); NEUT # 4.8 K/uL (1.8-7.0); NEUT % 74.3 % (50.0-75.0); NRBC % 0.1 % (0.0-2.0); RBC 2.99 Mil/uL (3.80-5.20); RED CELL DISTRIBUTION WIDTH 16.9 % (11.5-14.5); WHITE BLOOD COUNT 6.4 K/uL (4.8-10.8)
[2018-02-03 08:11] LABS: ALB/GLOB RATIO 3.5 (1.0-2.1); ALBUMIN 4.6 g/dL (3.5-5.0); ALT/SGPT 44 U/L (9-52); AST/SGOT 18 U/L (14-36); BLOOD UREA NITROGEN 48 mg/dL (7-17); CALCIUM 10.6 mg/dl (8.6-10.4); GFR NON-AFRICAN AMERICAN 21
[2018-02-03] MEDS: (Novolin R) Insulin Human Regular 100 units/ml vial SC SCH ×3 (08:26→17:14)
[2018-02-03] MEDS ORDERED: Potassium Chloride 20 mEq ER Tab PO ONE ×3 (08:30→12:45)
[2018-02-03 08:37] VITALS: TEMP 98
[2018-02-03] MEDS: MethylPREDNISolone 40 mg Vial IVP SCH (09:55)
[2018-02-03] MEDS: Hydrocortisone 2.5% Rectal Cream(30 gm) PR SCH ×2 (09:56→17:15)
[2018-02-03] MEDS: Fluticasone Nasal 50 mcg/Spray NAS SCH (10:30)
[2018-02-03] MEDS: Sodium Chloride 0.45% 1,000 ML IV SCH (10:59)
--- NOTE | 2018-02-03 14:57 | CP.PCM.DIS ---
<Law,Wanda - Last Filed: 02/03/18 15:40> Provider - Provider Date of Admission: 01/16/18 21:37 Attending physician: Rayne Loco DO Time Spent in preparation of Discharge (in minutes): 45 Hospital Course - Lab Results Lab Results: Most Recent Lab Values WBC 6.4 K/uL (4.8-10.8) 02/03/18 06:38 RBC 2.99 Mil/uL (3.80-5.20) L 02/03/18 06:38 Hgb 9.5 g/dL (11.0-16.0) L 02/03/18 06:38 Hct 27.6 % (34.0-47.0) L 02/03/18 06:38 MCV 92.3 fL (81.0-99.0) 02/03/18 06:38 MCH 31.8 pg (27.0-31.0) H 02/03/18 06:38 MCHC 34.4 g/dL (33.0-37.0) 02/03/18 06:38 RDW 16.9 % (11.5-14.5) H 02/03/18 06:38 Plt Count 77 K/uL (130-400) L 02/03/18 06:38 MPV 10.0 fL (7.2-11.7) 02/03/18 06:38 Neut % (Auto) 74.3 % (50.0-75.0) 02/03/18 06:38 Lymph % (Auto) 17.1 % (20.0-40.0) L 02/03/18 06:38 Ponce % (Auto) 6.8 % (0.0-10.0) 02/03/18 06:38 Eos % (Auto) 1.2 % (0.0-4.0) 02/03/18 06:38 Baso % (Auto) 0.6 % (0.0-2.0) 02/03/18 06:38 Neut # (Auto) 4.8 K/uL (1.8-7.0) 02/03/18 06:38 Lymph # (Auto) 1.1 K/uL (1.0-4.3) 02/03/18 06:38 Ponce # (Auto) 0.4 K/uL (0.0-0.8) 02/03/18 06:38 Eos # (Auto) 0.1 K/uL (0.0-0.7) 02/03/18 06:38 Baso # (Auto) 0.0 K/uL (0.0-0.2) 02/03/18 06:38 Differential Comment 01/24/18 06:19 PT 11.2 SECONDS (9.7-12.2) 01/24/18 19:40 INR 1.0 01/24/18 19:40 Fibrinogen 73 mg/dL (200-400) L 02/03/18 12:24 Sodium 137 mmol/L (132-148) 02/03/18 06:38 Potassium 3.1 mmol/L (3.6-5.2) L 02/03/18 06:38 Chloride 101 mmol/L (98-107) 02/03/18 06:38 Carbon Dioxide 20 mmol/L (22-30) L 02/03/18 06:38 Anion Gap 19 (10-20) 02/03/18 06:38 BUN 48 mg/dL (7-17) H 02/03/18 06:38 Creatinine 2.3 mg/dL (0.7-1.2) H 02/03/18 06:38 Est GFR ( Amer) 25 02/03/18 06:38 Est GFR (Non-Af Amer) 21 02/03/18 06:38 POC Glucose (mg/dL) 167 mg/dL (65-110) H 02/03/18 11:10 Random Glucose 126 mg/dL (65-105) H 02/03/18 06:38 Lactic Acid 2.0 mmol/L (0.7-2.1) 01/28/18 15:00 Uric Acid 8.7 mg/dL (2.2-7.5) H 01/31/18 06:35 Calcium 10.6 mg/dl (8.6-10.4) H 02/03/18 06:38 Ionized Calcium 6.1 mg/dL (4.80-5.60) H 01/30/18 07:08 Phosphorus 4.2 mg/dL (2.5-4.5) 02/03/18 06:38 Magnesium 1.8 mg/dL (1.6-2.3) 02/03/18 06:38 Iron 125 ug/dL (37-170) 01/25/18 16:52 TIBC 258 ug/dL (250-450) 01/25/18 16:52 % Saturation 48 (20-55) 01/25/18 16:52 Ferritin 147.0 ng/mL 01/25/18 07:15 Total Bilirubin 0.8 mg/dL (0.2-1.3) 02/03/18 06:38 AST 18 U/L (14-36) 02/03/18 06:38 ALT 44 U/L (9-52) 02/03/18 06:38 Alkaline Phosphatase < 20 U/L (38-126) L 02/03/18 06:38 Troponin I 0.0130 ng/mL (0.00-0.120) 01/16/18 18:23 Total Protein 5.9 g/dL (6.3-8.3) L 02/03/18 06:38 Total Protein (PEP) 7.0 g/dL (6.1-8.1) 01/18/18 07:24 Albumin 4.6 g/dL (3.5-5.0) 02/03/18 06:38 Albumin (PEP) 3.6 g/dL (3.8-4.8) L 01/18/18 07:24 Globulin 1.3 gm/dL (2.2-3.9) L 02/03/18 06:38 Albumin/Globulin Ratio 3.5 (1.0-2.1) H 02/03/18 06:38 Yrphl-1-Queghimog 1.9 Relative % 01/20/18 13:31 Cdvxq-5-Vrnkbuhih 4.8 Relative % 01/20/18 13:31 Beta Globulins 9.6 Relative % 01/20/18 13:31 Bcjd-7-Utxaqazy 0.4 g/dL (0.4-0.6) 01/18/18 07:24 Lvaz-6-Lswnozyc 0.3 g/dL (0.2-0.5) 01/18/18 07:24 Hned-4-Cxazsaffvydmv 13.80 mg/L (<or= 2.51) H 01/27/18 06:23 Gamma Globulins 78.0 Relative % 01/20/18 13:31 Abnorm Protein Band 1 0.87 g/dL (None Detected) H 01/18/18 07:24 Abnorm Protein Band 2 0.20 g/dL (None Detected) H 01/18/18 07:24 Abnorm Protein Band 3 TEST NOT PERFORMED 01/18/18 07:24 Lipase 351 U/L (23-300) H 01/16/18 18:23 25-OH Vitamin D Total 68.5 NG/ML (30.0-100.0) 01/18/18 11:45 PTH Intact Whole Molec 14 pg/mL (14-64) 01/17/18 07:27 PTH Related Protein 18 pg/mL (14-27) 01/17/18 07:27 Urine Color Colorless (YELLOW) 01/16/18 18:39 Urine Clarity Clear (Clear) 01/16/18 18:39 Urine pH 7.0 (5.0-8.0) 01/16/18 18:39 Ur Specific [place] 1.005 (1.003-1.030) 01/16/18 18:39 Urine Protein 1+ mg/dL (NEGATIVE) H 01/16/18 18:39 Urine Glucose (UA) Normal mg/dL (Normal) 01/16/18 18:39 Urine Ketones Negative mg/dL (NEGATIVE) 01/16/18 18:39 Urine Blood 1+ (NEGATIVE) H 01/16/18 18:39 Urine Nitrate Negative (NEGATIVE) 01/16/18 18:39 Urine Bilirubin Negative (NEGATIVE) 01/16/18 18:39 Urine Urobilinogen Normal mg/dL (0.2-1.0) 01/16/18 18:39 Ur Leukocyte Esterase Neg Abdon/uL (Negative) 01/16/18 18:39 Urine WBC (Auto) 1 /hpf (0-5) 01/16/18 18:39 Urine RBC (Auto) 3 /hpf (0-3) 01/16/18 18:39 Urine Bacteria Rare (<OCC) 01/16/18 18:39 U Random Total Protein 4236 mg/g creat (21-161) H 01/20/18 14:20 Urine Collection Time 24 HRS 01/18/18 13:32 Urine Total Volume 2900 mL 01/18/18 13:32 Urine Creatinine 0.22 g/L 01/20/18 13:31 Ur Creatinine 24 Hour 0.65 g/24 h (0.63-2.50) 01/20/18 13:31 Ur Total Protein 24 Hr 2703 mg/24 h (<150) H 01/20/18 13:31 Protein/Creat Ratio 24h 4152 mg/g creat (</=84) H 01/20/18 13:31 Urine Calcium 8.2 mg/dL 01/18/18 13:32 Ur Calcium 24 Hr 237.8 mg/24hr (100-300) 01/18/18 13:32 Urine Total Protein 901 mg/L (50-240) H 01/20/18 13:31 Urine Albumin (PEP) 5.7 Relative % 01/20/18 13:31 Ur Protein Fractions See note 01/20/18 13:31 MARTINA & SPEP Interp See note 01/18/18 07:24 Serum Immunofixation Detected (Not Detected) H 01/18/18 07:24 Dug[place]/Lambda Light Chain see note 01/18/18 07:24 Free [place] Light Chains 19320.8 mg/L (3.3-19.4) H 01/18/18 07:24 Free Lambda Light Chain 4.2 mg/L (5.7-26.3) L 01/18/18 07:24 Free [place]/Lambda Ratio 6776.38 (0.26-1.65) H 01/18/18 07:24 HIV 1&2 Antibody Screen Negative (NEGATIVE) 01/20/18 06:52 Blood Type B POSITIVE 01/29/18 10:35 Blood Type Confirm B POSITIVE 01/29/18 10:35 Antibody Screen Negative 01/29/18 10:35 - Hospital Course Hospital Course: PMHx: DM, HTN, hypothyroid, PVD, SHAY, hypercholesterol, TIA (2007) PSHx: hysterectomy 2007, thyroidectomy, breast cyst removal 2015 Meds: Simvastatn 10mg daily, metformin 500mg BID, Atenolol 50mg once daily, Losartan-HCTZ, norvasc 10mg daily, syndroid 88 mcg, Pentoxifylline ER 400mg, Isosorbide Dinitrate 10mg BID Allergies: NKDA Social: Denies tobacco, alcohol and drug use Family Hx: unknown On admission: 72 year old female with PMHx of HTN, Hypercholesterol, TIA (2007), DM presents to ED from the clinic for evaluation of generalized abdominal pain, loss of appetite, and elevated blood pressure for the past 2 weeks. Patient reports an unintentional 20 pound weight loss in the past 18 months, a + FIT test, increased urination and polydipsia. Patient denies fever, chills, vomiting, diarrhea. During hospitalization: 72 y/o f with PMHx of TIA, DM, HTN, and hyperchol presented to the ED on 01/16 for abdominal pain, appetite loss, and high blood pressure x 2 weeks. She also r eports unintentional 20 lb wt loss over the last 18 months. Patient was found to have hypercalcemia likely 2/2 multiple myeloma (01/20 bone marrow bx with IgA kappa plasma cell myeloma 90%) and also had treatment for HTN urgency. Heme onc (Dr. Bran) and nephro (Dr. Espinal) was consulted. Patient's hypercalcemia was improved with a total of 5 sessions of plasmapheresis. Prior to that, vascular surgery (Dr. Lovell) was consulted for the portacath. Dr. Bran also recommends cytoxan chemo. She also has an underlying renal failure that Dr. Espinal has been managing with consistently elevated BUN/Cr. Her hypokalemia has been periodically managed with potassium replacement. Patient has agreed to follow up with nephro and heme-onc as outpatient to manage the consequences of what is most likely her multiple myeloma, which is her hypercalcemia and renal failure. Additionally, she is to eventually have a bone scan, though she repeatedly denies bone or back pain. Patient has been week during hospitalization and required assistance with ambulation. She refused being discharged to a rehab facility. So hospitalist team ordered therapy to come to her home on a regular basis. Patient is stable for discharge home per stefanie-onc. Patient is to follow up with primary care doctor within a week of discharge for post-hospital care. She is to follow up with Dr. Bran in his office either tomorrow (02/04) or Feb 06 at 2pm. She is also to follow up with Dr. Espinal (nephrology) at his office in [facility] within a week of discharge. She will be set up with home physical therapy services. Patient is to take the following medications: amlodipine 10 mg one by mouth daily aspirin 81 mg one by mouth daily atenolol 100 mg one by mouth daily colace 100 mg one by mouth twice a day as needed for constipation lasix 20 mg one by mouth daily hydralazine 100 mg one by mouth three times a day isosorbide dinitrate 10 mg by mouth three times a day synthroid 100 mcg one by mouth in the morning pentoxifylline 400 mg one by mouth twice a day Patient is to return to the emergency room if symptoms persist or worsen. All instructions explained to the patient and she agrees. (*This is only a summary of events. Please see EMR for a complete record.) - Date & Time of H&P Date of H&P: 02/03/18 Time of H&P: 14:57 Discharge Exam - Head Exam Head Exam: ATRAUMATIC - Eye Exam Eye Exam: EOMI, Normal appearance - ENT Exam ENT Exam: Mucous Membranes Dry - Respiratory Exam Respiratory Exam: Clear to PA & Lateral, NORMAL BREATHING PATTERN - Cardiovascular Exam Cardiovascular Exam: REGULAR RHYTHM, +S1, +S2 - GI/Abdominal Exam GI & Abdominal Exam: Normal Bowel Sounds, Soft, Unremarkable - Extremities Exam Additional comments: bilateral lower extremities with 4/5 strength. bilateral upper extremities with 5/5 strength - Neurological Exam Neurological exam: Alert, Oriented x3 - Psychiatric Exam Psychiatric exam: Normal Affect, Normal Mood Discharge Plan - Discharge Medications Prescriptions: RX: amLODIPine [Norvasc] 10 mg PO DAILY 30 Days #30 tab RX: Aspirin [Aspirin Chewable] 81 mg PO DAILY 30 Days #30 chew RX: Atenolol [Tenormin] 50 mg PO DAILY #30 tab RX: Furosemide [Lasix] 20 mg PO DAILY 30 Days #30 tab RX: hydrALAZINE [Apresoline] 100 mg PO Q8H 30 Days #90 tab RX: Isosorbide Dinitrate [Isordil] 10 mg PO TID #90 tab RX: Pentoxifylline 400 mg PO BID #60 tablet.er - Follow Up Plan Condition: GOOD Disposition: HOME/ ROUTINE Instructions: DASH Diet, Dehydration, Adult (DC), Hypercalcemia (DC), Acute Kidney Failure (DC), Low Salt Diet, Pentoxifylline, Hypertension (DC) Additional Instructions: Patient is stable for discharge home per heme-onc. Patient is to follow up with primary care doctor within a week of discharge for post-hospital care. She is to follow up with Dr. Bran in his office either tomorrow (02/04) or Feb 06 at 2pm. She is also to follow up with Dr. Espinal (nephrology) at his office in [facility] within a week of discharge. She will be set up with home physical therapy services. Patient is to take the following medications: amlodipine 10 mg one by mouth daily aspirin 81 mg one by mouth daily atenolol 100 mg one by mouth daily colace 100 mg one by mouth twice a day as needed for constipation lasix 20 mg one by mouth daily hydralazine 100 mg one by mouth three times a day isosorbide dinitrate 10 mg by mouth three times a day synthroid 100 mcg one by mouth in the morning pentoxifylline 400 mg one by mouth twice a day Patient is to return to the emergency room if symptoms persist or worsen. All instructions explained to the patient and she agrees. Referrals: [facility] [Outside] Yves Bran MD [Staff Provider] - Yrn Espinal MD [Staff Provider] - <Rayne Loco V - Last Filed: 02/04/18 22:35> Provider - Provider Date of Admission: 01/16/18 21:37 Attending physician: Rayne Loco DO Diagnosis - Discharge Diagnosis (1) Multiple myeloma Status: Acute (2) Acute renal failure Status: Acute (3) Anemia Status: Acute (4) HTN (hypertension) Status: Acute (5) Hypercalcemia Status: Acute (6) Lytic lesion of bone on x-ray Status: Acute (7) Thrombocytopenia Status: Acute (8) Prophylactic measure Status: Acute Hospital Course - Lab Results Lab Results: Most Recent Lab Values WBC 6.4 K/uL (4.8-10.8) 02/03/18 06:38 RBC 2.99 Mil/uL (3.80-5.20) L 02/03/18 06:38 Hgb 9.5 g/dL (11.0-16.0) L 02/03/18 06:38 Hct 27.6 % (34.0-47.0) L 02/03/18 06:38 MCV 92.3 fL (81.0-99.0) 02/03/18 06:38 MCH 31.8 pg (27.0-31.0) H 02/03/18 06:38 MCHC 34.4 g/dL (33.0-37.0) 02/03/18 06:38 RDW 16.9 % (11.5-14.5) H 02/03/18 06:38 Plt Count 77 K/uL (130-400) L 02/03/18 06:38 MPV 10.0 fL (7.2-11.7) 02/03/18 06:38 Neut % (Auto) 74.3 % (50.0-75.0) 02/03/18 06:38 Lymph % (Auto) 17.1 % (20.0-40.0) L 02/03/18 06:38 Ponce % (Auto) 6.8 % (0.0-10.0) 02/03/18 06:38 Eos % (Auto) 1.2 % (0.0-4.0) 02/03/18 06:38 Baso % (Auto) 0.6 % (0.0-2.0) 02/03/18 06:38 Neut # (Auto) 4.8 K/uL (1.8-7.0) 02/03/18 06:38 Lymph # (Auto) 1.1 K/uL (1.0-4.3) 02/03/18 06:38 Ponce # (Auto) 0.4 K/uL (0.0-0.8) 02/03/18 06:38 Eos # (Auto) 0.1 K/uL (0.0-0.7) 02/03/18 06:38 Baso # (Auto) 0.0 K/uL (0.0-0.2) 02/03/18 06:38 Differential Comment 01/24/18 06:19 PT 11.2 SECONDS (9.7-12.2) 01/24/18 19:40 INR 1.0 01/24/18 19:40 Fibrinogen 73 mg/dL (200-400) L 02/03/18 12:24 Sodium 137 mmol/L (132-148) 02/03/18 06:38 Potassium 3.1 mmol/L (3.6-5.2) L 02/03/18 06:38 Chloride 101 mmol/L (98-107) 02/03/18 06:38 Carbon Dioxide 20 mmol/L (22-30) L 02/03/18 06:38 Anion Gap 19 (10-20) 02/03/18 06:38 BUN 48 mg/dL (7-17) H 02/03/18 06:38 Creatinine 2.3 mg/dL (0.7-1.2) H 02/03/18 06:38 Est GFR ( Amer) 25 02/03/18 06:38 Est GFR (Non-Af Amer) 21 02/03/18 06:38 POC Glucose (mg/dL) 131 mg/dL (65-110) H 02/03/18 17:15 Random Glucose 126 mg/dL (65-105) H 02/03/18 06:38 Lactic Acid 2.0 mmol/L (0.7-2.1) 01/28/18 15:00 Uric Acid 8.7 mg/dL (2.2-7.5) H 01/31/18 06:35 Calcium 10.6 mg/dl (8.6-10.4) H 02/03/18 06:38 Ionized Calcium 6.1 mg/dL (4.80-5.60) H 01/30/18 07:08 Phosphorus 4.2 mg/dL (2.5-4.5) 02/03/18 06:38 Magnesium 1.8 mg/dL (1.6-2.3) 02/03/18 06:38 Iron 125 ug/dL (37-170) 01/25/18 16:52 TIBC 258 ug/dL (250-450) 01/25/18 16:52 % Saturation 48 (20-55) 01/25/18 16:52 Ferritin 147.0 ng/mL 01/25/18 07:15 Total Bilirubin 0.8 mg/dL (0.2-1.3) 02/03/18 06:38 AST 18 U/L (14-36) 02/03/18 06:38 ALT 44 U/L (9-52) 02/03/18 06:38 Alkaline Phosphatase < 20 U/L (38-126) L 02/03/18 06:38 Troponin I 0.0130 ng/mL (0.00-0.120) 01/16/18 18:23 Total Protein 5.9 g/dL (6.3-8.3) L 02/03/18 06:38 Total Protein (PEP) 7.0 g/dL (6.1-8.1) 01/18/18 07:24 Albumin 4.6 g/dL (3.5-5.0) 02/03/18 06:38 Albumin (PEP) 3.6 g/dL (3.8-4.8) L 01/18/18 07:24 Globulin 1.3 gm/dL (2.2-3.9) L 02/03/18 06:38 Albumin/Globulin Ratio 3.5 (1.0-2.1) H 02/03/18 06:38 Giijl-6-Xqubecbli 1.9 Relative % 01/20/18 13:31 Kvwxh-2-Judacdsub 4.8 Relative % 01/20/18 13:31 Beta Globulins 9.6 Relative % 01/20/18 13:31 Ozes-5-Micbnkbc 0.4 g/dL (0.4-0.6) 01/18/18 07:24 Rfxs-1-Szscnunn 0.3 g/dL (0.2-0.5) 01/18/18 07:24 Wost-4-Yqcstdibatdhl 13.80 mg/L (<or= 2.51) H 01/27/18 06:23 Gamma Globulins 78.0 Relative % 01/20/18 13:31 Abnorm Protein Band 1 0.87 g/dL (None Detected) H 01/18/18 07:24 Abnorm Protein Band 2 0.20 g/dL (None Detected) H 01/18/18 07:24 Abnorm Protein Band 3 TEST NOT PERFORMED 01/18/18 07:24 Lipase 351 U/L (23-300) H 01/16/18 18:23 25-OH Vitamin D Total 68.5 NG/ML (30.0-100.0) 01/18/18 11:45 PTH Intact Whole Molec 14 pg/mL (14-64) 01/17/18 07:27 PTH Related Protein 18 pg/mL (14-27) 01/17/18 07:27 Urine Color Colorless (YELLOW) 01/16/18 18:39 Urine Clarity Clear (Clear) 01/16/18 18:39 Urine pH 7.0 (5.0-8.0) 01/16/18 18:39 Ur Specific [place] 1.005 (1.003-1.030) 01/16/18 18:39 Urine Protein 1+ mg/dL (NEGATIVE) H 01/16/18 18:39 Urine Glucose (UA) Normal mg/dL (Normal) 01/16/18 18:39 Urine Ketones Negative mg/dL (NEGATIVE) 01/16/18 18:39 Urine Blood 1+ (NEGATIVE) H 01/16/18 18:39 Urine Nitrate Negative (NEGATIVE) 01/16/18 18:39 Urine Bilirubin Negative (NEGATIVE) 01/16/18 18:39 Urine Urobilinogen Normal mg/dL (0.2-1.0) 10 18:39 Ur Leukocyte Esterase Neg Abdon/uL (Negative) 01/16/18 18:39 Urine WBC (Auto) 1 /hpf (0-5) 01/16/18 18:39 Urine RBC (Auto) 3 /hpf (0-3) 01/16/18 18:39 Urine Bacteria Rare (<OCC) 01/16/18 18:39 U Random Total Protein 4236 mg/g creat (21-161) H 01/20/18 14:20 Urine Collection Time 24 HRS 01/18/18 13:32 Urine Total Volume 2900 mL 01/18/18 13:32 Urine Creatinine 0.22 g/L 01/20/18 13:31 Ur Creatinine 24 Hour 0.65 g/24 h (0.63-2.50) 01/20/18 13:31 Ur Total Protein 24 Hr 2703 mg/24 h (<150) H 01/20/18 13:31 Protein/Creat Ratio 24h 4152 mg/g creat (</=84) H 01/20/18 13:31 Urine Calcium 8.2 mg/dL 01/18/18 13:32 Ur Calcium 24 Hr 237.8 mg/24hr (100-300) 01/18/18 13:32 Urine Total Protein 901 mg/L (50-240) H 01/20/18 13:31 Urine Albumin (PEP) 5.7 Relative % 01/20/18 13:31 Ur Protein Fractions See note 01/20/18 13:31 MARTINA & SPEP Interp See note 01/18/18 07:24 Serum Immunofixation Detected (Not Detected) H 01/18/18 07:24 [place]/Lambda Light Chain see note 01/18/18 07:24 Free [place] Light Chains 16373.8 mg/L (3.3-19.4) H 01/18/18 07:24 Free Lambda Light Chain 4.2 mg/L (5.7-26.3) L 01/18/18 07:24 Free [place]/Lambda Ratio 6776.38 (0.26-1.65) H 01/18/18 07:24 HIV 1&2 Antibody Screen Negative (NEGATIVE) 01/20/18 06:52 Blood Type B POSITIVE 01/29/18 10:35 Blood Type Confirm B POSITIVE 01/29/18 10:35 Antibody Screen Negative 01/29/18 10:35 Attending/Attestation - Attestation I have personally seen and examined this patient.: Yes I have fully participated in the care of the patient.: Yes I have reviewed all pertinent clinical information, including history, physical exam and plan: Yes Notes (Text): This is late computer entry for 02/03/18. Patient seen, examined, and case discussed with medical service technician. Patient reports she having normal bowel movements but reports rectal irritation as she goes. We will start Anusol per to reduce inflammation. Patient's fibriongen is above 100, patient will be getting 5th session of plasmapheresis today. Patient noted leg cramps primarily: calcium improving to 11.0. Patient will need to work to physcial therapy for deconditioning given recommendation for NELA. We will need to f/u with heme-oncology in regards to plan following completion of plasma exchange in regards to chemotherapeutics. patient has noted to be on steroids and completed one dose of cytotaxin. 1) Multiple Myeloma Assessment/Plan * newly diagnosed during inpatient * Nephrology (Dr. Espinal) on case-->help appreciated * Hematology (Dr. Minerva Bran) on case-->help appreciated * Vascular surgery (Dr. Lovell) on case-->help appreciated * Criteria: renal failure, anemia, lambda light chain, hypercalcemia * Confirmed with bone marrow biopsy result 01/24/2018 * Bone marrow biopsy results (01/20/18): markedly hypercellular marrow extensively involved by IgA [place] plasma cell myeloma (90%), mild reticulin fibrosis, no detectable iron staining. * Patient started plasma exchange on Friday, January 26 * Patient will need daily fibrinogen to monitor for DIC. DIC fibrinogen less than 100. * The dialysis catheter will placed as a temporary measure for at 5 sessions sessions of plasmapheresis over 10 days. The intent if the plasmapheresis is to replace a possible with albumin they will be 5 sessions one session every other day. Patient will be monitor with a fibrinogen. Sessions will be held a fibrinogen is less than 100. Patient will be monitored for DIC while receiving plasmapheresis. * Patient to receive 5th sessions today. * Treatment: Solumedrol 40mg IVP Q12H (active since 01/20/18), Cytoxan 600mg PO (01/26) * Patient received vascular access on 01/25/18. 2. Hypercalcemia Assessment/Plan * Secondary to multiple myeloma-->See #1 and #2 * Nephro recs (Dr. Espinal) appreciated * continue w/ IVF @125 cc/hr * calcitonin on board as temporizing measure * denosumab not available inpatient/hospital formular and bisphosphonates relatively contraindicated with advanced renal failure * continue PO lasix 60mg PO BID * Calcium improving with plasmapheresis Imaging * CT abd/pelvis (01/17): There are multiple on varying sized rounded lytic lesions scattered throughout all the osseous structures. Findings probably represent multiple myeloma however metastatic disease not excluded. Clinical correlation recommended. * Bone Scan: There are no correlates to findings on recent CT scan. Specifically the permeative pattern throughout thoracolumbar spine and pelvis constitutes lytic disease most likely myeloma * R shoulder XR (01/19): degenerative changes bilaterally. No acute findings. * B/L Forearm XR (01/19): no significant or acute findings to account for/related to the clinical presentation * Abd/pelv CT with PO and IV contrast (01/19): nnumerable lytic osseous lesions consistent with multiple myeloma or metastatic disease. Bibasilar atelectasis. Trace right pleural effusion. Small hiatal hernia. Evidence of mild gastroesophageal reflux. Borderline heptomegaly. Diverticulosis without CT evidence of acute diverticulitis. Moderate constipation. * Calcium 24 hr urine is normal at 237.8 * PTH intact is low normal at 14 * PTHr protein: 18 (01/17) * Vit D 68.5 3. Hypertensive urgency Essential hypertension Assessment/Plan * -has essential hypertension, hypercalcemia secondary to MM * ECHO (01/19) shows LVEF>70%. Diastolic dysfunction. Mild MR. Mild TR, mild pulmonary hypertension. Mild pulmonic valvular regurgitation. * held since bone marrow biopsy Aspirin 81mg PO daily * Atenolol 100mg PO daily * Hydralazine 100mg PO TID * Amlodipine 10 mg daily * Isosorbide dinitrate 10 mg PO TID * Lasix 60mg PO BID 4. Hypokalemia Assessment/Plan * repleted * monitor 5. acute renal injured injury seconday to Multiple myeloma Assessment/Plan * nephrology consult, Dr. Espinal, f/u recs * avoid nephrotoxic medications * cont IVF @125 cc/hr * Cr improved to 2.9 * 24 hr urine protein elevated, 4236 * Renal US: Findings consistent with underlying medical renal disease. No evidence of nephrolithiasis or hydronephrosis. 6. Acute Anemia secondary to Multiple myeloma Assessment/Plan * Anemia 2/2 underlying process related to hypercalcemia; r/o malignancy, multiple myeloma * Ferritin: 147 * ipep/spep: M spike * elevated kappa light chains * Bone marrow biopsy results (01/20/18): markedly hypercellular marrow extensively involved by IgA [place] plasma cell myeloma (90%), mild reticulin fibrosis, no detectable iron staining. 7. DM Assessment/Plan * Hold metformin due to elevated Cr * accuchecks QAC and HS 8. HLD Assessment/Plan * Hold statin given SHAY 9. Hypothyroidism Assessment/Plan * Levothyroxine 100mcg daily 10. PAD Assessment/Plan * Pentoxifylline 400mg PO BID 11. PPx, Diet, Disposition * VTE ppx: SCD * chemical anticoagulation held due to thrombocytopenia * GI ppx: Pepcid 20mg daily * PT/OT eval Dispo: Patient to undergo 5th session of plasmapheresis today
[2018-02-03 16:34] VITALS: BP 129/61; O2SAT 97
[2018-02-03 17:23] VITALS: PULSE 77
--- NOTE | 2018-02-03 21:38 | CP.PCM.PN ---
Subjective - Date & Time of Evaluation Date of Evaluation: 02/03/18 Time of Evaluation: 10:15 - Subjective Subjective: Nephrology progress note for Dr. Espinal's service Patient seen and examined at bedside this morning. No acute overnight events or new complaints reported. Hypercalcemia improving and will follow up as an outpatient with Dr. Bran for further myeloma treatment. Presently denies chest pain, palpitations, SOB. Objective - Vital Signs/Intake and Output Vital Signs (last 24 hours): Temp Pulse Resp BP Pulse Ox 98 F 77 20 129/61 97 02/03/18 15:32 02/03/18 16:00 02/03/18 15:32 02/03/18 15:32 02/03/18 15:32 Intake and Output: 02/03/18 02/04/18 18:59 06:59 Intake Total 1000 Balance 1000 - Labs Labs: 02/03/18 06:38 02/03/18 06:38 PT 11.2 SECONDS (9.7-12.2) 01/24/18 19:40 INR 1.0 01/24/18 19:40 - Constitutional Appears: No Acute Distress - Head Exam Head Exam: ATRAUMATIC, NORMAL INSPECTION, NORMOCEPHALIC - Eye Exam Eye Exam: EOMI, PERRL - ENT Exam ENT Exam: Mucous Membranes Moist - Neck Exam Neck Exam: Normal Inspection. absent: Lymphadenopathy, Tenderness, Thyromegaly - Respiratory Exam Respiratory Exam: Clear to Ausculation Bilateral. absent: Rales, Rhonchi, Wheezes - Cardiovascular Exam Cardiovascular Exam: RRR, +S1, +S2. absent: Gallop, Rubs - GI/Abdominal Exam GI & Abdominal Exam: Soft. absent: Guarding, Rigid, Tenderness, Rebound - Extremities Exam Extremities Exam: Normal Inspection. absent: Calf Tenderness, Tenderness - Neurological Exam Neurological Exam: Alert, Awake, CN II-XII Intact, Oriented x3 - Psychiatric Exam Psychiatric exam: Normal Affect, Normal Mood - Skin Skin Exam: Dry, Intact, Normal Color, Warm Assessment and Plan - Assessment and Plan (Free Text) Plan: 72 yo F admitted with severe hypercalcemia, lytic lesions, and acute renal failure 2/2 newly diagnosed multiple myeloma s/p plasma exchange, and cytoxan 1. Acute kidney injury 2. Hypertension 3. Hypercalcemia 4. Anemia - SHAY presumed secondary to myeloma kidney that appears to be improving with plasma exchange and chemo - s/p multiple sessions of plasma exchange as well as cytoxan treatment - Hypercalemia improving likely multifactorial citrate anti-coagulant used in plasma exchange acting as Ca chelator, MM may also be responding to chemo; IVF/lasix may also be helping; - BM biopsy showed marked hypercellular marrow extensively involved by IgA kappa plasma cell myeloma - Denosumab not available inpatient and bisphosphonates relatively contraindicated with advanced renal failure - Continue lasix 20mg PO daily and recommended high sodium diet to prevent volume depletion - Anemia presently stable s/p PRBC transfusion Case and plan was reviewed and discussed in detail with Dr Espinal.
--- NOTE | 2018-02-04 00:13 | CP.PCM.PN ---
Subjective - Date & Time of Evaluation Date of Evaluation: 02/03/18 Time of Evaluation: 12:00 - Subjective Subjective: Had final plasmapheresis yesterday. Objective - Vital Signs/Intake and Output Vital Signs (last 24 hours): Temp Pulse Resp BP Pulse Ox 98 F 77 20 129/61 97 02/03/18 15:32 02/03/18 16:00 02/03/18 15:32 02/03/18 15:32 02/03/18 15:32 Intake and Output: 02/03/18 02/04/18 18:59 06:59 Intake Total 1000 Balance 1000 - Labs Labs: 02/03/18 06:38 02/03/18 06:38 PT 11.2 SECONDS (9.7-12.2) 01/24/18 19:40 INR 1.0 01/24/18 19:40 - Head Exam Head Exam: ATRAUMATIC - Eye Exam Eye Exam: Normal appearance - ENT Exam ENT Exam: Mucous Membranes Dry - Respiratory Exam Respiratory Exam: NORMAL BREATHING PATTERN - Cardiovascular Exam Cardiovascular Exam: +S1, +S2 - GI/Abdominal Exam GI & Abdominal Exam: Normal Bowel Sounds Assessment and Plan (1) Multiple myeloma Assessment & Plan: s/p cytoxan s/p 5 sessions of plasmapheresis outpatient treatment Status: Acute (2) Hypercalcemia Assessment & Plan: improved Status: Acute
== END 2018-02-03 18:18 | disposition home or self-care (01) | DRG 578 ==
LOC: C.ER 16:55 → C.9E 21:37 → C.3T 23:09 → C.6T 01-19 22:51
PROVIDERS: ADMIT Hospitalist; ATTEND Hospitalist
PROC: 07DR3ZX Extraction of Iliac Bone Marrow, Percutaneous Approach, Diagnostic (ICD-10-PCS; principal; 2018-01-20)
PROC: 0JH63XZ Insertion of Tunneled Vascular Access Device into Chest Subcutaneous Tissue and Fascia, Percutaneous Approach (ICD-10-PCS; 2018-01-25)
PROC: 02HV33Z Insertion of Infusion Device into Superior Vena Cava, Percutaneous Approach (ICD-10-PCS; 2018-01-25)
PROC: B518ZZA Fluoroscopy of Superior Vena Cava, Guidance (ICD-10-PCS; 2018-01-25)
PROC: B543ZZA Ultrasonography of Right Jugular Veins, Guidance (ICD-10-PCS; 2018-01-25)
PROC: 6A551Z3 Pheresis of Plasma, Multiple (ICD-10-PCS; 2018-01-29)
PROC: 30233N1 Transfusion of Nonautologous Red Blood Cells into Peripheral Vein, Percutaneous Approach (ICD-10-PCS; 2018-01-29)
DX: C90.00 Multiple myeloma not having achieved remission (principal); N17.9 Acute kidney failure, unspecified; E87.6 Hypokalemia; D65 Disseminated intravascular coagulation [defibrination syndrome]; D69.6 Thrombocytopenia, unspecified; E86.0 Dehydration; D63.0 Anemia in neoplastic disease; E11.51 Type 2 diabetes mellitus with diabetic peripheral angiopathy without gangrene; I08.1 Rheumatic disorders of both mitral and tricuspid valves; I37.1 Nonrheumatic pulmonary valve insufficiency; J98.11 Atelectasis; I16.0 Hypertensive urgency; E11.65 Type 2 diabetes mellitus with hyperglycemia; E83.52 Hypercalcemia; I10 Essential (primary) hypertension; I27.20 Pulmonary hypertension, unspecified; E89.0 Postprocedural hypothyroidism; K21.9 Gastro-esophageal reflux disease without esophagitis; K44.9 Diaphragmatic hernia without obstruction or gangrene; K57.90 Diverticulosis of intestine, part unspecified, without perforation or abscess without bleeding; K59.00 Constipation, unspecified; R63.4 Abnormal weight loss; K62.89 Other specified diseases of anus and rectum; E78.5 Hyperlipidemia, unspecified; E78.00 Pure hypercholesterolemia, unspecified; Z79.82 Long term (current) use of aspirin; Z79.899 Other long term (current) drug therapy; Z86.73 Personal history of transient ischemic attack (TIA), and cerebral infarction without residual deficits; Z90.710 Acquired absence of both cervix and uterus; Z68.22 Body mass index [BMI] 22.0-22.9, adult

== ENCOUNTER 2018-03-06 01:14 | Inpatient (IN) | payer MEDICAID ==
[2018-03-06 01:15] VITALS: BMI 20.9
--- NOTE | 2018-03-06 01:25 | C.PDOC ---
History Of Present Illness 72 y/o female with PMHx of multiple myeloma presents to the ED for evaluation of nausea, vomiting, and epigastric pain for 2 days. Family states patient was seen by Dr. Bran on 03/02 and prescribed a new chemotherapy medication, Revlimid, which patient began taking 03/03. Thereafter patient began having recurrent episodes of nausea and vomiting, which increased in frequency tonight, prompting this ED visit. Patient has also been refusing food and taking in few fluids. As per family, patient has not urinated in ~6 hours. Otherwise family denies any fever, chills, cough, SOB, chest pain, diarrhea, bloody or dark stools, dysuria, hematuria, or other associated symptoms. Of note, patient has been receiving injections every Friday and Friday with Dr. Bran. PMD- Dr. Madrigal, the clinic Hem/onc- Dr. Bran Time Seen by Provider: 03/06/18 01:25 Chief Complaint (Nursing): GI Problem History Per: Family History/Exam Limitations: no limitations Onset/Duration Of Symptoms: Days (x2), Intermittent Episodes Current Symptoms Are (Timing): Still Present Past Medical History Reviewed: Historical Data, Nursing Documentation, Vital Signs - Medical History PMH: HTN, Hypercholesterolemia, Hypothyroidism, TIA (10 years ago) Denies: Chronic Kidney Disease - [facility] Procedures EXTRACTION OF ILIAC BONE MARROW, PERC APPROACH, DIAGN (01/16/18) FLUOROSCOPY OF SUPERIOR VENA CAVA, GUIDANCE (01/16/18) INSERTION OF INFUSION DEV INTO SUP VENA CAVA, PERC APPROACH (01/16/18) INSERTION OF VAD INTO CHEST SUBCU/FASCIA, PERC APPROACH (01/16/18) PHERESIS OF PLASMA, MULTIPLE (01/16/18) TRANSFUSE NONAUT RED BLOOD CELLS IN PERIPH VEIN, PERC (01/16/18) ULTRASONOGRAPHY OF RIGHT JUGULAR VEINS, GUIDANCE (01/16/18) Family History: States: Unknown Family Hx - Social History Hx Alcohol Use: No Hx Substance Use: No - Immunization History Hx Tetanus Toxoid Vaccination: (unk) Hx Influenza Vaccination: Yes (12/2017) Hx Pneumococcal Vaccination: No Review Of Systems Constitutional: Negative for: Fever, Chills Eyes: Negative for: Vision Change Cardiovascular: Negative for: Chest Pain, Palpitations Respiratory: Negative for: Cough, Shortness of Breath Gastrointestinal: Positive for: Nausea, Vomiting, Abdominal Pain (epigastric). Negative for: Diarrhea, Melena, Hematochezia Genitourinary: Negative for: Dysuria, Frequency, Hematuria Musculoskeletal: Positive for: Back Pain (chronic per pt) Skin: Negative for: Rash Neurological: Negative for: Weakness, Numbness, Incoordination, Change in Speech, Confusion, Altered Mental Status, Headache, Dizziness Physical Exam - Physical Exam Appears: Non-toxic, No Acute Distress, Chronically Ill Skin: Warm, Dry Head: Normacephalic Eye(s): bilateral: Normal Inspection, PERRL, EOMI Oral Mucosa: Moist Neck: Trachea Midline, Supple, Other (No meningeal signs- negative kernig's and brudzinskis) Chest: Symmetrical Cardiovascular: Rhythm Regular, Other (no rub) Respiratory: No Rales, No Rhonchi, No Wheezing Gastrointestinal/Abdominal: Soft, Tenderness (mild epigastric tenderness), No Guarding, No Rebound Back: No Vertebral Tenderness, Paraspinal Tenderness (right-sided) Extremity: Bilateral: Normal Color And Temperature Pulses: Left Dorsalis Pedis: Normal, Right Dorsalis Pedis: Normal Neurological/Psych: Oriented x3 ED Course And Treatment - Laboratory Results Result Diagrams: 03/06/18 02:51 03/06/18 02:51 Medical Decision Making Medical Decision Makin72 y/o F with pmhx of multiple myeloma, p/w recurrent nausea and vomiting for 2 days, started on Revlimid on 03/03/18. ?side effect of medication. afebrile here in ED and at home. Initial Plan: Labs EKG CT A/P Zofran 4 mg IVP NS IV fluids x 1 bolus EK, NSR, No stemi CT Abdomen/Pelvis resulted: IMPRESSION: Ileus. Unchanged osteopenia and multiple lytic lesion of the skeleton. Differential diagnosis includes multiple myeloma and/or metastatic disease. 0615 Consent done w/ bedside No dark or bloody stool pt afebrile, wbc 1.9. No urinary complaints Appreciate consult w/ Dr. Shabazz: to admit to his service pt in NAD, agreeable to plan Disposition - Disposition Disposition Time: 04:15 Condition: GOOD - Clinical Impression Clinical Impression: Hyponatremia, Anemia - Scribe Statement The provider has reviewed the documentation as recorded by the Silvia Marc Provider Attestation: All medical record entries made by the Scribe were at my direction and personally dictated by me. I have reviewed the chart and agree that the record accurately reflects my personal performance of the history, physical exam, medical decision making, and the department course for this patient. I have also personally directed, reviewed, and agree with the discharge instructions and disposition.
[2018-03-06] MEDS ORDERED: Sodium Chloride 0.9% 1,000 ML IV SCH (02:00)
[2018-03-06 02:53] LABS: LYMPH # 0.6 K/uL (1.0-4.3); MONO # 0.3 K/uL (0.0-0.8); NEUT # 0.9 K/uL (1.8-7.0)
[2018-03-06] MEDS ORDERED: Sodium Chloride 0.9% 1,000 ML ONE (02:53)
[2018-03-06 03:00] LABS: BASO % 0.5 % (0.0-2.0); LYMPH % 32.3 % (20.0-40.0); MEAN CELL VOLUME 91.6 fL (81.0-99.0); MEAN CORPUSCULAR HEMOGLOBIN 31.9 pg (27.0-31.0); MEAN CORPUSCULAR HGB CONC 34.8 g/dL (33.0-37.0); MEAN PLATELET VOLUME 11.1 fL (7.2-11.7); MONO % 16.4 % (0.0-10.0); NEUT % 48.8 % (50.0-75.0); NRBC % 0.3 % (0.0-2.0); RBC 1.96 Mil/uL (3.80-5.20)
[2018-03-06 03:04] LABS: HEMOGLOBIN 6.2 g/dL (11.0-16.0); WHITE BLOOD COUNT 1.9 K/uL (4.8-10.8)
[2018-03-06 03:07] LABS: ALB/GLOB RATIO 1.2 (1.0-2.1); CALCIUM 7.8 mg/dl (8.6-10.4)
[2018-03-06 03:31] LABS: INR 1.2
[2018-03-06] MEDS ORDERED: Potassium Chloride 20 mEq 100 ML ONE ×2 (04:43→08:03)
[2018-03-06] MEDS ORDERED: Magnesium Sulfate 1 gm in D5W 1 GM/100 ML BAG IVPB ONE ×2 (05:29→06:32)
[2018-03-06 05:46] LABS: SQUAMOUS EPITHIAL 15 /hpf (0-5); URINE BACTERIA OCC (<OCC); URINE BILIRUBIN NEGATIVE (NEGATIVE); URINE BLOOD 1+ (NEGATIVE); URINE CLARITY Hazy (Clear); URINE COLOR Yellow (YELLOW); URINE GLUCOSE (UA) NORMAL (Normal); URINE LEUKOCYTE ESTERASE 3+ Leu/uL (Negative); URINE PROTEIN 2+ mg/dL (NEGATIVE); URINE UROBILINOGEN NORMAL mg/dL (0.2-1.0)
--- NOTE | 2018-03-06 06:10 | CP.PCM.HP ---
<France Das - Last Filed: 03/06/18 05:50> History of Present Illness - History of Present Illness History of Present Illness: cc: "she's vomiting" Ms. Ryder is a 72 year old female PMH multiple myeloma, hypertension, diabetes, hypothyroidism, hyperlipidemia, PAD presents today for vomiting and abdominal pain x3 days. She sees Dr. Bran and started Revlimid on 03/03. Since then, her appetite has decreased and she has been increasingly unable to keep down solid foods. She immediately starts feeling nauseous upon swallowing and vomits within 30 min. She is able to keep down liquids, although she still feels nauseous and dry heaves. Her last BM was last night and normal. Her last u rination was nearly 24 ago. She has felt the fullness in her bladder (especially with the fluids she's received in the ED), but has been unable to push it out. Her pain is consistent with her chronic pain, except for her abdominal pain. The upper portion is described as hunger cramping and worsens when she gags. The lower portion is as described above due to her inability to urinate. Denies fever, chills, headache, dizziness, chest pain, palpitations, hematemesis, swelling, rash, bruisings, sick contacts, change in weight. PMD: Rohan Solis: Shant PMH: MM, HTN, DM, HLD, hypothyroidism, PAD Med: Amlodipine, Atenolol, Decadron, Hydralazine, Isordil, levothyroxine, Losartan/HCTZ, Metformin, Pentoxifyline, Revlimid, Simvastatin All: NKDA PSHx: hysterectomy 2008, thyroidectomy, breast cyst removal 2016, R IJ Permacath placement 2018 SocHx: Denies ever tobacco, alcohol, illicit drug FamHx: unknown Full Code Present on Admission - Present on Admission Any Indicators Present on Admission: No Review of Systems - Constitutional Constitutional: Lethargy, Malaise, Weakness. absent: Chills, Excessive Sweating, Fever - EENT Eyes: absent: Blurred Vision, Diplopia, Photophobia Ears: absent: Tinnitus, Dizziness Nose/Mouth/Throat: Dry Mouth, Dysphagia. absent: Odynophagia - Cardiovascular Cardiovascular: Lightheadedness. absent: Chest Pain, Claudication, Diaphoresis, Dyspnea, Edema, Palpitations - Respiratory Respiratory: absent: Cough, Dyspnea, Wheezing - Gastrointestinal Gastrointestinal: Abdominal Pain, Belching, Cramping, Dyspepsia, Nausea, Vomiting. absent: Constipation, Diarrhea, Dysphagia, Excessive Flatus, Hematemesis, Loose Stools, Melena, Odynophagia - Genitourinary Genitourinary: Difficulty Urinating, Urinary Hesitance, Bladder Distension. absent: Dysuria, Urinary Frequency, Urinary Urgency - Musculoskeletal Musculoskeletal: Arthralgias, Back Pain, Muscle Weakness, Stiffness. absent: Numbness, Tingling - Integumentary Integumentary: absent: Bleeding Lesions, Dry Skin, Rash, Swelling - Neurological Neurological: Weakness. absent: Dizziness, Numbness, Focal Weakness, Headaches, Syncope, Tingling - Psychiatric Psychiatric: Abnormal Sleep Pattern, Anxiety - Endocrine Endocrine: Cold Intolorance, Fatigue. absent: Heat Intolorance - Hematologic/Lymphatic Hematologic: absent: Easy Bleeding, Easy Bruising Past Patient History - Past Medical History & Family History Past Medical History?: Yes - Past Social History Smoking Status: Never Smoked Alcohol: None Drugs: Denies - CARDIAC Hx Hypercholesterolemia: Yes Hx Hypertension: Yes - PULMONARY Hx Respiratory Disorders: No - NEUROLOGICAL Hx Transient Ischemic Attacks (TIA): Yes (10 years ago) - HEENT Hx HEENT Problems: No Other/Comment: glasses - RENAL Hx Chronic Kidney Disease: No - ENDOCRINE/METABOLIC Hx Hypothyroidism: Yes - HEMATOLOGICAL/ONCOLOGICAL Hx Blood Disorders: No - INTEGUMENTARY Hx Dermatological Problems: Yes Other/Comment: cyst right breast - MUSCULOSKELETAL/RHEUMATOLOGICAL Hx Falls: No - GASTROINTESTINAL Hx Gastrointestinal Disorders: Yes Other/Comment: hx pancreatitis - GENITOURINARY/GYNECOLOGICAL Hx Genitourinary Disorders: No - PSYCHIATRIC Hx Substance Use: No - SURGICAL HISTORY Hx Surgeries: Yes Hx Hysterectomy: Yes Hx Thyroidectomy: Yes - ANESTHESIA Hx Anesthesia: Yes Hx Anesthesia Reactions: Yes (pt. states heart stopped on table 10 years ago) Hx Malignant Hyperthermia: No Meds Allergies/Adverse Reactions: Allergies Allergy/AdvReac Type Severity Reaction Status Date / Time No Known Allergies Allergy Verified 01/16/18 17:07 Physical Exam - Constitutional Appears: Non-toxic, No Acute Distress, Chronically Ill - Head Exam Head Exam: ATRAUMATIC, NORMOCEPHALIC - Eye Exam Eye Exam: EOMI, PERRL Pupil Exam: NORMAL ACCOMODATION Additional comments: arcus senilis - ENT Exam ENT Exam: Mucous Membranes Dry - Neck Exam Neck exam: Positive for: Normal Inspection. Negative for: Lymphadenopathy, Tenderness, Thyromegaly - Respiratory Exam Respiratory Exam: Decreased Breath Sounds, Clear to Auscultation Bilateral, NORMAL BREATHING PATTERN. absent: Rales, Rhonchi, Wheezes - Cardiovascular Exam Cardiovascular Exam: REGULAR RHYTHM, +S1, +S2, Systolic Murmur Additional comments: holosystolic murmur - GI/Abdominal Exam GI & Abdominal Exam: Guarding, Hypoactive Bowel Sounds, Soft, Tenderness. absent: Distended, Firm, Hernia, Rebound, Rigid - Rectal Exam Rectal Exam: NORMAL INSPECTION Additional comments: rectal vault empty - Exam Exam: NORMAL INSPECTION, Bladder Distension - Extremities Exam Extremities exam: Positive for: normal capillary refill, pedal pulses present. Negative for: calf tenderness, pedal edema, tenderness Additional comments: peripheral pulses palpable bilaterally (radial, DP) IV access bilaterally on forearms - Back Exam Back exam: paraspinal tenderness (chronic). absent: CVA tenderness (L), CVA tenderness (R) - Neurological Exam Neurological exam: Alert, CN II-XII Intact, Oriented x3, Reflexes Normal Additional comments: UE and LE 4/5 muscle strength - Psychiatric Exam Psychiatric exam: Anxious - Skin Skin Exam: Dry, Intact, Pallor, Warm Additional comments: multiple bruises from previous IV sticks Results - Vital Signs Recent Vital Signs: Last Vital Signs Temp 97.8 F 03/06/18 04:49 Pulse 79 03/06/18 04:49 Resp 16 03/06/18 04:49 BP 111/51 L 03/06/18 04:49 Pulse Ox 98 03/06/18 04:49 - Labs Result Diagrams: 03/06/18 02:51 03/06/18 02:51 Labs: Laboratory Results - last 24 hr 03/06/18 03/06/18 03/06/18 02:51 02:51 03:18 WBC 1.9 L* D RBC 1.96 L Hgb 6.2 L* D Hct 17.9 L MCV 91.6 MCH 31.9 H MCHC 34.8 RDW 18.0 H Plt Count 58 L MPV 11.1 Neut % (Auto) 48.8 L Lymph % (Auto) 32.3 Vance % (Auto) 16.4 H Eos % (Auto) 2.0 Baso % (Auto) 0.5 Neut # (Auto) 0.9 L Lymph # (Auto) 0.6 L Vance # (Auto) 0.3 Eos # (Auto) 0.0 Baso # (Auto) 0.0 PT INR APTT Sodium 126 L Potassium 2.9 L Chloride 90 L Carbon Dioxide 21 L Anion Gap 18 BUN 19 H Creatinine 1.8 H Est GFR ( Amer) 34 Est GFR (Non-Af Amer) 28 Random Glucose 113 H Calcium 7.8 L Magnesium 1.4 L Total Bilirubin 1.1 AST 63 H D ALT 88 H D Alkaline Phosphatase 80 Total Protein 7.3 Albumin 4.0 Globulin 3.2 Albumin/Globulin Ratio 1.2 Urine Color Urine Clarity Urine pH Ur Specific [place] Urine Protein Urine Glucose (UA) Urine Ketones Urine Blood Urine Nitrate Urine Bilirubin Urine Urobilinogen Ur Leukocyte Esterase Urine WBC (Auto) Urine RBC (Auto) Ur Squamous Epith Cells Urine Bacteria Blood Type B POSITIVE Antibody Screen Negative 03/06/18 03/06/18 03:18 05:28 WBC RBC Hgb Hct MCV MCH MCHC RDW Plt Count MPV Neut % (Auto) Lymph % (Auto) Vance % (Auto) Eos % (Auto) Baso % (Auto) Neut # (Auto) Lymph # (Auto) Vance # (Auto) Eos # (Auto) Baso # (Auto) PT 13.0 H INR 1.2 APTT 26 Sodium Potassium Chloride Carbon Dioxide Anion Gap BUN Creatinine Est GFR ( Amer) Est GFR (Non-Af Amer) Random Glucose Calcium Magnesium Total Bilirubin AST ALT Alkaline Phosphatase Total Protein Albumin Globulin Albumin/Globulin Ratio Urine Color Yellow Urine Clarity Hazy Urine pH 6.0 Ur Specific [place] 1.006 Urine Protein 2+ H Urine Glucose (UA) Normal Urine Ketones Negative Urine Blood 1+ H Urine Nitrate Negative Urine Bilirubin Negative Urine Urobilinogen Normal Ur Leukocyte Esterase 3+ H Urine WBC (Auto) 71 H Urine RBC (Auto) 8 H Ur Squamous Epith Cells 15 H Urine Bacteria Occ H Blood Type Antibody Screen - EKG Data EKG Interpreted by: ER Physician EKG shows normal: Sinus rhythm Rate: Normal Assessment & Plan - Assessment and Plan (Free Text) Assessment: 72yoF PMH MM, HTN, HLD, DM, hypothyroid, PAD admitted for anemia, electrolyte imbalance, vomiting probably 2/2 medication reaction after recent change for her MM. Plan: Abdominal Pain 2/2 vomiting - likely 2/2 recent medication change (started Revlimid 03/03) - CT A/P (03/06): pending read - K 2.9, CO2 21 on admission - AST/ALT 63/88 on admission - WBC 1.9, 48.8% Neuts - afebrile, asymptomatic aside from normal Multiple Myeloma symptoms - Zofran given in ED - Heme/Onc consulted: Dr. Bran - help appreciated Acute on Chronic Anemia - Hgb/Hct 6.2/17.9 on admission - Type and Crossed. 2u immuno PRBC transfused in ED - f/u repeat CBC at noon Hyponatremia - Na 126 on admission - received 2L NS in ED - f/u repeat CMP at noon Hypokalemia - K 2.9 on admission - given 20mEq in ED, another 20 mEq given - f/u CMP at noon - replete as needed Hypomagnesemia - Mg 1.4 on admission - repleted with MgSO4 - f/u Mg at noon Multiple Myeloma - see above - Ca 7.8, likely 2/2 MM - Plts 58 - Heme, Dr. Bran following - help appreciated Hypertension - patient has been hypotensive during this admission - holding most home meds, will add on as needed - home Amlodipine 10mg po daily held - home Atenolol 50mg po daily held - home hydralazine 100mg po q8 held - home Losartan/HCTZ 100-25 po daily held - home Isosorbide Dinitrate 10mg po tid - monitor vitals closely, add home meds as warranted Diabetes Mellitus - home Metformin held - ISS - Accucheck ACHS - hypoglycemia protocol Hyperlipidemia - home Simvastatin held Hypothyroidism - home Levothyroxine 88mcg po daily PAD - home Pentoxifylline 400mg PO BID - home Isosorbide dinitrate 10mg PO daily PPx - DVT: Chemical AC CI 2/2 low platelets, SCDs - GI: Pepcid 20mg IV daily. Consider switching to PO when tolerating po diet. - Diet: FLD. Adjust diet as tolerating - CM/SW consulted for d/c planning d/w Dr. Harika Das PGY-1 - Date & Time Date: 03/06/18 Time: 04:45 <Waqar Shabazz - Last Filed: 03/06/18 19:07> Results - Vital Signs Recent Vital Signs: Last Vital Signs Temp 98.4 F 03/06/18 18:13 Pulse 66 03/06/18 18:13 Resp 20 03/06/18 18:13 BP 145/64 03/06/18 18:13 Pulse Ox 100 03/06/18 18:13 - Labs Result Diagrams: 03/06/18 12:27 03/06/18 13:36 Labs: Laboratory Results - last 24 hr 03/06/18 03/06/18 03/06/18 02:51 02:51 03:18 WBC 1.9 L* D RBC 1.96 L Hgb 6.2 L* D Hct 17.9 L MCV 91.6 MCH 31.9 H MCHC 34.8 RDW 18.0 H Plt Count 58 L MPV 11.1 Neut % (Auto) 48.8 L Lymph % (Auto) 32.3 Vance % (Auto) 16.4 H Eos % (Auto) 2.0 Baso % (Auto) 0.5 Neut # (Auto) 0.9 L Lymph # (Auto) 0.6 L Vance # (Auto) 0.3 Eos # (Auto) 0.0 Baso # (Auto) 0.0 PT INR APTT Sodium 126 L Potassium 2.9 L Chloride 90 L Carbon Dioxide 21 L Anion Gap 18 BUN 19 H Creatinine 1.8 H Est GFR ( Amer) 34 Est GFR (Non-Af Amer) 28 POC Glucose (mg/dL) Random Glucose 113 H Serum Osmolality Lactic Acid Calcium 7.8 L Phosphorus Magnesium 1.4 L Total Bilirubin 1.1 AST 63 H D ALT 88 H D Alkaline Phosphatase 80 Total Creatine Kinase CK-MB (Mass) Troponin I Total Protein 7.3 Albumin 4.0 Globulin 3.2 Albumin/Globulin Ratio 1.2 Urine Color Urine Clarity Urine pH Ur Specific [place] Urine Protein Urine Glucose (UA) Urine Ketones Urine Blood Urine Nitrate Urine Bilirubin Urine Urobilinogen Ur Leukocyte Esterase Urine WBC (Auto) Urine RBC (Auto) Ur Squamous Epith Cells Urine Bacteria Urine Osmolality Ur Random Sodium Stool Occult Blood Blood Type B POSITIVE Antibody Screen Negative 03/06/18 03/06/18 03/06/18 03:18 05:28 05:52 WBC RBC Hgb Hct MCV MCH MCHC RDW Plt Count MPV Neut % (Auto) Lymph % (Auto) Vance % (Auto) Eos % (Auto) Baso % (Auto) Neut # (Auto) Lymph # (Auto) Vance # (Auto) Eos # (Auto) Baso # (Auto) PT 13.0 H INR 1.2 APTT 26 Sodium Potassium Chloride Carbon Dioxide Anion Gap BUN Creatinine Est GFR ( Amer) Est GFR (Non-Af Amer) POC Glucose (mg/dL) Random Glucose Serum Osmolality Lactic Acid Calcium Phosphorus Magnesium Total Bilirubin AST ALT Alkaline Phosphatase Total Creatine Kinase CK-MB (Mass) Troponin I Total Protein Albumin Globulin Albumin/Globulin Ratio Urine Color Yellow Urine Clarity Hazy Urine pH 6.0 Ur Specific [place] 1.006 Urine Protein 2+ H Urine Glucose (UA) Normal Urine Ketones Negative Urine Blood 1+ H Urine Nitrate Negative Urine Bilirubin Negative Urine Urobilinogen Normal Ur Leukocyte Esterase 3+ H Urine WBC (Auto) 71 H Urine RBC (Auto) 8 H Ur Squamous Epith Cells 15 H Urine Bacteria Occ H Urine Osmolality Ur Random Sodium Stool Occult Blood Negative Blood Type Antibody Screen 03/06/18 03/06/18 03/06/18 07:14 09:09 09:28 WBC RBC Hgb Hct MCV MCH MCHC RDW Plt Count MPV Neut % (Auto) Lymph % (Auto) Vance % (Auto) Eos % (Auto) Baso % (Auto) Neut # (Auto) Lymph # (Auto) Vance # (Auto) Eos # (Auto) Baso # (Auto) PT INR APTT Sodium Potassium Chloride Carbon Dioxide Anion Gap BUN Creatinine Est GFR ( Amer) Est GFR (Non-Af Amer) POC Glucose (mg/dL) 106 Random Glucose Serum Osmolality Lactic Acid Calcium Phosphorus Magnesium Total Bilirubin AST ALT Alkaline Phosphatase Total Creatine Kinase 41 CK-MB (Mass) 1.17 Troponin I 0.0200 Total Protein Albumin Globulin Albumin/Globulin Ratio Urine Color Urine Clarity Urine pH Ur Specific [place] Urine Protein Urine Glucose (UA) Urine Ketones Urine Blood Urine Nitrate Urine Bilirubin Urine Urobilinogen Ur Leukocyte Esterase Urine WBC (Auto) Urine RBC (Auto) Ur Squamous Epith Cells Urine Bacteria Urine Osmolality 136 L Ur Random Sodium 32 Stool Occult Blood Blood Type Antibody Screen 03/06/18 03/06/18 03/06/18 09:28 11:54 12:27 WBC 2.5 L RBC 2.73 L Hgb 8.7 L D Hct 25.1 L MCV 91.8 MCH 31.8 H MCHC 34.6 RDW 16.2 H Plt Count 60 L MPV 12.2 H Neut % (Auto) 43.9 L Lymph % (Auto) 36.2 Vance % (Auto) 16.7 H Eos % (Auto) 2.5 Baso % (Auto) 0.7 Neut # (Auto) 1.1 L Lymph # (Auto) 0.9 L Vance # (Auto) 0.4 Eos # (Auto) 0.1 Baso # (Auto) 0.0 PT INR APTT Sodium Potassium Chloride Carbon Dioxide Anion Gap BUN Creatinine Est GFR ( Amer) Est GFR (Non-Af Amer) POC Glucose (mg/dL) 106 Random Glucose Serum Osmolality Lactic Acid 1.1 Calcium Phosphorus Magnesium Total Bilirubin AST ALT Alkaline Phosphatase Total Creatine Kinase CK-MB (Mass) Troponin I Total Protein Albumin Globulin Albumin/Globulin Ratio Urine Color Urine Clarity Urine pH Ur Specific [place] Urine Protein Urine Glucose (UA) Urine Ketones Urine Blood Urine Nitrate Urine Bilirubin Urine Urobilinogen Ur Leukocyte Esterase Urine WBC (Auto) Urine RBC (Auto) Ur Squamous Epith Cells Urine Bacteria Urine Osmolality Ur Random Sodium Stool Occult Blood Blood Type Antibody Screen 03/06/18 03/06/18 03/06/18 12:47 13:36 17:12 WBC RBC Hgb Hct MCV MCH MCHC RDW Plt Count MPV Neut % (Auto) Lymph % (Auto) Vance % (Auto) Eos % (Auto) Baso % (Auto) Neut # (Auto) Lymph # (Auto) Vance # (Auto) Eos # (Auto) Baso # (Auto) PT INR APTT Sodium 130 L Potassium 4.7 Chloride 99 Carbon Dioxide 19 L Anion Gap 17 BUN 17 Creatinine 1.5 H Est GFR ( Amer) 41 Est GFR (Non-Af Amer) 34 POC Glucose (mg/dL) 95 Random Glucose 106 H Serum Osmolality 275 Lactic Acid Calcium 7.5 L Phosphorus 1.3 L Magnesium 1.7 Total Bilirubin 1.9 H AST 69 H ALT 69 H D Alkaline Phosphatase 63 Total Creatine Kinase CK-MB (Mass) Troponin I Total Protein 7.1 Albumin 4.0 Globulin 3.1 Albumin/Globulin Ratio 1.3 Urine Color Urine Clarity Urine pH Ur Specific [place] Urine Protein Urine Glucose (UA) Urine Ketones Urine Blood Urine Nitrate Urine Bilirubin Urine Urobilinogen Ur Leukocyte Esterase Urine WBC (Auto) Urine RBC (Auto) Ur Squamous Epith Cells Urine Bacteria Urine Osmolality Ur Random Sodium Stool Occult Blood Blood Type Antibody Screen Assessment & Plan - Date & Time Date: 03/06/18 (I have seen and examined the patient. I agree with the findings and plan of care as documented by Dr. Das. Patient with anemia. History of multiple myeloma. Recently added new medication. Has since complained of side effects including abdominal pain, unable to tolerate food. Consult to Dr Bran. Transfuse PRBCs. Monitor hemodynamic stability. Also with hyponatremia and hypokalemia. Likely volume depleted. IVF with KCl. Magnesium low. Replete. Recheck and continue to replete as necessary. Monitor for acute changes.) Time: 19:02 Attending/Attestation - Attestation I have personally seen and examined this patient.: Yes I have fully participated in the care of the patient.: Yes I have reviewed all pertinent clinical information: Yes
[2018-03-06] MEDS ORDERED: Dextrose 50% SYRINGE Inj (50 ml) IV PRN (06:18)
[2018-03-06] MEDS ORDERED: Glucagon Recombinant 1 mg Inj IM PRN (06:18)
[2018-03-06] MEDS: Levothyroxine 88 MCG TAB PO SCH (06:21)
[2018-03-06] MEDS: (Novolin R) Insulin Human Regular 100 units/ml vial SC SCH ×4 (08:09→21:16)
[2018-03-06 09:34] LABS: OSMOLALITY,URINE 136 mosm/kg (300-1000)
--- NOTE | 2018-03-06 09:48 | CP.PCM.PN ---
<Chencho Dye - Last Filed: 03/06/18 16:48> Subjective - Date & Time of Evaluation Date of Evaluation: 03/06/18 Time of Evaluation: 09:48 - Subjective Subjective: Hospitalist Service Pt seen and examined at bedside in ED. Pt now able to tolerate fluids, nauseau and vomiting has subsided since early this morning. Pt states pain is relieved from current analgesics. Pt denies CP, SOB FC. Objective - Vital Signs/Intake and Output Vital Signs (last 24 hours): Temp Pulse Resp BP Pulse Ox 98.3 F 83 17 145/64 99 03/06/18 08:07 03/06/18 09:31 03/06/18 09:31 03/06/18 09:31 03/06/18 09:31 - Medications Medications: Current Medications Dextrose (Dextrose 50% Inj) 0 ml IV STAT PRN; Protocol PRN Reason: Hypoglycemia Protocol Dextrose (Glutose 15) 0 gm PO ONCE PRN; Protocol PRN Reason: Hypoglycemia Protocol Famotidine (Pepcid) 20 mg IVP DAILY [facility] Glucagon (Glucagen Diagnostic Kit) 0 mg IM STAT PRN; Protocol PRN Reason: Hypoglycemia Protocol Sodium Chloride (Sodium Chloride 0.9%) 1,000 mls @ 100 mls/hr IV .Q10H [facility] Last Admin: 03/06/18 02:53 Dose: 100 mls/hr Dextrose (Dextrose 5% In Water 1000 Ml) 1,000 mls @ 0 mls/hr IV .Q0M PRN; Protocol PRN Reason: Hypoglycemia Protocol Insulin Human Regular (Novolin R) 0 unit SC ACHS [facility]; Protocol Last Admin: 03/06/18 08:09 Dose: Not Given Isosorbide Dinitrate (Isordil) 10 mg PO TID [facility] Levothyroxine Sodium (Synthroid) 88 mcg PO DAILY@0630 [facility] Last Admin: 03/06/18 06:21 Dose: 88 mcg Ondansetron HCl (Zofran Inj) 4 mg IVP Q4 PRN PRN Reason: Nausea/Vomiting Oxycodone HCl (Oxycodone Immediate Release Tab) 5 mg PO Q6 PRN PRN Reason: Pain, moderate (4-7) Pentoxifylline (Pentoxil) 400 mg PO BID [facility] - Labs Labs: 03/06/18 02:51 03/06/18 02:51 PT 13.0 SECONDS (9.7-12.2) H 03/06/18 03:18 INR 1.2 03/06/18 03:18 APTT 26 SECONDS (21-34) 03/06/18 03:18 Assessment and Plan - Assessment and Plan (Free Text) Assessment: 72yoF PMH MM, HTN, HLD, DM, hypothyroid, PAD admitted for anemia, electrolyte imbalance, vomiting probably 2/2 medication reaction after recent change for her MM. Pt follows with Dr Bran Out pt, recently started on Revilid VEGF inhibitor, pending recs Plan: Abdominal Pain 2/2 vomiting - curretly suspended - likely 2/2 recent medication change (started Revlimid 03/03) - CT A/P (03/06): no bowel obstruction, no signs of colitis, bony lytic lesions and metastases still seen. - K 2.9, CO2 21 on admission - AST/ALT 63/88 on admission - WBC 1.9, 48.8% Neuts - afebrile, asymptomatic aside from normal Multiple Myeloma symptoms - Zofran 4mg q4 IVP - Heme/Onc consulted: Dr. Bran - help appreciated Acute on Chronic Anemia - Hgb/Hct 8.7/25 NOW, UPTRENDING - Type and Crossed. 2u immuno PRBC transfused in ED Hyponatremia - Na 130 Now, uptrending - received 2L NS in ED Hypophosphatemia -1 pk NeutraPhos -f/u am CMP Hypokalemia - resolved Hypomagnesemia - resolved Multiple Myeloma - see above - Ca 7.8, likely 2/2 MM - Plts 60 - Heme, Dr. Bran following - help appreciated - Oxycodone HCL 5mg q6 PRN oral Hypertension - patient has been hypotensive during this admission - holding most home meds, will add on as needed - home Amlodipine 10mg po daily held - home Atenolol 50mg po daily held - home hydralazine 100mg po q8 held - home Losartan/HCTZ 100-25 po daily held - home Isosorbide Dinitrate 10mg po tid - monitor vitals closely, add home meds as warranted Diabetes Mellitus - home Metformin held - ISS - Accucheck ACHS - hypoglycemia protocol Hyperlipidemia - home Simvastatin held Hypothyroidism - home Levothyroxine 88mcg po daily PAD - home Pentoxifylline 400mg PO BID - home Isosorbide dinitrate 10mg PO daily PPx - DVT: Chemical AC CI 2/2 low platelets, SCDs - GI: Pepcid 20mg IV daily. Consider switching to PO when tolerating po diet. - Diet: FLD. Adjust diet as tolerating - CM/SW consulted for d/c planning Dispo: Likely discharge tmrw, pending [place] recs <Rayne Loco V - Last Filed: 03/09/18 14:02> Objective - Vital Signs/Intake and Output Vital Signs (last 24 hours): Temp Pulse Resp BP Pulse Ox 97.9 F 86 20 148/78 97 03/08/18 08:13 03/08/18 08:13 03/08/18 08:13 03/08/18 08:13 03/08/18 08:13 - Labs Labs: 03/08/18 07:25 03/08/18 07:25 PT 13.0 SECONDS (9.7-12.2) H 03/06/18 03:18 INR 1.2 03/06/18 03:18 APTT 26 SECONDS (21-34) 03/06/18 03:18 Attending/Attestation - Attestation I have personally seen and examined this patient.: Yes I have fully participated in the care of the patient.: Yes I have reviewed all pertinent clinical information, including history, physical exam and plan: Yes Notes (Text): This is late computer entry for 03/06/18. Patient seen, examined, and case discussed with medical coder. Patient in the emergency room awaiting bed for upstairs. d/c telemetry. Hgb improved post blood transfusion and electrolytes repleted as well Patient started liquid diet this evening but per nursing she has been taking small bites. Abdominal pain subsided. likely nausea secondary to chemotherapeutic nephrology and heme oncology to follow We will continue to monitor.
[2018-03-06 09:55] LABS: CK-MB 1.17 ng/mL (0.0-3.38); TROPONIN I 0.02 ng/mL (0.00-0.120)
[2018-03-06] MEDS ORDERED: oxyCODONE 5 mg Immediate Release Tab PO PRN (09:59)
[2018-03-06] MEDS: Sodium Chloride 0.9% 1,000 ML IV SCH ×2 (10:06→18:30)
--- NOTE | 2018-03-06 10:55 | CT ---
Date of service: 03/06/2018 PROCEDURE: CT Abdomen and Pelvis without intravenous contrast HISTORY: epigastric pain + Vomiting, hx of MM, CKD. COMPARISON: 01/19/2018 TECHNIQUE: Technique. Contrast dose: Radiation dose: Total exam DLP = 272.72 mGy-cm. This CT exam was performed using one or more of the following dose reduction techniques: Automated exposure control, adjustment of the mA and/or kV according to patient size, and/or use of iterative reconstruction technique. FINDINGS: LOWER THORAX: Unremarkable. LIVER: Unremarkable. No gross lesion or ductal dilatation. GALLBLADDER AND BILE DUCTS: Unremarkable. PANCREAS: Unremarkable. No gross lesion or ductal dilatation. SPLEEN: Unremarkable. ADRENALS: Unremarkable. No mass. KIDNEYS AND URETERS: Unremarkable. No hydronephrosis. No solid mass. VASCULATURE: Unremarkable. No aortic aneurysm. No aortic atherosclerotic calcification or mural plaque present. BOWEL: Unremarkable. No obstruction. No gross mural thickening. APPENDIX: Unremarkable. Normal appendix. PERITONEUM: Unremarkable. No free fluid. No free air. LYMPH NODES: Unremarkable. No enlarged lymph nodes. BLADDER: Unremarkable. REPRODUCTIVE: Unremarkable. BONES: Redemonstration of innumerable mixed lytic and sclerotic lesions compatible with metastatic disease or myeloma. OTHER FINDINGS: None. IMPRESSION: Redemonstration of innumerable mixed lytic and sclerotic lesions compatible with metastatic disease or myeloma.
[2018-03-06] MEDS ORDERED: Potassium Chloride 20 mEq/15 ml LIQ UD PO STA (11:05)
[2018-03-06] MEDS ORDERED: Potassium Chloride 20 mEq/15 ml LIQ UD ONE (11:55)
[2018-03-06 12:44] LABS: BASO % 0.7 % (0.0-2.0); EOS # 0.1 K/uL (0.0-0.7); EOS % 2.5 % (0.0-4.0); LYMPH # 0.9 K/uL (1.0-4.3); LYMPH % 36.2 % (20.0-40.0); MEAN CELL VOLUME 91.8 fL (81.0-99.0); MEAN CORPUSCULAR HEMOGLOBIN 31.8 pg (27.0-31.0); MEAN CORPUSCULAR HGB CONC 34.6 g/dL (33.0-37.0); MEAN PLATELET VOLUME 12.2 fL (7.2-11.7); MONO # 0.4 K/uL (0.0-0.8); MONO % 16.7 % (0.0-10.0); NEUT # 1.1 K/uL (1.8-7.0); NEUT % 43.9 % (50.0-75.0); NRBC % 0.1 % (0.0-2.0); RBC 2.73 Mil/uL (3.80-5.20); RED CELL DISTRIBUTION WIDTH 16.2 % (11.5-14.5); WHITE BLOOD COUNT 2.5 K/uL (4.8-10.8)
[2018-03-06 12:55] LABS: HEMOGLOBIN 8.7 g/dL (11.0-16.0)
[2018-03-06 14:48] LABS: ALB/GLOB RATIO 1.3 (1.0-2.1); CALCIUM 7.5 mg/dl (8.6-10.4)
[2018-03-06 18:15] VITALS: RESP 20
[2018-03-06] MEDS ORDERED: Potassium & Sodium Phosphate PO ONE (20:00)
[2018-03-07] MEDS: Levothyroxine 88 MCG TAB PO SCH (06:20)
[2018-03-07] MEDS: Sodium Chloride 0.9% 1,000 ML IV SCH ×3 (06:21→20:00)
[2018-03-07 07:43] LABS: BASO % 0.8 % (0.0-2.0); EOS # 0.1 K/uL (0.0-0.7); EOS % 3.6 % (0.0-4.0); LYMPH # 0.8 K/uL (1.0-4.3); LYMPH % 36.2 % (20.0-40.0); MEAN CELL VOLUME 91.1 fL (81.0-99.0); MEAN CORPUSCULAR HGB CONC 35.1 g/dL (33.0-37.0); MEAN PLATELET VOLUME 11.2 fL (7.2-11.7); MONO # 0.3 K/uL (0.0-0.8); NEUT % 45.4 % (50.0-75.0); NRBC % 0.1 % (0.0-2.0); RBC 2.51 Mil/uL (3.80-5.20); RED CELL DISTRIBUTION WIDTH 16.6 % (11.5-14.5); WHITE BLOOD COUNT 2.3 K/uL (4.8-10.8)
[2018-03-07] MEDS: (Novolin R) Insulin Human Regular 100 units/ml vial SC SCH ×4 (07:55→21:46)
[2018-03-07 08:11] LABS: ALB/GLOB RATIO 1.1 (1.0-2.1); ALBUMIN 3.3 g/dL (3.5-5.0); CALCIUM 7.9 mg/dl (8.6-10.4)
--- NOTE | 2018-03-07 14:41 | CP.PCM.CON ---
History of Present Illness - History of Present Illness History of Present Illness: 72 yo F w/ pmh of htn, DM, hypothyroidism, PAD, recently diagnosis multiple myeloma s/p plasma exchange treatment last month for acute renal failure, presented to ED yesterday with vomiting since previous 3 days, nephrology being consulted for electrolyte abnormalities/renal insufficiency; Patient was started on revlimid by oncology for MM about 1 week before presentation, was taking the med every other day; patient had been unable to keep down solid food; denies associated diarrhea; had not urinated in about 24 hrs prior to presentation; Patient was started on aggressive intravascular volume repletion as well as IV replenishment of electrolytes; she currently denies any nausea/vomiting; has been tolerating liquid diet; urinating well; ambulating well using cane without dizziness; denies any difficulty breathing; Review of Systems - EENT Nose/Mouth/Throat: absent: Sore Throat - Respiratory Respiratory: absent: Dyspnea - Gastrointestinal Gastrointestinal: As Per HPI - Genitourinary Genitourinary: As Per HPI - Musculoskeletal Additional comments: some pain in bilateral lower ribs; - Integumentary Integumentary: absent: Pruritus, Rash - Neurological Additional comments: numbness of feet; Past Patient History - Past Medical History & Family History Past Medical History?: Yes - Past Social History Smoking Status: Never Smoked - CARDIAC Hx Hypercholesterolemia: Yes Hx Hypertension: Yes - PULMONARY Hx Respiratory Disorders: No - NEUROLOGICAL Hx Transient Ischemic Attacks (TIA): Yes (10 years ago) - HEENT Hx HEENT Problems: No Other/Comment: glasses - RENAL Hx Chronic Kidney Disease: No - ENDOCRINE/METABOLIC Hx Diabetes Mellitus Type 2: Yes Hx Hypothyroidism: Yes - HEMATOLOGICAL/ONCOLOGICAL Hx Blood Disorders: No Hx Blood Transfusions: Yes Hx Bruising: Yes (rt chest and left arm) Hx Chemotherapy: Yes - INTEGUMENTARY Hx Dermatological Problems: Yes Other/Comment: cyst right breast - MUSCULOSKELETAL/RHEUMATOLOGICAL Hx Falls: No - GASTROINTESTINAL Hx Gastrointestinal Disorders: Yes Other/Comment: hx pancreatitis - GENITOURINARY/GYNECOLOGICAL Hx Genitourinary Disorders: No - PSYCHIATRIC Hx Substance Use: No - SURGICAL HISTORY Hx Surgeries: Yes Hx Hysterectomy: Yes Hx Thyroidectomy: Yes (15yrs ago in [place]) Other/Comment: breast cyst removal - ANESTHESIA Hx Anesthesia: Yes Hx Anesthesia Reactions: Yes (pt. states heart stopped on table 10 years ago) Hx Malignant Hyperthermia: No Meds Allergies/Adverse Reactions: Allergies Allergy/AdvReac Type Severity Reaction Status Date / Time No Known Allergies Allergy Verified 01/16/18 17:07 - Medications Medications: Current Medications Dextrose (Dextrose 50% Inj) 0 ml IV STAT PRN; Protocol PRN Reason: Hypoglycemia Protocol Dextrose (Glutose 15) 0 gm PO ONCE PRN; Protocol PRN Reason: Hypoglycemia Protocol Famotidine (Pepcid) 20 mg IVP DAILY [facility] Last Admin: 03/07/18 09:37 Dose: 20 mg Glucagon (Glucagen Diagnostic Kit) 0 mg IM STAT PRN; Protocol PRN Reason: Hypoglycemia Protocol Dextrose (Dextrose 5% In Water 1000 Ml) 1,000 mls @ 0 mls/hr IV .Q0M PRN; Protocol PRN Reason: Hypoglycemia Protocol Sodium Chloride (Sodium Chloride 0.9%) 1,000 mls @ 125 mls/hr IV .Q8H [facility] Last Admin: 03/07/18 06:21 Dose: 125 mls/hr Insulin Human Regular (Novolin R) 0 unit SC ACHS [facility]; Protocol Last Admin: 03/07/18 12:14 Dose: Not Given Isosorbide Dinitrate (Isordil) 10 mg PO TID [facility] Last Admin: 03/07/18 13:15 Dose: 10 mg Levothyroxine Sodium (Synthroid) 88 mcg PO DAILY@0630 [facility] Last Admin: 03/07/18 06:20 Dose: 88 mcg Ondansetron HCl (Zofran Inj) 4 mg IVP Q4 PRN PRN Reason: Nausea/Vomiting Oxycodone HCl (Oxycodone Immediate Release Tab) 5 mg PO Q6 PRN PRN Reason: Pain, moderate (4-7) Pentoxifylline (Pentoxil) 400 mg PO BID [facility] Last Admin: 03/07/18 09:37 Dose: 400 mg Physical Exam - Constitutional Appears: Well, Non-toxic, No Acute Distress - Eye Exam Eye Exam: Normal appearance - ENT Exam ENT Exam: Mucous Membranes Moist - Respiratory Exam Respiratory Exam: Clear to Auscultation Bilateral. absent: Respiratory Distress - Cardiovascular Exam Cardiovascular Exam: RRR, +S1, +S2 - GI/Abdominal Exam GI & Abdominal Exam: Soft. absent: Distended, Tenderness - Exam Exam: absent: Bladder Distension - Back Exam Back exam: absent: CVA tenderness (L), CVA tenderness (R) - Neurological Exam Neurological exam: Alert, Oriented x3 - Psychiatric Exam Psychiatric exam: Normal Affect, Normal Mood - Skin Skin Exam: Normal Color, Warm Results - Vital Signs Recent Vital Signs: Last Vital Signs Temp 99.3 F 03/07/18 08:20 Pulse 70 03/07/18 08:20 Resp 20 03/07/18 08:20 BP 145/70 03/07/18 08:20 Pulse Ox 97 03/07/18 08:20 - Labs Result Diagrams: 03/07/18 07:29 03/07/18 07:29 Labs: Laboratory Results - last 24 hr 03/06/18 03/06/18 03/06/18 09:28 13:36 17:12 WBC RBC Hgb Hct MCV MCH MCHC RDW Plt Count MPV Neut % (Auto) Lymph % (Auto) [place] % (Auto) Eos % (Auto) Baso % (Auto) Neut # (Auto) Lymph # (Auto) [place] # (Auto) Eos # (Auto) Baso # (Auto) Sodium 130 L Potassium 4.7 Chloride 99 Carbon Dioxide 19 L Anion Gap 17 BUN 17 Creatinine 1.5 H Est GFR ( Amer) 41 Est GFR (Non-Af Amer) 34 POC Glucose (mg/dL) 95 Random Glucose 106 H Calcium 7.5 L Phosphorus 1.3 L Magnesium 1.7 Total Bilirubin 1.9 H AST 69 H ALT 69 H D Alkaline Phosphatase 63 Total Protein 7.1 Albumin 4.0 Globulin 3.1 Albumin/Globulin Ratio 1.3 Procalcitonin 0.31 03/06/18 03/07/18 03/07/18 21:06 07:07 07:29 WBC 2.3 L RBC 2.51 L Hgb 8.0 L Hct 22.8 L MCV 91.1 MCH 32.0 H MCHC 35.1 RDW 16.6 H Plt Count 57 L MPV 11.2 Neut % (Auto) 45.4 L Lymph % (Auto) 36.2 [place] % (Auto) 14.0 H Eos % (Auto) 3.6 Baso % (Auto) 0.8 Neut # (Auto) 1.0 L Lymph # (Auto) 0.8 L [place] # (Auto) 0.3 Eos # (Auto) 0.1 Baso # (Auto) 0.0 Sodium Potassium Chloride Carbon Dioxide Anion Gap BUN Creatinine Est GFR ( Amer) Est GFR (Non-Af Amer) POC Glucose (mg/dL) 79 84 Random Glucose Calcium Phosphorus Magnesium Total Bilirubin AST ALT Alkaline Phosphatase Total Protein Albumin Globulin Albumin/Globulin Ratio Procalcitonin 03/07/18 03/07/18 07:29 11:18 WBC RBC Hgb Hct MCV MCH MCHC RDW Plt Count MPV Neut % (Auto) Lymph % (Auto) [place] % (Auto) Eos % (Auto) Baso % (Auto) Neut # (Auto) Lymph # (Auto) [place] # (Auto) Eos # (Auto) Baso # (Auto) Sodium 134 Potassium 3.7 Chloride 103 Carbon Dioxide 20 L Anion Gap 14 BUN 15 Creatinine 1.6 H Est GFR ( Amer) 38 Est GFR (Non-Af Amer) 32 POC Glucose (mg/dL) 80 Random Glucose 92 Calcium 7.9 L Phosphorus 1.3 L Magnesium 1.5 L Total Bilirubin 1.0 AST 57 H ALT 79 H Alkaline Phosphatase 60 Total Protein 6.4 Albumin 3.3 L Globulin 3.0 Albumin/Globulin Ratio 1.1 Procalcitonin Assessment & Plan (1) Acute renal failure Assessment and Plan: 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; renal function improved after multiple plasma exchange session last month; subsequently started on chemo about 10 days ago with revlimid with further improvement in renal function though not yet at baseline (creatinine in 10/2017 was 0.8); With mild pre-renal insult on presentation, improved with IVF; patient currently tolerating liquid diet; -Ok to d/c home if patient continues to tolerate diet well; -Continue to avoid nephrotoxic agents (NSAIDS, etc); -Need to avoid volume depletion in the setting of MM; patient also instructed to keep well hydrated; -Hold losartan/HCTZ on d/c (at least for the next few days; should also stop if any more vomiting); Status: Acute (2) Electrolyte abnormality Assessment and Plan: Hypokalemia and hyponatremia in the setting of persistent vomiting and volume depletion, resolving; replenishing phos PO; Status: Acute (3) HTN (hypertension) Assessment and Plan: BP mildly elevated; can restart home meds on d/c except for ARB/diuretic as mentioned above; Status: Acute
[2018-03-07] MEDS: Potassium & Sodium Phosphate PO SCH ×2 (15:11→18:02)
[2018-03-07] MEDS ORDERED: Magnesium Sulfate 1 gm in D5W 1 GM/100 ML BAG IVPB ONE (15:19)
--- NOTE | 2018-03-07 17:07 | CP.PCM.DIS ---
<Brayan Lazcano - Last Filed: 03/08/18 14:42> Provider - Provider Date of Admission: 03/06/18 04:13 Attending physician: Rayne Loco DO Time Spent in preparation of Discharge (in minutes): 35 Hospital Course - Lab Results Lab Results: Micro Results 03/06/18 09:15 Blood Blood Culture - Preliminary NO GROWTH AFTER 24 HOURS 03/06/18 09:30 Blood Blood Culture - Preliminary NO GROWTH AFTER 24 HOURS Most Recent Lab Values WBC 2.3 K/uL (4.8-10.8) L 03/07/18 07:29 RBC 2.51 Mil/uL (3.80-5.20) L 03/07/18 07:29 Hgb 8.0 g/dL (11.0-16.0) L 03/07/18 07: Hct 22.8 % (34.0-47.0) L 03/07/18 07: MCV 91.1 fL (81.0-99.0) 03/07/18 07: MCH 32.0 pg (27.0-31.0) H 03/07/18 07: MCHC 35.1 g/dL (33.0-37.0) 03/07/18 07: RDW 16.6 % (11.5-14.5) H 03/07/18 07: Plt Count 57 K/uL (130-400) L 03/07/18 07:29 MPV 11.2 fL (7.2-11.7) 03/07/18 07: Neut % (Auto) 45.4 % (50.0-75.0) L 03/07/18 07: Lymph % (Auto) 36.2 % (20.0-40.0) 03/07/18 07: [place] % (Auto) 14.0 % (0.0-10.0) H 03/07/18 07: Eos % (Auto) 3.6 % (0.0-4.0) 03/07/18 07: Baso % (Auto) 0.8 % (0.0-2.0) 03/07/18 07: Neut # (Auto) 1.0 K/uL (1.8-7.0) L 03/07/18 07:29 Lymph # (Auto) 0.8 K/uL (1.0-4.3) L 03/07/18 07:29 [place] # (Auto) 0.3 K/uL (0.0-0.8) 03/07/18 07:29 Eos # (Auto) 0.1 K/uL (0.0-0.7) 03/07/18 07:29 Baso # (Auto) 0.0 K/uL (0.0-0.2) 03/07/18 07:29 PT 13.0 SECONDS (9.7-12.2) H 03/06/18 03:18 INR 1.2 03/06/18 03:18 APTT 26 SECONDS (21-34) 03/06/18 03:18 Sodium 134 mmol/L (132-148) 03/07/18 07:29 Potassium 3.7 mmol/L (3.6-5.2) 03/07/18 07:29 Chloride 103 mmol/L (98-107) 03/07/18 07:29 Carbon Dioxide 20 mmol/L (22-30) L 03/07/18 07:29 Anion Gap 14 (10-20) 03/07/18 07:29 BUN 15 mg/dL (7-17) 03/07/18 07:29 Creatinine 1.6 mg/dL (0.7-1.2) H 03/07/18 07:29 Est GFR ( Amer) 38 03/07/18 07:29 Est GFR (Non-Af Amer) 32 03/07/18 07:29 POC Glucose (mg/dL) 93 mg/dL (65-110) 03/07/18 16:19 Random Glucose 92 mg/dL (65-105) 03/07/18 07:29 Serum Osmolality 275 mosm/kg (272-300) 03/06/18 12:47 Lactic Acid 1.1 mmol/L (0.7-2.1) 03/06/18 09:28 Calcium 7.9 mg/dl (8.6-10.4) L 03/07/18 07:29 Phosphorus 1.3 mg/dL (2.5-4.5) L 03/07/18 07:29 Magnesium 1.5 mg/dL (1.6-2.3) L 03/07/18 07:29 Total Bilirubin 1.0 mg/dL (0.2-1.3) 03/07/18 07:29 AST 57 U/L (14-36) H 03/07/18 07:29 ALT 79 U/L (9-52) H 03/07/18 07:29 Alkaline Phosphatase 60 U/L (38-126) 03/07/18 07:29 Total Creatine Kinase 41 U/L (30-135) 03/06/18 09:28 CK-MB (Mass) 1.17 ng/mL (0.0-3.38) 03/06/18 09:28 Troponin I 0.0200 ng/mL (0.00-0.120) 03/06/18 09:28 Total Protein 6.4 g/dL (6.3-8.3) 03/07/18 07:29 Albumin 3.3 g/dL (3.5-5.0) L 03/07/18 07:29 Globulin 3.0 gm/dL (2.2-3.9) 03/07/18 07:29 Albumin/Globulin Ratio 1.1 (1.0-2.1) 03/07/18 07:29 Procalcitonin 0.31 NG/ML (0.19-0.49) 03/06/18 09:28 Urine Color Yellow (YELLOW) 03/06/18 05:28 Urine Clarity Hazy (Clear) 03/06/18 05:28 Urine pH 6.0 (5.0-8.0) 03/06/18 05:28 Ur Specific [place] 1.006 (1.003-1.030) 03/06/18 05:28 Urine Protein 2+ mg/dL (NEGATIVE) H 03/06/18 05:28 Urine Glucose (UA) Normal mg/dL (Normal) 03/06/18 05:28 Urine Ketones Negative mg/dL (NEGATIVE) 03/06/18 05:28 Urine Blood 1+ (NEGATIVE) H 03/06/18 05:28 Urine Nitrate Negative (NEGATIVE) 03/06/18 05:28 Urine Bilirubin Negative (NEGATIVE) 03/06/18 05:28 Urine Urobilinogen Normal mg/dL (0.2-1.0) 03/06/18 05:28 Ur Leukocyte Esterase 3+ Abdon/uL (Negative) H 11/23/18 05:28 Urine WBC (Auto) 71 /hpf (0-5) H 03/06/18 05:28 Urine RBC (Auto) 8 /hpf (0-3) H 03/06/18 05:28 Ur Squamous Epith Cells 15 /hpf (0-5) H 03/06/18 05:28 Urine Bacteria Occ (<OCC) H 03/06/18 05:28 Urine Osmolality 136 mosm/kg (300-1000) L 03/06/18 09:09 Ur Random Sodium 32 mmol/L 03/06/18 09:09 Stool Occult Blood Negative (NEGATIVE) 03/06/18 05:52 Blood Type B POSITIVE 03/06/18 03:18 Antibody Screen Negative 03/06/18 03:18 - Hospital Course Hospital Course: On admission: Ms. Ryder is a 72 year old female PMH multiple myeloma, hypertension, diabetes, hypothyroidism, hyperlipidemia, PAD presents today for vomiting and abdominal pain x3 days. She sees Dr. Bran and started Revlimid on 03/03. Since then, her appetite has decreased and she has been increasingly unable to keep down solid foods. She immediately starts feeling nauseous upon swallowing and vomits within 30 min. She is able to keep down liquids, although she still feels nauseous and dry heaves. Her last BM was last night and normal. Her last urination was nearly 24 ago. She has felt the fullness in her bladder (especially with the fluids she's received in the ED), but has been unable to push it out. Her pain is consistent with her chronic pain, except for her abdominal pain. The upper portion is described as hunger cramping and worsens when she gags. The lower portion is as described above due to her inability to urinate. Denies fever, chills, headache, dizziness, chest pain, palpitations, hematemesis, swelling, rash, bruisings, sick contacts, change in weight. Hospital course: Pt was admitted for abdominal pain, with n/v. She was under the care of hospitalist from 03/06-03/08. CT A/P (03/06): no bowel obstruction, no signs of colitis, bony lytic lesions and metastases still seen. Troponin was wnl, EKG was unremarkable. Electrolyte abnormalities were corrected. Dr. Espinal was consulted for SHAY. Pt with mild pre-renal insult on presentation, improved with IVF; patient currently tolerating regular diet and without abdominal pain. Will be discharged home with instructions to follow up with her heme/onc, nephrology and at the clinic. Discharge plan: Pt is medically stable for discharge home as per Dr. Loco. Pt instructed to not take her BP medication until Friday, otherwise to resume prior medications as prescribed. Start Zofran 4 mg PO q8h as needed for nausea or vomiting. Pt instructed to follow up with Dr. Bran on friday 03/09, and to follow up with clinic and Dr. Espinal within 1 week of discharge home. If symptoms worsen please go to the nearest Emergency Department for evaluation. Instructions explained to the pt, who understands and agrees with discharge plan. Discharge Exam - Head Exam Head Exam: ATRAUMATIC, NORMOCEPHALIC - Additional Findings Additional findings: - Constitutional Appears: Well, Non-toxic, No Acute Distress - Eye Exam Eye Exam: Normal appearance - ENT Exam ENT Exam: Mucous Membranes Moist - Respiratory Exam Respiratory Exam: Clear to Auscultation Bilateral. absent: Respiratory Distress - Cardiovascular Exam Cardiovascular Exam: RRR, +S1, +S2 - GI/Abdominal Exam GI & Abdominal Exam: Soft. absent: Distended, Tenderness - Exam Exam: absent: Bladder Distension - Back Exam Back exam: absent: CVA tenderness (L), CVA tenderness (R) - Neurological Exam Neurological exam: Alert, Oriented x3 - Psychiatric Exam Psychiatric exam: Normal Affect, Normal Mood - Skin Skin Exam: Normal Color, Warm Discharge Plan - Discharge Medications Prescriptions: Ondansetron ODT [Zofran ODT] 4 mg PO Q8H PRN #12 odt PRN Reason: Nausea/Vomiting - Follow Up Plan Condition: GOOD Disposition: HOME/ ROUTINE Instructions: Anemia of Chronic Disease (DC), Hyponatremia (DC), Ondansetron Additional Instructions: Pt is medically stable for discharge home as per Dr. Loco. Pt instructed to not take her BP medication until Friday, otherwise to resume prior medications as prescribed. Start Zofran 4 mg PO q8h as needed for nausea or vomiting. Pt instructed to follow up with Dr. Bran on friday 03/09, and to follow up with clinic and Dr. Espinal within 1 week of discharge home. If symptoms worsen please go to the nearest Emergency Department for evaluation. Instructions explained to the pt, who understands and agrees with discharge plan. Referrals: [facility] at [facility] [Outside] Yves Bran MD [Staff Provider] - Yrn Espinal MD [Staff Provider] - <Rayne Loco V - Last Filed: 03/09/18 14:15> Provider - Provider Date of Admission: 03/06/18 04:13 Attending physician: Rayne Loco, Hospital Course - Lab Results Lab Results: Micro Results 03/06/18 09:15 Blood Blood Culture - Preliminary NO GROWTH AFTER 3 DAYS 03/06/18 09:30 Blood Blood Culture - Preliminary NO GROWTH AFTER 3 DAYS 03/06/18 09:11 Urine,Clean Catch Urine Culture - Final No Growth (<1,000 CFU/ML) Most Recent Lab Values WBC 2.4 K/uL (4.8-10.8) L 03/08/18 07:25 RBC 2.39 Mil/uL (3.80-5.20) L 03/08/18 07:25 Hgb 7.6 g/dL (11.0-16.0) L 03/08/18 07:25 Hct 21.8 % (34.0-47.0) L 03/08/18 07:25 MCV 91.3 fL (81.0-99.0) 03/08/18 07:25 MCH 31.9 pg (27.0-31.0) H 03/08/18 07:25 MCHC 34.9 g/dL (33.0-37.0) 03/08/18 07:25 RDW 16.7 % (11.5-14.5) H 03/08/18 07:25 Plt Count 62 K/uL (130-400) L 03/08/18 07:25 MPV 10.7 fL (7.2-11.7) 03/08/18 07:25 Neut % (Auto) 45.2 % (50.0-75.0) L 03/08/18 07:25 Lymph % (Auto) 36.7 % (20.0-40.0) 03/08/18 07:25 [place] % (Auto) 13.6 % (0.0-10.0) H 03/08/18 07:25 Eos % (Auto) 4.0 % (0.0-4.0) 03/08/18 07:25 Baso % (Auto) 0.5 % (0.0-2.0) 03/08/18 07:25 Neut # (Auto) 1.1 K/uL (1.8-7.0) L 03/08/18 07:25 Lymph # (Auto) 0.9 K/uL (1.0-4.3) L 03/08/18 07:25 [place] # (Auto) 0.3 K/uL (0.0-0.8) 03/08/18 07:25 Eos # (Auto) 0.1 K/uL (0.0-0.7) 03/08/18 07:25 Baso # (Auto) 0.0 K/uL (0.0-0.2) 03/08/18 07:25 PT 13.0 SECONDS (9.7-12.2) H 03/06/18 03:18 INR 1.2 03/06/18 03:18 APTT 26 SECONDS (21-34) 03/06/18 03:18 Sodium 135 mmol/L (132-148) 03/08/18 07:25 Potassium 3.4 mmol/L (3.6-5.2) L 03/08/18 07:25 Chloride 105 mmol/L (98-107) 03/08/18 07:25 Carbon Dioxide 18 mmol/L (22-30) L 03/08/18 07:25 Anion Gap 16 (10-20) 03/08/18 07:25 BUN 12 mg/dL (7-17) 03/08/18 07:25 Creatinine 1.6 mg/dL (0.7-1.2) H 03/08/18 07:25 Est GFR ( Amer) 38 03/08/18 07:25 Est GFR (Non-Af Amer) 32 03/08/18 07:25 POC Glucose (mg/dL) 98 mg/dL (65-110) 03/08/18 11:24 Random Glucose 119 mg/dL (65-105) H 03/08/18 07:25 Serum Osmolality 275 mosm/kg (272-300) 03/06/18 12:47 Lactic Acid 1.1 mmol/L (0.7-2.1) 03/06/18 09:28 Calcium 7.8 mg/dl (8.6-10.4) L 03/08/18 07:25 Phosphorus 1.7 mg/dL (2.5-4.5) L 03/08/18 07:25 Magnesium 1.6 mg/dL (1.6-2.3) 03/08/18 07:25 Total Bilirubin 0.7 mg/dL (0.2-1.3) 03/08/18 07:25 AST 53 U/L (14-36) H 03/08/18 07:25 ALT 74 U/L (9-52) H 03/08/18 07:25 Alkaline Phosphatase 57 U/L (38-126) 03/08/18 07:25 Total Creatine Kinase 41 U/L (30-135) 03/06/18 09:28 CK-MB (Mass) 1.17 ng/mL (0.0-3.38) 03/06/18 09:28 Troponin I 0.0200 ng/mL (0.00-0.120) 03/06/18 09:28 Total Protein 6.1 g/dL (6.3-8.3) L 03/08/18 07:25 Albumin 3.2 g/dL (3.5-5.0) L 03/08/18 07:25 Globulin 2.9 gm/dL (2.2-3.9) 03/08/18 07:25 Albumin/Globulin Ratio 1.1 (1.0-2.1) 03/08/18 07:25 Procalcitonin 0.31 NG/ML (0.19-0.49) 03/06/18 09:28 Urine Color Yellow (YELLOW) 03/06/18 05:28 Urine Clarity Hazy (Clear) 03/06/18 05:28 Urine pH 6.0 (5.0-8.0) 03/06/18 05:28 Ur Specific [place] 1.006 (1.003-1.030) 03/06/18 05:28 Urine Protein 2+ mg/dL (NEGATIVE) H 03/06/18 05:28 Urine Glucose (UA) Normal mg/dL (Normal) 03/06/18 05:28 Urine Ketones Negative mg/dL (NEGATIVE) 03/06/18 05:28 Urine Blood 1+ (NEGATIVE) H 03/06/18 05:28 Urine Nitrate Negative (NEGATIVE) 03/06/18 05:28 Urine Bilirubin Negative (NEGATIVE) 03/06/18 05:28 Urine Urobilinogen Normal mg/dL (0.2-1.0) 03/06/18 05:28 Ur Leukocyte Esterase 3+ Abdon/uL (Negative) H 03/06/18 05:28 Urine WBC (Auto) 71 /hpf (0-5) H 03/06/18 05:28 Urine RBC (Auto) 8 /hpf (0-3) H 03/06/18 05:28 Ur Squamous Epith Cells 15 /hpf (0-5) H 03/06/18 05:28 Urine Bacteria Occ (<OCC) H 03/06/18 05:28 Urine Osmolality 136 mosm/kg (300-1000) L 03/06/18 09:09 Ur Random Sodium 32 mmol/L 03/06/18 09:09 Stool Occult Blood Negative (NEGATIVE) 03/06/18 05:52 Blood Type B POSITIVE 03/06/18 03:18 Antibody Screen Negative 03/06/18 03:18 Attending/Attestation - Attestation I have personally seen and examined this patient.: Yes I have fully participated in the care of the patient.: Yes I have reviewed all pertinent clinical information, including history, physical exam and plan: Yes Notes (Text): This is late computer entry for 03/08/18. Patient seen, examined, and case discussed with medical care manager. Patient seen this morning. Patient is tolerating diet. no longer has abdominal pain. Patient to make adjustments to blood pressure medications as recommended by nephrology. Patient has appointment with heme onc tomorrow and nephrology on the . Cultures are negative for any underlying infection. Patient is medically stable for discharge. Patient prescribes Zofran as needed for nausea on discharge for symptom relief. This is a summary of patient's hospitalization. please see emr for full detail of record. Discharge Diagnoses: 1) Nausea secondary to Chemotherapeutic (Controlled) 2) Anemia, multifactorial secondary to Multiple myeloma and medication side effect 3) hypokalemia resolved
--- NOTE | 2018-03-07 20:05 | CARD ---
APPROVED REPORT Date of service: 03/06/2018 EKG Measurement Heart [id number] <Conclusion> Normal sinus rhythm Minimal voltage criteria for LVH, may be normal variant Nonspecific ST abnormality Abnormal ECG
[2018-03-08] MEDS: Sodium Chloride 0.9% 1,000 ML IV SCH ×3 (01:45→10:05)
[2018-03-08] MEDS: Levothyroxine 88 MCG TAB PO SCH (06:00)
[2018-03-08 07:44] LABS: BASO % 0.5 % (0.0-2.0); EOS # 0.1 K/uL (0.0-0.7); HEMOGLOBIN 7.6 g/dL (11.0-16.0); LYMPH # 0.9 K/uL (1.0-4.3); LYMPH % 36.7 % (20.0-40.0); MEAN CELL VOLUME 91.3 fL (81.0-99.0); MEAN CORPUSCULAR HEMOGLOBIN 31.9 pg (27.0-31.0); MEAN CORPUSCULAR HGB CONC 34.9 g/dL (33.0-37.0); MEAN PLATELET VOLUME 10.7 fL (7.2-11.7); MONO # 0.3 K/uL (0.0-0.8); MONO % 13.6 % (0.0-10.0); NEUT # 1.1 K/uL (1.8-7.0); NEUT % 45.2 % (50.0-75.0); NRBC % 0.1 % (0.0-2.0); RBC 2.39 Mil/uL (3.80-5.20); RED CELL DISTRIBUTION WIDTH 16.7 % (11.5-14.5); WHITE BLOOD COUNT 2.4 K/uL (4.8-10.8)
[2018-03-08] MEDS: (Novolin R) Insulin Human Regular 100 units/ml vial SC SCH ×2 (07:58→12:40)
[2018-03-08 08:02] LABS: ALB/GLOB RATIO 1.1 (1.0-2.1); ALBUMIN 3.2 g/dL (3.5-5.0); CALCIUM 7.8 mg/dl (8.6-10.4)
[2018-03-08 08:14] VITALS: BP 148/78; PULSE 86; TEMP 97.9; O2SAT 97
[2018-03-08] MEDS: Potassium & Sodium Phosphate PO SCH ×2 (09:38→13:59)
--- NOTE | 2018-03-08 14:45 | CP.PCM.PN ---
<NenoBrayan - Last Filed: 03/08/18 14:46> Subjective - Date & Time of Evaluation Date of Evaluation: 03/07/18 Time of Evaluation: 10:00 - Subjective Subjective: PGY-1 Medicine progress note for Dr. Loco Pt was seen and evaluated at bedside. Pt is resting comfortably. Pt has no complaints at this time. She is requesting to eat a normal meal. Pt denies fever, chills, chest pain, sob, abdominal pain, n/v/d, hematochezia, melena, any other bleeding. Objective - Vital Signs/Intake and Output Vital Signs (last 24 hours): Temp Pulse Resp BP Pulse Ox 97.9 F 86 20 148/78 97 03/08/18 08:13 03/08/18 08:13 03/08/18 08:13 03/08/18 08:13 03/08/18 08:13 Intake and Output: 03/08/18 03/08/18 06:59 18:59 Intake Total 1300 Balance 1300 - Labs Labs: 03/08/18 07:25 03/08/18 07:25 PT 13.0 SECONDS (9.7-12.2) H 03/06/18 03:18 INR 1.2 03/06/18 03:18 APTT 26 SECONDS (21-34) 03/06/18 03:18 - Constitutional Appears: Non-toxic, No Acute Distress - Head Exam Head Exam: ATRAUMATIC, NORMAL INSPECTION - Eye Exam Eye Exam: EOMI - Respiratory Exam Respiratory Exam: Clear to Ausculation Bilateral. absent: Rales, Rhonchi, Wheezes - Cardiovascular Exam Cardiovascular Exam: REGULAR RHYTHM, +S1, +S2 - GI/Abdominal Exam GI & Abdominal Exam: Soft, Normal Bowel Sounds. absent: Distended, Firm, Guarding, Rigid, Tenderness - Extremities Exam Extremities Exam: Normal Capillary Refill. absent: Calf Tenderness - Back Exam Back Exam: NORMAL INSPECTION - Neurological Exam Neurological Exam: Alert, Awake - Psychiatric Exam Psychiatric exam: Normal Affect, Normal Mood - Skin Skin Exam: Dry, Normal Color, Warm Assessment and Plan - Assessment and Plan (Free Text) Assessment: 72yoF PMH MM, HTN, HLD, DM, hypothyroid, PAD admitted for anemia, electrolyte imbalance, vomiting probably 2/2 medication reaction after recent change for her MM. Plan: Abdominal Pain 2/2 vomiting - likely 2/2 recent medication change (started Revlimid 03/03) - CT A/P (03/06): no bowel obstruction, no signs of colitis, bony lytic lesions and metastases still seen. - K 2.9, CO2 21 on admission - AST/ALT 63/88 on admission - WBC 1.9, 48.8% Neuts - afebrile, asymptomatic aside from normal Multiple Myeloma symptoms - Zofran 4mg q4 IVP - Heme/Onc consulted: Dr. Bran - help appreciated Acute on Chronic Anemia - Hgb/Hct 8.7/25 NOW, UPTRENDING - Type and Crossed. 2u immuno PRBC transfused in ED Hyponatremia, resolved - received 2L NS in ED Hypophosphatemia -1 pk NeutraPhos -f/u am CMP Hypokalemia - resolved Hypomagnesemia - resolved Multiple Myeloma - see above - Ca 7.8, likely 2/2 MM - Plts 60 - Heme, Dr. Bran following - help appreciated - Oxycodone HCL 5mg q6 PRN oral Hypertension - patient has been hypotensive during this admission - holding most home meds, will add on as needed - home Amlodipine 10mg po daily held - home Atenolol 50mg po daily held - home hydralazine 100mg po q8 held - home Losartan/HCTZ 100-25 po daily held - home Isosorbide Dinitrate 10mg po tid - monitor vitals closely, add home meds as warranted Diabetes Mellitus - home Metformin held - ISS - Accucheck ACHS - hypoglycemia protocol Hyperlipidemia - home Simvastatin held Hypothyroidism - home Levothyroxine 88mcg po daily PAD - home Pentoxifylline 400mg PO BID - home Isosorbide dinitrate 10mg PO daily PPx - DVT: Chemical AC CI 2/2 low platelets, SCDs - GI: Pepcid 20mg IV daily. Consider switching to PO when tolerating po diet. - Diet: HHD - CM/SW consulted for d/c planning Dispo: Discharge tomorrow pending no change in exam/presentation, and toleration of PO. <Rayne Loco V - Last Filed: 03/09/18 14:05> Objective - Vital Signs/Intake and Output Vital Signs (last 24 hours): Temp Pulse Resp BP Pulse Ox 97.9 F 86 20 148/78 97 03/08/18 08:13 03/08/18 08:13 03/08/18 08:13 03/08/18 08:13 03/08/18 08:13 - Labs Labs: 03/08/18 07:25 03/08/18 07:25 PT 13.0 SECONDS (9.7-12.2) H 03/06/18 03:18 INR 1.2 03/06/18 03:18 APTT 26 SECONDS (21-34) 03/06/18 03:18 Attending/Attestation - Attestation I have personally seen and examined this patient.: Yes I have fully participated in the care of the patient.: Yes I have reviewed all pertinent clinical information, including history, physical exam and plan: Yes Notes (Text): This is late computer entry for 03/07/18. Patient seen, examined and case discussed with day-time resident. Patient is tolerating clear diet. Patient blood pressure is no longer hypotensive. Case discussed with nephrology, adjust blood pressure medications accordingly. Patient was visited by heme onc, advised to follow-up this friday. Plan for discharge plan when patient tolerates advance diet.
== END 2018-03-08 14:00 | disposition home or self-care (01) | DRG 566 ==
LOC: C.ER 01:14 → C.9E 04:13 → C.6T 15:05 → C.9E 16:33 → C.3T 16:48
PROVIDERS: ADMIT Hospitalist; ATTEND Hospitalist
DX: E87.1 Hypo-osmolality and hyponatremia (principal); N17.9 Acute kidney failure, unspecified; C90.00 Multiple myeloma not having achieved remission; E87.6 Hypokalemia; E78.5 Hyperlipidemia, unspecified; I10 Essential (primary) hypertension; G89.29 Other chronic pain; E89.0 Postprocedural hypothyroidism; E11.9 Type 2 diabetes mellitus without complications; M85.80 Other specified disorders of bone density and structure, unspecified site; Z86.73 Personal history of transient ischemic attack (TIA), and cerebral infarction without residual deficits; E86.9 Volume depletion, unspecified; D64.9 Anemia, unspecified